=== PATIENT | female | born 1965 | race Caucasian/White ===

== ENCOUNTER → 2018-03-09 14:49 | Outpatient (CLI) | payer MEDICARE, SELFPAY | PROVIDERS: Visit Provider Physician Assistant | DX: R07.9 Chest pain, unspecified (principal); R06.00 Dyspnea, unspecified; I25.10 Atherosclerotic heart disease of native coronary artery without angina pectoris | CPT/HCPCS: 93005 ==

== ENCOUNTER 2020-12-28 19:01 | Emergency (ER) | payer MEDICARE, SELFPAY ==
[2020-12-28 19:01] VITALS: BP 157/67; PULSE 84; RESP 21; TEMP 37.1; O2SAT 93; BMI 53.1
--- NOTE | 2020-12-28 19:02 | HMH.EDGENADL ---
ED Disposition Clinical Impression: Arm pain Qualifiers: Laterality: right Qualified Code(s): M79.601 - Pain in right arm Disposition: Home, Self-Care Condition on Discharge: Good Additional Instructions: Use ice and tylenol. Return if new or worsening symptoms. Referrals: Esthela Parrish APRN [Primary Care Provider] - - Critical Care Critical Care Time: No Attestation: On , the high probability of a clinically significant, sudden or life threatening deterioration of the following system(s) required my full and direct attention, intervention and personal management. The time I documented below is in addition to time spent performing reported procedures but includes the following listed in this critical care notation. Medical Decision Making - Medical Records Medical records reviewed: Yes: I reviewed the patient's medical records. - Miguelito Inquiry Pt receiving controlled substance: No Vital Signs: 12/28/20 19:01 12/28/20 19:06 12/28/20 21:01 Temperature 98.7 F 98.7 F Temperature Source Oral Oral Pulse Rate 82 82 Pulse Rate [Left Radial] 84 Respiratory Rate 21 12 18 Blood Pressure 145/75 H 147/75 H Blood Pressure [Right Arm] 157/67 H Blood Pressure Mean [Right Arm] 97 Blood Pressure Source [Right Arm] Automatic Cuff Blood Pressure Position Sitting Blood Pressure Position [Right Arm] Sitting 02 Sat by Pulse Oximetry 93 L 97 Oxygen Delivery Method Room Air Room Air Room Air Medical Decision Narrative: Patient presents with traumatic right humerus pain. Neurovascular intact distal to injury. Differential includes contusion versus elbow sprain versus bony injury. X-rays of patient's shoulder, humerus, elbow obtained. No obvious bony injury based on my review of x-rays. Patient's pain is at the midshaft of the humerus. Instructed to use Tylenol/ice and ibuprofen with food over the next several days. She will follow-up with her PCP. She agrees. She will return if worsening symptoms. Assessment: Right arm pain status post fall Disposition: Home with follow-up General Adult HPI - General Stated complaint: fall Time Seen by Provider: 12/28/20 19:02 - History of Present Illness HPI narrative: Patient presents after mechanical fall. Patient states she fell onto her right arm. She has a pain to the midshaft of the humerus that is sharp, constant. Not worse with movement. No decreased range of motion elbow/shoulder. This happened 1 hour prior to arrival. No skin changes. No breaks in the skin. No weakness or other symptoms associated. - Related Data Allergies Allergy/AdvReac Type Severity Reaction Status Date / Time povidone-iodine Allergy Mild Verified 01/13/19 21:48 [From BETADINE] soap [From BETADINE] Allergy Mild Verified 01/13/19 21:48 [facility] History - Hepatitis A Screen Attestation statement:: This patient has been screened for Hepatitis A risk factors. - Social History Smoking Status: Current every day smoker Tobacco Type: cigarettes, e-cigarettes # Packs/Day (cigarettes): 1 Alcohol Intake: never Occupational Status: unemployed ROS Obtained: Yes All systems reviewed & no additional complaints Physical Exam - General General appearance: alert, in no apparent distress - Head Head exam: atraumatic, normocephalic - ENT ENT exam: Present: normal exam, normal oropharynx - Chest Chest inspection: Present: normal inspection, symmetric chest wall rise - Respiratory Respiratory exam: Present: normal lung sounds bilaterally. Absent: respiratory distress - Cardiovascular Cardiovascular exam: Present: regular rate, normal rhythm - Abdominal Exam Abdominal exam: Present: soft. Absent: distention - Extremities Exam Extremities exam: Present: normal inspection, full ROM, tenderness (Mild tenderness to palpation right midshaft of the humerus) - Neurological Exam Neurological exam: Present: alert, oriented X3, other (Neurovascular
[2020-12-28 19:06] VITALS: BP 145/75; PULSE 82; RESP 12; O2SAT 97
--- NOTE | 2020-12-28 19:06 | XR_ITS ---
PROCEDURE: XR ELBOW RT MIN 3V CLINICAL INDICATION: R midshaft humerus pain s/p fall Pain COMPARISON: No exams were available for comparison FINDINGS: No fracture or dislocation. No lytic or blastic change. There is normal mineralization. The joint spaces are well-preserved. No significant degenerative/arthritic changes. No erosive changes evident. Other findings:None. IMPRESSION: No acute findings. Dictated by: Kalpesh Booth MD 12/29/2020 05:38 Kalpesh Booth MD in [place] 12/29/2020 05:38
--- NOTE | 2020-12-28 19:06 | XR_ITS ---
PROCEDURE: XR CHEST PORTABLE CLINICAL HISTORY: fall Posttraumatic pain COMPARISON: CR CXR CHEST(2 VIEWS-NOT PORTABLE) from 03/28/2014 CR CXR CHEST(2 VIEWS-NOT PORTABLE) from 09/28/2015 CR CXR2 XR chest AP from 01/13/2019 FINDINGS: Borderline cardiomegaly. Old granulomatous disease. No acute bony abnormalities. IMPRESSION: No acute findings. Dictated by: Kalpesh Booth MD 12/29/2020 05:41 Kalpesh Booth MD in [place] 12/29/2020 05:41
--- NOTE | 2020-12-28 19:06 | XR_ITS ---
PROCEDURE: XR HUMERUS RT CLINICAL INDICATION: R midshaft humerus pain s/p fall Pain COMPARISON: No exams were available for comparison FINDINGS: No fracture or dislocation. No lytic or blastic change. There is normal mineralization. The joint spaces are well-preserved. No significant degenerative/arthritic changes. No erosive changes evident. Other findings:None. IMPRESSION: No acute findings. Dictated by: Kalpesh Booth MD 12/29/2020 05:43 Kalpesh Booth MD in [place] 12/29/2020 05:43
--- NOTE | 2020-12-28 19:06 | XR_ITS ---
PROCEDURE: XR SHOULDER RT MIN 2V CLINICAL INDICATION: R midshaft humerus pain s/p fall Posttraumatic pain COMPARISON: No exams were available for comparison FINDINGS: No fracture or dislocation. No lytic or blastic change. There is normal mineralization. The joint spaces are well-preserved. No significant degenerative/arthritic changes. No erosive changes evident. Other findings:Mild subacromial stenosis IMPRESSION: No acute findings. Dictated by: Kalpesh Booth MD 12/29/2020 05:42 Kalpesh Booth MD in [place] 12/29/2020 05:42
--- NOTE | 2020-12-28 19:07 | XR_ITS ---
PROCEDURE: XR PELVIS 1-2V CLINICAL INDICATION: fall Posttraumatic pain COMPARISON: CR PEL1V XR pelvis 1-2V from 01/13/2019 TECHNIQUE: XR Pelvis AP View FINDINGS: No fracture or dislocation is evident. No significant degenerative change. Numerous metallic coils overlie the lower abdomen and pelvis IMPRESSION: No acute findings. Dictated by: Kalpesh Booth MD 12/29/2020 05:39 Kalpesh Booth MD in [place] 12/29/2020 05:39
[2020-12-28 21:01] VITALS: BP 147/75; PULSE 82; RESP 18; TEMP 37.1
== END 2020-12-28 21:19 | disposition home or self-care (01) ==
PROVIDERS: Emergency Provider Emergency Medicine; PCP Nurse Practitioner Family
DX: M79.601 Pain in right arm (principal); W01.0XXA Fall on same level from slipping, tripping and stumbling without subsequent striking against object, initial encounter; Y92.019 Unspecified place in single-family (private) house as the place of occurrence of the external cause; F17.290 Nicotine dependence, other tobacco product, uncomplicated
CPT/HCPCS: 71045; 72170; 73030; 73060; 73080; 99282

== ENCOUNTER 2021-02-22 15:27 | Emergency (ER) | payer MEDICARE, SELFPAY ==
[2021-02-22 15:30] VITALS: BP 126/85; PULSE 88; RESP 18; O2SAT 94; BMI 54.9
--- NOTE | 2021-02-22 15:46 | XR_ITS ---
PROCEDURE: XR FOOT LT MIN 3V CLINICAL INDICATION: DROPPED O2 TANK ON FOOT COMPARISON: No exams were available for comparison FINDINGS: There is a mildly comminuted intra-articular fracture of the distal phalanx of the 3rd digit with some overlying soft tissue swelling. No other fracture. No dislocation. Some diffuse degenerative changes are present. There is slight displacement of the fracture IMPRESSION: Mildly comminuted and displaced intra-articular fracture of the distal phalanx of the 3rd digit with some overlying soft tissue swelling. Moderate plantar and small posterior calcaneal spurs. Dictated by: Antoni Morales 02/22/2021 17:13 Antoni Morales in [place] 02/22/2021 17:13
--- NOTE | 2021-02-22 15:56 | PC.NURSE ---
PATIENT SENT TO ER PER Frances SHEIKH APRN FOR FURTHER EVALUATION. REPORT GIVEN TO Rocky DE LA CRUZ RN
[2021-02-22 16:20] VITALS: BP 120/57; PULSE 77; O2SAT 97
[2021-02-22 16:21] VITALS: BP 120/54; PULSE 77; RESP 16; TEMP 36.9; O2SAT 98; BMI 54.9
[2021-02-22 16:30] VITALS: PULSE 79; O2SAT 96
--- NOTE | 2021-02-22 16:41 | HMH.EDGENADL ---
ED Disposition Clinical Impression: Open fracture of phalanx of left third toe Qualifiers: Encounter type: initial encounter Qualified Code(s): S92.502B - Displaced unspecified fracture of left lesser toe(s), initial encounter for open fracture Disposition: Home, Self-Care Condition on Discharge: Good Instructions: DI for Toe Fracture Prescriptions: Hydrocod/Acet 5/325 mg [[place] 5/325mg tablet] 1 tab PO Q6HP PRN #10 tab PRN Reason: Moderate Pain Transmission Status: Sent to [facility] # Amoxicillin/Potassium Clav [Amox-Clav 875-125 mg Tablet] 1 tab PO BID #14 tab Transmission Status: Pending to [facility] # Referrals: Esthela Parrish APRN [Primary Care Provider] - Shanel Scott DPM [Staff Physician] - 3 days (Call in morning for appointment) - Critical Care Critical Care Time: No Attestation: On 02/22/21, the high probability of a clinically significant, sudden or life threatening deterioration of the following system(s) required my full and direct attention, intervention and personal management. The time I documented below is in addition to time spent performing reported procedures but includes the following listed in this critical care notation. Medical Decision Making - Medical Records Medical records reviewed: Yes: I reviewed the patient's medical records. - Miguelito Inquiry Pt receiving controlled substance: Yes Miguelito was queried for this patient: No Reason not queried -: Emergent pt cond-no time Risks and benefits of using a controlled substance: were discussed with pt by me Vital Signs: 02/22/21 15:30 02/22/21 16:20 02/22/21 16:21 Temperature 98.4 F Temperature Source Oral Pulse Rate 77 Pulse Rate [Right Brachial] 88 77 Respiratory Rate 18 16 Blood Pressure 120/57 L Blood Pressure [Right Arm] 126/85 120/54 L Blood Pressure Mean [Right Arm] 98 76 Blood Pressure Source [Right Arm] Automatic Cuff Blood Pressure Position [Right Arm] Sitting Sitting 02 Sat by Pulse Oximetry 94 L 97 98 Oxygen Delivery Method Nasal Cannula Nasal Cannula Room Air Nasal Cannula Oxygen Flow Rate (LPM) 2 2 2 02/22/21 16:30 Temperature Temperature Source Pulse Rate 79 Pulse Rate [Right Brachial] Respiratory Rate Blood Pressure Blood Pressure [Right Arm] Blood Pressure Mean [Right Arm] Blood Pressure Source [Right Arm] Blood Pressure Position [Right Arm] 02 Sat by Pulse Oximetry 96 Oxygen Delivery Method Oxygen Flow Rate (LPM) Orders (Tests/Meds): ED MEDICATIONS Generic Name Dose Route Start Last Admin Trade Name Freq PRN Reason Stop Dose Admin Cefazolin Sodium 1 gm 02/22/21 17:48 Cefazolin 1gm Vial IM 02/22/21 17:49 ONCE ONE Protocol Discontinued Medications Generic Name Dose Route Start Last Admin Trade Name Freq PRN Reason Stop Dose Admin Hydrocodone Bitart/Acetaminophen 1 tab 02/22/21 16:17 02/22/21 16:35 Hydrocodone 10mg/Apap 325mg Tab PO 02/22/21 16:18 1 tab ONCE ONE Administration - Radiology Data #1 Image(s): Foot/Toes Image Reviewed: Yes I reviewed the patient's radiology results, Yes I reviewed the patient's radiology image, Yes I have reviewed radiologist's interpretation IMPRESSION: Mildly comminuted and displaced intra-articular fracture of the distal phalanx of the 3rd digit with some overlying soft tissue swelling. Moderate plantar and small posterior calcaneal spurs. - Reevaluation(s) Time: 17:49 Reevaluation #1: On reevaluation, patient is feeling better. We did perform digital block. She has evidence of open comminuted fracture. The nailbed actually appears to be intact. On further exploration laceration is the lateral aspect of the nail. I did thoroughly irrigate the wound. There was some wound debridement. Other than that, I do not believe the patient would benefit from suture repair. I did speak to podiatry and have arranged for urgent follow-up. Patient was
--- NOTE | 2021-02-22 18:10 | PC.NURSE ---
ADAPTIC DSDING APPLIED TO TOE. WALKING SHOE TO LT FOOT
[2021-02-22 18:16] VITALS: BP 124/74; PULSE 74; RESP 16; TEMP 36.6; O2SAT 98
== END 2021-02-22 18:20 | disposition home or self-care (01) ==
LOC: UTC 15:34 → ER 15:59
PROVIDERS: Emergency Provider Nurse Practitioner Family; PCP Nurse Practitioner Family
DX: S92.502B Displaced unspecified fracture of left lesser toe(s), initial encounter for open fracture (principal); W22.8XXA Striking against or struck by other objects, initial encounter; Y92.019 Unspecified place in single-family (private) house as the place of occurrence of the external cause; F17.290 Nicotine dependence, other tobacco product, uncomplicated
CPT/HCPCS: 73630; 96372; 99282

== ENCOUNTER 2021-03-19 14:21 | Emergency (ER) | payer MEDICARE, SELFPAY ==
[2021-03-19 14:25] VITALS: BP 129/61; PULSE 88; RESP 18; TEMP 36.7; O2SAT 94; BMI 43.2
--- NOTE | 2021-03-19 14:36 | HMH.EDUTC ---
[facility] [place] Clinical Impression: Encounter for laboratory testing for COVID-19 virus Disposition: Home, Self-Care Condition on Discharge: Good Instructions: Preventing the Spread of Coronavirus Discharge Instructions Additional Instructions: You were tested for today for COVID19 your test result should be back in the next 24-48 hours, you may call to the [facility] to see if your test results are back in the next 48 hours [phone] [facility] hours are 9am-9pm You was given a handout with instructions for Self Quarantine and Self isolation for while you wait on test results and what to do if they are positive If you are positive the Health Dept will be contacting you also Referrals: Esthela Parrish APRN [Primary Care Provider] - As needed Time of Disposition: 14:36 Medical Decision Making - Miguelito Inquiry Pt receiving controlled substance: No Miguelito was queried for this patient: No Vital Signs: 03/19/21 14:25 03/19/21 14:37 Temperature 98.0 F 98.0 F Temperature Source Temporal Artery Scan Pulse Rate 88 Pulse Rate [Left Brachial] 88 Respiratory Rate 18 18 Blood Pressure 129/61 Blood Pressure [Left Arm] 129/61 Blood Pressure Mean [Left Arm] 83 Blood Pressure Source [Left Arm] Automatic Cuff Blood Pressure Position [Left Arm] Sitting 02 Sat by Pulse Oximetry 94 L Oxygen Delivery Method Room Air [facility] [place] - General Stated complaint: covid test Time Seen by Provider: 03/19/21 14:36 Mode of Arrival: Ambulatory Source of Information: Patient Limitations: No Limitations Description of Symptoms (Recalled from Triage Doc. by RN): COVID TEST HEENT Symptoms (Recalled from RN notes): No Resp Symptoms (Recalled from RN notes): No Skin Symptoms (Recalled from RN notes): No MS Symptoms (Recalled from RN notes): No Functional Status (Recalled from RN notes): WNL - History of Present Illness Provider Complaint: Patient states that she was scheduled for surgery State that she has been tested several times for COVID States that the first test was postive and since then she has had negative test since and wanted to get tested again to make sure that it was negative too - Related Data Home Medications Medication Instructions Recorded Confirmed atenolol 25 mg tablet 25 mg PO tab 02/24/21 02/24/21 bupropion HCl 100 mg tablet mg PO 02/24/21 02/24/21 clonazepam 1 mg tablet 1 mg PO tab 02/24/21 02/24/21 fluticasone furoate 200 INHALATION 02/24/21 02/24/21 mcg-vilanterol 25 mcg/dose inhalation powder isosorbide mononitrate 30 mg mg PO 02/24/21 02/24/21 tablet,extended release 24 hr lamotrigine 150 mg tablet 150 mg PO tab 02/24/21 02/24/21 losartan 25 mg tablet 25 mg PO tab 02/24/21 02/24/21 lurasidone 60 mg tablet 60 mg PO tab 02/24/21 02/24/21 omeprazole 40 mg-sodium 1 cap PO cap 02/24/21 02/24/21 bicarbonate 1.1 gram capsule quetiapine 100 mg tablet 100 mg PO tab 02/24/21 02/24/21 trazodone 100 mg tablet 100 mg PO tab 02/24/21 02/24/21 Previous Rx's Medication Instructions Recorded Amoxicillin/Potassium Clav 1 tab PO BID #14 tab 02/22/21 [Amox-Clav 875-125 mg Tablet] Hydrocod/Acet 5/325 mg [[place] 1 tab PO Q6HP PRN #10 tab 02/22/21 5/325mg tablet] Allergies Allergy/AdvReac Type Severity Reaction Status Date / Time povidone-iodine Allergy Mild Verified 02/24/21 13:22 [From BETADINE] soap [From BETADINE] Allergy Mild Verified 02/24/21 13:22 - Worker's Comp Is this a Worker's Comp case?: No H History - Hepatitis A Screen Drug use history?: No High risk sexual behaviors?: No History of sexually transmitted infection?: No Currently employed?: No Childcare worker?: No Do you have indoor plumbing?: Yes Do you have electricity?: Yes Attestation statement:: This patient has been screened for Hepatitis A risk factors. I have reviewed the patient's past medical history: Yes Medical History: Reports:: Anxiety, Lung Disease Other Surgeries: Yes: Ildefonso
[2021-03-19 14:37] VITALS: BP 129/61; PULSE 88; RESP 18; TEMP 36.7; O2SAT 94
== END 2021-03-19 14:42 | disposition home or self-care (01) ==
PROVIDERS: Emergency Provider Nurse Practitioner; PCP Nurse Practitioner Family
DX: Z20.822 Contact with and (suspected) exposure to COVID-19 (principal); J44.9 Chronic obstructive pulmonary disease, unspecified; F41.9 Anxiety disorder, unspecified; Z79.899 Other long term (current) drug therapy; F17.210 Nicotine dependence, cigarettes, uncomplicated
CPT/HCPCS: G0463; 99202; U0003

== ENCOUNTER → 2021-03-31 13:40 | Outpatient (CLI) | payer MEDICARE, SELFPAY ==
--- NOTE | 2021-03-31 13:53 | XR_ITS ---
PROCEDURE: XR FOOT WT BEARING LT 3V CLINICAL INDICATION: fracture evaluation COMPARISON: CR XR FOOT LT MIN 3V from 02/22/2021 FINDINGS: Again noted is a mildly comminuted fracture of distal phalanx of the 3rd toe with moderate diffuse soft tissue swelling about the mid and distal phalanges. There is a small accessory navicular bone. There is flattening of the plantar arch, calcaneal spurs are again as described previously. IMPRESSION: Stable comminuted fracture distal phalanx 3rd toe, mild pes planus Dictated by: Dr. Alen Cesar MD 03/31/2021 15:29 Dr. Alen Cesar MD in [place] 03/31/2021 15:29
== END ==
LOC: RAD 13:44
PROVIDERS: PCP Nurse Practitioner Family; Visit Provider Podiatrist
DX: S92.912A Unspecified fracture of left toe(s), initial encounter for closed fracture (principal)
CPT/HCPCS: 73630

== ENCOUNTER → 2022-04-13 12:54 | Outpatient (CLI) | payer MEDICARE, SELFPAY ==
[2022-04-13 13:40] VITALS: PULSE 73; PULSE 78
--- NOTE | 2022-04-13 14:35 | CT_ITS ---
FINAL REPORT CLINICAL HISTORY: lung cancer screening Former smoker, quit 4 months ago. smoked 1.5 ppd x 50 years copd, emphysema, cad. no family hx FINDINGS: Low-Dose Chest CT Axial images were obtained from the lung apex to the mid abdomen by computed tomography. Low-dose protocol was utilized. CTDI vol (mGy): 2.90 DLP (mGy-cm): 109.60 There is no axillary adenopathy. There is no hilar or mediastinal adenopathy. The heart is proper size. There is no pericardial or pleural effusion. Limited images of the upper abdomen are unremarkable. Lung window images demonstrate no suspicious infiltrate or nodule. There are mild changes of emphysema with mild pulmonary scarring. There are calcified granulomas in the left lower lobe. There are moderate vascular calcifications. There are postoperative changes from cholecystectomy and from presumed gastric bypass. IMPRESSION: Lung RADS category 1. Recommend 12 month follow-up low-dose chest CT. Reviewed, Interpreted and Dictated by Joel Garcia III, MD Transcribed by Macie Trinidad Authenticated and . [facility]
== END ==
PROVIDERS: PCP Nurse Practitioner Family; Visit Provider Internal Medicine Pulmonary Disease
DX: R06.00 Dyspnea, unspecified (principal); Z87.891 Personal history of nicotine dependence; Z12.2 Encounter for screening for malignant neoplasm of respiratory organs
CPT/HCPCS: 71271; 94060; 94618; 94640; 94727; 94729; 94762

== ENCOUNTER → 2022-05-17 11:41 | Outpatient (CLI) | payer MEDICARE, SELFPAY ==
--- NOTE | 2022-05-17 11:46 | NM_ITS ---
APPROVED REPORT Exam: Nuclear Stress Test Indication: Abnormal EKG, SOB, Obesity, CAD, Hx of LA, CHF Patient Location: Outpatient Stress Tech: Shannan Dodd [place] Tech:Conchis Bardales, ARRT, RT (R)(N) Ht: 5 ft 4 in Wt: 339 lbs Bra Size: 52G HR: 65 bpm BP: 141/61 mmHg BSA: 2.45 m2 TID: 1.59 BMI: 58.1 History: Abnormal EKG, SOB, Obesity, CAD, Hx of LA, CHF Procedure: Patient received a 0.4 mg of intravenous Lexiscan, resting heart rate 65 bpm, resting blood pressure 141/61 mmHg, with Lexiscan maximum heart rate achived was 92 bpm which is Less than 85 % of the maximum predicted heart rate and blood pressure was 141/61 mmHg. With Lexiscan, patient denied any complaint of chest pain. Electrocardiogram Resting electrocardiogram shows sinus rhythm possible inferior infarct age-indeterminate, with Lexiscan there is less than 1.[address] segment depression from the baseline EKG. The EKG portion of the Lexiscan is nondiagnostic. Cardiac Stress and Resting SPECT Images: Cardiac Stress and Resting SPECT images were obtained using technetium 99m Myoview 31.4 mCi stress and 10.12 mCi at rest. Gated SPECT for analysis of segmental wall motion and calculation of the ejection fraction was present. Prone images were not obtained. Cardiac stress and rest SPECT images show uniform myocardial activity without segmental perfusion abnormality, compared to ejection fraction is over 65% with no regional wall motion abnormality, right ventricle is normal size and contractility, however there is transient ischemic dilatation of the left ventricle seen Raising the concerns for presence of balanced ischemia. Conclusion: 1. The EKG portion of the Lexiscan is nondiagnostic. 2. No scintigraphic evidence of reversible ischemia seen, computer derived ejection fraction is over 65% with no regional wall motion abnormality, however there is transient ischemic dilatation of the left ventricle seen, raising the concern for presence of balanced ischemia. 3. Abnormal Lexiscan Myoview study. Electronically signed by : Genaro Freeman MD 05/17/2022 19:55:47
--- NOTE | 2022-05-17 12:37 | CA_ITS ---
APPROVED REPORT EXAM: Comprehensive 2D, Doppler, and color-flow Echocardiogram Stockroom Selector: Meenu Washington, RCS, RVS Ht: 5 ft 4 in Wt: 341lbs BSA: 2.45 BP: 114/78 mmHg Indications: Obesity, COPD, SOB, CAD, Abn EKG Echo Enhancing Agent Comments: Technically limited acoustics with non-intact skin and patient intolerance to exam. Best exam possible. 2D Dimensions IVSd 1.21 cm LVEF (Visual) 69.20 % PWd 1.16 cm LVDd 5.55 cm LVDs 3.37 cm Aortic Root 3.66 cm Left Atrium 3.66 cm LVOT 2.00 cm (M/F) 1.5-2.5 M-Mode Dimensions RVDd 2.58 cm (0.9-2.6) LA Diam 3.86 cm (1.9-4.0) LVDd 5.35 cm (3.5-5.7) Ao Diam 3.81 cm (2.0-3.7) LVDs 3.61 cm (3.5-5.7) IVSd 1.22 cm (0.6-1.1) PWd 0.89 cm (0.6-1.1) EF (Teich) 60.40% EPSs 0.61 cm FS 32.50% EDV (Teich) 138.30 mL ESV (Teich) 54.80 mL LV Diastology E Decel Time 197.00 (160-240 msec) E/A Ratio 0.91 MED E' 9.70 (< 7 cm/sec) MED A' 11.80 cm/s E'/MED E' Ratio 7.53 (>14) LAT E' 8.90 (<10 cm/sec) LAT A' 10.80 cm/s E/LAT E' Ratio 8.20 (>14) Aortic Valve LVOT Max 112.00 (70-110 cm/s) LVOT VTI 27.10 cm AoV Peak Lui. 140.00 (50-130 cm/s) AO Peak GR. 7.90 mmHg AO Mean GR. 4.00 (<5 mmHg) AO VTI 30.38 (18-25 cm) VANGIE (VTI) 2.80 (2.5-4.5 cm2) Mitral Valve MV A Velocity 80.00 (40-130 cm/s) E/A Ratio 0.91 MV Decel. Time 197.00 (160-240 ms) MV PHT 57.00 ms Pulmonary Valve PV Peak Velocity 79.00 (50-150 cm/s) Left Ventricle Technically difficult study because of the patient factors and poor acoustic windows. Left atrium is mildly enlarged, left ventricle is normal size mild concentric left ventricular hypertrophy, estimated ejection fraction 55% with no regional wall motion abnormality in the obtained views. Grade 1 diastolic dysfunction seen without tissue Doppler evidence of raise left atrial pressure. Right Ventricle Right atrium and right ventricle are normal size and contractility. Aortic Valve Aortic valve is grossly normal, there is no aortic stenosis aortic insufficiency. Mitral Valve Mitral valve grossly normal, there is trace mitral regurgitation. Tricuspid Valve Tricuspid grossly normal, there is trace tricuspid regurgitation, tricuspid regurgitation jet velocity is inadequate for calculation of the right ventricular systolic pressure. Pulmonic Valve Pulmonic valve is poorly visualized. Great Vessels Aortic root is normal size. Inferior vena cava is poorly visualized. Pericardium No significant pericardial effusion noted. Conclusion 1. Technically difficult study because of the patient factors and poor acoustic windows. 3. Mildly enlarged left atrium, normal left ventricular size mild concentric left ventricular hypertrophy, estimated ejection fraction 55% with no regional wall motion abnormality, grade 1 diastolic dysfunction seen without tissue Doppler evidence of raise left atrial pressure. 3. Trace mitral and tricuspid regurgitation. 4. No significant pericardial effusion noted. Electronically signed by : Genaro Freeman MD 05/17/2022 19:14:26
--- NOTE | 2022-05-17 13:32 | HMH.ITSHM ---
Current Home Medications as stated by this patient Celia Rivero or front desk representative. []TRAZODONE SPIRONOLACTONE ROSUVASTATIN QUETIAPINE LURASIDENE LOSARTAN ISOSORBIDE IPRATROPIUM FUROSEMIDE BUPROPION BUDESONIDE ATENOLOL ASA ALBUTEROL
--- NOTE | 2022-05-17 14:11 | CA_ITS ---
APPROVED REPORT Exam: Pharmacologic Technologist: Shannan Gannon, Ht: 5 ft 4 in Wt: 341 lbs BSA: 2.45 m2 HR: 61 bpm BP: 141/61 mmHg Indications: SOA, CAD Medical History Medications: Isosorbide,,,,, Aspirin,,,,, Atenolol,,,,, Trazadone,,,,, Losartan,,,,, Albuterol,,,,, BuPROPION,,,,, SpirOnolactone,,,,, Quetiapine,,,,, RoSUVASTATIN,,,,, LUrasidone,,,,, Furosemide,,,,, Stress Test Details Test: LEXISCAN Reason for pharmacologic stress test: physical limitation. HR Resting HR: 65 bpm Max Heart Rate (APMHR): 163.208686 bpm Max HR Achieved: 92 bpm Target HR (85% APMHR): 138.228397 bpm % of APMHR: 56.44 Recovery HR: 74 bpm BP Resting BP: 141/61 mmHg Max BP: 141/61 mmHg Recovery BP: 129.0/64.0 mmHg ECG Resting ECG: NSR, old inferior OR, low voltage QRS Clinical Exercise duration: 04:01 min Highest Stage Achieved: Stress ECG Conclusion Symptoms: SOA, brief stomach discomfort. Arrhythmias/Ectopy: None ST-T Changes: No significant changes. Conclusion: Unremarkable Lexiscan stress. Myoview images reported separately. Electronically signed by : Genaro Freeman MD 05/17/2022 19:53:08
== END ==
LOC: RAD 11:42
PROVIDERS: PCP Nurse Practitioner Family; Visit Provider Nurse Practitioner
DX: I25.10 Atherosclerotic heart disease of native coronary artery without angina pectoris (principal); I50.9 Heart failure, unspecified; R06.00 Dyspnea, unspecified; R94.31 Abnormal electrocardiogram [ECG] [EKG]
CPT/HCPCS: 78452; 93017; 93306; A9502; J2785

== ENCOUNTER → 2022-05-24 10:57 | Outpatient (CLI) | payer MEDICARE, SELFPAY ==
[2022-05-24 11:57] LABS: Basophils % 0.6 % (0.1-2.0); Eosinophils % 0.6 % (0.1-12.0); Hematocrit 47.4 % (37.0-47.0); Hemoglobin 14.9 g/dL (12.2-16.2); Lymphocytes # 1.3 K/mm3 (0.7-4.5); Lymphocytes % 26.1 % (10-50); Mean Corpuscular HGB Conc 31.5 g/dL (31.8-35.4); Mean Corpuscular Hemoglobin 30.8 pg (27.0-31.2); Mean Corpuscular Volume 97.7 fl (81-99); Mean Platelet Volume 8.3 fl (7.4-10.4); Monocytes # 0.4 K/mm3 (0.1-1.0); Neutrophils # 3.4 K/mm3 (1.8-7.8); Neutrophils % 65.6 % (37.0-80.0); Platelet Count 254 K/mm3 (142-424); Red Blood Count 4.85 M/mm3 (4.20-5.40); Red Cell Distribution Width 13.9 % (11.5-17.5); White Blood Count 5.1 K/mm3 (4.8-10.8)
[2022-05-24 13:09] LABS: Chloride 99 mmol/L (98-107); Potassium 4.6 mmoL/L (3.5-5.1); Sodium 140 mmol/L (136-145)
[2022-05-24 13:12] LABS: Blood Urea Nitrogen 8 mg/dl (7-17); Estimated Glomerular Filt Rate 103 ml/min (>60); GFR (African American) 125 ML/MIN (>60)
[2022-05-24 13:13] LABS: Anion Gap 14.6 mEq/L (5-15); Calcium 8.4 mg/dl (8.4-10.2); Carbon Dioxide 31 mmol/L (22.0-30.0); Glucose 91 mg/dl (74-100)
== END ==
PROVIDERS: PCP Nurse Practitioner Family; Visit Provider Physician Assistant
DX: I25.10 Atherosclerotic heart disease of native coronary artery without angina pectoris (principal); I50.9 Heart failure, unspecified; I51.7 Cardiomegaly; R06.00 Dyspnea, unspecified; R94.30 Abnormal result of cardiovascular function study, unspecified; R94.31 Abnormal electrocardiogram [ECG] [EKG]; Z20.822 Contact with and (suspected) exposure to COVID-19
CPT/HCPCS: 36415; 80048; 85025; C9803; U0003; U0005

== ENCOUNTER → 2022-06-09 14:19 | Outpatient (CLI) | payer MEDICARE, SELFPAY | PROVIDERS: PCP Nurse Practitioner Family; Visit Provider Internal Medicine | DX: I25.10 Atherosclerotic heart disease of native coronary artery without angina pectoris (principal); Z01.812 Encounter for preprocedural laboratory examination; Z20.822 Contact with and (suspected) exposure to COVID-19 | CPT/HCPCS: C9803; U0003; U0005 ==

== ENCOUNTER 2022-06-10 08:52 | Day surgery (SDC) | payer MEDICARE, SELFPAY ==
[2022-06-10] VITALS (13 sets, daily range): BP systolic 131–157; BP diastolic 80–95; PULSE 59–87; RESP 13–18; TEMP 36.9; O2SAT 90–96; BMI 58.3
--- NOTE | 2022-06-10 | IR_ITS ---
APPROVED REPORT Patient Location: Outpatient PROCEDURES Right heart catheterization Left heart catheterization Left ventriculogram Selective coronary angiogram INDICATION Abnormal Myoview, Known coronary disease, Pulmonary hypertension, Worsening dyspnea Informed consent was obtained prior to the procedure. COMPLICATIONS None Estimated Blood Loss: Less than 10 mls TECHNIQUE One percent lidocaine was used to anesthetize the right anterior aspect of the right wrist. The right radial artery was accessed via the Seldinger technique and a 6 Thai hydrophilic sheath was placed in the right radial artery. Following this one percent lidocaine was used to anesthetize the right anterior aspect of the right neck. The right internal jugular vein was accessed via the Seldinger technique and a 7 Thai sheath was placed in the right internal jugular vein. Following this an arterial cocktail was administered using 5000U heparin, 2.5 mg verapamil, 1mg Lidocaine and 800mcg nitroglycerin into the right radial sheath. A papa catheter was used to perform left heart catheterization left ventriculogram and selective coronary angiography while a Donie-Silvana catheter was used to perform right heart catheterization. Saturations were obtained in the pulmonary artery and right atrium. At the end the diagnostic angiogram therapeutic heparin was administered giving a therapeutic ACT and the guide catheter was placed in the left main artery followed by a Choice PT extra-support wire. A 3 mm x 26 mm resolute Petr stent was deployed at 20 aroldo reducing the stenosis to 0%. Intracoronary nitroglycerin was then administered and a stenosis was identified distally. A 2.5 x 12 mm resolute Petr stent was deployed at 18 mmHg reducing the stenosis. The balloon was brought back between the 2 stents and deployed at 24 aroldo to post dilate. At the end of the procedure the arterial sheath was removed good hemostasis was achieved using Traclet band. Patient was transferred to the postop holding area in stable condition for venous sheath removal. ANGIOGRAPHIC RESULTS The left main artery Normal The left anterior descending artery Has proximal mild to 10 to 20% stenoses with a mid vessel stent which has a concentric 70% in-stent restenotic lesion The circumflex artery Is nondominant and has 20 and 30% stenoses in the first and second obtuse marginal The right coronary artery Is a large dominant vessel and has severe proximal vascular ectasia followed by what appears to be an angiographically normal area followed by additional severe distal vascular ectasia. The vascular ectasia EXTR appears to extend into the posterior descending artery however there appears to be no focal stenosis greater than 20 The GRUBBS ventriculogram reveals Normal 65% The left ventricular end-diastolic pressure 20 mmHg Right atrial pressure 12 mmHg Pulmonary artery pressure 35/22 mmHg Pulmonary occlusion pressure 20 mmHg Right atrial and pulmonary saturation 85% Aortic saturation 97% Hemoglobin 14.9 Cardiac output 12.6 L/min IMPRESSION Coronary disease as described above Successful stent to the mid LAD severe disease reduced to 0% with 2 drug-eluting stent Mild pulmonary hypertension Elevated cardiac output consistent with diastolic dysfunction hypertensive heart disease PLAN 1. Dual antiplatelet therapy 2. Treatment diastolic dysfunction 3. Risk factor modification 4. Cardiac rehab 5. LDL less than 55 but she at high intensity statin 6. Recommend sleep study Electronically signed by : Darien Flaherty MD 06/10/2022 13:05:35
[2022-06-10 11:57] LABS: CATHL Activated Clotting Time > 400 SEC (74-125); CATHL Venous O2 SAT 85.3 % (75-80)
--- NOTE | 2022-06-10 14:12 | P.CONPHA_ITS ---
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 -MED MATAMOROS, DAVIDD
== END 2022-06-10 15:00 | disposition home or self-care (01) ==
PROVIDERS: PCP Nurse Practitioner Family; Visit Provider Internal Medicine
DX: I27.20 Pulmonary hypertension, unspecified (principal); R94.39 Abnormal result of other cardiovascular function study; I11.0 Hypertensive heart disease with heart failure; I77.1 Stricture of artery; Z79.899 Other long term (current) drug therapy; F17.210 Nicotine dependence, cigarettes, uncomplicated; I50.33 Acute on chronic diastolic (congestive) heart failure; T82.855A Stenosis of coronary artery stent, initial encounter; Y83.1 Surgical operation with implant of artificial internal device as the cause of abnormal reaction of the patient, or of later complication, without mention of misadventure at the time of the procedure; I25.10 Atherosclerotic heart disease of native coronary artery without angina pectoris
CPT/HCPCS: 82810; 85347; 92928; 93460; 99152; 99153; C1725; C1760; C1769; C1876; C1894; C9600; J1644; Q9967

== ENCOUNTER → 2022-07-05 14:13 | Outpatient (CLI) | payer MEDICARE, SELFPAY | LOC: SL 14:15 | PROVIDERS: PCP Nurse Practitioner Family; Visit Provider Nurse Practitioner Family | DX: G47.33 Obstructive sleep apnea (adult) (pediatric) (principal); R06.09 Other forms of dyspnea; G47.9 Sleep disorder, unspecified; R40.0 Somnolence; G47.36 Sleep related hypoventilation in conditions classified elsewhere | CPT/HCPCS: G0399 ==

== ENCOUNTER → 2022-07-22 11:45 | Outpatient (CLI) | payer MEDICARE, SELFPAY ==
--- NOTE | 2022-07-22 11:57 | XR_ITS ---
FINAL REPORT TECHNIQUE: Chest PA & Lateral CLINICAL HISTORY: cough COMPARISON: December 2020 FINDINGS: 2 views of the chest were performed. The heart size is normal. The mediastinum is within normal limits. There are chronic changes in the lung bases. There is no acute cardiopulmonary process. There are no pleural effusions. There is no pneumothorax. The bony thorax appears intact. IMPRESSION: No acute cardiopulmonary process. Reviewed, Interpreted and Dictated by Edin Servin MD Transcribed by Bakari Riggins Authenticated and [facility]
[2022-07-22 12:35] LABS: Chloride 98 mmol/L (98-107); Sodium 141 mmol/L (136-145)
[2022-07-22 12:36] LABS: Potassium 3.7 mmoL/L (3.5-5.1)
[2022-07-22 12:38] LABS: Anion Gap 15.7 mEq/L (5-15); Blood Urea Nitrogen 11 mg/dl (7-17); Carbon Dioxide 31 mmol/L (22.0-30.0); Estimated Glomerular Filt Rate 86 ml/min (>60); GFR (African American) 104 ML/MIN (>60)
[2022-07-22 12:39] LABS: Calcium 9.7 mg/dl (8.4-10.2); Glucose 117 mg/dl (74-100)
== END ==
LOC: LAB 11:47
PROVIDERS: PCP Nurse Practitioner Family; Visit Provider Nurse Practitioner Family
DX: E66.01 Morbid (severe) obesity due to excess calories (principal); I25.118 Atherosclerotic heart disease of native coronary artery with other forms of angina pectoris; J44.9 Chronic obstructive pulmonary disease, unspecified; R06.09 Other forms of dyspnea; R94.31 Abnormal electrocardiogram [ECG] [EKG]; Z68.43 Body mass index [BMI] 50.0-59.9, adult; R05.9 Cough, unspecified
CPT/HCPCS: 36415; 71046; 80048

== ENCOUNTER → 2022-12-15 11:27 | Outpatient (CLI) | payer MEDICARE, SELFPAY ==
[2022-12-15 11:55] LABS: Basophils # 0.1 K/mm3 (0-0.2); Basophils % 1.3 % (0.1-2.0); Eosinophils # 0.1 K/mm3 (0.0-0.4); Eosinophils % 1.8 % (0.1-12.0); Hemoglobin 14.6 g/dL (12.2-16.2); Lymphocytes # 1.3 K/mm3 (0.7-4.5); Lymphocytes % 18.6 % (10-50); Mean Corpuscular HGB Conc 32.5 g/dL (31.8-35.4); Mean Corpuscular Hemoglobin 30.6 pg (27.0-31.2); Mean Corpuscular Volume 94.3 fl (81-99); Monocytes # 0.5 K/mm3 (0.1-1.0); Monocytes % 6.6 % (1.7-9.3); Neutrophils % 71.7 % (37.0-80.0); Platelet Count 251 K/mm3 (142-424); Red Blood Count 4.77 M/mm3 (4.20-5.40)
[2022-12-15 11:59] LABS: Chloride 99 mmol/L (98-107); Potassium 4.3 mmoL/L (3.5-5.1); Sodium 138 mmol/L (136-145)
[2022-12-15 12:01] LABS: Blood Urea Nitrogen 13 mg/dl (7-17); Estimated Glomerular Filt Rate 74 ml/min (>60); GFR (African American) 89 ML/MIN (>60)
[2022-12-15 12:02] LABS: Alanine Aminotransferase 50 U/L (12-78); Albumin Level 4.7 g/dl (3.5-5.0); Alkaline Phosphatase 64 U/L (38-126); Anion Gap 12.3 mEq/L (5-15); Aspartate Amino Transferase 69 U/L (14-36); Bilirubin,Direct 0.1 mg/dl (0.0-0.4); Bilirubin,Indirect 0.3 mg/dL (0.0-0.9); Bilirubin,Total 0.4 mg/dl (0.2-1.3); Bilirubin,Unconjugated 0.3 mg/dL (0.0-1.1); Calcium 9.1 mg/dl (8.4-10.2); Carbon Dioxide 31 mmol/L (22.0-30.0); Chol/HDL Ratio 3.1 (1-3.5); Cholesterol 150 mg/dl (140-200); Glucose 104 mg/dl (74-100); HDL Cholesterol 49 mg/dl (40-60); Total Protein,Serum 7.8 g/dl (6.3-8.2); Triglycerides 113 mg/dl (30-150); VLDL Cholesterol 23 mg/dL (0-40)
[2022-12-15 12:12] LABS: NT Pro Brain Natriuretic Pep. 48.1 pg/mL (0-125)
[2022-12-15 12:15] LABS: Troponin I < 0.01 ng/ml (0.00-0.034)
[2022-12-15 12:35] LABS: Free T4 (Free Thyroxine) 1.03 ng/dl (0.78-2.19)
== END ==
PROVIDERS: PCP Nurse Practitioner Family; Visit Provider Physician Assistant
DX: E66.01 Morbid (severe) obesity due to excess calories (principal); E78.2 Mixed hyperlipidemia; I25.10 Atherosclerotic heart disease of native coronary artery without angina pectoris; I27.20 Pulmonary hypertension, unspecified; I50.33 Acute on chronic diastolic (congestive) heart failure; J44.9 Chronic obstructive pulmonary disease, unspecified; R06.02 Shortness of breath; R06.09 Other forms of dyspnea; R07.9 Chest pain, unspecified; R94.31 Abnormal electrocardiogram [ECG] [EKG]; Z68.43 Body mass index [BMI] 50.0-59.9, adult; Z72.0 Tobacco use; I63.9 Cerebral infarction, unspecified; E11.9 Type 2 diabetes mellitus without complications
CPT/HCPCS: 36415; 80048; 80061; 80076; 83880; 84439; 84443; 84484; 85025

== ENCOUNTER → 2023-01-12 06:45 | Outpatient (CLI) | payer MEDICARE, SELFPAY | PROVIDERS: PCP Nurse Practitioner Family; Visit Provider Physician Assistant | DX: E66.01 Morbid (severe) obesity due to excess calories (principal); E78.2 Mixed hyperlipidemia; G47.33 Obstructive sleep apnea (adult) (pediatric); I25.10 Atherosclerotic heart disease of native coronary artery without angina pectoris; I27.20 Pulmonary hypertension, unspecified; I50.33 Acute on chronic diastolic (congestive) heart failure; J44.9 Chronic obstructive pulmonary disease, unspecified; R06.02 Shortness of breath; R06.09 Other forms of dyspnea; R07.9 Chest pain, unspecified; R94.31 Abnormal electrocardiogram [ECG] [EKG]; Z68.43 Body mass index [BMI] 50.0-59.9, adult; Z72.0 Tobacco use | CPT/HCPCS: 78452; 93017; 93306; A9502; J2785 ==

== ENCOUNTER 2023-01-22 18:58 | Emergency (ER) | payer MEDICARE, SELFPAY ==
[2023-01-22 18:59] VITALS: BP 131/88; PULSE 70; RESP 22; TEMP 37.3; O2SAT 96; BMI 56.6
--- NOTE | 2023-01-22 19:23 | ECG_ITS ---
APPROVED REPORT Exam: Resting ECG HR:67 bpm ECG Measurements Heart Rate 67 AXES MS 151 P 28 QRSd 90 QRS 9 QT 434 T 28 QTc 449 Conclusion SINUS RHYTHM WITH SINUS ARRHYTHMIA MINIMAL ST DEPRESSION [0.025+ mV ST DEPRESSION] BORDERLINE ECG UNCONFIRMED REPORT Electronically signed by : Kobe Steele MD 01/23/2023 21:16:17
[2023-01-22 19:27] VITALS: BMI 56.6
--- NOTE | 2023-01-22 19:27 | XR_ITS ---
PROCEDURE INFORMATION: Exam: XR Chest Exam date and time: 01/22/2023 7:57 PM Age: 57 years old Clinical indication: Shortness of breath; Prior surgery; Surgery date: 6+ months; Surgery type: 6 cardiac stents; Additional info: SOA TECHNIQUE: Imaging protocol: Radiologic exam of the chest. Views: 1 view. COMPARISON: CR XR CHEST 2V 07/22/2022 12:11 PM FINDINGS: Lungs: Lungs are hypoinflated. Pleural spaces: No pleural effusion. No pneumothorax. Heart/Mediastinum: Mild cardiomegaly. Bones/joints: No displaced fracture; however evaluation is limited. IMPRESSION: 1. Mild cardiomegaly. 2. No focal pneumonia.
[2023-01-22 19:31] VITALS: BP 115/47; PULSE 76; O2SAT 97
[2023-01-22 19:37] LABS: Basophils # 0.1 K/mm3 (0-0.2); Basophils % 0.6 % (0.1-2.0); Eosinophils # 0.1 K/mm3 (0.0-0.4); Eosinophils % 1.2 % (0.1-12.0); Hematocrit 42.2 % (37.0-47.0); Hemoglobin 14.1 g/dL (12.2-16.2); Lymphocytes # 1.8 K/mm3 (0.7-4.5); Lymphocytes % 24.2 % (10-50); Mean Corpuscular HGB Conc 33.5 g/dL (31.8-35.4); Mean Corpuscular Hemoglobin 30.9 pg (27.0-31.2); Mean Corpuscular Volume 92.2 fl (81-99); Mean Platelet Volume 7.7 fl (7.4-10.4); Monocytes # 0.5 K/mm3 (0.1-1.0); Monocytes % 6.7 % (1.7-9.3); Neutrophils % 67.3 % (37.0-80.0); Platelet Count 285 K/mm3 (142-424); Red Blood Count 4.58 M/mm3 (4.20-5.40); White Blood Count 7.5 K/mm3 (4.8-10.8)
[2023-01-22 19:42] LABS: Alanine Aminotransferase 50 U/L (12-78); Albumin Level 4.4 g/dl (3.5-5.0); Albumin/Globulin Ratio 1.4 (1.1-1.8); Alkaline Phosphatase 61 U/L (38-126); Anion Gap 16.8 mEq/L (5-15); Aspartate Amino Transferase 59 U/L (14-36); Bilirubin,Total 0.5 mg/dl (0.2-1.3); Blood Urea Nitrogen 10 mg/dl (7-17); Calcium 8.7 mg/dl (8.4-10.2); Carbon Dioxide 30 mmol/L (22.0-30.0); Chloride 95 mmol/L (98-107); Creatinine Clearance Estimated 66 mL/min (50-200); Estimated Glomerular Filt Rate 74 ml/min (>60); GFR (African American) 89 ML/MIN (>60); Globulin 3.2 g/dL (1.3-3.2); Glucose 106 mg/dl (74-100); Potassium 3.8 mmoL/L (3.5-5.1); Sodium 138 mmol/L (136-145); Total Protein,Serum 7.6 g/dl (6.3-8.2)
[2023-01-22 19:48] LABS: C-Reactive Protein 3.2 mg/L (0-4)
[2023-01-22 19:57] LABS: NT Pro Brain Natriuretic Pep. 20.9 pg/mL (0-125)
[2023-01-22 19:58] LABS: Coronavirus 19, PCR Not Detected (NotDetected); Influenza A, PCR Not Detected (NotDetected); Influenza B, PCR Not Detected (NotDetected)
[2023-01-22 19:59] LABS: Troponin I < 0.01 ng/ml (0.00-0.034)
[2023-01-22 20:01] LABS: Procalcitonin 0.066 ng/mL (0.0-2.0)
[2023-01-22 20:10] LABS: Erythrocyte Sedimentation Rate 23 mm/hr (0-30)
--- NOTE | 2023-01-22 20:21 | HMH.EDSOB ---
Discharge Plan Disposition Patient Disposition: Home, Self-Care Prescriptions Prescriptions: No Action bupropion HCl 100 mg tablet 300 mg PO ONCE atenolol 25 mg tablet 25 mg PO DAILY isosorbide mononitrate 30 mg tablet extended release 24 hr 30 mg PO DAILY losartan 25 mg tablet 25 mg PO DAILY quetiapine 100 mg tablet 100 mg PO HS lurasidone 60 mg tablet 60 mg PO HS trazodone 100 mg tablet 100 mg PO HS rosuvastatin 40 mg tablet 40 mg PO DAILY aspirin [Adult Low Dose Aspirin] 81 mg tablet,delayed release (DR/EC) 81 mg PO DAILY albuterol sulfate 90 mcg/actuation HFA aerosol inhaler 2 inh IH Q6H PRN (Reason: shortness of breath or wheezing) 90 Days Qty: 8.5 3RF ipratropium-albuterol 0.5 mg-3 mg(2.5 mg base)/3 mL solution for nebulization 3 ml IH QID PRN (Reason: shortness of breath or wheezing) 90 Days Qty: 360 3RF spironolactone 25 mg tablet 25 mg PO DAILY nitroglycerin 0.4 mg tablet, sublingual 0.4 mg sublingual ONCE PRN (Reason: Chest Pain) omeprazole-sodium bicarbonate 40-1.1 mg-gram capsule 1 cap PO DAILY magnesium 250 mg tablet 250 mg PO DAILY potassium chloride 20 mEq tablet extended release 20 meq PO DAILY pregabalin 75 mg capsule 75 mg PO HS ondansetron 8 mg tablet,disintegrating 8 mg PO Q8 PRN (Reason: Vomiting) furosemide [Lasix] 40 mg tablet 40 mg PO DAILY budesonide-formoterol [Symbicort] 160-4.5 mcg/actuation HFA aerosol inhaler 2 puff inhalation BID Brilinta 90 mg tablet 90 mg PO BID Referrals Follow up/Referrals: Esthela Parrish APRN [Primary Care Provider] - See instructions Clinical Impressions Clinical Impression: Dyspnea, CAD (coronary atherosclerotic disease), Diastolic dysfunction, COPD (chronic obstructive pulmonary disease) Instructions Patient Instructions: DI for Shortness of Breath Discharge ED Provider: Tash (ED)Jonathon Resp/SOB HPI General Chief Complaint: Shortness of Breath/Dyspnea Stated Complaint: legs and feet swelling Time Seen by Provider: 01/22/23 20:21 Mode of Arrival: Wheelchair Source of Information: Patient, Spouse and Medical Record Limitations: No Limitations Description of Symptoms (Recalled from ER Triage Doc. by RN): pt c/o increasing bilateral leg swelling even after extra dose of lasix, and SOA on activity History of Present Illness pt to have heart cath in am - pt with more lower ext swelling and inc sob - no chest pain MD Complaint: shortness of breath Onset (ago): day(s) Severity: moderate Known history of: COPD, congestive heart failure and other (cad) Treatment prior to arrival: none Related Data Home oxygen amount: 2 liters Home Medications Medication Instructions Recorded Confirmed aspirin 81 mg tablet,delayed 81 mg PO DAILY Blood thinner 02/09/22 01/22/23 release (Adult Low Dose Aspirin) bupropion HCl 100 mg tablet 300 mg PO ONCE Depression 04/28/22 01/22/23 spironolactone 25 mg tablet 25 mg PO DAILY Fluid 04/28/22 01/22/23 nitroglycerin 0.4 mg sublingual 0.4 mg sublingual ONCE PRN Chest 05/20/22 01/22/23 tablet Pain omeprazole 40 mg-sodium 1 cap PO DAILY gerd 05/20/22 01/22/23 bicarbonate 1.1 gram capsule magnesium 250 mg tablet 250 mg PO DAILY Supplement 07/13/22 01/22/23 potassium chloride 20 mEq 20 meq PO DAILY Supplement 07/13/22 01/22/23 tablet,extended release atenolol 25 mg tablet 25 mg PO DAILY High blood pressure 07/20/22 01/22/23 isosorbide mononitrate 30 mg 30 mg PO DAILY High blood pressure 07/20/22 01/22/23 tablet,extended release 24 hr losartan 25 mg tablet 25 mg PO DAILY High blood pressure 07/20/22 01/22/23 lurasidone 60 mg tablet 60 mg PO HS . 07/20/22 01/22/23 quetiapine 100 mg tablet 100 mg PO HS sleep 07/20/22 01/22/23 rosuvastatin 40 mg tablet 40 mg PO DAILY high chol 07/20/22 01/22/23 trazodone 100 mg tablet 100 mg PO HS sleep 07/20/22 01/22/23 ondansetron 8 mg disintegra
--- NOTE | 2023-01-22 20:22 | CT_ITS ---
PROCEDURE INFORMATION: Exam: CTA Chest With Contrast Exam date and time: 01/22/2023 8:35 PM Age: 57 years old Clinical indication: Shortness of breath; Additional info: SOA TECHNIQUE: Imaging protocol: Computed tomographic angiography of the chest with contrast. 3D rendering (Not supervised by radiologist): MIP and/or 3D reconstructed images were created by the technologist. Radiation optimization: All CT scans at this facility use at least one of these dose optimization techniques: automated exposure control; mA and/or kV adjustment per patient size (includes targeted exams where dose is matched to clinical indication); or iterative reconstruction. Contrast material: ISOVUE; Contrast volume: 70 ml; Contrast route: INTRAVENOUS (IV); REPORTING DATA: Count of CT and Cardiac NM exams in prior 12 months: This patient has received 2 known CTs and 0 known cardiac nuclear medicine studies in the 12 months prior to the current study. COMPARISON: CT LUNG SCREENING 04/13/2022 2:42 PM FINDINGS: Pulmonary arteries: Normal. No pulmonary emboli. Aorta: No aortic aneurysm. No aortic dissection. Thyroid: The thyroid gland is normal. Lungs: Scattered calcified pulmonary granulomas. Linear radiopacities within the bilateral lower lobes likely represent atelectasis versus scarring. Centrilobular emphysema. Pleural spaces: No pneumothorax. No pleural effusion. Heart: No cardiomegaly. No pericardial effusion. Coronary arteries: Severe burden coronary artery calcifications. Lymph nodes: Partially calcified lymph nodes. Stomach and bowel: Postsurgical changes consistent with gastric bypass. Bones/joints: Multilevel degenerative type changes of the spine. No acute osseous abnormality. Soft tissues: Unremarkable. IMPRESSION: 1. No pulmonary embolism. 2. No focal pneumonia. 3. Other findings as above. COMMENTS: In the absence of a history or active diagnosis of lung cancer, it is recommended that this patient with emphysema be evaluated for enrollment in a low dose CT lung cancer screening program.
[2023-01-22 21:22] VITALS: BP 120/79; PULSE 72; RESP 22; TEMP 36.8; O2SAT 96
--- NOTE | 2023-01-22 21:29 | PC.NURSE ---
Dr. Bianchi at
== END 2023-01-22 21:33 | disposition home or self-care (01) ==
PROVIDERS: Emergency Provider Emergency Medicine; PCP Nurse Practitioner Family
DX: J44.9 Chronic obstructive pulmonary disease, unspecified (principal); R06.02 Shortness of breath; R22.43 Localized swelling, mass and lump, lower limb, bilateral; Z87.891 Personal history of nicotine dependence
CPT/HCPCS: 71045; 71275; 80053; 83880; 84145; 84484; 85025; 85651; 86140; 87635; 87636; 93005; 96374; 99285; C9803; Q9967; U0003; U0005

== ENCOUNTER 2023-01-23 09:07 | Day surgery (SDC) | payer MEDICARE, SELFPAY ==
[2023-01-23] VITALS (11 sets, daily range): BP systolic 127–153; BP diastolic 74–86; PULSE 61–89; RESP 15–20; O2SAT 93–98; BMI 56.2
--- NOTE | 2023-01-23 | IR_ITS ---
APPROVED REPORT Patient Location: Outpatient Vegetable Thinner: KATE Hart RT (R) PROCEDURES Right heart catheterization Left heart catheterization Left ventriculogram Selective coronary angiogram Drug-eluting stent deployment to the mid LAD INDICATION Accelerated angina pectoris, Edge stent stenosis, Coronary artery disease, Suspect pulmonary hypertension Informed consent was obtained prior to the procedure. COMPLICATIONS None Estimated Blood Loss: Less than 10 ml TECHNIQUE One percent lidocaine was used to anesthetize the right anterior aspect of the neck. A physician specialist needle was used to identify the right internal jugular vein. Following this a larger cannulation needle was used to cannulate the right internal jugular vein and a wire was passed into the vein. Prior to the 7 Japanese sheath being inserted the wire was confirmed under fluoroscopic guidance to be in the inferior vena cava. A 7 Japanese sheath was introduced and a [place]-Silvana catheter was floated using hemodynamic waveforms in the pulmonary artery, right ventricle , and right atrium. Saturations were obtained in the pulmonary artery and the right atrium. At the end of the procedure the patient was transferred to the postop holding area in stable condition for sheath removal. One percent lidocaine used to anesthetize the right anterior aspect of the wrist. The right radial artery was accessed via the Seldinger technique. A 6 Japanese sheath was placed in the right radial artery. 150 mg magnesium sulfate, 800 mcg of nitroglycerin, 1mg Lidocaine and 5000 U Heparin were given through the arterial sheath. The papa catheter was also used to perform left heart catheterization, left ventriculogram and selective coronary angiogram. At the end of the procedure the sheath was removed good hemostasis was achieved using Traclet band, patient was transferred to the postop holding area in stable condition. ANGIOGRAPHIC RESULTS The left main artery Normal The left anterior descending artery Has proximal and mid vessel 10 to 20% stenosis with a focal 90% and stent stenosis. The stent itself is widely patent with excellent distal transitioning The circumflex artery Is nondominant and has mild luminal irregularities The right coronary artery Dominant with diffuse moderate to severe vascular ectasia. No stenosis is greater than 30% throughout The GRUBBS ventriculogram reveals Normal 65% The left ventricular end-diastolic pressure Less than 10 mmHg Right atrial pressure 5 mmHg Right ventricular pressure 20/10 mmHg Pulmonary artery occlusion pressure 7 mmHg Hemoglobin 14 Right atrial saturation 78% Pulmonary artery saturation 79% Aortic saturation 96% Cardiac index 3.9 Cardiac output 9.3 IMPRESSION Normal intracardiac pulmonary filling pressures Severe edge stent restenosis involving the mid LAD Successful stenting the mid LAD severe to critical disease reduced to 0% with 1 drug-eluting stent Normal ejection fraction Normal LVEDP PLAN 1. Dual antiplatelet therapy 2. LDL less than 55 to be achieved with high intensity statin 3. Avoidance of tobacco products 4. Risk factor modification 5. Cardiac rehabilitation Electronically signed by : Darien Flaherty MD 01/23/2023 11:16:41
[2023-01-23 11:32] LABS: CATHL Activated Clotting Time 284 SEC (74-125); CATHL Venous O2 SAT 78.5 % (75-80)
--- NOTE | 2023-01-23 14:25 | P.CONPHA_ITS ---
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
== END 2023-01-23 14:32 | disposition home or self-care (01) ==
PROVIDERS: PCP Nurse Practitioner Family; Visit Provider Internal Medicine
DX: I27.20 Pulmonary hypertension, unspecified (principal); R06.02 Shortness of breath; Z79.899 Other long term (current) drug therapy; I11.0 Hypertensive heart disease with heart failure; I25.118 Atherosclerotic heart disease of native coronary artery with other forms of angina pectoris; T82.855A Stenosis of coronary artery stent, initial encounter; J96.11 Chronic respiratory failure with hypoxia; E66.01 Morbid (severe) obesity due to excess calories; Z68.43 Body mass index [BMI] 50.0-59.9, adult; I50.33 Acute on chronic diastolic (congestive) heart failure
CPT/HCPCS: 82810; 85347; 92928; 93460; 99152; 99153; C1725; C1769; C1876; C1894; C9600; J1644; Q9967

== ENCOUNTER 2023-01-30 10:10 | Outpatient (RCR) | payer MEDICARE, SELFPAY | END 2023-03-15 11:00 | disposition home or self-care (01) | LOC: PT 10:10 | PROVIDERS: Visit Provider Internal Medicine | DX: I25.10 Atherosclerotic heart disease of native coronary artery without angina pectoris (principal); Z95.5 Presence of coronary angioplasty implant and graft | CPT/HCPCS: 93798 ==

== ENCOUNTER 2023-02-13 11:11 | Emergency (ER) | payer MEDICARE, OTHER, SELFPAY ==
[2023-02-13] VITALS (12 sets, daily range): BP systolic 107–129; BP diastolic 55–83; PULSE 68–83; RESP 17–20; TEMP 36.8–37; O2SAT 94–97; BMI 56.6
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
--- NOTE | 2023-02-13 11:16 | PC.NURSE ---
pt in radiology
[2023-02-13 11:46] LABS: Basophils % 0.6 % (0.1-2.0); Eosinophils # 0.1 K/mm3 (0.0-0.4); Eosinophils % 1.7 % (0.1-12.0); Hematocrit 41.8 % (37.0-47.0); Hemoglobin 13.8 g/dL (12.2-16.2); Lymphocytes # 0.9 K/mm3 (0.7-4.5); Lymphocytes % 15.4 % (10-50); Mean Corpuscular HGB Conc 33.1 g/dL (31.8-35.4); Mean Corpuscular Hemoglobin 30.6 pg (27.0-31.2); Mean Corpuscular Volume 92.6 fl (81-99); Mean Platelet Volume 7.9 fl (7.4-10.4); Monocytes # 0.4 K/mm3 (0.1-1.0); Neutrophils # 4.5 K/mm3 (1.8-7.8); Neutrophils % 76.3 % (37.0-80.0); Platelet Count 230 K/mm3 (142-424); Red Blood Count 4.52 M/mm3 (4.20-5.40); Red Cell Distribution Width 13.3 % (11.5-17.5); White Blood Count 5.9 K/mm3 (4.8-10.8)
[2023-02-13 11:48] LABS: Chloride 98 mmol/L (98-107); Potassium 3.6 mmoL/L (3.5-5.1); Sodium 138 mmol/L (136-145)
[2023-02-13 11:51] LABS: Anion Gap 11.6 mEq/L (5-15); Blood Urea Nitrogen 7 mg/dl (7-17); Carbon Dioxide 32 mmol/L (22.0-30.0); Creatinine Clearance Estimated 66 mL/min (50-200); Estimated Glomerular Filt Rate 74 ml/min (>60); GFR (African American) 89 ML/MIN (>60)
[2023-02-13 11:52] LABS: Calcium 8.9 mg/dl (8.4-10.2); Glucose 113 mg/dl (74-100)
--- NOTE | 2023-02-13 12:10 | PC.NURSE ---
contacted rad to check on status of CT results-states in reading status
--- NOTE | 2023-02-13 12:42 | PC.NURSE ---
contacted rad staff r/t ct/xray results-states some preliminaries are available they are sending them down
== END 2023-02-13 15:43 | disposition home or self-care (01) ==
PROVIDERS: Emergency Provider Emergency Medicine; PCP Nurse Practitioner Family
DX: S83.92XA Sprain of unspecified site of left knee, initial encounter (principal); M25.532 Pain in left wrist; M25.522 Pain in left elbow; R51.9 Headache, unspecified; I11.0 Hypertensive heart disease with heart failure; I50.30 Unspecified diastolic (congestive) heart failure; J44.9 Chronic obstructive pulmonary disease, unspecified; W19.XXXA Unspecified fall, initial encounter
CPT/HCPCS: 70450; 72125; 73070; 73110; 73562; 80048; 85025; 99284; 99285

== ENCOUNTER → 2023-03-03 14:05 | Outpatient (CLI) | payer MEDICARE, SELFPAY ==
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
== END ==
LOC: RAD 14:06
PROVIDERS: PCP Nurse Practitioner Family; Visit Provider Nurse Practitioner
DX: M25.562 Pain in left knee (principal)
CPT/HCPCS: 73721

== ENCOUNTER 2023-04-27 13:00 | Outpatient (RCR) | payer MEDICARE, SELFPAY ==
--- NOTE | 2023-03-21 12:00 | HMH.PTOPWND ---
Rehab Outpt Wound Evaluation Rehab OP Wound Evaluation Start: 03/21/23 11:48 Freq: Status: Active Protocol: Document 03/21/23 11:48 RYDER (Rec: 03/21/23 12:00 RYDER [id number]) E-signed By Marco Cornell, PT Subjective/History History History This is the initial PT eval for shakira Rivero, 57 yowf who presents with c/o B LE edema for -12 yrs, with L much worse over the past 6 mos. She reports insidious onset of new symptoms in the L LE. She reports intermittent pain in the L lower leg, but no numbness. She reports she is prescribed 2 different diuretics. She has PMH of CAD with 5 stents, Emphysema requiring 2 L/min O2 via NC at all times, CCY, partial colectomy, NASIR, abdominal hernia repair x 3. Subjective Subjective Currently no pain, at worst 8/ 10 sharp/shooting pains. 1+ pitting edema noted in B lower legs this am. 2/4 TTP noted to L lower leg. Anterior L amador has an area of possible hemosiderin staining vs erythema. Lymphedema Eval Classification of Lymphedema Secondary Lymphedema Yes Stemmer's sign Stemmer's Sign yes Stage of Lymphedema Lymphedema stages Stage I (Pitting edema, reduces w/ elevation, no fibrosis) Skin Changes Dry Skin Yes Redness Yes Brittle Uneven Nails Yes Discoloration of Skin Yes Other Changes Yes Pain Scale Pain Scale (0-10) 8 Affected Extremities Areas Affected by Lymphedema/Edema Right Lower Extremity,Left Lower Extremity Manual Lymphatic Drainage Treatment Area MLD Treatment Area Right Lower Extremity,Left Lower Extremity Wound Problems/Impairments Impairments Problems/Impairmments Palpation Tenderness,Impaired Endurance,Impaired Walking, Impaired Standing,Impaired Household Care,Impaired Recreational Activities, Increased Edema,Lymphedema Present,Subjective C/O Pain, Impaired Self Care/Self Management Prognosis Rehab Potential Good Clinical Impression Consistent with Diagnosis Yes Short Term Goals Number of Weeks 2 Decreased Palpation Tenderness Yes: 1/4 L lower leg Decrease Edema Yes: no pitting edema Decrease Subjective C/O Pain Yes: 6/10 at worst Patient to Understand Lymphedema Yes Treatment and Exercises Decrease Girth Measurments by (cm) Yes: B LE total by 5 cm ea Vice President Of Finance Goals Number of Weeks 4 Decreased Palpation Tenderness Yes: 0/4 L Lower leg Improve Ability For Household Care Yes Decrease Lymphedema Yes: no fibrotic edema Decrease Subjective C/O Pain Yes: 3/10 at worst Patient to be Ind w/ HEP Yes Patient to be Ind w/ [place] Yes Compression Garments Patient to Adhere Lymphedema Precautions Yes Decrease Girth Measurments by (cm) Yes: B LE total by 15 cm ea Outpatient Therapy Plan of Care Treatment Plan May Include Therapeutic Exercise Including Home Yes Exercise Program Manual Therapy Techniques Yes Neuromuscular Re-education Yes Therapeutic Activities to Return to Yes Previous Functional/Work Level ADL/Self Care Education Yes Orthotics/Bracing/Splinting Yes Vasopneumatic Compression Pump Yes Massage Yes Manual Lymphatic Drainage Yes Eval/Re-Eval Yes Frequency Times per week 2 Duration Number of Weeks 4 Addendums This patient is a candidate for social No or vocational rehab? Patient/Guardian verbally acknowledges Yes understanding of treatment program and consents to further treatment? Patient/Guardian verbally acknowledges Yes understanding of diagnosis, prognosis and goals for treatment? G -code Required No Eval Complexity PT Charges 83051 - High Complexity PHYSICIAN CERTIFICATION: I certify the specified therapy services for Shakira Rivero are required, authorized, and reviewed every 30 days.
== END 2023-04-27 14:20 | disposition home or self-care (01) ==
LOC: PT 13:00
PROVIDERS: PCP Nurse Practitioner Family; Visit Provider Nurse Practitioner Family
DX: I89.0 Lymphedema, not elsewhere classified (principal)
CPT/HCPCS: 97140; 97163

== ENCOUNTER 2024-02-09 07:59 | Day surgery (SDC) | payer MEDICARE, SELFPAY ==
[2024-02-09] VITALS (13 sets, daily range): BP systolic 113–145; BP diastolic 71–92; PULSE 58–71; RESP 16–20; TEMP 36.6; O2SAT 94–97; BMI 58.6
--- NOTE | 2024-02-09 07:12 | IR_ITS ---
APPROVED REPORT Patient Location: Outpatient Retail Business Development Manager: KATE Hart RT (R) PROCEDURES Left heart catheterization Left ventriculogram Selective coronary angiogram Drug-eluting stent deployment to the proximal LAD INDICATION Coronary artery disease, Progressive angina pectoris Informed consent was obtained prior to the procedure. COMPLICATIONS NONE Estimated Blood Loss: LESS THAN 10 ML TECHNIQUE One percent lidocaine used to anesthetize the right anterior aspect of the wrist. The right radial artery was accessed via the Seldinger technique. A 6 Palauan sheath was placed in the right radial artery. The Poppa catheter would not advance therefore the 0[address] wire was kept in [address] and the short sheath was exchanged for a 23 cm hydrophilic sheath with a 45 cm dilator inside the sheath. 2.5 mg of Verapamil, 800 mcg of nitroglycerin, 1mg Lidocaine and 5000 U Heparin were given through the arterial sheath. The papa catheter was also used to perform left heart catheterization, left ventriculogram and selective coronary angiogram. At the end the diagnostic angiogram therapeutic heparin was administered giving a therapeutic ACT and the guide catheter was placed in left main artery followed by Choice PT extra-support wire placed on the LAD. A 3.5 x 26 mm Petr frontier stent was deployed at 20 aroldo in the proximal LAD which extended into the midportion and extended into a previous stent. JOAO-3 flow was present before and after the procedure. Excellent angiograph results were obtained. At the end the procedure the apparatus was removed the sheath was removed and hemostasis was achieved using TR banding patient was transferred to the postop holding in stable condition ANGIOGRAPHIC RESULTS The left main artery Normal The left anterior descending artery Has proximal mild vascular ectasia followed by an eccentric 80% stenosis followed by mid vessel stent which is widely patent free of in-stent restenosis. Distal to the stent there is 30 to 40% stenosis at the edge The circumflex artery Is nondominant and has mild diffuse vascular ectasia accompanied by diffuse 20 and 30% stenoses The right coronary artery Has moderate to severe diffuse vascular ectasia. There is an angiographic 60 to 70% mid vessel stenosis which appears more severe based on the juxtaposed vascular ectasia however the vessel does not appear to be severely atheromatous. Distally there is also what appears to be a 70% stenosis just prior to 2 bifurcating branches. Vascular ectasia is present on both sides of the stenotic area and the 70% stenosis appears also more severe because of the juxtaposition. JOAO II flow was present down the entire dominant right coronary The GRUBBS ventriculogram reveals Preserved 60% The left ventricular end-diastolic pressure Severely elevated at 35 to 38 mmHg IMPRESSION Severe proximal LAD stenosis as described above Successful stenting of the proximal LAD severe disease reduced to 0% with 1 drug-eluting stent Severely elevated LVEDP which is likely contributing to the angina pectoris and JOAO II flow down the right coronary artery Preserved ejection fraction Moderate to severe vascular ectasia which gives a pseudo severe diameter stenosis appearance of the proximal to mid and distal right coronary Diffuse endothelial dysfunction PLAN 1. Dual antiplatelet therapy 2. Recommend sleep study 3. Weight loss advised 4. Cardiac rehabilitation 5. Avoidance of carbonated products 6. Avoidance of tobacco products 7. LDL less than 55 to be achieved with high intensity statin 8. LVEDP remains severely elevated which is also contributing to patient's angina pectoris and likely slow flow down the dominant right coronary artery Electronically signed by : Darien Flaherty MD 02/09/2024 10:33:58
[2024-02-09 08:32] LABS: Basophils # 0.1 K/mm3 (0-0.2); Basophils % 0.9 % (0.1-2.0); Eosinophils # 0.1 K/mm3 (0.0-0.4); Eosinophils % 1.9 % (0.1-12.0); Hematocrit 44.4 % (37.0-47.0); Hemoglobin 14.4 g/dL (12.2-16.2); Lymphocytes # 1.1 K/mm3 (0.7-4.5); Lymphocytes % 19.7 % (10-50); Mean Corpuscular HGB Conc 32.5 g/dL (31.8-35.4); Mean Corpuscular Hemoglobin 30.8 pg (27.0-31.2); Mean Corpuscular Volume 94.8 fl (81-99); Mean Platelet Volume 8.5 fl (7.4-10.4); Monocytes # 0.3 K/mm3 (0.1-1.0); Monocytes % 5.5 % (1.7-9.3); Neutrophils # 3.9 K/mm3 (1.8-7.8); Neutrophils % 72.1 % (37.0-80.0); Platelet Count 226 K/mm3 (142-424); Red Blood Count 4.68 M/mm3 (4.20-5.40); White Blood Count 5.4 K/mm3 (4.8-10.8)
[2024-02-09 08:38] LABS: Chloride 104 mmol/L (98-107); Sodium 140 mmol/L (136-145)
[2024-02-09 08:39] LABS: Potassium 3.6 mmoL/L (3.5-5.1)
[2024-02-09 08:42] LABS: Anion Gap 11.6 mEq/L (5-15); Blood Urea Nitrogen 13 mg/dl (7-17); Calcium 9.2 mg/dl (8.4-10.2); Carbon Dioxide 28 mmol/L (22.0-30.0); Creatinine Clearance Estimated 65 mL/min (50-200); Estimated Glomerular Filt Rate 73 ml/min (>60); GFR (African American) 89 ML/MIN (>60); Glucose 106 mg/dl (74-100)
[2024-02-09] MEDS: 0.9 % SODIUM CHLORIDE 500 ML 25 ML IV (09:41)
[2024-02-09] MEDS: HEPARIN 1,000 UNITS/500ML NS (CATH LAB) 3000 UNIT IV (09:41)
[2024-02-09] MEDS: LIDOCAINE 1% 10ML MDV 20 ML IJ (09:41)
[2024-02-09] MEDS: HEPARIN 1,000 UNITS/ML 10ML VIAL (CATH LAB) 10000 UNIT IV ×2 (09:42→10:14)
[2024-02-09] MEDS: diphenhydrAMINE 50MG/ML VIAL 50 MG IV (09:42)
[2024-02-09] MEDS: VERAPAMIL 2.5MG/ML 2ML VIAL 2.5 MG IV (09:42)
[2024-02-09] MEDS: NITROGLYCERIN 800MCG/8ML SYR (CATH LAB) 800 MCG IA (09:42)
[2024-02-09] MEDS: FENTANYL 100MCG/2ML VIAL 50 MCG IV (10:15)
[2024-02-09] MEDS: MIDAZOLAM HCL 1MG/1ML 5ML VIAL 1 MG IV (10:15)
[2024-02-09] MEDS: IOPAMIDOL-370 (76%);100ML BOTTLE 110 ML IV (12:35)
[2024-02-09 12:37] LABS: CATHL Activated Clotting Time > 400 SEC (74-125)
== END 2024-02-09 14:08 | disposition home or self-care (01) ==
PROVIDERS: PCP Nurse Practitioner Family; Visit Provider Internal Medicine
DX: R06.09 Other forms of dyspnea (principal); I25.118 Atherosclerotic heart disease of native coronary artery with other forms of angina pectoris; Z79.899 Other long term (current) drug therapy; I11.0 Hypertensive heart disease with heart failure; I50.33 Acute on chronic diastolic (congestive) heart failure; I27.20 Pulmonary hypertension, unspecified; E78.5 Hyperlipidemia, unspecified; Z95.5 Presence of coronary angioplasty implant and graft; J43.2 Centrilobular emphysema; E66.01 Morbid (severe) obesity due to excess calories; Z68.43 Body mass index [BMI] 50.0-59.9, adult; G47.33 Obstructive sleep apnea (adult) (pediatric); Z99.81 Dependence on supplemental oxygen
CPT/HCPCS: 80048; 85025; 85347; 92928; 93458; 99152; 99153; C1725; C1769; C1874; C9600; J1644; Q9967

== ENCOUNTER 2024-02-15 08:23 | Outpatient (CLI) | payer MEDICARE, SELFPAY ==
[2024-02-15 08:47] LABS: Basophils % 0.6 % (0.1-2.0); Eosinophils # 0.1 K/mm3 (0.0-0.4); Eosinophils % 1.7 % (0.1-12.0); Hemoglobin 14.6 g/dL (12.2-16.2); Lymphocytes # 1.7 K/mm3 (0.7-4.5); Mean Corpuscular HGB Conc 33.1 g/dL (31.8-35.4); Mean Corpuscular Hemoglobin 31.2 pg (27.0-31.2); Mean Corpuscular Volume 94.4 fl (81-99); Mean Platelet Volume 8.5 fl (7.4-10.4); Monocytes # 0.4 K/mm3 (0.1-1.0); Monocytes % 6.1 % (1.7-9.3); Neutrophils # 3.8 K/mm3 (1.8-7.8); Neutrophils % 63.5 % (37.0-80.0); Platelet Count 219 K/mm3 (142-424); Red Blood Count 4.66 M/mm3 (4.20-5.40); Red Cell Distribution Width 14.4 % (11.5-17.5); White Blood Count 5.9 K/mm3 (4.8-10.8)
[2024-02-15 09:32] LABS: Chloride 104 mmol/L (98-107)
[2024-02-15 09:33] LABS: Potassium 4.2 mmoL/L (3.5-5.1); Sodium 140 mmol/L (136-145)
[2024-02-15 09:36] LABS: Anion Gap 14.2 mEq/L (5-15); Blood Urea Nitrogen 12 mg/dl (7-17); Calcium 9.5 mg/dl (8.4-10.2); Carbon Dioxide 26 mmol/L (22.0-30.0); Estimated Glomerular Filt Rate 73 ml/min (>60); GFR (African American) 89 ML/MIN (>60); Glucose 97 mg/dl (74-100)
== END 2024-02-15 23:59 | disposition home or self-care (01) ==
PROVIDERS: PCP Nurse Practitioner Family; Visit Provider Internal Medicine
DX: I25.10 Atherosclerotic heart disease of native coronary artery without angina pectoris (principal); Z95.5 Presence of coronary angioplasty implant and graft
CPT/HCPCS: 36415; 80048; 85025

== ENCOUNTER 2024-02-22 12:37 | Outpatient (CLI) | payer MEDICARE, SELFPAY ==
[2024-02-22 14:06] LABS: Anion Gap 16.2 mEq/L (5-15); Blood Urea Nitrogen 12 mg/dl (7-17); Calcium 9.4 mg/dl (8.4-10.2); Carbon Dioxide 28 mmol/L (22.0-30.0); Chloride 100 mmol/L (98-107); Estimated Glomerular Filt Rate 73 ml/min (>60); GFR (African American) 89 ML/MIN (>60); Glucose 99 mg/dl (74-100); Potassium 4.2 mmoL/L (3.5-5.1); Sodium 140 mmol/L (136-145)
[2024-02-22 14:16] LABS: NT Pro Brain Natriuretic Pep. 187 pg/mL (0-125)
== END 2024-02-22 23:59 | disposition home or self-care (01) ==
LOC: LAB 12:38
PROVIDERS: PCP Nurse Practitioner Family; Visit Provider Physician Assistant
DX: G47.33 Obstructive sleep apnea (adult) (pediatric) (principal); R60.9 Edema, unspecified; R06.09 Other forms of dyspnea; R06.02 Shortness of breath; I27.20 Pulmonary hypertension, unspecified; E78.2 Mixed hyperlipidemia; I25.110 Atherosclerotic heart disease of native coronary artery with unstable angina pectoris; I50.33 Acute on chronic diastolic (congestive) heart failure; R94.31 Abnormal electrocardiogram [ECG] [EKG]; J43.2 Centrilobular emphysema; E66.01 Morbid (severe) obesity due to excess calories; Z68.43 Body mass index [BMI] 50.0-59.9, adult
CPT/HCPCS: 36415; 80048; 83880

== ENCOUNTER 2024-02-22 12:52 | Outpatient (RCR) | payer MEDICARE, SELFPAY | END 2024-04-10 14:00 | disposition home or self-care (01) | LOC: PT 12:52 | PROVIDERS: Visit Provider Internal Medicine | DX: I25.10 Atherosclerotic heart disease of native coronary artery without angina pectoris (principal); Z95.5 Presence of coronary angioplasty implant and graft | CPT/HCPCS: 93798 ==

== ENCOUNTER 2024-02-27 10:43 | Emergency (ER) | payer MEDICARE, SELFPAY ==
[2024-02-27 11:00] VITALS: BP 103/58; PULSE 63; RESP 20; TEMP 37; O2SAT 96; BMI 57.3
[2024-02-27 11:34] LABS: Apearance,Urine Cloudy (Clear); Bilirubin,Urine 1+ (Negative); Blood, Urine Trace (Negative); Color,Urine Amber (Yellow); Glucose,Urine (UA) Negative (Negative); Ketones,Urine Negative (Negative); PH,Urine 5.5 (5.0-8.5); Protein,Urine Negative (Negative); Specific Gravity, Urine >= 1.030 (1.005-1.030)
[2024-02-27 11:35] LABS: UTC Leukocyte Esterase,Urine 1+ (Negative); UTC Nitrate,Urine Negative (Negative); Urobilinogen,Urine 0.2 EU/dl (0.2)
--- NOTE | 2024-02-27 11:47 | ED_ITS ---
Discharge Plan Disposition Patient Disposition: Home, Self-Care Condition: Good Prescriptions Prescriptions: New phenazopyridine [Pyridium] 100 mg tablet 100 mg PO TID Qty: 6 0RF nitrofurantoin macrocrystal 100 mg capsule 100 mg PO Q12H 10 Days Qty: 20 0RF Rx Instructions: must administer with a meal/food No Action isosorbide mononitrate 30 mg tablet extended release 24 hr 30 mg PO DAILY clopidogrel 75 mg tablet 75 mg PO DAILY quetiapine 100 mg tablet 100 mg PO DAILY bupropion HCl 100 mg tablet 100 mg PO DAILY furosemide 80 mg tablet 80 mg PO DAILY trazodone 100 mg tablet 100 mg PO DAILY rosuvastatin 40 mg tablet 40 mg PO DAILY pregabalin 150 mg capsule 150 mg PO DAILY Brilinta 90 mg tablet 90 mg PO DAILY lurasidone 60 mg tablet 60 mg PO DAILY Referrals Follow up/Referrals: Esthela Parrish APRN [Primary Care Provider] - See instructions Clinical Impressions Clinical Impression: UTI (urinary tract infection) Qualifiers: Urinary tract infection type: acute cystitis Hematuria presence: without hematuria Qualified Code(s): N30.00 - Acute cystitis without hematuria Instructions Patient Instructions: DI for Urinary Tract Infection (UTI) Discharge ED Provider: Eve Encarnacion [facility] General Stated complaint: poss uti Mode of Arrival: Ambulatory Source of Information: Patient Limitations: No Limitations Time Seen by Provider: 02/27/24 11:47 Description of Symptoms (Recalled from Triage Doc. by RN): PATIENT C/O BURNING AND FREQUENCY WITH URINATION THAT STARTED 02/16/24 HEENT Symptoms (Recalled from RN notes): No Resp Symptoms (Recalled from RN notes): No Skin Symptoms (Recalled from RN notes): No MS Symptoms (Recalled from RN notes): No Functional Status (Recalled from RN notes): WNL History of Present Illness Provider Complaint: Pt reports burning and frequency of urine for the past 11 days. She reports that she is on a fluid restriction and every time that happens, she gets an UTI. Related Data Home Medications Medication Instructions Recorded Confirmed bupropion HCl 100 mg tablet 100 mg PO DAILY 02/27/24 02/27/24 clopidogrel 75 mg tablet 75 mg PO DAILY 02/27/24 02/27/24 furosemide 80 mg tablet 80 mg PO DAILY 02/27/24 02/27/24 isosorbide mononitrate 30 mg 30 mg PO DAILY 02/27/24 02/27/24 tablet,extended release 24 hr lurasidone 60 mg tablet 60 mg PO DAILY 02/27/24 02/27/24 pregabalin 150 mg capsule 150 mg PO DAILY 02/27/24 02/27/24 quetiapine 100 mg tablet 100 mg PO DAILY 02/27/24 02/27/24 rosuvastatin 40 mg tablet 40 mg PO DAILY 02/27/24 02/27/24 ticagrelor 90 mg tablet (Brilinta) 90 mg PO DAILY 02/27/24 02/27/24 trazodone 100 mg tablet 100 mg PO DAILY 02/27/24 02/27/24 Previous Rx's Medication Instructions Recorded nitrofurantoin macrocrystal 100 mg 100 mg PO Q12H 10 days #20 caps 02/27/24 capsule phenazopyridine 100 mg tablet 100 mg PO TID #6 tabs 02/27/24 (Pyridium) Allergies Allergy/AdvReac Type Severity Reaction Status Date / Time povidone-iodine Allergy Mild Unknown Verified 02/15/24 09:38 [From BETADINE] allergy reaction soap [From BETADINE] Allergy Mild Unknown Verified 02/15/24 09:38 allergy reaction lisinopril AdvReac Intermediate Cough Verified 02/15/24 09:38 Worker's Comp Is this a Worker's Comp case?: No [facility] Disclaimer: The information contained in this section may have been updated after the samaria ent was seen, as this information can be updated by other users. Medical History Edema Asthma-COPD overlap syndrome Asthma Allergic rhinitis Sleep apnea Nocturnal hypoxemia Chronic hypoxemic respiratory failure Screening for lung cancer Pulmonary emphysema Smoking greater than 30 pack years Dyspnea on exertion Tobacco abuse disorder Tobacco abuse counseling History of sleep apnea Pulmonary hypertension Hyperlipidemia PAD (peripheral artery disease) CHF (congestive heart failure) Hyperlipidemia Hypertension COPD (chronic obstructive pulmonary disease) Diastolic dysfunction RLS (restless legs syndrome) On trazodone with improvement Congestive heart failure CAD (coronary atherosclerotic disease) Active follow-[facility] with [facility]?cardiology. Surgical History History of colonoscopy History of total hysterectomy History of hernia repair History of section Hx of cholecystectomy History of cardiac cath History of bariatric surgery H/O heart artery stent Family History Other Cancer Diabetes Hyperlipidemia Hypertension Social History Smoking Status: Never smoker alcohol intake: never current occupational status: other Travel in the last 8 weeks: Inside the [place] ROS Obtained: Yes All systems reviewed & no additional complaints except as documented Constitutional Constitutional: Reports system reviewed and no additional complaints, except as documented Eyes Eyes: Reports system reviewed and no additional complaints, except as documented ENT Ears, Nose, Mouth, and Throat: Reports system reviewed and no additional complaints, except as documented Cardiovascular Cardiovascular: Reports system reviewed and no additional complaints, except as documented Respiratory Respiratory: Reports system reviewed and no additional complaints, except as documented Comments: on oxygen Gastrointestinal Gastrointestingal: Reports system reviewed and no additional complaints, except as documented Genitourinary Female Genitourinary: Reports system reviewed and no additional complaints, except as documented, Reports dysuria, Reports urinary frequency and Reports urinary urgency Musculoskeletal Musculoskeletal: Reports system reviewed and no additional complaints, except as documented Integumentary/Breasts Skin/Breast: Reports system reviewed and no additional complaints, except as documented Neurologic Neurologic: Reports system reviewed and no additional complaints, except as documented Endocrine Endocrine: Reports system reviewed and no additional complaints, except as documented Hematologic/Lymphatic Henatologic/Lymphatic: Reports system reviewed and no additional complaints, except as documented Allergic/Immunologic Allergic/Immunologic: Reports system reviewed and no additional complaints, except as documented Physical Exam General General appearance: alert and in no apparent distress Head Head exam: atraumatic and normocephalic Eye Eye exam: Present normal appearance ENT ENT exam: Present normal exam Neck Neck exam: Present normal inspection Chest Chest inspection: Present normal inspection and symmetric chest wall rise Respiratory Respiratory exam: Present normal lung sounds bilaterally Cardiovascular Cardiovascular exam: Present regular rate, normal rhythm and normal heart sounds Abdominal Exam Abdominal exam: Present soft, tenderness and normal bowel sounds Abdominal tenderness: Present suprapubic and mild Extremities Exam Extremities exam: Present normal inspection Back Exam Back exam: Present normal inspection; Absent CVA tenderness (R) or CVA tenderness (L) Neurological Exam Neurological exam: Present alert and oriented X3 Psychiatric Psychiatric exam: Present normal affect and normal mood Skin Skin exam: Present warm, dry and intact Lymphatic Lymphatic Findings: no adenopathy Medical Decision Making Miguelito Inquiry Pt receiving controlled substance: No Miguelito was queried for this patient: No Vital Signs: 02/27/24 11:00 Temperature 98.6 F Temperature Source Oral Pulse Rate [Left Brachial] 63 Respiratory Rate 20 Blood Pressure [Left Arm] 103/58 L Blood Pressure Mean [Left Arm] 73 Blood Pressure Source [Left Arm] Automatic Cuff Blood Pressure Position [Left Arm] Sitting 02 Sat by Pulse Oximetry 96 Oxygen Delivery Method Room Air Lab Data Lab Results 02/27/24 11:33: Urine Color [place], Urine Appearance Cloudy, Urine pH 5.5, Ur Specific [place] >= 1.030, Urine Protein Negative, Urine Glucose (UA) Negative, Urine Ketones Negative, Urine Blood Trace, Urine Nitrate Negative, Urine Bilirubin 1+ A, Urine Urobilinogen 0.2, Ur Leukocyte Esterase 1+ A Orders (Tests/Meds): ORDERS Category Date Time Status Urine Culture Stat Micro 02/27/24 11:33 Ordered
[2024-02-27 11:55] VITALS: BP 103/58; PULSE 63; RESP 20; TEMP 37; O2SAT 96
== END 2024-02-27 11:57 | disposition home or self-care (01) ==
PROVIDERS: Emergency Provider Nurse Practitioner Family; PCP Nurse Practitioner Family
DX: N39.0 Urinary tract infection, site not specified (principal); B96.29 Other Escherichia coli [E. coli] as the cause of diseases classified elsewhere; R30.0 Dysuria; R35.0 Frequency of micturition
CPT/HCPCS: 81003; 87086; 87088; 87186; 99212; 99214; G0463

== ENCOUNTER 2024-02-29 10:52 | Outpatient (CLI) | payer MEDICARE, SELFPAY ==
[2024-02-29 11:30] LABS: Anion Gap 12.9 mEq/L (5-15); Blood Urea Nitrogen 15 mg/dl (7-17); Calcium 9.4 mg/dl (8.4-10.2); Carbon Dioxide 31 mmol/L (22.0-30.0); Chloride 100 mmol/L (98-107); Estimated Glomerular Filt Rate 73 ml/min (>60); GFR (African American) 89 ML/MIN (>60); Glucose 87 mg/dl (74-100); Potassium 3.9 mmoL/L (3.5-5.1); Sodium 140 mmol/L (136-145)
== END 2024-02-29 23:59 | disposition home or self-care (01) ==
LOC: LAB 10:53
PROVIDERS: PCP Nurse Practitioner Family; Visit Provider Internal Medicine
DX: R06.09 Other forms of dyspnea
CPT/HCPCS: 36415; 80048; 83880

== ENCOUNTER 2024-06-25 14:46 | Emergency (ER) | payer MEDICARE, SELFPAY ==
--- NOTE | 2024-06-25 14:54 | XR_ITS ---
FINAL REPORT CLINICAL HISTORY: injury FINDINGS: Right foot Three views were obtained. There is no acute fracture or dislocation. The joint spaces appear normal. No soft tissue abnormality is identified. There is a moderate plantar spur. An accessory navicular is identified. IMPRESSION: Moderate plantar spur. Reviewed, Interpreted and Dictated by Edin Servin MD Transcribed by Jelena Quinnoez Authenticated and [facility]
[2024-06-25 14:55] VITALS: BP 148/87; PULSE 72; RESP 22; TEMP 36.7; O2SAT 95; BMI 56.6
--- NOTE | 2024-06-25 15:17 | ED_ITS ---
Discharge Plan Disposition Patient Disposition: Home, Self-Care Condition: Good Prescriptions Prescriptions: No Action ipratropium-albuterol 0.5 mg-3 mg(2.5 mg base)/3 mL solution for nebulization 3 ml INHALATION QID Patient Comments: INHALE THREE (3) ML FOUR (4) TIMES A DAY BY NEBULIZATION ROUTE NEEDED isosorbide mononitrate 30 mg tablet extended release 24 hr 30 mg PO DAILY clonazepam 1 mg tablet 1 mg PO BID Patient Comments: TAKE ONE (1) TABLET BY MOUTH TWICE DAILY NEEDED atenolol 25 mg tablet 25 mg PO DAILY quetiapine 100 mg tablet 100 mg PO DAILY bupropion HCl 100 mg tablet 100 mg PO DAILY furosemide 80 mg tablet 80 mg PO DAILY trazodone 100 mg tablet 100 mg PO HS Patient Comments: TAKE THREE (3) TABLETS EVERY DAY BY ORAL ROUTE AT BEDTIME FOR 30 DAYS, FOR INSOMNIA. losartan 25 mg tablet 25 mg PO DAILY Patient Comments: TAKE ONE (1) TABLET EVERY DAY BY ORAL ROUTE FOR 30 DAYS. rosuvastatin 40 mg tablet 40 mg PO DAILY pregabalin 150 mg capsule 150 mg PO HS Patient Comments: TAKE ONE (1) CAPSULE EVERY DAY BY ORAL ROUTE AT BEDTIME FOR 90 DAYS. lurasidone 60 mg tablet 60 mg PO DAILY Patient Comments: TAKE ONE (1) TABLET EVERY DAY BY ORAL ROUTE FOR 90 DAYS. Wegovy 1 mg/0.5 mL pen injector 1 mg SQ WEEKLY Patient Comments: INJECT ONE (1) MG (0.5 ML) SUBCUTANEOUSLY EVERY 7 DAYS Referrals Follow up/Referrals: Provider,Referral, MD [Primary Care Provider] - See instructions Shanel Scott DPM [Staff Physician] - See instructions Activity Restrictions/Add. Instructions Additional Instructions/Restrictions: Rest the extremity, Elevate the extremity as tolerated while you are resting. Take tylenol for pain. Follow up with Dr. Scott (podiatry). I put in a referral but you need to call her office and schedule an appointment. Follow up with your regular doctor. GO TO THE ER FOR ANY WORSENING SYMPTOMS Clinical Impressions Clinical Impression: Fracture of middle phalanx of lesser toe of right foot Instructions Patient Instructions: DI for Toe Fracture, How to Jason Tape Print Language Print Language: Burmese Discharge ED Provider: Antoni Hernandez [facility] General Stated complaint: right foot pain Mode of Arrival: Ambulatory Source of Information: Patient Limitations: No Limitations Time Seen by Provider: 06/25/24 15:17 Description of Symptoms (Recalled from Triage Doc. by RN): PATIENT C/O INJURY TO RIGHT MIDDLE TOE AFTER HITTING IT ON A KITCHEN CABINET MONDAY. SWELLING AND BRUISING NOTED TO SITE HEENT Symptoms (Recalled from RN notes): No Resp Symptoms (Recalled from RN notes): No Skin Symptoms (Recalled from RN notes): No MS Symptoms (Recalled from RN notes): Yes Functional Status (Recalled from RN notes): WNL History of Present Illness Provider Complaint: She states that earlier today she put her cane down on her right middle toe. She put all her weight on the cane. Since then she has had swelling, bruising, and pain of that toe. She denies any other injury or complaints. She is not a diabetic. Related Data Home Medications ?Medication ?Instructions ?Recorded ?Confirmed atenolol 25 mg tablet 25 mg PO DAILY 06/25/24 06/25/24 bupropion HCl 100 mg tablet 100 mg PO DAILY 06/25/24 06/25/24 clonazepam 1 mg tablet 1 mg PO BID 06/25/24 06/25/24 furosemide 80 mg tablet 80 mg PO DAILY 06/25/24 06/25/24 ipratropium 0.5 mg-albuterol 3 mg 3 ml inhalation QID 06/25/24 06/25/24 (2.5 mg base)/3 mL nebulization soln isosorbide mononitrate 30 mg 30 mg PO DAILY 06/25/24 06/25/24 tablet,extended release 24 hr losartan 25 mg tablet 25 mg PO DAILY 06/25/24 06/25/24 lurasidone 60 mg tablet 60 mg PO DAILY 06/25/24 06/25/24 pregabalin 150 mg capsule 150 mg PO HS 06/25/24 06/25/24 quetiapine 100 mg tablet 100 mg PO DAILY 06/25/24 06/25/24 rosuvastatin 40 mg tablet 40 mg PO DAILY 06/25/24 06/25/24 semaglutide (weight loss) 1 mg/0.5 1 mg SQ WEEKLY 06/25/24 06/25/24 mL subcutaneous pen injector (Wegovy) trazodone 100 mg tablet 100 mg PO HS 06/25/24 06/25/24 Allergies Allergy/AdvReac Type Severity Reaction Status Date / Time povidone-iodine Allergy Mild Unknown Verified 06/11/24 08:40 [From BETADINE] allergy reaction soap [From BETADINE] Allergy Mild Unknown Verified 06/11/24 08:40 allergy reaction lisinopril AdvReac Intermediate Cough Verified 06/11/24 08:40 Worker's Comp Is this a Worker's Comp case?: No [facility] Disclaimer: The information contained in this section may have been updated after the patient was seen, as this information can be updated by other users. Medical History Edema Asthma-COPD overlap syndrome Asthma Allergic rhinitis Sleep apnea Nocturnal hypoxemia Chronic hypoxemic respiratory failure Screening for lung cancer Pulmonary emphysema Smoking greater than 30 pack years Dyspnea on exertion Tobacco abuse disorder Tobacco abuse counseling History of sleep apnea Pulmonary hypertension Hyperlipidemia PAD (peripheral artery disease) CHF (congestive heart failure) Hyperlipidemia Hypertension COPD (chronic obstructive pulmonary disease) Diastolic dysfunction RLS (restless legs syndrome) On trazodone with improvement Congestive heart failure CAD (coronary atherosclerotic disease) Active follow-up with [facility]?cardiology. Surgical History History of colonoscopy History of total hysterectomy History of hernia repair History of section Hx of cholecystectomy History of cardiac cath History of bariatric surgery H/O heart artery stent Family History Other Cancer Diabetes Hyperlipidemia Hypertension Social History Smoking Status: Never smoker alcohol intake: never current occupational status: other Travel in the last 8 weeks: Inside the [place] ROS Obtained: Yes All systems reviewed & no additional complaints except as documented Constitutional Constitutional: Denies chills and Denies fever(s) Eyes Eyes: Denies eye discharge ENT Ears, Nose, Mouth, and Throat: Denies dizziness, Denies otalgia and Denies sore throat Cardiovascular Cardiovascular: Denies chest pain Respiratory Respiratory: Denies shortness of breath, Denies chest congestion, Denies cough, Denies stridor and Denies wheezing Gastrointestinal Gastrointestingal: Denies nausea or vomiting Musculoskeletal Musculoskeletal: Reports as per HPI Integumentary/Breasts Skin/Breast: Reports as per HPI Neurologic Neurologic: Denies dizziness and Denies paresthesias Allergic/Immunologic Allergic/Immunologic: Denies wheezing Physical Exam General General appearance: alert and in no apparent distress Head Head exam: atraumatic, normocephalic and normal inspection Eye Eye exam: Present normal appearance, PERRL and EOMI ENT ENT exam: Present normal exam, normal oropharynx, mucous membranes moist, TM's normal bilaterally and normal external ear exam Neck Neck exam: Present normal inspection, full ROM and trachea midline; Absent meningismus or lymphadenopathy Chest Chest inspection: Present normal inspection and symmetric chest wall rise; Absent tenderness Respiratory Respiratory exam: Present normal lung sounds bilaterally; Absent respiratory distress Cardiovascular Cardiovascular exam: Present regular rate and normal rhythm; Absent JVD Abdominal Exam Abdominal exam: Present soft and normal bowel sounds; Absent distention, tenderness or guarding Extremities Exam Extremities exam: Present normal capillary refill; Absent calf tenderness Expanded Lower Extremity Exam Right: Foot/toe exam: Present full ROM, tenderness and swelling; Absent abrasion, laceration, ecchymosis, deformity, crepitus, dislocation, erythema, amputation, puncture wound, foreign body, calcaneal tenderness, tenderness at base of 5th metatarsal, nail avulsion or subungual hematoma Neurovascular/Tendon exam: Present normal capillary refill, normal 2-point discrimination and normal fine/light touch; Absent pulse deficit, motor deficit, sensory deficit, tendon deficit, extremity cold to touch or pallor Gait: observed and limited by pain Back Exam Back exam: Present normal inspection; Absent tenderness Neurological Exam Neurological exam: Present alert and oriented X3 Psychiatric Psychiatric exam: Present normal affect and normal mood Skin Skin exam: Present warm, dry, intact and normal color Lymphatic Lymphatic Findings: no adenopathy Medical Decision Making Medical Records Medical records reviewed: No I reviewed the patient's medical records. Screening: Per USPSTF and CDC recommendations, given the prevalence of disease in our region, it is our hospital?s policy to screen for HIV and viral Hepatitis for all patients aged 18 and over and those with ongoing risk factors. Miguelito Inquiry Pt receiving controlled substance: No Vital Signs: 06/25/24 14:55 Temperature 98.0 F Temperature Source Oral Pulse Rate [Left Brachial] 72 Respiratory Rate 22 Blood Pressure [Left Arm] 148/87 H Blood Pressure Mean [Left Arm] 107 Blood Pressure Source [Left Arm] Automatic Cuff Blood Pressure Position [Left Arm] Sitting 02 Sat by Pulse Oximetry 95 Oxygen Delivery Method Nasal Cannula Oxygen Flow Rate (LPM) 2 Orders (Tests/Meds): ORDERS Category Date Time Status Foot XR right minimum 3 views [XR foot RT min 3V] Stat Exams 06/25/24 14:54 Ordered Radiology Data #1: Image(s): Foot/Toes Image Reviewed: Yes I reviewed the patient's radiology image and Yes I have reviewed radiologist's interpretation Preliminary Findings: No Fracture Seen Accession No. : [id number] Patient Name / ID : Josefa Patel / [id number] Exam Date : 06/25/2024 14:54:29 ( Final ) Study Comment : Sex / Age : F / 58Y Creator : DA SERVIN Dictator : District Ranger : Pocket Setter Lockstitch : DA SERVIN Approver2 : Report Date : 06/25/2024 16:00:09 My Comment : FINAL REPORT CLINICAL HISTORY: injury FINDINGS: Right foot Three views were obtained. There is no acute fracture or dislocation. The joint spaces appear normal. No soft tissue abnormality is identified. There is a moderate plantar spur. An accessory navicular is identified. IMPRESSION: Moderate plantar spur. Reviewed, Interpreted and Dictated by Da Servin MD Transcribed by Jelena Quinonez Authenticated and [facility] Procedures Risk/Benefits of Procedure(s) Were Explained: Yes Orthopedic Splinting/Casting Injury #1: Side: right Lower Extremity Injury Location: foot and toe (middle) Lower Extremity Immobilizer: post-op shoe, jason tape and applied by nurse/dr hutson Post Cast/Splinting Neuro Status: intact and no change Post Cast/Splinting Vasc Status: intact and no change
[2024-06-25 15:50] VITALS: BP 148/87; PULSE 72; RESP 22; TEMP 36.7; O2SAT 95
--- NOTE | 2024-06-25 15:55 | PC.NURSE ---
RIGHT MIDDLE TOE NINA TAPED TO RIGHT 4TH TOE AND POST-OP SHOE APPLIED
== END 2024-06-25 15:58 | disposition home or self-care (01) ==
PROVIDERS: Emergency Provider Nurse Practitioner Family
DX: S92.521A Displaced fracture of middle phalanx of right lesser toe(s), initial encounter for closed fracture (principal); W22.8XXA Striking against or struck by other objects, initial encounter
CPT/HCPCS: 28510; 73630; 99214; G0382

== ENCOUNTER 2024-07-10 09:11 | Outpatient (CLI) | payer MEDICARE, SELFPAY ==
--- NOTE | 2024-07-10 09:14 | XR_ITS ---
FINAL REPORT CLINICAL HISTORY: right foot injury, 3rd toe fracture COMPARISON: June 25, 2024 FINDINGS: RIGHT FOOT 3 views of the right foot were obtained. There is an oblique, mildly displaced, intra-articular fracture through the proximal portion of the third middle phalanx. There is significant subluxation at the third PIP joint. There is soft tissue swelling. IMPRESSION: Acute intra-articular fracture of the third middle phalanx as above. Authenticated and [facility]
== END 2024-07-10 23:59 | disposition home or self-care (01) ==
LOC: RAD 09:12
PROVIDERS: PCP Family Medicine; Visit Provider Podiatrist
DX: S92.521A Displaced fracture of middle phalanx of right lesser toe(s), initial encounter for closed fracture (principal); M79.671 Pain in right foot
CPT/HCPCS: 73630

== ENCOUNTER 2024-07-25 07:55 | Outpatient (CLI) | payer MEDICARE, SELFPAY ==
--- NOTE | 2024-07-25 08:00 | XR_ITS ---
FINAL REPORT CLINICAL HISTORY: toe fx x 4 wks COMPARISON: 07/10/2024 FINDINGS: RIGHT FOOT 3 views of the right foot were obtained. Again noted is a fracture at the proximal aspect of the third middle phalanx. There is medial displacement of the third middle phalanx at the PIP joint which is stable. Pes planus deformity is noted. There is mild degenerative change. A plantar calcaneal spur is noted. Soft tissues are unremarkable. IMPRESSION: No change in alignment of the third middle phalanx fracture. Reviewed, Interpreted and Dictated by Joel Garcia III, MD Transcribed by Valerie Preciado Authenticated and . [facility]
== END 2024-07-25 23:59 | disposition home or self-care (01) ==
LOC: RAD 07:56
PROVIDERS: PCP Family Medicine; Visit Provider Podiatrist
DX: S92.524A Nondisplaced fracture of middle phalanx of right lesser toe(s), initial encounter for closed fracture (principal); M79.674 Pain in right toe(s); M79.89 Other specified soft tissue disorders
CPT/HCPCS: 73630

== ENCOUNTER 2024-08-05 12:07 | Outpatient (CLI) | payer MEDICARE, SELFPAY ==
--- NOTE | 2024-08-05 12:10 | XR_ITS ---
FINAL REPORT CLINICAL HISTORY: 3rd toe fracture COMPARISON: 07/25/2024 FINDINGS: AP, oblique and lateral views of the right foot were obtained. There is no acute osseous abnormality. There is stable irregularity involving the head of the third proximal phalanx and base of the third middle phalanx with medial subluxation at the PIP joint. Multijoint degenerative disease is noted. The soft tissues demonstrate no acute findings. IMPRESSION: Stable irregularity of the third digit as above. Reviewed, Interpreted and Dictated by Yanira Benson MD Transcribed by Valerie Preciado Authenticated and [facility]
== END 2024-08-05 23:59 | disposition home or self-care (01) ==
LOC: RAD 12:08
PROVIDERS: PCP Family Medicine; Visit Provider Podiatrist
DX: M79.674 Pain in right toe(s) (principal); M79.89 Other specified soft tissue disorders; M77.51 Other enthesopathy of right foot and ankle; S92.524A Nondisplaced fracture of middle phalanx of right lesser toe(s), initial encounter for closed fracture
CPT/HCPCS: 73630

== ENCOUNTER 2024-11-11 16:29 | Outpatient (CLI) | payer MEDICARE, SELFPAY ==
--- NOTE | 2024-11-11 16:32 | XR_ITS ---
FINAL REPORT CLINICAL HISTORY: left hand pain c/o left middle finger pain s/p injury FINDINGS: LEFT HAND 2 views were obtained. There is no acute fracture or dislocation. Bones are osteopenic. There is mild OA at the DIP and PIP joints. Visualized joint spaces are normally aligned. Soft tissues are unremarkable. IMPRESSION: Degenerative changes without acute bony abnormality. Reviewed, Interpreted and Dictated by Frances Jarvis MD Transcribed by Janette Naqvi Authenticated and [facility]
== END 2024-11-11 23:59 | disposition home or self-care (01) ==
LOC: RAD 16:30
PROVIDERS: PCP Family Medicine; Visit Provider Physician Assistant
DX: M79.642 Pain in left hand (principal)
CPT/HCPCS: 73120

== ENCOUNTER 2024-11-28 11:13 | Outpatient (CLI) | payer MEDICARE, SELFPAY ==
--- NOTE | 2024-11-28 | CA_ITS ---
APPROVED REPORT Exam: Pharmacologic Technologist: Esthela Cruz Ht: 5 ft 4 in Wt: 319 lbs BSA: 2.39 m2 HR: 71 bpm BP: 135/98 mmHg Medical History Medical History: HTN, Hyperlipidemia, Smoking Medications: Albuterol, Aspirin, Breztri, Clopidogrel, Furosemide, Losartan, Pregabalin, Quetiapine, Trazadone Allergies: Poridone Iodine, Soap, Lisinopril Cardiac Risk Factors: HTN, Hyperlipidemia, Smoking, FHX of CAD Stress Test Details Test: Lexiscan HR Resting HR: 71 bpm Max Heart Rate (APMHR): 160 bpm Target HR (85% APMHR): 136 bpm Recovery HR: 78 bpm BP Resting BP: 135.0/98.0 mmHg Max BP: 172.0/94.0 mmHg Recovery BP: 156.0/96.0 mmHg ECG Stress ECG Conclusion Pt had mild SOA Electronically signed by : Romina Weathers MD 12/01/2024 21:24:45
--- NOTE | 2024-11-28 11:14 | NM_ITS ---
APPROVED REPORT Exam: Nuclear Stress Test Indication: SOB, Palpitations, Family history, CAD, Hx of [place] Patient Location: Outpatient Stress Tech: Esthela Cruz ME Tech:Marlena RiderKATE RT(R)(N) Ht: 5 ft 4 in Wt: 318 lbs Bra Size: 52F HR: 75 bpm BP: 135/98 mmHg BSA: 2.38 m2 TID: 1.52 BMI: 54.5 History: SOB, Palpitations, Family history, CAD, Hx of [place] Procedure: Patient received 0.4 mg of intravenous Lexiscan, resting heart rate 75 bpm, resting blood pressure 135/98 mmHg, with Lexiscan maximum heart rate achieved was 77 bpm which is % of the maximum predicted heart rate and blood pressure was 155/98 mmHg. With Lexiscan, patient denied any complaint of chest pain. Cardiac Stress and Resting SPECT Images: Cardiac Stress and Resting SPECT images were obtained using technetium 99m Myoview 30.9 mCi stress and 10.67 mCi at rest. The patient could not lie on her abdomen. Therefore, prone stress imaging could not be performed. This may affect the diagnostic interpretation of the study findings. Resting and stress imaging in supine position demonstrate a small sized, moderate, fixed perfusion defect in the apical LV wall. There is increase in transient ischemic dilatation ratio (TID 1.52) suggestive of possible multivessel disease or balanced ischemia., Gated imaging demonstrates normal global LV systolic function. There is moderate hypokinesis of the LV apex. LVEF is calculated at 70%. Conclusion: Small sized, moderate, fixed perfusion defect in the apical LV wall. There is increase in transient ischemic dilatation ratio (TID 1.52) suggestive of possible multivessel disease or balanced ischemia., Gated imaging demonstrates normal global LV systolic function. There is moderate hypokinesis of the LV apex. LVEF is calculated at 70%. Electronically signed by : Romina Weathers MD 12/01/2024 21:18:50
[2024-11-28] MEDS: ISOTOPE MYOVIEW (PER STUDY) 1 DOSE IV (13:30)
[2024-11-28] MEDS: SODIUM CHLORIDE 0.9% 10ML SYR (RAD ONLY) 10 ML IV ×2 (13:30)
[2024-11-28] MEDS: REGADENOSON 0.4MG/5ML SYRINGE 0.4 MG IV (13:30)
== END 2024-11-28 23:59 | disposition home or self-care (01) ==
LOC: RAD 11:14
PROVIDERS: PCP Family Medicine; Visit Provider Physician Assistant
DX: I25.110 Atherosclerotic heart disease of native coronary artery with unstable angina pectoris (principal); J43.2 Centrilobular emphysema; R94.31 Abnormal electrocardiogram [ECG] [EKG]; E66.01 Morbid (severe) obesity due to excess calories; Z68.43 Body mass index [BMI] 50.0-59.9, adult; I50.33 Acute on chronic diastolic (congestive) heart failure; E78.2 Mixed hyperlipidemia; I27.20 Pulmonary hypertension, unspecified; R06.09 Other forms of dyspnea; G47.33 Obstructive sleep apnea (adult) (pediatric); R60.9 Edema, unspecified; Z99.81 Dependence on supplemental oxygen
CPT/HCPCS: 78452; 93017; 93018; A9502; J2785

== ENCOUNTER 2025-03-12 07:31 | Day surgery (SDC) | payer MEDICARE, SELFPAY ==
[2025-03-12] VITALS (11 sets, daily range): BP systolic 115–141; BP diastolic 68–85; PULSE 60–67; RESP 18–20; O2SAT 95; BMI 53.1
--- NOTE | 2025-03-12 07:13 | IR_ITS ---
APPROVED REPORT Patient Location: Outpatient Sr Vice President: KATE Whitley RT (R) PROCEDURES Left heart catheterization Left ventriculogram Selective coronary angiogram Drug-eluting stent deployment to the mid LAD INDICATION Coronary artery disease, Angina pectoris, Abnormal Myoview Informed consent was obtained prior to the procedure. COMPLICATIONS NONE Estimated Blood Loss: LESS THAN 10 ML TECHNIQUE One percent lidocaine used to anesthetize the right anterior aspect of the wrist. The right radial artery was accessed via the Seldinger technique. A 6 Turkmen sheath was placed in the right radial artery. 2.5 mg of Verapamil, 800 mcg of nitroglycerin, 1mg Lidocaine and 5000 U Heparin were given through the arterial sheath. The JL3 catheter was also used to perform left heart catheterization, left ventriculogram and selective coronary angiogram. At the end the diagnostic angiogram therapeutic Was administered giving a therapeutic ACT and the guide catheter was placed in left main artery followed by Choice PT of support wire placed in the LAD. A 4 mm x 15 mm [place] frontier stent was deployed at 18 aroldo reducing the stenosis to 0% JOAO-3 flow was present before and after the procedure. At the end the procedure the apparatus was removed the sheath was removed hemostasis was achieved using TR banding patient was transferred to the postop area in stable condition ANGIOGRAPHIC RESULTS The left main artery Normal The left anterior descending artery Has proximal mild to moderate vascular ectasia followed by 30% stenosis followed by a 70% in-stent restenotic lesion. The remaining mid LAD stent is widely patent. Distally there is a 40% stenosis at the transition of the distal stent into the modoc vessel. Both diagonal arteries are patent The circumflex artery Nondominant and gives rise to 2 large obtuse marginal arteries. There is mild vascular ectasia and no focal stenosis in the obtuse marginal arteries greater than 10 to 20% The right coronary artery Is dominant and has moderate vascular ectasia. There is a mid vessel what appears to be a 50% stenosis however this is more likely mild atheromatous plaque being compared to moderate vascular ectatic vessels. The posterior lateral branch has a 50% stenosis The GRUBBS ventriculogram reveals Preserved 60% The left ventricular end-diastolic pressure 20 mmHg IMPRESSION Coronary disease as described above Successful stenting of the mid LAD severe disease reduced to 0% with 1 drug-eluting stent PLAN 1. Dual antiplatelet therapy 2. Risk factor modification 3. Cardiac rehabilitation 4. Avoidance of tobacco products 5. LDL less than 55 achieved with high intensity statin Electronically signed by : Darien Flaherty MD 03/12/2025 11:13:15
[2025-03-12 08:30] LABS: Hematocrit 46.7 % (37.0-47.0); Hemoglobin 15.6 g/dL (12.2-16.2); Immature Granulocytes % 0.4 %; Mean Corpuscular HGB Conc 33.4 g/dL (31.8-35.4); Mean Corpuscular Hemoglobin 31.3 pg (27.0-31.2); Mean Corpuscular Volume 93.8 fl (81-99); Nucleated Red Blood Cells % 0 %; Platelet Count 219 K/mm3 (142-424); Red Blood Count 4.98 M/mm3 (4.20-5.40); Red Cell Distribution Width-SD 42.5 fL; White Blood Count 5.1 K/mm3 (4.8-10.8)
[2025-03-12 08:40] LABS: Anion Gap 12.9 mEq/L (5-15); Blood Urea Nitrogen 9 mg/dl (7-17); Calcium 8.9 mg/dl (8.4-10.2); Carbon Dioxide 32 mmol/L (22.0-30.0); Chloride 96 mmol/L (98-107); Creatinine Clearance Estimated 52 mL/min (50-200); Creatinine,Serum 1.00 mg/dl (0.52-1.04); Estimated Glomerular Filt Rate 57 ml/min (>60); GFR (African American) 68 ML/MIN (>60); Glucose 81 mg/dl (74-100); Potassium 3.9 mmoL/L (3.5-5.1); Sodium 137 mmol/L (136-145)
[2025-03-12] MEDS: HEPARIN 1,000 UNITS/ML 10ML VIAL (CATH LAB) 5000 UNIT IV (10:05)
[2025-03-12] MEDS: NITROGLYCERIN 800MCG/8ML SYR (CATH LAB) 800 MCG IA (10:06)
[2025-03-12] MEDS: HEPARIN 1,000 UNITS/500ML NS (CATH LAB) 3000 UNIT IV (10:06)
[2025-03-12] MEDS: LIDOCAINE 1% 10ML MDV 10 ML IJ (10:06)
[2025-03-12] MEDS: VERAPAMIL 2.5MG/ML 2ML VIAL 2.5 MG IV (10:06)
[2025-03-12] MEDS: 0.9 % SODIUM CHLORIDE 500 ML 25 ML IV (10:13)
[2025-03-12] MEDS: FENTANYL 100MCG/2ML VIAL 50 MCG IV (10:16)
[2025-03-12] MEDS: MIDAZOLAM HCL 1MG/ML 5ML VIAL 1 MG IV (10:18)
[2025-03-12] MEDS: PRASUGREL 10MG TAB 60 MG PO (10:33)
--- NOTE | 2025-03-12 10:54 | SUR.PHASEII ---
called report and verified med list with ning DRAKE at pt facility. RN stated she wasnt sure when pt med list was last updated . RN explained that she knew pt wsa no longer taking plavix. pt loaded with effient per MD. this RN answered all questions ning RN had. ning DRAKE educated on importance of pt taking dual antiplatelet therapy d/t new coronary stenting. this RN also asked ning RN where to send pt meds and ning DRAKE stated [facility] is what facility uses. This RN asked if the prescription for effient was called in today and ning DRAKE stated she would have all her new prescriptions tomorrow. no new orders at this time.
[2025-03-12] MEDS: IOPAMIDOL-370 (76%);100ML BOTTLE 80 ML IV (11:29)
--- NOTE | 2025-03-12 12:51 | SUR.PHASEII ---
Clarified with MD for need of order of NIKOLAI or Arb, pt allergy to lisinopril is cough, stated to add Jj 160daily
[2025-03-12 17:12] LABS: CATHL Activated Clotting Time 356 SEC (74-125)
== END 2025-03-12 13:46 | disposition home or self-care (01) ==
PROVIDERS: PCP Nurse Practitioner Family; Visit Provider Internal Medicine
PROC: 4A023N7 Measurement of Cardiac Sampling and Pressure, Left Heart, Percutaneous Approach (ICD-10-PCS; CPT 93452; principal; 2025-03-12 08:00)
DX: I25.110 Atherosclerotic heart disease of native coronary artery with unstable angina pectoris (principal); I25.41 Coronary artery aneurysm; I25.2 Old myocardial infarction; J96.11 Chronic respiratory failure with hypoxia; J45.909 Unspecified asthma, uncomplicated; I27.20 Pulmonary hypertension, unspecified; G25.81 Restless legs syndrome; I11.0 Hypertensive heart disease with heart failure; I73.9 Peripheral vascular disease, unspecified; J43.2 Centrilobular emphysema; E66.813 Obesity, class 3; I50.33 Acute on chronic diastolic (congestive) heart failure; E78.2 Mixed hyperlipidemia; G47.33 Obstructive sleep apnea (adult) (pediatric); Z68.43 Body mass index [BMI] 50.0-59.9, adult; Z95.5 Presence of coronary angioplasty implant and graft; Z88.3 Allergy status to other anti-infective agents; Z88.8 Allergy status to other drugs, medicaments and biological substances; Z79.82 Long term (current) use of aspirin; Z79.51 Long term (current) use of inhaled steroids; Z79.85 Long-term (current) use of injectable non-insulin antidiabetic drugs; Z79.899 Other long term (current) drug therapy; Z82.49 Family history of ischemic heart disease and other diseases of the circulatory system; Z83.438 Family history of other disorder of lipoprotein metabolism and other lipidemia; Z99.81 Dependence on supplemental oxygen; Z79.02 Long term (current) use of antithrombotics/antiplatelets
CPT/HCPCS: 80048; 85025; 85347; 92928; 93458; 99152; C1725; C1760; C1769; C1874; C9600; J1200; J1644; J3010; J7040; Q9967

== ENCOUNTER 2025-03-17 13:41 | Outpatient (CLI) | payer MEDICARE, SELFPAY ==
--- OUTSIDE RECORDS SUMMARY | 2024-02-15 09:25 | XMS_ITS | Continuity of Care Document ---
Author Name [facility] Organization [facility] Care Team Providers Care Drain Technician Name Role Phone [facility] Unavailable Unavailable Problems Combined list of problems from Department of Defense and Veterans Affairs facilities. It does not include entries that were removed or entered in error. Problem Status Onset Date Problem Type Date of Resolution Comme nts Source Diagnosis: ICD-10-CM Z71.0 Prsn encntr hlth serv to consult on behalf of another person Active Diagnosis [place] Encounters Combined list of: 1) Encounters from Department of Veterans Affairs facilities going backup to the last 18 months, not all VA inpatient encounters are included; 2) Encounters from the Department of Defense facilities going backup to 280 months. Location Location Details Encounter Type Encounter Number Reason For Visit Attending Provider ADM Date DC Date Status Disposition Source [facility] PSYCH DIAGNOSTIC EVALUATION [id number] Diagnos is: ICD-10- CM Z71.0 Prsn encntr hlth serv to consult on behalf of another person MANDIE [facility]EDA 12[facility] Outpatient Encounter [id number] MANDIE SAUCEDA 02/14 [facility]
--- OUTSIDE RECORDS SUMMARY | 2025-02-05 09:45 | XMS_ITS ---
Author Organization [facility] Address [address] [address] Care Team Providers Care Community Nutrition Educator Name Role Phone Raegan Bowden Primary Care Provider Allergies Allergen (clinical drug ingredient) Drug/Non Drug Allergy documented on EMR Reaction Allergy Type Onset Date Status sulfisoxazole sulfiSOXAZOLE Unknown Drug Allergy Active Substance with sulfonamide structure and antibacterial mechanism of action (substance) Sulfa Antibiotics Unknown Drug Allergy Active Iodine Unknown Drug Allergy Active povidone-iodine Betadine Unknown Drug Allergy A ctive REASON FOR VISIT I've got a lot going on Medications Medication SIG (Take, Route, Frequency, Duration) Notes Start Date End Date Status Wellbutrin XL 300 MG 1 tablet in the morning Orally Once a day Active SEROquel 200 MG 1 tablet Orally Once a day Active hydrOXYzine Pamoate 25 MG 1 capsule every 8 hours Orally PRN x 14 days Active clonazePAM 0.5 MG 1 tablet daily at bedtime Orally and may administer 1 tablet once daily PRN x 30 days for 30 days 01/20/2025 - in addition to current order for clonazepam 0.5mg once daily at bedtime, my administer 0.5mg once daily PRN x 30 days Active traZODone HCl 300 MG 1 tablet at bedtime Orally Once a day Active Latuda 40 MG 1 tablet with food Orally Once a day Active Encounters Encounter Location Date Provider Diagnosis [facility] [place] [address] [place] [address] 02/05/2025 Raegan Bowden Bipolar disorder, current episode depressed, moderate F31.32 and ALEJANDRA (generalized anxiety disorder) F41.1 Assessments Encounter Date Diagnosis (ICD Code) Assessment Notes Treatment Notes Treatment Clinical Notes Section Notes 02/05/2025 Bipolar disorder, current episode depressed, moderate (ICD-10 - F31.32) Patient stated she has been stable on current psychotropic medication regimen and requested no changes. Clinician discussed moving administration of Latuda to dinner meal since it needs to be taken with foodand she does not eat breakfast. 02/05/2025 ALEJANDRA (generalized anxiety disorder) (ICD-10 - F41.1) 02/05/2025 Other 1) Continue clonazepam 0.5mg once daily PRN x 30 days for episodes of increased anxiety. 2) Patient provided with information regarding FLD to aid in coping with changes to 's behavior. 3) Continue to provide psychiatric support and medication management. Please call with signs of distress or mood changes that arise. Total time spent assessing patient, reviewing chart, and coordinating care: 34 minutes Plan Of Treatment Medication Medication Name Sig Start Date Stop Date Notes Wellbutrin XL 300 MG 1 tablet in the morning Orally Once a day SEROquel 200 MG 1 tablet Orally Once a day clonazePAM 0.5 MG 1 tablet daily at bedtime Orally and may administer 1 tablet once daily PRN x 30 days for 30 days 01/20/2025 - in addition to current order for clonazepam 0.5mg once daily at bedtime, my administer 0.5mg once daily PRN x 30 days traZODone HCl 300 MG 1 tablet at bedtime Orally Once a day Latuda 40 MG 1 tablet with food Orally Once a day Treatment Notes Assessment Notes Bipolar disorder, current ep isode depressed, moderate Patient stated she has been stable on current psychotropic medication regimen and requested no changes. Clinician discussed moving administration of Latuda to dinner meal since it needs to be taken with foodand she does not eat breakfast. Other 1) Continue clonazepam 0.5mg once daily PRN x 30 days for episodes of increased anxiety. 2) Patient provided with information regarding FLD to aid in coping with changes to 's behavior. 3) Continue to provide psychiatric support and medication management. Please call with signs of distress or mood changes that arise. Total time spent assessing patient, reviewing chart, and coordinating care: 34 minutes Next Appt Details Follow Up: 2 weeks and as aleksandar davies, Reason: Progress Notes * Celia ZHANGDOB: 4 (59 yo F)Acc No.[id number]:02/05/2025 Progress Notes Patient: Flaca FLANNERYanita Provider: Lexis Bowden APRN :1965 A ge:59 Y S ex:Female Date:02/05/2025 Address:[address], [id number] Subjective: * Chief Complaints: * I've got a lot going on * HPI: P sychiatric Status: Celia Zhang is a 59-year-old , female who resides at [facility] in [place], [place] since 12/25/2024. Patient is being treated for bipolar disorder with insomnia. Patient is being seen for follow-up visit today to monitor mood symptoms and to provide medication management. Staff reported patient stated recently that she wants a divorce from her who has dementia and has spent all their money and been involved with online sex services. Patient has been administered 2 PRN clonazepam doses in the last two weeks. Patient was seen while in her room for visit today. Patient stated, I've got a lot going on. Patient stated she now wants a divorce from her who has spent all their money and has been involved with internet sex websites. Clinician discussed with patient about FLD and provided her with brochure about disease. Patient stated her has every symptom of FLD. Patient was sitting in her wheelchair in her room during visit today. Patient was tearful but able to hold conversation and process current issues. Patient was alert, appeared sad, was very talkative, and was cooperative throughout visit. Patient exhibited intact recent and remote memory with no impairments noted during visit. Patient responded to questions asked with clear speech and logical responses. Patient was appropriately dressed and groomed. Patient exhibited good eye contact. Patient exhibited good insight and judgment. Patient was evaluated for negative side effects from psychotropic medications with none reported or observed. Clinician provided evaluation, completed chart review, and consulted with nursing staff. Risks, benefits, and side effects of all medications were monitored and reconsidered. * ROS: R OS completed and negative to chief complaint unless otherwise noted in HPI. * Medical History: * Surgical History: A vailable for review in patient's record at facility * Hospitalization/Major Diagno stic Procedure: N o past psychiatric hospitalizations * Family History: Patient has 4 adult children and cares for her with dementia. * Social History: P maddison has 4 adult children. Patient is the primary caregiver for her who has dementia. Patient has history of unsepcified trauma. * Medications: T akingLatuda 40 MG Tablet 1 tablet with food Orally Once a day SEROquel 200 MG Tablet 1 tablet Orally Once a day Wellbutrin XL 300 MG Tablet Extended Release 24 Hour 1 tablet in the morning Orally Once a day traZODone HCl 300 MG Tablet 1 tablet at bedtime Orally Once a day clonazePAM 0.5 MG Tablet 1 tablet daily at bedtime Orally and may administer 1 tablet once daily PRN x 30 days , Notes to Pharmacist: 01/20/2025 - in addition to current order for clonazepam 0.5mg once daily at bedtime, my administer 0.5mg once daily PRN x 30 dayshydrOXYzine Pamoate 25 MG Capsule 1 capsule every 8 hours Orally PRN x 14 days Medication List reviewed and reconciled with the patientTaking Latuda 40 MG Tablet 1 tablet with food Orally Once a day Taking SEROquel 200 MG Tablet 1 tablet Orally Once a day Taking Wellbutrin XL 300 MG Tablet Extended Release 24 Hour 1 tablet in the morning Orally Once a day Taking traZODone HCl 300 MG Tablet 1 tablet at bedtime Orally Once a day Taking clonazePAM 0.5 MG Tablet 1 tablet daily at bedtime Orally and may administer 1 tablet once daily PRN x 30 days , Notes to Pharmacist: 01/20/2025 - in addition to current order for clonazepam 0.5mg once daily at bedtime, my administer 0.5mg once daily PRN x 30 daysTaking hydrOXYzine Pamoate 25 MG Capsule 1 capsule every 8 hours Orally PRN x 14 days Medication List reviewed and reconciled with the patient * Allergies: I odinesulfiSOXAZOLEBetadineSulfa Antibiotics Objective: * Vitals: Assessment: * Assessment: 1. G AD (generalized anxiety disorder) - F41.1 (Primary) 2 . B ipolar disorder, current episode depressed, moderate - F31.32 Plan: * Treatment: 2. B ipolar disorder, current episode depressed, moderate Continue Latuda Tablet, 40 MG, 1 tablet with food, Orally, Once a day; C ontinue SEROquel Tablet, 200 MG, 1 tablet, Orally, Once a day; C ontinue Wellbutrin XL Tablet Extended Release 24 Hour, 300 MG, 1 tablet in the morning, Orally, Once a day; C ontinue traZODone HCl Tablet, 300 MG, 1 tablet at bedtime, Orally, Once a day. Notes: Patient stated she has been stable on current psychotropic medication regimen and requested no changes. Clinician discussed moving administration of Latuda to dinner meal since it needs to be taken with foodand she does not eat breakfast. 3. O thers Notes: 1) Continue clonazepam 0.5mg once daily PRN x 30 days for episodes of increased anxiety. 2) Patient provided with information regarding FLD to aid in coping with changes to 's behavior. 3) Continue to provide psychiatric support and medicationmanagement. Please call with signs of distress or mood changes that arise. Total time spent assessing patient, reviewing chart, andcoordinating care: 34 minutes * Procedure Codes: * Follow Up: 2 weeks and as needed * Billing Information: * Visit Code: 41077 [facility] Sub Level 3. * Procedure Codes: * Sign off status: Completed true * Provider: Lexis Bowden APRN Date: 0 02/05/2025 Generated for Edward noguera/Melisa/Maverick on: 0 03/17/2025 01:46 PM EDT History and Physical Notes * HPI (History of Present Illness) Category Sub-Category Detail Notes Category Not es Psychiatric Status Celia barron is a 59-year-old , female who resides at [facility] in [place], [place] since 12/25/2024. Patient is being treated for bipolar disorder with insomnia. Patient is being seen for follow-up visit today to monitor mood symptoms and to provide medication management. Staff reported patient stated recently that she wants a divorce from her who has dementia and has spent all their money and been involved with online sex services. Patient has been administered 2 PRN clonazepam doses in the last two weeks. Patient was seen while in her room for visit today. Patient stated, I've got a lot going on. Patient stated she now wants a divorce from her who has spent all their money and has been involved with internet sex websites. Clinician discussed with patient about FLD and provided her with brochure about disease. Patient stated her has every symptom of FLD. Patient was sitting in her wheelchair in her room during visit today. Patient was tearful but able to hold conversation and process current issues. Patient was alert, appeared sad, was very talkative, and was cooperative throughout visit. Patient exhibited intact recent and remote memory with no impairments noted during visit. Patient responded to questions asked with clear speech and logical responses. Patient was appropriately dressed and groomed. Patient exhibited good eye contact. Patient exhibited good insight and judgment. Patient was evaluated for negative side effects from psychotropic medications with none reported or observed. Clinician provided evaluation, completed chart review, and consulted with nursing staff. Risks, benefits, and side effects of all medications were monitored and reconsidered.
--- OUTSIDE RECORDS SUMMARY | 2025-02-24 12:00 | XMS_ITS ---
Author Organization [facility] Address [address] [address] Care Team Providers Care Case Hardener Name Role Phone Raegan Bowden Primary Care Provider Allergies Allergen (clinical drug ingredient) Drug/Non Drug Allergy documented on EMR Reaction Allergy Type Onset Date Status sulfisoxazole sulfiSOXAZOLE Unknown Drug Allergy Active Substance with sulfonamide structure and antibacterial mechanism of action (substance) Sulfa Antibiotics Unknown Drug Allergy Active Iodine Unknown Drug Allergy Active povidone-iodine Betadine Unknown Drug Allergy A ctive REASON FOR VISIT I went home with my and daughter yesterday and came back sick. It was horrible. Medications Medication SIG (Take, Route, Frequency, Duration) Notes Start Date End Date Status traZODone HCl 300 MG 1 tablet at bedtime Orally Once a day Active Wellbutrin XL 300 MG 1 tablet in the morning Orally Once a day Active hydrOXYzine Pamoate 25 MG 1 capsule every 8 hours Orally PRN x 14 days Active clonazePAM 0.5 MG 1 tablet daily at bedtime Orally and may administer 1 tablet twice daily PRN x 90 days for 30 days 02/24/2025 - in addition to current order for clonazepam 0.5mg once daily at bedtime, may administer 0.5mg twice daily PRN x 90 days 02/24/2025 Active Latuda 40 MG 1 40mg tablet with 1 20mg tablet Orally Once a day at 1700 with food for 30 days increase daily dose of Latuda to 60mg once daily at 1700 - administer one 40mg tablet with one 20mg tablet for total of 60mg Active SEROquel 200 MG 1 tablet Orally Once a day Active Encounters Encounter Location Date Provider Diagnosis [facility] [address] [place] [address] 02/24/2025 Raegan Bowden Bipolar disorder, current episode depressed, moderate F31.32 and ALEJANDRA (generalized anxiety disorder) F41.1 Assessments Encounter Date Diagnosis (ICD Code) Assessment Notes Treatment Notes Treatment Clinical Notes Section Notes 02/24/2025 Bipolar disorder, current episode depressed, moderate (ICD-10 - F31.32) Patient stated she has been stable on current psychotropic medication regimen and requested no changes. Clinician discussed moving administration of Latuda to dinner meal since it needs to be taken with foodand she does not eat breakfast. 02/24/2025 ALEJANDRA (generalized anxiety disorder) (ICD-10 - F41.1) 02/24/2025 Other 1) Increase Latuda dose to 60mg daily at dinner. 2) Increase clonazepam order to 0.5mg once daily at bedtime and may administer 0.5mg twice daily PRN x 90 days for episodes of increased anxiety. Patient requires this medication beyond 14 days due to anxiety which is chronic and ongoing. Clonazepam is effective at relieving symptoms of distress and improving quality of life. Duration of PRN order will be for 90 days and will be reviewed at each visit for continued need and efficacy. GDR will be attempted in 90 days unless clinically contraindicated. 3) Continue to provide psychiatric support and medication management. Please call with signs of distress or mood changes that arise. Total time spent assessing patient, reviewing chart, and coordinating care: 44 minutes Plan Of Treatment Medication Medication Name Sig Start Date Stop Date Notes traZODone HCl 300 MG 1 tablet at bedtime Orally Once a day Wellbutrin XL 300 MG 1 tablet in the morning Orally Once a day hydrOXYzine Pamoate 25 MG 1 capsule every 8 hours Orally PRN x 14 days clonazePAM 0.5 MG 1 tablet daily at bedtime Orally and may administer 1 tablet twice daily PRN x 90 days for 30 days 02/24/2025 02/24/2025 - in addition to current order for clonazepam 0.5mg once daily at bedtime, may administer 0.5mg twice daily PRN x 90 days Latuda 40 MG 1 40mg tablet with 1 20mg tablet Orally Once a day at 1700 with food for 30 days increase daily dos e of Latuda to 60mg once daily at 1700 - administer one 40mg tablet with one 20mg tablet for total of 60mg SEROquel 200 MG 1 tablet Orally Once a day Treatment Notes Assessment Notes Bipolar disorder, current ep isode depressed, moderate Patient stated she has been stable on current psychotropic medication regimen and requested no changes. Clinician discussed moving administration of Latuda to dinner meal since it needs to be taken with foodand she does not eat breakfast. Other 1) Increase Latuda dose to 60mg daily at dinner. 2) Increase clonazepam order to 0.5mg once daily at bedtime and may administer 0.5mg twice daily PRN x 90 days for episodes of increased anxiety. Patient requires this medication beyond 14 days due to anxiety which is chronic and ongoing. Clonazepam is effective at relieving symptoms of distress and improving quality of life. Duration of PRN order will be for 90 days and will be reviewed at each visit for continued need and efficacy. GDR will be attempted in 90 days unless clinically contraindicated. 3) Continue to provide psychiatric support and medication management. Please call with signs of distress or mood changes that arise. Total time spent assessing patient, reviewing chart, and coordinating care: 44 minutes Next Appt Details Follow Up: 2 weeks and as aleksandar davies, Reason: Progress Notes * Celia ZHANGDOB: 4 (59 yo F)Acc No.[id number]:02/24/2025 Progress Notes Patient: Celia FLANNERY Provider: Lexis Bowden APRN :1965 A ge:59 Y S ex:Female Date:02/24/2025 Address:[address] [place] [address] [id number] Subjective: * Chief Complaints: * I went home with my and daughter yesterday and came back sick. It was horrible. * HPI: P sychiatric Status: Celia Zhang is a 59-year-old , female who resides at [facility] in [place], [place] since 12/25/2024. Patient is being treated for bipolar disorder with insomnia. Patient is being seen for follow-up visit today to monitor mood symptoms and to provide medication management. Patient has been administered PRN doses of clonazepam on a daily basis. Staff reported patient has expressed her desire to return to her home, however, does not want to go home if her is still in the home due to his recurring agitation and impulsive behaviors. Staff reported patient's came in today and was screaming throughout the facility and was difficult to calm. Patient was seen while in her room for visit today. Patient stated, I went home with my and daughter yesterday and came back sick. It was horrible. Patient stated her is so out of control and is often agitation and aggressive towards her. Patient stated she has had issues with depression since she was a child and attempted to kill herself when she was 5 years old. Patient requested increase to Latuda dose. Clinician provided support and allowed patient to process feelings. Patient was sitting in her wheelchair in her room during visit today. Patient was tearful but able to hold conversation and process current issues. Patient was alert, tearful, anxious, depressed, talkative, and was cooperative throughout visit. Patient exhibited intact recent and remote memory with no impairments noted during evaluation. Patient responded to questions asked with clear speech and logical responses. Patient was appropriately dressed and groomed. Patient exhibited good eye contact. Patient exhibited fair insight and judgment. Patient was evaluated for [...] for her with dementia. * Social History: Chani washburn has 4 adult children. Patient is the [...] with the patient * Allergies: I odinesulfiSOXAZOLEBetadineSulfa Antibioticsno[Allergies Verified] Objective: * Vitals: Assessment: * Assessment: 1. G AD (generalized anxiety disorder) - F41.1 (Primary) 2 . B ipolar disorder, current episode depressed, moderate - F31.32 Plan: * Treatment: 2. B ipolar disorder, current episode depressed, moderate Increase Latuda Tablet, 40 MG, 1 40mg tablet with 1 20mg tablet, Orally, Once a day at 1700 with food, 30 days, 60, Refills 5, Notes to Pharmacist: increase daily dose of Latuda to 60mg once daily at 1700 - administer one 40mg tablet with one 20mg tablet for total of 60mg; C ontinue SEROquel Tablet, 200 MG, 1 [...] eat breakfast. 3. O thers Notes: 1) Increase Latuda dose to 60mg daily at dinner. 2) Increase clonazepam order to 0.5mg once daily at bedtime and may administer 0.5mg twice daily PRN x 90 days for episodes of increased anxiety. Patient requires this medication beyond 14 days due to anxietywhich is chronic and ongoing. Clonazepam is effective at relieving symptoms ofdistress and improving quality of life. Duration of PRN order will be for 90days and will be reviewed at each visit for continued need and efficacy. GDRwill be attempted in 90 days unless clinically contraindicated. 3) Continue to provide psychiatric support and medicationmanagement. Please call with signs of distress or mood changes that arise. Total time spent assessing patient, reviewing chart, andcoordinating care: 44 minutes * Procedures: P sychotherapy Total psychotherapy time: 32 minutes Therapy today was focused on: depression and anxiety symptom management, coping skills Targeted Symptoms: depression & anxiety Goals of Therapy: Alleviate stress, identifying negative emotions, thoughts, and/or behaviors, reinforce the ability to cope with life stressors, codependency Timeline to Goal: 6 months Techniques: Active and Empathetic Listening, Comforting, Therapeutic [place], CBT Progress in Therapy: Maintenance During the session the following topics were discussed: mood management, codependency Patient impression of therapy: continues with significant anxiety and depression symptoms due to significant psychostressors in her life. * Procedure Codes: 9 0833 PSYTX W PT W E/M 30 [id number] CLIN DEPRESSION SCREEN DOC * Follow Up: 2 weeks and as needed * Billing Information: * Visit Code: 86697 [facility] Sub Level 3. * Procedure Codes: 91580 PSYTX W PT W E/M 30 MIN. G8431 CLIN DEPRESSION SCREEN DOC. * Sign off status: Completed true * Provider: Lexis Bowden APRN Date: 0 02/24/2025 Generated for Edward noguera/Melisa/Maverick on: 03/17/2025 01:46 PM EDT History and Physical Notes * HPI (History of Present Illness) Category Sub-Category Detail Notes Category Not es Psychiatric Status Celia barron is a 59-year-old , female who resides at [facility] in [place], [place] since 12/25/2024. Patient is being treated for bipolar disorder with insomnia. Patient is being seen for follow-up visit today to monitor mood symptoms and to provide medication management. Patient has been administered PRN doses of clonazepam on a daily basis. Staff reported patient has expressed her desire to return to her home, however, does not want to go home if her is still in the home due to his recurring agitation and impulsive behaviors. Staff reported patient's came in today and was screaming throughout the facility and was difficult to calm. Patient was seen while in her room for visit today. Patient stated, I went home with my and daughter yesterday and came back sick. It was horrible. Patient stated her is so out of control and is often agitation and aggressive towards her. Patient stated she has had issues with depression since she was a child and attempted to kill herself when she was 5 years old. Patient requested increase to Latuda dose. Clinician provided support and allowed patient to process feelings. Patient was sitting in her wheelchair in her room during visit today. Patient was tearful but able to hold conversation and process current issues. Patient was alert, tearful, anxious, depressed, talkative, and was cooperative throughout visit. Patient exhibited intact recent and remote memory with no impairments noted during evaluation. Patient responded to questions asked with clear speech and logical responses. Patient was appropriately dressed and groomed. Patient exhibited good eye contact. Patient exhibited fair insight and judgment. Patient was evaluated for negative side effects from psychotropic medications with none reported or observed. Clinician provided evaluation, completed chart review, and consulted with nursing staff. Risks, benefits, and side effects of all medications were monitored and reconsidered.
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
--- OUTSIDE RECORDS SUMMARY | 2025-03-17 13:46 | XMS_ITS | Encounter Summary ---
Author Organization [facility] ([place], [place], [place], [place]) Address [address] [place] [address] Care Team Providers Care Apprentice Jockey Name Role Phone Unavailable Primary Care Provider Unavailabl e Encounter Details Date Type Department Care Team (Late st Contact Info) Description 03/17/2021 Transcribed Document [facility] Family Medicine [address] [place] [address] ProviderMaximiliano MD [address] [place] [address] Social History Tobacco Use Types Packs/Day Years Used Date Smoking Tobacco: Never Assessed Comments Unknown Sex and Gender Information Value Date Recorded Sex Assigned at Not on file Legal Sex Female 1:06 PM CDT Gender Identity Not on file Sexual Orientation Not on file documented as of this encounter Miscellaneous Notes * Cerner Conversion Note - Maximiliano ProviderMD - 03/17/2021 4:34 PM CDT [facility] [place] [address] ISA ZHANG :1965 Visit Time:03/17/2021 Your Visit Summary Your Care Team Admitting Physician - URI POOLE MD-CAR Attending Physician - URI POOLE MD-CAR Primary Care Physician - KATHY NORWOOD NP-FAM Referring Physician - NICA WHITE MD-INT Your Diagnosis Abnormal result of other cardiovascular function study, Abnormal result of other cardiovascular function study Discharge Vitals Heart Rate (Monitored) 80 Respiratory Rate 16 Blood Pressure 142/68 What to do next Instructions From Your Care Team NO DRIVING UNTIL TOMORROW NIGHT. FOLLOW RADIAL SITE INSTRUCTION SHEET GIVEN AND REVIEWED. SHOWER TOMORROW, NO SOAKING IN WATERF FOR 5 DAYS. REMOVE DRESSING IN SHOWER TOMORROW. FOR BLEEDING OR SWELLING RIGHT WRIST-HOLD PRESSURE AND CALL 911. Follow-Up Appointments Follow Up with NICA WHITE When Within 1 month Where: [address] [place] [address] [place] [phone]- [phone] Business (1) Medications What How Much When Instructions Next Dose aspirin (aspirin 81 mg oral tablet) 1 Tablet(s) Oral Every Day atenolol (atenolol 25 mg oral tablet) 0.5 Milligram(s) Oral Every Day buPROPion (Wellbutrin 100 mg oral tablet) 3 Tabs Oral Every Day cholecalciferol (Vitamin D3 5000 units oral capsule) 1 Capsule(s) Oral Every Day with food clonazePAM (KlonoPIN 2 mg oral tablet) 1 Tablet(s) Oral Two Times A Day isosorbide mononitrate (Imdur) 30 Milligram(s) Oral Every Morning lamoTRIgine (LaMICtal) 150 Milligram(s) Oral At Bedtime losartan (losartan 25 mg oral tablet) 1 Tablet(s) Oral Every Day in pm lurasidone (Latuda 60 mg oral tablet) Oral Every Day ondansetron (Zofran 4 mg oral tablet) Oral Four Times A Day QUEtiapine (Seroquel 300 mg oral tablet) 1 Tablet(s) Oral At Bedtime traZODone (trazodone 150 mg oral tablet) 2 Tabs Oral At Bedtime Take your medications faithfully. Do NOT skip medication. Do NOT stop taking medications without the direction of a physician. Carry a list of your medications with you at all times, and take this medication list with you to your first follow up visit. Report any side effects. Avoid herbal remedies unless discussed with your physician. As part of your treatment plan, your physician may have prescribed a limited course of a controlled substance. This medication may be given to help people with moderate or severe pain or for other medical conditions, but there are risks involved with treatment. Common side effects may include nausea, constipation, drowsiness, sweating, itching, dry mouth, and rash. More serious side effects may include cognitive and motor impairment, like problems with thinking, concentrating, alertness, and movement (e.g. slowed reflexes), and driving and operating heavy machinery can be dangerous. It is important for you to talk to your physician if you have these side effects or questions. These controlled substances can produce physical dependence and be habit-forming if taken for an extended period of time, which means that the body has gotten used to them and may experience withdrawal symptoms if they are abruptly stopped. Withdrawal symptoms can include runny nose, sweating, goose bumps, diarrhea, abdominal cramping, rapid heartbeat, difficulty sleeping, and nervousness. Please dispose of unused and medications per your retail pharmacy guidance. Allergies povidone iodine topical (blister, blister) Bee Stings (Anaphylaxis) iodine topical (C/O: a rash, C/O: a rash) statins (Myalgia) Immunizations This Visit No Immunizations Found Education Materials Moderate Conscious Sedation, Adult, Care After These instructions provide you with information about caring for yourself after your procedure. Your health care provider may also give you more specific instructions. Your treatment has been planned according to current medical practices, but problems sometimes occur. Call your health care provider if you have any problems or questions after your procedure. What can I expect after the procedure? After your procedure, it is common: ??? To feel sleepy for several hours. ??? To feel clumsy and have poor balance for several hours. ??? To have poor judgment for several hours. ??? To vomit if you eat too soon. Follow these instructions at home: For at least 24 hours after the procedure: ??? Do not: ? Participate in activities where you could fall or become injured. ? Drive. ? Use heavy machinery. ? Drink alcohol. ? Take sleeping pills or medicines that cause drowsiness. ? Make important decisions or sign legal documents. ? Take care of children on your own. ??? Rest. Eating and drinking ??? Follow the diet recommended by your health care provider. ??? If you vomit: ? Drink water, juice, or soup when you can drink without vomiting. ? Make sure you have little or no nausea before eating solid foods. General instructions ??? Have a responsible adult stay with you until you are awake and alert. ??? Take hrxv-cnz-sheuqxg and prescription medicines only as told by your health care provider. ??? If you smoke, do not smoke without supervision. ??? Keep all follow-up visits as told by your health care provider. This is important. Contact a health care provider if: ??? You keep feeling nauseous or you keep vomiting. ??? You feel light-headed. ??? You develop a rash. ??? You have a fever. Get help right away if: ??? You have trouble breathing. This information is not intended to replace advice given to you by your health care provider. Make sure you discuss any questions you have with your health care provider. Document Revised: 08/10/2018 Document Reviewed: 12/17/2016 [employer] Patient Education ?? 2020 [employer]. Transradial Angiogram A transradial angiogram is an imaging test that is used to examine blood vessels. For this test, a long, thin tube (catheter) is inserted into an artery in the wrist (radial artery) and moved into the blood vessels that need to be checked. A dye (contrast dye) is injected into the blood vessels, and then X-rays are taken. The contrast dye makes the blood vessels show up better on X-rays to help your health care provider see any problems. You may have this test to check for problems that can affect blood flow through the blood vessels, such as: ??? A blocked or narrowed blood vessel. ??? A blood clot. ??? Abnormal connections between blood vessels. Tell a health care provider about: ??? Any allergies you have. ??? All medicines you are taking, including vitamins, herbs, eye drops, creams, and ybti-mjl-tsengjd medicines. ??? Any problems you or family members have had with anesthetic medicines. ??? Any blood disorders you have. ??? Any surgeries you have had. ??? Any medical conditions you have or have had. ??? Whether you are or may be . What are the risks? Generally, this is a safe procedure. However, problems may occur, including: ??? Infection. ??? Bleeding. ??? Allergic reactions to medicines or dyes. ??? Damage to other structures or organs, such as the blood vessels, lungs, or heart. ??? Blood clots. ??? Blood flow through the radial artery stopping or slowing down. This is rare. What happens before the procedure? Medicines Ask your health care provider about: ??? Changing or stopping your regular medicines. This is especially important if you are taking diabetes medicines or blood thinners. ??? Taking medicines such as aspirin and ibuprofen. These medicines can thin your blood. Do not take these medicines unless your health care provider tells you to take them. ??? Taking tzsg-ooa-tkjyrwa medicines, vitamins, herbs, and supplements. Exams and tests ??? You may have a physical exam. ??? You may have tests, including blood tests and X-rays. General instructions ??? Follow instructions from your health care provider about eating or drinking restrictions. ??? Do not use any products that contain nicotine or tobacco for at least 24 hours before the procedure. These products include cigarettes, e-cigarettes, and chewing tobacco. If you need help quitting, ask your health care provider. ??? Ask your health care provider: ? How your procedure site will be marked. ? What steps will be taken to help prevent infection. These may include: ? Washing skin with a germ-killing soap. ? Taking antibiotic medicine. ??? Plan to have someone take you home from the hospital or clinic. ??? If you will be going home right after the procedure, plan to have someone with you for 24 hours. What happens during the procedure? An IV will be inserted into one of your veins. ??? You may be given the following: ? A medicine to help you relax (sedative). ? A medicine that is injected into your wrist to numb the area near the radial artery (local anesthetic). ??? A needle will be inserted into your radial artery in your wrist. ??? A catheter will be inserted into your radial artery. The needle will help guide the catheter into your radial artery and will then be removed. ??? The catheter will be moved through your body to the desired area. An X-ray machine (fluoroscope) will help your health care provider place the catheter in the correct place in your body. ??? Contrast dye will be injected into the catheter and will travel to the blood vessels that are being examined. ??? X-ray images will be taken of how the dye flows through your blood vessels. While the images are being taken, you may be given instructions on breathing, swallowing, moving, or talking. ??? The catheter will be removed from your body. ??? A pressure (compression) wrap will be applied to your wrist to stop bleeding. The procedure may vary among health care providers and hospitals. What happens after the procedure? You will need to keep your wrist still for as long as told by your health care provider. ??? The pressure applied to your wrist will be gradually decreased until the compression wrap is removed. ??? Your blood pressure, heart rate, breathing rate, and blood oxygen level will be monitored until you leave the hospital or clinic. ??? You may continue to get fluids and medicines through an IV. ??? You may have soreness and bruising in your wrist. This is normal. This should get better within about 1 week. ??? Do not drive for 24 hours if you were given a sedative during your procedure. ??? You may have to wear compression stockings. These stockings help to prevent blood clots and lessen swelling in your legs. Summary ??? A transradial angiogram is an imaging test that is used to examine blood vessels and to check for problems that can affect blood flow. ??? For this test, a catheter is inserted into an artery in the wrist (radial artery) and moved into the blood vessels being examined. A dye (contrast dye) is injected into the blood vessels, and then X-rays are taken. ??? Before the procedure, follow instructions from your health care provider about changing or stopping your medicines. ??? Before the procedure, follow instructions from your health care provider about eating or drinking restrictions. ??? If you will be going home right after the procedure, plan to have someone take you home and stay with you for 24 hours. This information is not intended to replace advice given to you by your health care provider. Make sure you discuss any questions you have with your health care provider. Document Revised: 07/22/2019 Document Reviewed: 07/22/2019 [employer] Patient Education ?? 2020 [employer]. Radial Site Care This sheet gives you information about how to care for yourself after your procedure. Your health care provider may also give you more specific instructions. If you have problems or questions, contact your health care provider. What can I expect after the procedure? After the procedure, it is common to have: ??? Bruising and tenderness at the catheter insertion area. Follow these instructions at home: Medicines ??? Take erzh-euo-tmaczrx and prescription medicines only as told by your health care provider. Insertion site care ??? Follow instructions from your health care provider about how to take care of your insertion site. Make sure you: ? Wash your hands with soap and water before you change your bandage (dressing). If soap and water are not available, use hand open cut examiner. ? Change your dressing as told by your health care provider. ? Leave stitches (sutures), skin glue, or adhesive strips in place. These skin closures may need to stay in place for 2 weeks or longer. If adhesive strip edges start to loosen and curl up, you may trim the loose edges. Do not remove adhesive strips completely unless your health care provider tells you to do that. ??? Check your insertion site every day for signs of infection. Check for: ? Redness, swelling, or pain. ? Fluid or blood. ? Pus or a bad smell. ? Warmth. ??? Do not take baths, swim, or use a hot tub until your health care provider approves. ??? You may shower 24???48 hours after the procedure, or as directed by your health care provider. ? Remove the dressing and gently wash the site with plain soap and water. ? Pat the area dry with a clean towel. ? Do not rub the site. That could cause bleeding. ??? Do not apply powder or lotion to the site. Activity ??? For 24 hours after the procedure, or as directed by your health care provider: ? Do not flex or bend the affected arm. ? Do not push or pull heavy objects with the affected arm. ? Do not drive yourself home from the hospital or clinic. You may drive 24 hours after the procedure unless your health care provider tells you not to. ? Do not operate machinery or power tools. ??? Do not lift anything that is heavier than 10 lb (4.5 kg), or the limit that you are told, until your health care provider says that it is safe. ??? Ask your health care provider when it is okay to: ? Return to work or school. ? Resume usual physical activities or sports. ? Resume sexual activity. General instructions ??? If the catheter site starts to bleed, raise your arm and put firm pressure on the site. If the bleeding does not stop, get help right away. This is a medical emergency. ??? If you went home on the same day as your procedure, a responsible adult should be with you for the first 24 hours after you arrive home. ??? Keep all follow-up visits as told by your health care provider. This is important. Contact a health care provider if: ??? You have a fever. ??? You have redness, swelling, or yellow drainage around your insertion site. Get help right away if: ??? You have unusual pain at the radial site. ??? The catheter insertion area swells very fast. ??? The insertion area is bleeding, and the bleeding does not stop when you hold steady pressure on the area. ??? Your arm or hand becomes pale, cool, tingly, or numb. These symptoms may represent a serious problem that is an emergency. Do not wait to see if the symptoms will go away. Get medical help right away. Call your local emergency services (911 in the [place] Do not drive yourself to the hospital. Summary ??? After the procedure, it is common to have bruising and tenderness at the site. ??? Follow instructions from your health care provider about how to take care of your radial site wound. Check the wound every day for signs of infection. ??? Do not lift anything that is heavier than 10 lb (4.5 kg), or the limit that you are told, until your health care provider says that it is safe. This information is not intended to replace advice given to you by your health care provider. Make sure you discuss any questions you have with your health care provider. Document Revised: 10/03/2018 Document Reviewed: 10/03/2018 [employer] Patient Education ?? 2020 [employer] Emergency Awareness and Preventative Care STROKE is an EMERGENCY Every Minute Counts Act FAST and Check for these signs: FACE Does the face look uneven? ARM Does one arm drift down? SPEECH Does their speech sound strange? TIME Call at any sign of stroke Stroke Risk Factors Atrial Fibrillation (irregular heartbeat) Diabetes Family history of stroke Heart Disease Heavy alcohol use High Blood Pressure High Cholesterol Physical inactivity and obesity Smoking Cigarette Smoking The facts are clear, cigarette smoking will shorten your life. Smoking can cause many illnesses along the way. As a healthcare provider, we recommend that you stop smoking. Assistance with quitting is available by contacting 3-135-RUSQ-NOW. This is a free resource providing counseling, support, and referral. Or you may contact your personal physician. National Suicide Prevention Lifeline: The National Suicide Prevention Lifeline is a national network of local crisis centers that provides free and confidential emotional support to people in suicidal crisis or emotional distress 24 hours a day, 7 days a week. Don't Wait! Stop a Heart Attack Before it Starts What is a heart attack? A heart attack is damage or to a part of the heart from severely decreased or lack of blood flow to the heart. Over time, arteries can become narrow from the buildup of fat and cholesterol, which is called plaque. The plaque can rupture causing a blood clot to form. When the blood clot forms, the artery can become severely narrowed or completely blocked, causing a heart attack. Heart attack is the leading cause of in the [place]. 85% of muscle damage occurs within the first 2 hours. Delay in the recognition of heart attack symptoms increases the chances of . Know the early symptoms of a heart attack: Nausea Feeling of fullness in chest Jaw Pain Pain that travels down one or both arms Fatigue/being tired Anxiety Back Pain Chest pressure, squeezing, or discomfort Shortness of breath Sweating, or a cold sweat Feeling of impending doom There are unusual signs of a heart attack, too! Women, the elderly, and diabetics may present with atypical symptoms: Fainting/dizziness Weakness Confusion Risk Factors for a Heart Attack Some heart disease risk factors, such as age and family history, cannot be changed. Others, like smoking and lack of exercise, can be changed. Smoking High Cholesterol High Blood Pressure Family History Obesity Age Gender (Males are at higher risk) Lack of Exercise Diabetes Diet Stress Excessive Alcohol Intake If you or someone you know is experiencing the signs and symptoms of a heart attack, DON???T DELAY. Call immediately and seek help. If someone collapses, perform CPR! Do not attempt to drive if you are having symptoms of heart attack. Hands-Only CPR Why Hands-Only CPR? Hands-Only CPR has been shown to be as effective as conventional CPR for cardiac arrests that occur outside of a hospital. Survival depends on immediately receiving CPR from someone nearby. How do you perform Hands-Only CPR? There are two easy steps: Call if you see a teen or adult collapse Push hard and fast in the center of the chest at a beat of 100 beats per minute. Save a life! 4 WAYS TO GET AHEAD OF SEPSIS SEPSIS is a MEDICAL EMERGENCY. Time matters! Infections put you and your family at risk for a life-threatening condition called sepsis. Sepsis is the body's extreme response to an infection. It is life-threatening, and without timely treatment, sepsis can rapidly lead to tissue damage, organ failure, and . Sepsis happens when an infection you already have-in your skin, lungs, urinary tract or somewhere else-triggers a chain reaction throughout your body. 1 PREVENT INFECTIONS Take good care of chronic conditions. Talk to your doctor about getting the recommended vaccines. 2 PRACTICE GOOD HYGIENE Wash your hands frequently. Keep cuts or open sores clean and covered until they are healed. 3 KNOW THE SYMPTOMS Confusion or disorientation Shortness of breath High heart rate Fever, shivering, or feeling very cold Extreme pain or discomfort Clammy or sweaty skin 4 ACT FAST Get medical care IMMEDIATELY if you suspect sepsis or if you have an infection that is not getting better or is getting worse. To learn more about sepsis and how to prevent infections, visit www.cdc.gov/sepsis. Test Results Laboratory or Other Results This Visit (last charted value for your 03/17/2021 visit) Hematology 03/17/2021 8:50 AM Hemoglobin POC: 13.6 Gram/dL -- Normal range between ( 12.0 and 17.0 ) Hematocrit POC: 40.0 % -- Normal range between ( 38.0 and 51.0 ) 03/16/2021 8:50 AM Platelet Count: 228 K/uL -- Normal range between ( 163 and 369 ) Microbiology 03/17/2021 10:05 AM SARS-CoV-2 (COVID19 PCR): Negative General Chemistry 03/17/2021 8:50 AM eGFR : 90 mL/min/1.73m2 eGFR NonAfrican: 74 mL/min/1.73m2 Sodium POC: 143 mmol/L -- Normal range between ( 138 and 146 ) Ca Ioniz POC: 1.24 mmol/L -- Normal range between ( 1.12 and 1.32 ) Potassium POC: 4.0 mmol/L -- Normal range between ( 3.5 and 4.9 ) Creatinine POC: 0.8 mg/dL -- Normal range between ( 0.6 and 1.3 ) BUN POC: 12 mg/dL -- Normal range between ( 8 and 26 ) CO2 POC: 28.0 mmol/L -- Normal range between ( 24.0 and 29.0 ) Chloride POC: 102 mmol/L -- Normal range between ( 98 and 109 ) Glucose POC: 87 mg/dL -- Normal range between ( 70 and 105 ) Anion Gap POC: 17.0 mmol/L -- Normal range between ( 10.0 and 20.0 ) Patient Name:GABINOBALWINDER ARELLANOISA Jorge I have received and understand this information and was given the opportunity to ask questions. Patient/Commissary Representative Name: Patient/Commissary Representative Signature: Relationship to Patient: Clinician/Hospital Commissary Representative Signature: Date: documented in this encounter Plan of Treatment Not on file documented as of this encounter Visit Diagnoses Not on filedocumented in this encounter
--- OUTSIDE RECORDS SUMMARY | 2025-03-17 13:46 | XMS_ITS | Continuity of Care Document ---
Author Organization [place] - [facility] Address [address] [facility] [place] [address] Care Team Providers Care Tailor Helper Name Role Phone DAIJA PIERCE Primary Care Provider Assessment No assessment recorded. Plan of Treatment Reminders Order Date Submit Date Provider Last Modified By Organization Details Last Modified Time Details Appointments None record ed. Lab None record ed. Referral None record ed. Procedures None record ed. Surgeries None record ed. Imaging XR, knee 025 03/05/20 clane78 [facility], [address] [place] [address] [place], [address], 15:40:04 Medication Orders None record ed. Patient TargetsNo targets recorded. Patient InstructionsNo instructions recorded. Reason for Referral None Reported. Results Created Date Observation Date Name Description Value Unit Range Abnormal Flag Note LastModifiedBy Organization Detail LastModifiedTime 03/05/20 XR, knee No observ ation record ed. DAMIAN [address] [place], [address], 03/05/2025 13:21:07 Result Notes None recorded. Medical Equipment None Reported. Allergies No known drug allergies Medications Name Sig Start Date Stop Date Status Note LastModified by Organization Details LastModified Time furosemide 40 mg tablet 11/28 completed Not Available Not Available Not Available doxycycline hyclate 100 mg capsule TAKE ONE (1) CAPSULE TWICE A DAY BY ORAL ROUTE FOR 7 DAYS. active Not Available Not Available No t Available ipratropium 0.5 mg-albutero l 3 mg (2.5 mg base)/3 mL nebulizatio n soln INHALE THREE (3) ML FOUR (4) TIMES A DAY BY NEBULIZAT ION ROUTE NEEDED 11/28 completed Not Available Not Available Not Available fluconazole 150 mg tablet TAKE ONE (1) TABLET EVERY DAY BY ORAL ROUTE FOR FIVE (5) DAYS. 11/28 completed Not Available Not Available Not Available hydrocodone 5 mg-acetamin ophen 325 mg tablet TAKE 1 TABLET BY MOUTH EVERY 6 HOURS NEEDED FOR PAIN active Not Available Not Available No t Available phenazopyri dine 200 mg tablet TAKE ONE (1) TABLET THREE (3) TIMES A DAY BY ORAL ROUTE AFTER MEAL(S) FOR FIVE (5) DAYS. active Not Available Not Available No t Available prednisone 20 mg tablet TAKE ONE (1) TABLET BY MOUTH TWO (2) TIMES PER DAY FOR FIVE (5) DAYS active Not Available Not Available No t Available isosorbide mononitrate ER 30 mg tablet,exte nded release 24 hr TAKE ONE (1) TABLET EVERY DAY BY ORAL ROUTE active Not Available Not Available No t Available benzoyl peroxide 10 % topical cleanser active Not Available Not Available Not Available clonazepam 1 mg tablet TAKE ONE (1) TABLET BY MOUTH TWICE DAILY NEEDED 11/28 completed Not Available Not Available Not Available atenolol 25 mg tablet TAKE 1 TABLET BY MOUTH DAILY active Not Available Not Available No t Available clopidogrel 75 mg tablet TAKE ONE (1) TABLET BY MOUTH DAILY active Not Available Not Available No t Available sulfamethox azole 800 mg-trimetho prim 160 mg tablet TAKE ONE (1) TABLET EVERY 12 HOURS BY ORAL ROUTE FOR 10 DAYS. 11/28 completed Not Available Not Available Not Available hydrocodone 10 mg-acetamin ophen 325 mg tablet TAKE ONE (1) TABLET EVERY 4-6 HOURS BY ORAL ROUTE NEEDED FOR THREE (3) DAYS. active Not Available Not Available No t Available quetiapine 100 mg tablet TAKE TWO (2) TABLETS EVERY DAY BY ORAL ROUTE AT BEDTIME FOR 90 DAYS. active Not Available Not Available No t Available spironolact one 25 mg tablet 11/28 completed Not Available Not Available Not Available ondansetron 8 mg disintegrat ing tablet 11/28 completed Not Available Not Available Not Available oxycodone-a cetaminophe n 5 mg-325 mg tablet TAKE ONE (1) TABLET EVERY SIX (6) HOURS BY ORAL ROUTE NEEDED FOR THREE (3) DAYS. 11/28 completed Not Available Not Available Not Available bupropion HCl 100 mg tablet TAKE ONE (1) TABLET THREE (3) TIMES A DAY BY ORAL ROUTE DIRECTED active Not Available Not Available No t Available potassium chloride ER 20 mEq tablet,exte nded release(par t/cryst) 11/28 completed Not Available Not Available Not Available furosemide 80 mg tablet TAKE ONE (1) TABLET EVERY DAY BY ORAL ROUTE FOR 90 DAYS. TAKE AFTER A MEAL. 11/28 completed Not Available Not Available Not Available trazodone 100 mg tablet TAKE THREE (3) TABLETS EVERY DAY BY ORAL ROUTE AT BEDTIME FOR 30 DAYS, FOR INSOMNIA. active Not Available Not Available No t Available Kenalog 10 mg/mL suspension for injection Take 2 mg by injection route. 11/28 completed Not Available Not Available Not Available cephalexin 500 mg capsule 11/28 completed Not Available Not Available Not Available clotrimazol e-betametha sone 1 %-0.05 % topical cream APPLY TO THE AFFECTED AND SURROUNDI NG AREAS OF SKIN BY TOPICAL ROUTE TWO (2) TIMES PER DAY IN THE MORNING AND EVENING FOR TWO (2) WEEKS 11/28 completed Not Available Not Available Not Available losartan 25 mg tablet TAKE ONE (1) TABLET BY MOUTH DAILY active Not Available Not Available No t Available nitroglycer in 0.4 mg sublingual tablet 11/28 completed Not Available Not Available Not Available trazodone 300 mg tablet TAKE ONE (1) TABLET BY MOUTH EVERY NIGHT AT BEDTIME FOR INSOMNIA active Not Available Not Available No t Available mupirocin 2 % topical ointment APPLY TO AFFECTED AREA TWICE DAILY FOR CELLULITI S FOR THREE (3) WEEKS active Not Available Not Available No t Available methylpredn isolone 4 mg tablets in a dose pack TAKE DIRECTED FOR 6 DAYS FOR PAIN & SWELLING active Not Available Not Available No t Available albuterol sulfate HFA 90 mcg/actuati on aerosol inhaler INHALE TWO (2) PUFFS EVERY SIX (6) HOURS NEEDED FOR SHORTNESS OF BREATH OR WHEEZING 11/28 completed Not Available Not Available Not Available fluticasone propionate 50 mcg/actuati on nasal spray,suspe nsion TWO (2) SPRAY INTRANASA LLY DAILY; ADMINISTE R INTO EACH NOSTRIL 11/28 completed Not Available Not Available Not Available doxycycline hyclate 100 mg tablet TAKE 1 TABLET BY MOUTH TWICE DAILY FOR 10 DAYS 11/28 completed Not Available Not Available Not Available spironolact one 50 mg tablet 11/28 completed Not Available Not Available Not Available amoxicillin 875 mg-potassiu m clavulanate 125 mg tablet TAKE ONE (1) TABLET EVERY 12 HOURS BY ORAL ROUTE FOR 7 DAYS. active Not Available Not Available No t Available bupivacaine (PF) 0.5 % (5 mg/mL) injection solution Take 2 mL by injection route. 11/28 completed Not Available Not Available Not Available rosuvastati n 40 mg tablet 11/28 completed Not Available Not Available Not Available ORTHOVISC 30 mg/2 mL intra-artic ular syringe Inject 2 mL every week by intra-art icular route. 2023 active Not Available Not Available Not Avai lable nitrofurant oin monohydrate /macrocryst als 100 mg capsule active Not Available Not Available Not Available pregabalin 75 mg capsule 11/28 completed Not Available Not Available Not Available pregabalin 150 mg capsule TAKE ONE (1) CAPSULE EVERY DAY BY ORAL ROUTE AT BEDTIME FOR 90 DAYS. active Not Available Not Available No t Available omeprazole 40 mg-sodium bicarbonate 1.1 gram capsule 11/28 completed Not Available Not Available Not Available Symbicort 160 mcg-4.5 mcg/actuati on HFA aerosol inhaler 11/28 completed Not Available Not Available Not Available Neupro 2 mg/24 hour transdermal 24 hour patch APPLY ONE (1) PATCH EVERY DAY BY TRANSDERM AL ROUTE FOR 90 DAYS. active Not Available Not Available No t Available Antiseptic Skin Cleanser (chlorhexid ine) 4 % liquid 11/28 completed Not Available Not Available Not Available Brilinta 90 mg tablet active Not Available Not Available No t Available Linzess 145 mcg capsule TAKE ONE (1) CAPSULE EVERY DAY BY ORAL ROUTE AFTER A MEAL FOR 30 DAYS. active Not Available Not Available No t Available lurasidone 60 mg tablet TAKE ONE (1) TABLET EVERY DAY BY ORAL ROUTE FOR 90 DAYS. active Not Available Not Available No t Available Gelsyn-3 16.8 mg/2 mL intra-artic ular syringe Inject 16.8 mg by intra-art icular route for 21 days. 2024 active Not Available Not Available Not Aiden estradasavana Novoa Aerosphere 160 mcg-9mcg-4. 8mcg/actuat ion HFA aerosol inhaler INHALE TWO (2) PUFFS TWICE A DAY active Not Available Not Available No t Available Wegovy 2.4 mg/0.75 mL subcutaneou s pen injector 2.4 MG (0.75 ML) SUBCUTANE OUSLY WEEKLY; ADMINISTE R WEEKS 13 THROUGH 16 OF THERAPY active Not Available Not Available No t Available Wegovy 1.7 mg/0.75 mL subcutaneou s pen injector INJECT 1.7 MG (0.75 ML) SUBCUTANE OUSLY WEEKLY; ADMINISTE R WEEKS 13 THROUGH 16 OF THERAPY active Not Available Not Available No t Available Wegovy 1 mg/0.5 mL subcutaneou s pen injector INJECT ONE (1) MG (0.5 ML) SUBCUTANE OUSLY WEEKLY active Not Available Not Available No t Available Wegovy 0.25 mg/0.5 mL subcutaneou s pen injector 0.5 MG SUBCUTANE OUSLY WEEKLY FOR CORONARY ARTERY DISEASE; ADMINISTE R WEEKS ONE (1) THROUGH FOUR (4) OF THERAPY active Not Available Not Available No t Available Vitals None Recorded Social History None recorded. Functional Status None recorded. Mental Status None recorded. Family History Relationship Description Onset Age of this Age Resolved Age Notes LastModified by Organization Details LastModified Time Father Disorder of endocrine system pt. added direct ly (07/21) [email or web address] Not available 07/21/2023 12:47:20 Brother Disorder of endocrine system pt. added direct ly (07/21) API-13 Not available 07/21/2023 12:47:20 Sister Disorder of endocrine system pt. added direct ly (07/21) API-13 Not available 07/21/2023 12:47:20 Medical History No medical history recorded. Gynecological HistoryNo gynecological history recorded. Obstetrics History GPAL:G 0 P 0 0 0 0 Immunizations Vaccine Type Date Status Note Provider Nam e and Address Organization Details Recorded Time Influenza, split virus, quadrivalent, preservative 8 completed Stephenie Toncray null, [place] [facility] [place] [facility] [place] 10/11/2024 10:40:26 Influenza, split virus, quadrivalent, preservative 9 completed Stephenie Toncray null, [place] [facility] [place] [facility] [place] 10/11/2024 10:40:26 zoster recombinant 2 completed Stephenie Toncray null, [place] [facility] [place] [facility] [place] 10/11/2024 10:40:26 Tdap 2 completed Stephenie Toncray null, [place] [facility] [place] [facility] [place] 10/11/2024 10:40:26 zoster live 6 completed Stephenie Toncray null[place] [facility] [place] 10/11/2024 10:40:26 Influenza, split virus, trivalent, PF 7 completed Stephenie Toncray null, [place] [facility] [place] 10/11/2024 10:40:26 Influenza, split virus, quadrivalent, PF 0 completed Stephenie Toncray null, [place] [facility] [place] 10/11/2024 10:40:26 Influenza, split virus, quadrivalent, PF 2 completed Stephenie Toncray null[place] [facility] [place] [facility] [place] 10/11/2024 10:40:26 Past Encounters Encounter ID Performer Location Encounter Start Date Encounter Closed Date Diagnosis/Indication Diagnosis SNOMED-CT Code Diagnosis ICD10 Code Diagnosis Note [id number] DO CLAUDIA BARNARD [address] [address] 02/05/2025 13:57:24 02/05/2025 14:58:47 Closed fracture proximal tibia, lateral condyle (plateau) 931686618 S82.123D RIGHT Follow-up orthopedic assessment 304013825 Z47.89 [id number] DO CLAUDIA BARNARD [address] [place] [address] 03/05/2025 12:58:58 03/05/2025 13:50:55 Closed fracture proximal tibia, lateral condyle (plateau) 706907339 S82.123D RIGHT Follow-up orthopedic assessment 925682154 Z47.89 Health Concerns Section Related Observation LastModified by Organization Detai ls LastModified Time None Recorded Concern Status LastModified by Organization Details LastModified Time None Recorded Payers Encounter Date Sequence Insurance Name Policy Number Policy Dumont Covered Member ID Dumont Member ID Guarantor Name 03/05/2025 1 [facility] (MEDICARE REPLACEMENT/A DVANTAGE - HMO) Celia Rivero [id number] Celia Rivero Notes Date Note Type Note Provider Name and Address Organization Details Recorded Time 03/05/2025 text/html 59 year old female here today for 10 week post right tibial plateau fracture. She is overall doing well but does have discomfort if she stands/walks excessively. She takes tylenol as needed. X-rays of right knee taken in office today. LIO CHEUNG DO [address] [facility],[address], [place], [address], [place] [facility] [place] 03/07/2025 07:49:17 OBGyn Episode No OBEpisode recorded.
--- OUTSIDE RECORDS SUMMARY | 2025-03-17 13:46 | XMS_ITS | Continuity of Care Document ---
Author Organization [place] - [facility] Address [address] [place] [address] [place] [address] Care Team Providers Care Commercial Field Inspector Name Role Phone DAIJA PIERCE Primary Care Provider Assessment No assessment recorded. Plan of Treatment Reminders Order Date Submit Date Provider Last Modified By Organization Details Last Modified Time Details Appointments None record ed. Lab None record ed. Referral None record ed. Procedures None record ed. Surgeries None record ed. Imaging XR, knee 025 02/06/20 25 clane78 [facility], [address] [place] [address] [place], [address], 15:15:36 Medication Orders None record ed. Patient TargetsNo targets recorded. Patient InstructionsNo instructions recorded. Reason for Referral None Reported. Results Created Date Observation Date Name Description Value Unit Range Abnormal Flag Note LastModifiedBy Organization Detail LastModifiedTime 01/09/20 25 XR, knee No observ ation record ed. DAMIAN [address] [place], [address], 01/08/2025 10:27:09 02/01/20 25 XR, knee No observ ation record ed. DAMIAN [address] [place], [address], 02/05/2025 14:25:06 03/05/20 25 XR, knee No observ ation record ed. DAMIAN Wu [facility] [address] [facility] , [place], [address], 03/05/2025 13:21:07 Result Notes None recorded. Medical [...] 2024 active Not Available Not Available Not Avai lable Breztri Aerosphere 160 mcg-9mcg-4. 8mcg/actuat ion HFA aerosol [...] Stephenie Toncray null, [place] [facility] [place] [facility] [place] 10/11/2024 10:40:26 Influenza, split virus, quadrivalent, preservative 9 completed Stephenie Toncray null[place] [facility] [place] 10/11/2024 10:40:26 zoster recombinant 2 completed Stephenie Toncray null[place] [facility] [place] 10/11/2024 10:40:26 Tdap 2 completed Stephenie Toncray null[place] [facility] [place] 10/11/2024 10:40:26 zoster live 6 completed Stephenie Toncray null, [place] [facility] [place] 10/11/2024 10:40:26 Influenza, split virus, trivalent, PF 7 completed Stephenie Toncray null[place] [facility] [place] 10/11/2024 10:40:26 Influenza, split virus, quadrivalent, PF 0 completed Stephenie Toncray null, [place] [facility] [place] [facility] [place] 10/11/2024 10:40:26 Influenza, split virus, quadrivalent, PF 2 completed Stephenie Toncray null[place] [facility] [place] 10/11/2024 10:40:26 Past Encounters Encounter ID Performer Location Encounter Start Date Encounter Closed Date Diagnosis/Indication Diagnosis SNOMED-CT Code Diagnosis ICD10 Code Diagnosis Note [id number] DO CLAUDIA BARNARD [facility] [address] [place] [address] 01/08/2025 09:47:19 01/08/2025 10:37:41 Closed fracture proximal tibia, lateral condyle (plateau) 478325622 S82.123A RIGHT Follow-up orthopedic assessment [id number] Z47.89 [id number] DO CLAUDIA BARNARD [facility] [address] [place] [address] 02/05/2025 13:57:24 02/05/2025 14:58:47 Closed fracture proximal tibia, lateral condyle (plateau) 551189911 S82.123D RIGHT Follow-up orthopedic assessment 434326459 Z47.89 Health Concerns Section Related Observation LastModified by Organization Detai ls LastModified Time None Recorded Concern Status LastModified by Organization Details LastModified Time None Recorded Payers Encounter Date Sequence Insurance Name Policy Number Policy Dumont Covered Member ID Dumont Member ID Guarantor Name 02/05/2025 1 [facility] (MEDICARE REPLACEMENT/A DVANTAGE - HMO) Celia Rivero [id number] Celia Rivero Notes Date Note Type Note Provider Name and Address Organization Details Recorded Time 02/05/2025 text/html Pt is here for f/u of her Closed fracture of lateral portion of tibial plateau. She is wearing her knee immobilizer. She is residing at the moment at [facility] LIO CHEUNG DO [address] [place] [address],[address], [place], [address], [place] [facility] [place] [facility] [place] 02/06/2025 09:18:40 OBGyn Episode No OBEpisode recorded.
--- OUTSIDE RECORDS SUMMARY | 2025-03-17 13:46 | XMS_ITS | Encounter Summary ---
Author Organization [employer] ([place], [place], [place], [place]) Address [address] [place] [address] Care Team Providers Care Men'S Leather Dress Belt Maker Name Role Phone Unavailable Primary Care Provider Unavailabl e Encounter Details Date Type Department Care Team (Late st Contact Info) Description 07/31/2019 Transcribed Document [facility] Family Medicine [facility] [place] [address] ProviderMaximiliano MD [address] [place] [id number] Social History Tobacco Use Types Packs/Day Years Used Date Smoking Tobacco: Never Assessed Comments Unknown Sex and Gender Information Value Date Recorded Sex Assigned at Not on file Legal Sex Female 1:06 PM CDT Gender Identity Not on file Sexual Orientation Not on file documented as of this encounter Miscellaneous Notes * Cerner Conversion Note - Historical ProviderMD - 07/31/2019 2:00 PM [facility]Y [facility] PreOp Summary Primary Physician: BART MURPHY MD-GAE Finalized Date/Time: 07/31/19 13:34:58 Pt. Name: ISA ZHANG D.O.B./Sex: 1965 Female Med Rec #: [id number] Physician: BART MURPHY MD-GAE Financial #: [id number] Pt. Type: O Room/Bed: [facility] [place] Admit/Disch: 07/31/19 13:06:00 - Institution: [facility] PreOp Case Times Entry 1 In Preop 07/31/19 13:19:00 Ready for Holding n/a Room Patient Ready for 07/31/19 13:34:00 Surgery Patient Out of Preop 07/31/19 13:34:00 Patient Out of n/a Holding Room Finalized By: Katelin Abrams, RN Document Signatures Signed By: Katelin Abrams RN 07/31/19 13:34 documented in this encounter Plan of Treatment Not on file documented as of this encounter Visit Diagnoses Not on filedocumented in this encounter
--- OUTSIDE RECORDS SUMMARY | 2025-03-17 13:46 | XMS_ITS | Encounter Summary ---
Author Organization [employer] ([place], [place], [place], [place]) Address [address] [place] [address] Care Team Providers Care Mail Technician Name Role Phone Unavailable Primary Care Provider Unavailabl e Encounter Details Date Type Department Care Team (Late st Contact Info) Description 03/17/2021 Transcribed Document [facility] [place] Family Medicine [facility] [place] [address] ProviderMaximiliano MD [address] [place] [id number] Social History Tobacco Use Types Packs/Day Years Used Date Smoking Tobacco: Never Assessed Comments Unknown Sex and Gender Information Value Date Recorded Sex Assigned at Not on file Legal Sex Female 1:06 PM CDT Gender Identity Not on file Sexual Orientation Not on file documented as of this encounter Miscellaneous Notes * Cerner Conversion Note - Maximiliano Valentin MD - 03/17/2021 4:09 PM CDT Patient Education Materials Follows: Radial Site Care This sheet gives you [...] these instructions at home: Medicines ??? Take gajk-oqn-kgyvpny and prescription medicines only as told by your health care provider. Insertion site care ??? Follow instructions from your health care provider about how to take care of your insertion site. Make sure you: ? Wash your hands with soap and water before you change your bandage (dressing). If soap and water are not available, use hand accountant bookkeeper. ? Change your dressing as told by [...] care provider approves. ??? You may shower 24?48 hours after the procedure, or as directed [...] provider. Document Revised: 10/03/2018 Document Reviewed: 10/03/2018 [employer] Patient Education ? 2020 [employer] Pharmacology Moderate Conscious Sedation, Adult, Care After These [...] you are awake and alert. ??? Take efew-ace-oetdvlh and prescription medicines only as told by [...] provider. Document Revised: 08/10/2018 Document Reviewed: 12/17/2016 [employer] Patient Education ? 2020 [employer]. Radiology Transradial Angiogram A transradial angiogram is an [...] including vitamins, herbs, eye drops, creams, and bptt-cfq-jyjcgkd medicines. ??? Any problems you or family [...] tells you to take them. ??? Taking fhpc-gzo-ayeytgt medicines, vitamins, herbs, and supplements. Exams and [...] provider. Document Revised: 07/22/2019 Document Reviewed: 07/22/2019 [employer] Patient Education ? 2020 [employer] documented in this encounter Plan of Treatment Not on file documented as of this encounter Visit Diagnoses Not on filedocumented in this encounter
--- OUTSIDE RECORDS SUMMARY | 2025-03-17 13:46 | XMS_ITS | Encounter Summary ---
Author Organization [email or web address] ([place], [place], [place], [place]) Address [address] [place] [address] Care Team Providers Care Tree Tapping Laborer Name Role Phone Unavailable Primary Care Provider Unavailabl e Encounter Details Date Type Department Care Team (Late st Contact Info) Description 02/10/2021 Transcribed Document [facility] Family Medicine [facility] [place] [address] Maximiliano Valentin MD [address], [place] [id number] Social History Tobacco Use Types Packs/Day Years Used Date Smoking Tobacco: Never Assessed Comments Unknown Sex and Gender Information Value Date Recorded Sex Assigned at Not on file Legal Sex Female 1:06 PM CDT Gender Identity Not on file Sexual Orientation Not on file documented as of this encounter Miscellaneous Notes * Cerner Conversion Note - Maximiliano ProviderMD - 02/10/2021 3:30 PM CDT DATE OF SERVICE: 02/04/2021 POLYSOMNOGRAPHY CPAP TITRATION STUDY MONTAGE: F3-M2, F4-1, C3-M2, O1-M2, O2-M1, LOC-M2, CONNOR-M2, submental EMG (3 leads), L tibialis anterior, R tibialis anterior, ECG, SpO2, nasal airflow (pressure), oral airflow (thermal), thoracic respiratory effort and abdominal respiratory effort. CPAP TITRATION STUDY METHOD: Continuous recording of electroencephalographic, oculographic, submental EMG, limb movements, pulse oximetry, electrocardiogram using modified lead II torso placement, airflow and respiratory effort occurred during the patient's habitual sleep time. The airflow was recorded from the CPAP flow generator. Capnography was recorded if ordered. Each 30 second epoch was scored according to The AASM Manual for the Scoring of Sleep and Associated Events using the 1B 4% hypopnea rule. INDICATION FOR STUDY: The patient is referred by Dr. Lawrence for CPAP titration study. She has recently been placed on supplemental oxygen. She has not been wearing her bilevel machine for over a year. She does have severe COPD. RESULTS: 1. Sleep architecture: Total recording time is 459 minutes. Total sleep time is 371 minutes. Sleep efficiency 81%. Latency to sleep onset 19 minutes. 2. Sleep stages: The patient had relatively normal sleep stages recorded in this study. 3. Sleep continuity arousal index was normal at 10.2. 4. Positive airway pressure results: The patient was titrated on bilevel therapy. Due to her previous titration in 2016, which demonstrated that she was best treated with bilevel and her history of COPD requiring supplemental oxygen, it was felt that bilevel would be her best option. She was titrated up to a final pressure of 15/11. Supplemental oxygen was required during the titration and she was titrated to a final pressure of 2 L of oxygen. The patient did disconnect her oxygen connection about 5:00 a.m., resulting in some recorded hypoxemia. The patient was treated with a full-face mask, AirFit, size small. 5. Cardiac: Average heart rate was 60. 6. Limb movements: PLMs with arousals were not increased. IMPRESSION: The patient appears to be best treated with BiPAP 15/11 with a full-face mask and 2 L of supplemental oxygen. /[id number] Cecille Brianna Rivas MD PW/AQ / PW / MODL /[id number] CC: Emily Lawrence MD Electronically signed by Brigitte, [facility] Conversion Search And Rescue Officer Cerner at 12/28/2022 7:55 AM CDT documented in this encounter Plan of Treatment Not on file documented as of this encounter Visit Diagnoses Not on filedocumented in this encounter
--- OUTSIDE RECORDS SUMMARY | 2025-03-17 13:46 | XMS_ITS | Encounter Summary ---
Author Organization [employer] ([place], [place], [place], [place]) Address [address] [place] [address] Care Team Providers Care Cylinder Checker Name Role Phone Unavailable Primary Care Provider Unavailabl e Encounter Details Date Type Department Care Team (Late st Contact Info) Description 07/31/2019 Transcribed Document [facility] Family Medicine [facility] [place] [address] ProviderMaximiliano MD [address], [place] [id number] Social History Tobacco Use Types Packs/Day Years Used Date Smoking Tobacco: Never Assessed Comments Unknown Sex and Gender Information Value Date Recorded Sex Assigned at Not on file Legal Sex Female 1:06 PM CDT Gender Identity Not on file Sexual Orientation Not on file documented as of this encounter Miscellaneous Notes * Cerner Conversion Note - Historical ProviderMD - 07/31/2019 1:19 PM WASH HELPER Pre Procedure Adult Entered On: 07/31/2019 13:22 EST Performed On: 07/31/2019 13:19 EST by Katelin Abrams RN Height and Weight, Clinical Dosing Height Source : Stated Height Entry Format : [place] Height, Feet : 5 ft(Converted to: 152 cm, 60 Inch) Height, Inches : 4 Inch(Converted to: 0 ft 4 Inch, 10.16 cm) Clinical Height : 162.56 cm Weight Source : Standing scale Weight Entry Format : [place] Clinical Dosing Weight : 136.02 kg Weight, Pounds : 299 lb Weight, Ounces : 4 oz Body Surface Area (BSA) : 2.32 m2 Body Mass Index : 51.5 kg/m2 (>HHI) [place] Body Weight : 54 kg Katelin Abrams RN - 07/31/2019 13:19 EST Health Histories Smoking Status : 10 or more cigarettes (1/2 pack or more)/day in last 30 days Smokeless Tobacco Status : Never Desires Tobacco Cessation Medication : Yes Katelin Abrams RN - 07/31/2019 13:19 EST Social History (As Of: 07/31/2019 13:22:51 EST) Tobacco: Smoking Status Current every day smoker. (Last Updated: 02/10/2016 12:01:45 EDT by MALA GRIMM RN) 10 or more cigarettes (1/2 pack or more)/day in last 30 days Smoking Status. Never Smokeless Tobacco Status. Years of Use: 38. Packs/Tins Daily: 0.5. (Last Updated: 05/02/2018 09:47:07 EDT by OSWALDO AMIN, NOELLE) Alcohol: Use in Last 12 Months: No. (Last Updated: 04/21/2014 12:58:36 EDT by DESHAWN LLANOS RN) Substance Abuse: Drug Use Hx: Yes. Use in Last 12 Months: No. Marijuana/Hashish Recreational Drug Type. (Last Updated: 05/02/2018 09:47:18 EDT by OSWALDO AMIN, NOELLE) Nutrition/Health: Caffeine intake amount: 2 cups a day.. (Last Updated: 05/02/2018 09:47:27 EDT by OSWALDO AMIN RN) Infectious Disease History Infectious Disease History : Chicken pox/Shingles, Influenza, Measles, MRSA Fever/Chills Last 48 Hours : No Travel To Regions with Travel Advisories : No Travel Outside [place] Within Last 30 Days : No Contact With Traveler to Advisory Region : No Tuberculosis Symptoms : None Katelin Abrams RN - 07/31/2019 13:19 EST Anesthesia/Transfusion History Family History of Anesthesia Reaction : Prior transfusion without reaction Transfusion History : Prior anesthesia without reaction Family History of Anesthesia Reaction : None Katelin Abrams RN - 07/31/2019 13:19 EST Functional Assessment Living Situation : Home Patient Lives With : Spouse Current Home Treatments : CPAP Katelin Abrams RN - 07/31/2019 13:19 EST [place] Suicide Severity Rating Scale (C-SSRS) CSSRS Past Month Wish to be : No CSSRS Past Month Suicidal Thoughts : No CSSRS Lifetime Suicide Behavior : Yes YES, was this within the past 3 months? : No Suicide Severity Rating Score : 3 Suicide Severity Rating : Moderate Katelin Abrams RN - 07/31/2019 13:19 EST Psychosocial History Do You Have a History of the Following? : Depression Currently in Unsafe Situation : No Katelin Abrams RN - 07/31/2019 13:19 EST Advance Directive Patient has Advance Directive *Q : No, patient refuses Advance Directive information Katelin Abrams RN - 07/31/2019 13:19 EST Teaching/Learning Assessment Barriers To Learning : None evident Individuals Taught : Patient Highest Level of Education : High school Baseline Knowledge of Topic : Good Learning Style Preferences Patient : Verbal explanation Katelin Abrams RN - 07/31/2019 13:19 EST General Info Arrived From : Home Mode of Arrival on Unit : Ambulatory Legal Guardian : Spouse Support Person/Patient Spa Associate : Yes Support Person/Pt Rep Name : Kiko Support Person/Pt Rep Contact Information : [phone] Want Family/Rep/Phys Notified of Admit : No Emergency Contact #1 : na Emergency Contact #1 Phone Number : na Emergency Contact #1 Relationship : na Emergency Contact #2 : na Emergency Contact #2 Phone Number : na Emergency Contact #2 Relationship : na Information Obtained From : Patient Primary Language : Afghan Preferred Communication Mode : Verbal Communication Barrier : None Objects to Sharing Info w Family : No Katelin Abrams RN - 07/31/2019 13:19 EST Sleep Apnea Risk Assmt BiPAP/CPAP Ordered for Home Use : Yes Hx of Obstructive Sleep Apnea Diagnosis : Yes BiPAP/CPAP Used at Home : Yes Age over 50 Years Old : Yes Gender Male : No Katelin Abrams RN - 07/31/2019 13:19 EST Hair Scale Hair Sensory Perception : No impairment Hair Moisture : Rarely moist Hair Activity : Walks frequently Hair Mobility : No limitation Hair Nutrition : Adequate Hair Friction and Shear : No apparent problem Hair Score : 22 Katelin Abrams RN - 07/31/2019 13:19 EST Pain Assessment Pain Assessment : Initial assessment Pain Scale Goal : 2 Pain Scale Used : 0-10 Scale Katelin Abrams RN - 07/31/2019 13:19 EST Fall Risk Scales ABCs Fall Injury Risk Identification : None ENRIQUEZ Hx Falls Immediate/Within 3 Months : No Enriquez Secondary Diagnosis : No ENRIQUEZ Use of Ambulatory Aid : None ENRIQUEZ IV Therapy or IV Access : Yes Enriquez Gait/Transferring : Normal, bedrest, immobile Enriquez Mental Status : Oriented to own ability ENRIQUEZ Fall Scale Risk Level : 0-24 Low Risk [place] Fall Interventions : Adequate lighting, Assistive devices within reach, Bed in low position, Call device within reach, Fall prevention handout/education per facility policy, Frequent orientation to call device, Frequent orientation to surroundings, Hourly comfort/safety rounds, Non-slip footwear Katelin Abrams RN - 07/31/2019 13:19 EST Valuables and Belongings Valuables and Belongings : Clothing Clothing : Common streetwear Clothing Disposition : Bedside, With family, With patient, Declines to send to security/safe Katelin Abrams RN - 07/31/2019 13:19 EST Pain Scale Intensity : 0 Katelin Abrams RN - 07/31/2019 13:19 EST Image 4 - Images currently included in the form version of this document have not been included in the text rendition version of the form. Electronically signed by Chanel Briggs Conversion Lead Manufacturing Technician Cerner at 12/28/2022 7:39 AM CDT documented in this encounter Plan of Treatment Not on file documented as of this encounter Visit Diagnoses Not on filedocumented in this encounter
--- OUTSIDE RECORDS SUMMARY | 2025-03-17 13:46 | XMS_ITS | Encounter Summary ---
Author Organization [employer] ([place], [place], [place], [place]) Address [address] [place] [address] Care Team Providers Care Helicopter Specialist Name Role Phone Unavailable Primary Care Provider Unavailabl e Encounter Details Date Type Department Care Team (Late st Contact Info) Description 07/31/2019 Transcribed Document [facility] [place] Family Medicine [facility] [place] [address] ProviderMaximiliano MD [address], [place] [id number] Social History Tobacco Use Types Packs/Day Years Used Date Smoking Tobacco: Never Assessed Comments Unknown Sex and Gender Information Value Date Recorded Sex Assigned at Not on file Legal Sex Female 1:06 PM CDT Gender Identity Not on file Sexual Orientation Not on file documented as of this encounter Miscellaneous Notes * Cerner Conversion Note - Historical ProviderMD - 07/31/2019 3:26 PM [place] [facility] Intra[facility] Summary Primary Physician: BART MURPHY MD-GAE Finalized Date/Time: 07/31/19 15:54:48 Pt. Name: ISA ZHANGO.B./Sex: 1965 Female Med Rec #: [id number] Physician: BART MURPHY MD-GAE Financial #: [id number] Pt. Type: O Room/Bed: [facility]/ Admit/Disch: 07/31/19 13:06:00 - Institution: [facility] - Case Attendance Entry 1 Entry 2 Entry 3 Case Attendee BART MURPHY MD-GAE WALLACE, HEATHER, LAM MCARTHUR, GTA Role Performed Surgeon/Proceduralist, Appetizer Packer, First GTA/Nurse Folder And Notcher First Time In 07/31/19 15:20:00 07/31/19 15:20:00 07/31/19 15:20:00 Time Out 07/31/19 15:54:00 07/31/19 15:54:00 07/31/19 15:54:00 Procedure Gastric Biopsy Esophagogastroduodenosco Esophagogastroduodenosco py, Colonoscopy, py, Colonoscopy, Gastric Biopsy Gastric Biopsy Other Attendee Superficial Wound Closed By: Last Modified By: OSWALDO AMIN, OSWALDO WARREN, RN OSWALDO AMIN, NOELLE 07/31/19 15:54:43 07/31/19 15:54:43 07/31/19 15:54:43 Entry 4 Case Attendee BAYRON, LARISA, TECH Role Performed Scrub, First Time In 07/31/19 15:20:00 Time Out 07/31/19 15:54:00 Procedure Esophagogastroduodenosco py, Colonoscopy, Gastric Biopsy Other Attendee Superficial Wound Closed By: Last Modified By: OSWALDO AMIN RN 07/31/19 15:54:43 [facility] - Case Attendance Audit 07/31/19 15:54:43 Landscape Nurseryman: YEISON Modifier: BRYANTHE 1 <+> Time Out 1 <*> Procedure Gastric Biopsy 2 <+> Time Out 2 <*> Procedure Esophagogastroduodenoscopy, Colonoscopy, Gastric Biopsy 3 <+> Time Out 3 <*> Procedure Esophagogastroduodenoscopy, Colonoscopy, Gastric Biopsy 4 <+> Time Out 4 <*> Procedure Esophagogastroduodenoscopy, Colonoscopy, Gastric Biopsy 07/31/19 15:48:23 Landscape Nurseryman: YEISON Modifier: BRYANTHE <+> 1 Procedure 2 <*> Procedure Esophagogastroduodenoscopy, Colonoscopy 3 <*> Procedure Esophagogastroduodenoscopy, Colonoscopy 4 <*> Procedure Esophagogastroduodenoscopy, Colonoscopy [facility] - Case Times Entry 1 Patient In Room Time 07/31/19 15:20:00 Out Room Time 07/31/19 15:54:00 Anesthesia Start Time 07/31/19 15:20:00 Stop Time 07/31/19 15:54:00 Surgery / Procedure Times Start Time 07/31/19 15:26:00 Stop Time 07/31/19 15:51:00 Last Modified By: OSWALDO AMIN RN 07/31/19 15:54:42 [facility] - Case Times Audit 07/31/19 15:54:42 Landscape Nurseryman: YEISON Modifier: BRYANTHE <+> 1 Out Room Time <+> 1 Stop Time 07/31/19 15:51:22 Landscape Nurseryman: YEISON Modifier: BRYANTHE <+> 1 Stop Time 07/31/19 15:26:38 Landscape Nurseryman: ANTONIOANTHE Modifier: BRYANTHE <+> 1 Start Time [facility] - Cultures and Spec Summary Entry 1 Cultrures and Specimens Specimen Ordered: Yes Test(s) Routine/Path-Lab Requested/Final Disposition Last Modified By: OSWALDO AMIN RN 07/31/19 15:53:22 General Comments: Romana Test, Distal Esophagus Biopsy, Mid Esophagus Biopsy [facility] - Delays Entry 1 Delay Reason Previous case ran over Duration 81 Minute(s) Last Modified By: OSWALDO AMIN RN 07/31/19 15:21:57 [facility] - Departure from OR Entry 1 Integumentary Assessment Integumentary WDL Assessment WDL Transfer/Handoff Transfer to PACU Phase I Handoff Reported to OSWALDO AMIN RN Post-op Transport Stretcher/Gurney Via Patient Transport OSWALDO AMIN RN, Accompanied by LAM MARQUEZ CRNA Last Modified By: OSWALDO AMIN RN 07/31/19 15:53:10 [facility] - Endoscopy Details Entry 1 Abdomen Procedure Soft, Non-Tender Assessment Procedure Abdomen 07/31/19 15:20:00 Assessment D/T Radio Frequency Ablation Last Modified By: OSWALDO AMIN RN 07/31/19 15:28:08 [facility] - Fire Risk Assessment Entry 1 Fire Info Surgical Site or 1- Yes Incision Above the Xyphoid Open O2 Source 1- Yes (Mask or Cannula) Available Ignition 1- Yes (ESU, Laser, Light Source) Fire Risk 3 Assessment Score Fire Score Fire Risk Yes Assessment Complete Fire Risk OSWALDO AMIN RN Assessment Verified By Fire Risk 07/31/19 15:22:00 Assessment Verified Date/Time Fire Risk High Risk Protocol Yes Implemented Standard Fire Yes Safety Precautions Followed Last Modified By: OSWALDO AMIN RN 07/31/19 15:22:32 [facility] - General Case Dental Hygiene Administrative Assistant 1 Case Information OR Endo 01 E Case Level 1 Room Verified Yes Wound Class III - Contaminated Specialty SN Gastroenterology Anesthesia Type MAC ASA Class 4 Diagnosis Preop Diagnosis History of Polyps, Dysphagia Postop Same As Preop No Postop Diagnosis Hemorroids, Diverticulosis, Prior Surgery, Hiatal Hernia, Irregular Z-line, Corragated Esophagus Last Modified By: OSWALDO AMIN RN 07/31/19 15:52:48 [facility] [place] - General Case Data Audit 07/31/19 15:52:48 Landscape Nurseryman: YEISON Modifier: BRYANTHE 1 <*> Postop Diagnosis Hemorroids, Diverticulosis, Prior Surgery 07/31/19 15:49:02 Landscape Nurseryman: YEISON Modifier: BRYANTHE <+> 1 Postop Diagnosis 07/31/19 15:24:43 Landscape Nurseryman: ANTONIOANTHE Modifier: BRYANTHE 1 <*> Preop Diagnosis [facility] - Intraoperative Assessment Entry 1 Valid History / Yes Physical in Chart Preoperative Yes Checklist Reviewed/Evaluated Allergies Reviewed Yes Patient is Latex No Sensitive Level of WDL Consciousness (WDL = Alert, Oriented to Person, Place, and Time) Present Upon IVs, ECG monitored Arrival to OR Last Modified By: OSWALDO AMIN RN 07/31/19 15:23:56 [facility] [place] [facility] - Intraoperative Equipment Entry 1 Entry 2 Type Scope Scope Equipment Equipment ID Number Setting Intraop Monitoring Electrocardiogram Three lead placement (ECG) Electrode Placement Blood Pressure Source Blood Pressure Arm, left upper Arm, left upper Location Pulse Oximeter Hand, right Hand, right Probe Site Antiembolic Devices Antiembolic Devices Antiembolic Device Location Antiembolic Device ID Number Antiembolic Device Setting Scopes Flexible Endoscopes Gastroscope Colonoscope, Peds Used Scope Serial [id number] Number/Identificatio n Number Photo/Video Documentation Photo Yes Yes Video No No Intraop Equipment Comment Last Modified By: OSWALDO AMIN RN WALLACE, HEATHER, RN 07/31/19 15:25:14 07/31/19 15:25:16 [facility] [place] [facility] - Intraoperative Equipment Audit 07/31/19 15:25:16 Landscape Nurseryman: YEISON Modifier: BRYALEJANDROE <+> 2 Photo <+> 2 Video <+> 2 Blood Pressure Location <+> 2 Pulse Oximeter Probe Site <+> 2 Flexible Endoscopes Used <+> 2 Scope Serial Number/Identification Number [facility] - Patient Positioning Entry 1 Procedure Esophagogastroduodenosco py, Colonoscopy, Gastric Biopsy Body Position Lateral, right side up Left Arm Position Resting at side Right Arm Position Resting at side Left Leg Position Other Right Leg Position Other Position Comments Right leg over Left leg uncrossed Feet Uncrossed Yes Pressure Points Yes Checked Positioned By OSWALDO AMIN, NOELLE, LARISA VERMA TECH, HARRIMAN, LAM, INOCENTE Position Verified Positioning Yes Verified by Anesthesia Positioning Yes Verified by Surgeon Last Modified By: OSWALDO AMIN RN 07/31/19 15:48:24 [facility] - Patient Positioning Audit 07/31/19 15:48:24 Landscape Nurseryman: YEISON Modifier: YEISON Raya <*> Procedure Esophagogastroduodenoscopy, Colonoscopy [facility] - Sign In Entry 1 Patient, Site, Yes Procedure Identified Surgical Consent Yes Confirmed Surgical Site N/A Marked by person performing procedure Allergies Yes Airway Hypothermia Risk Yes Warming Measures Yes Taken Last Modified By: OSWALDO AMIN RN 07/31/19 15:22:21 [facility] - Sign Out Entry 1 RN Confirmation Surgical Yes Procedure(s) Identified Instrument, Sponge N/A and Sharps Counts Correct/Documented Equipment Problems N/A Documented Specimen Labeled Yes Correctly Urinary Catheter N/A Documented in IView Safety Checklist Yes Elements Complete? RN Sign Out OSWALDO AMIN, NOELLE Signature RN Sign Out 07/31/19 15:52:00 Signature Date/Time Plan of Care Outcome - Fire Risk OUTCOME STATEMENT: Goal met Patient is free from injury related to surgical fire Plan of Care Outcome - Pt Positioning OUTCOME STATEMENT: Goal met Absence of signs and symptoms of positioning injury. Plan of Care Outcome - Skin Prep OUTCOME STATEMENT: Goal met Intraoperative care is consistent with measures to prevent infection Plan of Care Outcome - Xray/Images OUTCOME STATEMENT: N/A Absence of observable signs or symptoms of radiation injury Plan of Care Outcome - Counts OUTCOME STATEMENT: N/A Absence of signs and symptoms of injury related to extraneous objects Last Modified By: OSWALDO AMIN RN 07/31/19 15:52:58 [facility] - Surgical Procedures Entry 1 Entry 2 Entry 3 Procedure Esophagogastroduodenosco Colonoscopy Gastric Biopsy py Modifiers Additional Procedure Description Primary Procedure Yes No No Primary Surgeon MURPHY, BART, BART YEBOAH, BART YEBOAH MD-GAE Start 07/31/19 15:44:00 07/31/19 15:26:00 07/31/19 15:44:00 Stop 07/31/19 15:51:00 07/31/19 15:39:00 07/31/19 15:51:00 Physician States Cecum Reached Anesthesia Type MAC MAC MAC Specialty SN Gastroenterology SN Gastroenterology SN Gastroenterology Wound Class II - Clean-Contaminated III - Contaminated II - Clean-Contaminated Last Modified By: OSWALDO AMIN, RN OSWALDO AMIN, RN OSWALDO AMIN, RN 07/31/19 15:51:27 07/31/19 15:41:15 07/31/19 15:51:27 General Comments: Patient does not have a cecum. [facility] End[facility] - Surgical Procedures Audit 07/31/19 15:51:27 Landscape Nurseryman: YEISON Modifier: BRYANTHE 1 <*> Stop 3 <*> Stop 07/31/19 15:48:20 Landscape Nurseryman: YEISON Modifier: BRYANTHE 1 <*> Procedure Esophagogastroduodenoscopy 1 <*> Procedure Esophagogastroduodenoscopy 1 <*> Start 07/31/19 15:26:00 1 <*> Start 07/31/19 15:26:00 3 <*> Procedure 3 <*> Primary Procedure 3 <*> Primary Surgeon BART MURPHY MD-GAE 3 <*> Specialty 3 <*> Start 3 <*> Wound Class 3 <*> Anesthesia Type 07/31/19 15:41:15 Landscape Nurseryman: YEISON Modifier: BRYANTHE 2 <*> Procedure Colonoscopy 2 <*> Procedure Colonoscopy 2 <*> Procedure Colonoscopy 2 <*> Stop 2 <*> Stop 07/31/19 15:28:12 Landscape Nurseryman: ANTONIOANTHE Modifier: BRYANTHE 1 <*> Start 2 <*> Start 2 <*> Start [facility] End[facility] - Time Out Entry 1 Procedure to be Esophagogastroduodenosco Performed py, Colonoscopy, Gastric Biopsy Time Out Time Out Pause Time 07/31/19 15:25:00 All activity Yes suspended (unless life threatening emergency) Team Verbally Correct patient Confirms Information identity, Consent form is present and accurate, Agreement on the procedure to be done, Correct patient position, Relevant images/results properly labeled/appropriately displayed, Performed before each procedure if multiple procedures Antibiotic N/A Prophylaxis Administered Or In Progress Within the Last 60 Minutes Beta Cm N/A Administered Venous N/A Thromboembolism Prophylaxis Required Anticipated Critical Events Surgeon None expected Last Modified By: OSWALDO AMIN RN 07/31/19 15:48:25 [facility] - Time Out Audit 07/31/19 15:48:25 Landscape Nurseryman: YEISON Modifier: YEISON 1 <*> Procedure to be Performed Esophagogastroduodenoscopy, Colonoscopy Case Comments <None> Finalized By: OSWALDO AMIN, RN Document Signatures Signed By: OSWALDO AMIN RN 07/31/19 15:54 Electronically signed by Brigitte [facility] Conversion [place] Farmer Cerner at 12/28/2022 7:54 AM CDT documented in this encounter Plan of Treatment Not on file documented as of this encounter Visit Diagnoses Not on filedocumented in this encounter
--- OUTSIDE RECORDS SUMMARY | 2025-03-17 13:46 | XMS_ITS | Encounter Summary ---
Author Organization [employer] ([place], [place], [place], [place]) Address [address] [place] [address] Care Team Providers Care Front Facer Name Role Phone Unavailable Primary Care Provider Unavailabl e Encounter Details Date Type Department Care Team (Late st Contact Info) Description 07/31/2019 Transcribed Document [facility] [place] [facility] [place] [address] Maximiliano Valentin MD [address], [place] [id number] Social History Tobacco Use Types Packs/Day Years Used Date Smoking Tobacco: Never Assessed Comments Unknown Sex and Gender Information Value Date Recorded Sex Assigned at Not on file Legal Sex Female 1:06 PM CDT Gender Identity Not on file Sexual Orientation Not on file documented as of this encounter Miscellaneous Notes * Cerner Conversion Note - Maximiliano Valentin MD - 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 After your procedure, you may: ??? Feel sleepy for several hours. ??? Feel clumsy and have poor balance for several hours. ??? Feel forgetful about what happened after the procedure. ??? Have poor judgment for several hours. ??? Feel nauseous or vomit. ??? Have a sore throat if you had a breathing tube during the procedure. Follow these instructions at home: For at least 24 hours after the procedure: ??? Have a responsible adult stay with you. It is important to have someone help care for you until you are awake and alert. ??? Rest as needed. ??? Do not: ? Participate in activities in which you could fall or become injured. ? Drive. ? Use heavy machinery. ? Drink alcohol. ? Take sleeping pills or medicines that cause drowsiness. ? Make important decisions or sign legal documents. ? Take care of children on your own. Eating and drinking ??? Follow the diet that is recommended by your health care provider. ??? If you vomit, drink water, juice, or soup when you can drink without vomiting. ??? Make sure you have little or no nausea before eating solid foods. General instructions ??? Take ddcx-vqe-ialippr and prescription medicines only as told by your health care provider. ??? If you have sleep apnea, surgery and certain medicines can increase your risk for breathing problems. Follow instructions from your health care provider about wearing your sleep device: ? Anytime you are sleeping, including during daytime naps. ? While taking prescription pain medicines, sleeping medicines, or medicines that make you drowsy. ??? If you smoke, do not smoke without supervision. ??? Keep all follow-up visits as told by your health care provider. This is important. Contact a health care provider if: ??? You keep feeling nauseous or you keep vomiting. ??? You feel light-headed. ??? You develop a rash. ??? You have a fever. Get help right away if: ??? You have trouble breathing. Summary ??? For several hours after your procedure, you may feel sleepy and have poor judgment. ??? Have a responsible adult stay with you for at least 24 hours or until you are awake and alert. This information is not intended to replace advice given to you by your health care provider. Make sure you discuss any questions you have with your health care provider. Document Released: 12/18/2016 Document Revised: 04/13/2018 Document Reviewed: 12/18/2016 [employer] Interactive Patient Education ? 2019 [employer] Steps to Quit Smoking Smoking tobacco can be bad for your health. It can also affect almost every organ in your body. Smoking puts you and people around you at risk for many serious long-lasting (chronic) diseases. Quitting smoking is hard, but it is one of the best things that you can do for your health. It is never too late to quit. What are the benefits of quitting smoking? When you quit smoking, you lower your risk for getting serious diseases and conditions. They can include: ??? Lung cancer or lung disease. ??? Heart disease. ??? Stroke. ??? Heart attack. ??? Not being able to have children (infertility). ??? Weak bones (osteoporosis) and broken bones (fractures). If you have coughing, wheezing, and shortness of breath, those symptoms may get better when you quit. You may also get sick less often. If you are , quitting smoking can help to lower your chances of having a baby of low weight. What can I do to help me quit smoking? Talk with your doctor about what can help you quit smoking. Some things you can do (strategies) include: ??? Quitting smoking totally, instead of slowly cutting back how much you smoke over a period of time. ??? Going to in-person counseling. You are more likely to quit if you go to many counseling sessions. ??? Using resources and support systems, such as: ? Online chats with a counselor. ? Phone quitlines. ? Printed self-help materials. ? Support groups or group counseling. ? Text messaging programs. ? Mobile phone apps or applications. ??? Taking medicines. Some of these medicines may have nicotine in them. If you are or , do not take any medicines to quit smoking unless your doctor says it is okay. Talk with your doctor about counseling or other things that can help you. Talk with your doctor about using more than one strategy at the same time, such as taking medicines while you are also going to in-person counseling. This can help make quitting easier. What things can I do to make it easier to quit? Quitting smoking might feel very hard at first, but there is a lot that you can do to make it easier. Take these steps: ??? Talk to your family and friends. Ask them to support and encourage you. ??? Call phone quitlines, reach out to support groups, or work with a counselor. ??? Ask people who smoke to not smoke around you. ??? Avoid places that make you want (trigger) to smoke, such as: ? Bars. ? Parties. ? Smoke-break areas at work. ??? Spend time with people who do not smoke. ??? Lower the stress in your life. Stress can make you want to smoke. Try these things to help your stress: ? Getting regular exercise. ? Deep-breathing exercises. ? Yoga. ? Meditating. ? Doing a body scan. To do this, close your eyes, focus on one area of your body at a time from head to toe, and notice which parts of your body are tense. Try to relax the muscles in those areas. ??? Download or buy apps on your mobile phone or tablet that can help you stick to your quit plan. There are many free apps, such as QuitGuide from the CDC (Centers for Disease Control and Prevention). You can find more support from smokefree.gov and other websites. This information is not intended to replace advice given to you by your health care provider. Make sure you discuss any questions you have with your health care provider. Document Released: 06/24/2010 Document Revised: 04/25/2017 Document Reviewed: 01/12/2016 [employer] Interactive Patient Education ? 2019 [employer]. Colonoscopy, Adult, Care After This sheet gives you information about how to care for yourself after your procedure. Your doctor may also give you more specific instructions. If you have problems or questions, call your doctor. What can I expect after the procedure? After the procedure, it is common to have: ??? A small amount of blood in your poop for 24 hours. ??? Some gas. ??? Mild cramping or bloating in your belly. Follow these instructions at home: General instructions ??? For the first 24 hours after the procedure: ? Do not drive or use machinery. ? Do not sign important documents. ? Do not drink alcohol. ? Do your daily activities more slowly than normal. ? Eat foods that are soft and easy to digest. ??? Take trva-uis-yimpanr or prescription medicines only as told by your doctor. To help cramping and bloating: ??? Try walking around. ??? Put heat on your belly (abdomen) as told by your doctor. Use a heat source that your doctor recommends, such as a moist heat pack or a heating pad. ? Put a towel between your skin and the heat source. ? Leave the heat on for 20?30 minutes. ? Remove the heat if your skin turns bright red. This is especially important if you cannot feel pain, heat, or cold. You can get burned. Eating and drinking ??? Drink enough fluid to keep your pee (urine) clear or pale yellow. ??? Return to your normal diet as told by your doctor. Avoid heavy or fried foods that are hard to digest. ??? Avoid drinking alcohol for as long as told by your doctor. Contact a doctor if: ??? You have blood in your poop (stool) 2?3 days after the procedure. Get help right away if: ??? You have more than a small amount of blood in your poop. ??? You see large clumps of tissue (blood clots) in your poop. ??? Your belly is swollen. ??? You feel sick to your stomach (nauseous). ??? You throw up (vomit). ??? You have a fever. ??? You have belly pain that gets worse, and medicine does not help your pain. Summary ??? After the procedure, it is common to have a small amount of blood in your poop. You may also have mild cramping and bloating in your belly. ??? For the first 24 hours after the procedure, do not drive or use machinery, do not sign important documents, and do not drink alcohol. ??? Get help right away if you have a lot of blood in your poop, feel sick to your stomach, have a fever, or have more belly pain. This information is not intended to replace advice given to you by your health care provider. Make sure you discuss any questions you have with your health care provider. Document Released: 09/30/2011 Document Revised: 06/28/2018 Document Reviewed: 05/22/2017 [employer] Interactive Patient Education ? 2019 [employer] Esophagogastroduodenoscopy, Care After Refer to this sheet in the next few weeks. These instructions provide you with information about [...] procedure, it is common to have: ??? A sore throat. ??? Nausea. ??? Bloating. ??? Dizziness. ??? Fatigue. Follow these instructions at home: ??? Do not eat or drink anything until the numbing medicine (local anesthetic) has worn off and your gag reflex has returned. You will know that the local anesthetic has worn off when you can swallow comfortably. ??? Do not drive for 24 hours if you received a medicine to help you relax (sedative). ??? If your health care provider took a tissue sample for testing during the procedure, make sure to get your test results. This is your responsibility. Ask your health care provider or the department performing the test when your results will be ready. ??? Keep all follow-up visits as told by your health care provider. This is important. Contact a health care provider if: ??? You cannot stop coughing. ??? You are not urinating. ??? You are urinating less than usual. Get help right away if: ??? You have trouble swallowing. ??? You cannot eat or drink. ??? You have throat or chest pain that gets worse. ??? You are dizzy or light-headed. ??? You faint. ??? You have nausea or vomiting. ??? You have chills. ??? You have a fever. ??? You have severe abdominal pain. ??? You have black, tarry, or bloody stools. This information is not intended to replace advice given to you by your health care provider. Make sure you discuss any questions you have with your health care provider. Document Released: 08/14/2013 Document Revised: 02/02/2017 Document Reviewed: 07/21/2016 [employer] Interactive Patient Education ? 2019 [employer] Hemorrhoids Hemorrhoids are swollen veins in and around the rectum or anus. Hemorrhoids can cause pain, itching, or bleeding. Most of the time, they do not cause serious problems. They usually get better with diet changes, lifestyle changes, and other home treatments. Follow these instructions at home: Eating and drinking ??? Eat foods that have fiber, such as whole grains, beans, nuts, fruits, and vegetables. Ask your doctor about taking products that have added fiber (fiber?supplements). ??? Drink enough fluid to keep your pee (urine) clear or pale yellow. For Pain and Swelling ??? Take a warm-water bath (sitz bath) for 20 minutes to ease pain. Do this 3?4 times a day. ??? If directed, put ice on the painful area. It may be helpful to use ice between your warm baths. ? Put ice in a plastic bag. ? Place a towel between your skin and the bag. ? Leave the ice on for 20 minutes, 2?3 times a day. General instructions ??? Take zpsm-ijy-cglfwke and prescription medicines only as told by your doctor. ? Medicated creams and medicines that are inserted into the anus (suppositories) may be used or applied as told. ??? Exercise often. ??? Go to the bathroom when you have the urge to poop (to have a bowel movement). Do not wait. ??? Avoid pushing too hard (straining) when you poop. ??? Keep the butt area dry and clean. Use wet toilet paper or moist paper towels. ??? Do not sit on the toilet for a long time. Contact a doctor if: ??? You have any of these: ? Pain and swelling that do not get better with treatment or medicine. ? Bleeding that will not stop. ? Trouble pooping or you cannot poop. ? Pain or swelling outside the area of the hemorrhoids. This information is not intended to replace advice given to you by your health care provider. Make sure you discuss any questions you have with your health care provider. Document Released: 06/06/2009 Document Revised: 02/02/2017 Document Reviewed: 05/11/2016 [employer] Interactive Patient Education ? 2019 [employer] Diverticulosis Diverticulosis is a condition that develops when small pouches (diverticula) form in the wall of the large intestine (colon). The colon is where water is absorbed and stool is formed. The pouches form when the inside layer of the colon pushes through weak spots in the outer layers of the colon. You may have a few pouches or many of them. What are the causes? The cause of this condition is not known. What increases the risk? The following factors may make you more likely to develop this condition: ??? Being older than age 60. Your risk for this condition increases with age. Diverticulosis is rare among people younger than age 30. By age 80, many people have it. ??? Eating a low-fiber diet. ??? Having frequent constipation. ??? Being overweight. ??? Not getting enough exercise. ??? Smoking. ??? Taking cpls-amq-bdoirtm pain medicines, like aspirin and ibuprofen. ??? Having a family history of diverticulosis. What are the signs or symptoms? In most people, there are no symptoms of this condition. If you do have symptoms, they may include: ??? Bloating. ??? Cramps in the abdomen. ??? Constipation or diarrhea. ??? Pain in the lower left side of the abdomen. How is this diagnosed? This condition is most often diagnosed during an exam for other colon problems. Because diverticulosis usually has no symptoms, it often cannot be diagnosed independently. This condition may be diagnosed by: ??? Using a flexible scope to examine the colon (colonoscopy). ??? Taking an X-ray of the colon after dye has been put into the colon (barium enema). ??? Doing a CT scan. How is this treated? You may not need treatment for this condition if you have never developed an infection related to diverticulosis. If you have had an infection before, treatment may include: ??? Eating a high-fiber diet. This may include eating more fruits, vegetables, and grains. ??? Taking a fiber supplement. ??? Taking a live bacteria supplement (probiotic). ??? Taking medicine to relax your colon. ??? Taking antibiotic medicines. Follow these instructions at home: ??? Drink 6?8 glasses of water or more each day to prevent constipation. ??? Try not to strain when you have a bowel movement. ??? If you have had an infection before: ? Eat more fiber as directed by your health care provider or your diet and network diagnostic support specialist (dietitian). ? Take a fiber supplement or probiotic, if your health care provider approves. ??? Take hzbl-bae-gmnzgow and prescription medicines only as told by your health care provider. ??? If you were prescribed an antibiotic, take it as told by your health care provider. Do not stop taking the antibiotic even if you start to feel better. ??? Keep all follow-up visits as told by your health care provider. This is important. Contact a health care provider if: ??? You have pain in your abdomen. ??? You have bloating. ??? You have cramps. ??? You have not had a bowel movement in 3 days. Get help right away if: ??? Your pain gets worse. ??? Your bloating becomes very bad. ??? You have a fever or chills, and your symptoms suddenly get worse. ??? You vomit. ??? You have bowel movements that are bloody or black. ??? You have bleeding from your rectum. Summary ??? Diverticulosis is a condition that develops when small pouches (diverticula) form in the wall of the large intestine (colon). ??? You may have a few pouches or many of them. ??? This condition is most often diagnosed during an exam for other colon problems. ??? If you have had an infection related to diverticulosis, treatment may include increasing the fiber in your diet, taking supplements, or taking medicines. This information is not intended to replace advice given to you by your health care provider. Make sure you discuss any questions you have with your health care provider. Document Released: 05/25/2005 Document Revised: 07/17/2017 Document Reviewed: 07/17/2017 [employer] Interactive Patient Education ? 2019 [employer] Hiatal Hernia A hiatal hernia occurs when part of the stomach slides above the muscle that separates the abdomen from the chest (diaphragm). A person can be born with a hiatal hernia (congenital), or it may develop over time. In almost all cases of hiatal hernia, only the top part of the stomach pushes through the diaphragm. Many people have a hiatal hernia with no symptoms. The larger the hernia, the more likely it is that you will have symptoms. In some cases, a hiatal hernia allows stomach acid to flow back into the tube that carries food from your mouth to your stomach (esophagus). This may cause heartburn symptoms. Severe heartburn symptoms may mean that you have developed a condition called gastroesophageal reflux disease (GERD). What are the causes? This condition is caused by a weakness in the opening (hiatus) where the esophagus passes through the diaphragm to attach to the upper part of the stomach. A person may be born with a weakness in the hiatus, or a weakness can develop over time. What increases the risk? This condition is more likely to develop in: ??? Older people. Age is a major risk factor for a hiatal hernia, especially if you are over the age of 50. ??? women. ??? People who are overweight. ??? People who have frequent constipation. What are the signs or symptoms? Symptoms of this condition usually develop in the form of GERD symptoms. Symptoms include: ??? Heartburn. ??? Belching. ??? Indigestion. ??? Trouble swallowing. ??? Coughing or wheezing. ??? Sore throat. ??? Hoarseness. ??? Chest pain. ??? Nausea and vomiting. How is this diagnosed? This condition may be diagnosed during testing for GERD. Tests that may be done include: ??? X-rays of your stomach or chest. ??? An upper gastrointestinal (GI) series. This is an X-ray exam of your GI tract that is taken after you swallow a chalky liquid that shows up clearly on the X-ray. ??? Endoscopy. This is a procedure to look into your stomach using a thin, flexible tube that has a tiny camera and light on the end of it. How is this treated? This condition may be treated by: ??? Dietary and lifestyle changes to help reduce GERD symptoms. ??? Medicines. These may include: ? Nkwa-tdy-nlugchz antacids. ? Medicines that make your stomach empty more quickly. ? Medicines that block the production of stomach acid (H2 blockers). ? Stronger medicines to reduce stomach acid (proton pump inhibitors). ??? Surgery to repair the hernia, if other treatments are not helping. If you have no symptoms, you may not need treatment. Follow these instructions at home: Lifestyle and activity ??? Do not use any products that contain nicotine or tobacco, such as cigarettes and e-cigarettes. If you need help quitting, ask your health care provider. ??? Try to achieve and maintain a healthy body weight. ??? Avoid putting pressure on your abdomen. Anything that puts pressure on your abdomen increases the amount of acid that may be pushed up into your esophagus. ? Avoid bending over, especially after eating. ? Raise the head of your bed by putting blocks under the legs. This keeps your head and esophagus higher than your stomach. ? Do not wear tight clothing around your chest or stomach. ? Try not to strain when having a bowel movement, when urinating, or when lifting heavy objects. Eating and drinking ??? Avoid foods that can worsen GERD symptoms. These may include: ? Fatty foods, like fried foods. ? [place] fruits, like oranges or lemon. ? Other foods and drinks that contain acid, like orange juice or tomatoes. ? Spicy food. ? Chocolate. ??? Eat frequent small meals instead of three large meals a day. This helps prevent your stomach from getting too full. ? Eat slowly. ? Do not lie down right after eating. ? Do not eat 1?2 hours before bed. ??? Do not drink beverages with caffeine. These include cola, coffee, cocoa, and tea. ??? Do not drink alcohol. General instructions ??? Take fwjf-emn-ppejltr and prescription medicines only as told by your health care provider. ??? Keep all follow-up visits as told by your health care provider. This is important. Contact a health care provider if: ??? Your symptoms are not controlled with medicines or lifestyle changes. ??? You are having trouble swallowing. ??? You have coughing or wheezing that will not go away. Get help right away if: ??? Your pain is getting worse. ??? Your pain spreads to your arms, neck, jaw, teeth, or back. ??? You have shortness of breath. ??? You sweat for no reason. ??? You feel sick to your stomach (nauseous) or you vomit. ??? You vomit blood. ??? You have bright red blood in your stools. ??? You have black, tarry stools. This information is not intended to replace advice given to you by your health care provider. Make sure you discuss any questions you have with your health care provider. Document Released: 11/17/2004 Document Revised: 04/02/2018 Document Reviewed: 04/02/2018 [employer] Interactive Patient Education ? 2019 [employer] documented in this encounter Plan of Treatment Not on file documented as of this encounter Visit Diagnoses Not on filedocumented in this encounter
--- OUTSIDE RECORDS SUMMARY | 2025-03-17 13:46 | XMS_ITS | Patient Health Record ---
Author Organization [facility] Address [address] [facility] [address] [place] [address] Care Team Providers Care Cna Gna Name Role Phone Raegan Bowden Primary Care Provider Allergies Allergen (clinical drug ingredient) Drug/Non Drug Allergy documented on EMR Reaction Allergy Type Onset Date Status povidone-iodine Betadine Unknown Drug Allergy A ctive sulfisoxazole sulfiSOXAZOLE Unknown Drug Allergy Active Substance with sulfonamide structure and antibacterial mechanism of action (substance) Sulfa Antibiotics Unknown Drug Allergy Active Iodine Unknown Drug Allergy Active Reason For Referral No Information Medications Medication SIG (Take, Route, Frequency, Duration) Notes Start Date End Date Status hydrOXYzine Pamoate 25 MG 1 capsule ever y 8 hours Orally PRN x 14 days Active SEROquel 200 MG 1 tablet Orally Once a day Active Latuda 80 MG 1 tablet Orally Once a day at 1700 with food for 30 days Active traZODone HCl 300 MG 1 tablet at bedtime Orally Once a day Active Wellbutrin XL 300 MG 1 tablet in the mor karina Orally Once a day Active clonazePAM 0.5 MG 1 tablet twice a day Orally and may administer 1 tablet twice daily PRN x 90 days for 30 days Active Problems Problem Type SNOMED Code ICD Code Onset Dates Problem Status W/U Status Risk Notes Problem Muscle weakness (06300975) Generalized muscle weakness (M62.81) Active confirmed Problem Constipation (64264192) Constipation (K59.00) Active confirmed Problem Morbid obesity (disorder) (935686325) Morbid (severe) obesity due to excess calories (E66.01) Active confirmed Problem Bipolar affective disorder, currently depressed, moderate (467974370) Bipolar disorder, current episode depressed, moderate (F31.32) Active confirmed Problem Bipolar disorder (33212775) Bipolar disorder, unspecified (F31.9) Active confirmed Problem Obstructive sleep apnea syndrome (disorder) (35460614) Obstructive sleep apnea (adult) (pediatric) (G47.33) Active confirmed Problem Acute on chronic systolic heart failure (992053989) Acute on chronic systolic (congestive) heart failure (I50.23) Active confirmed Problem Hidradenitis suppurativa (51692134) Hidradenitis suppurativa (L73.2) Active confirmed Problem Sciatica (01300049) Lumbago with sciatica, unspecified side (M54.40) Active confirmed Problem Abnormal gait (37967379) Other abnormalities of gait and mobility (R26.89) Active confirmed Problem Closed fracture of proximal end of right tibia (55634267014892109 ) Unspecified fracture of upper end of right tibia, subsequent encounter for closed fracture with routine healing (S82.101D) Active confirmed Problem Hysterectomy (228412564) Acquired absence of both cervix and uterus (Z90.710) Active confirmed Problem COPD - Chronic obstructive pulmonary disease (09044220) COPD (chronic obstructive pulmonary disease) (J44.9) Active confirmed Problem Generalized anxiety disorder (24585854) ALEJANDRA (generalized anxiety disorder) (F41.1) Active confirmed Problem Dependence on continuous supplemental oxygen (57827527504874) Dependence on continuous supplemental oxygen (Z99.81) Active confirmed Problem Atherosclerosis of coronary artery without angina pectoris (751454821206345) Atherosclerosis of [place] coronary artery of [place] heart without angina pectoris (I25.10) Active confirmed Encounters Encounter Location Date Provider Diagnosis [facility] [address] [place] [address] 01/06/2025 Raegan Bowden Bipolar disorder, current episode depressed, moderate F31.32 [facility] [address] [place] [address] 01/20/2025 Raegan Bowden Bipolar disorder, current episode depressed, moderate F31.32 and ALEJANDRA (generalized anxiety disorder) F41.1 [facility] [address] [place] [address] 02/05/2025 Raegan Bowden Bipolar disorder, current episode depressed, moderate F31.32 and ALEJANDRA (generalized anxiety disorder) F41.1 [facility] [address] [place] [address] 02/24/2025 Raegan Bowden Bipolar disorder, current episode depressed, moderate F31.32 and ALEJANDRA (generalized anxiety disorder) F41.1 [facility] [address] [place] [address] 03/03/2025 Raegan Bowden Bipolar disorder, current episode depressed, moderate F31.32 and ALEJANDRA (generalized anxiety disorder) F41.1 Assessments Encounter Date Diagnosis (ICD Code) Assessment Notes Treatment Notes Treatment Clinical Notes Section Notes 01/06/2025 Bipolar disorder, current episode depressed, moderate (ICD-10 - F31.32) Patient stated she has been stable on current psychotropic medication regimen and requested no changes. Clinician discussed moving administration of Latuda to dinner meal since it needs to be taken with foodand she does not eat breakfast. 01/20/2025 Bipolar disorder, current episode depressed, moderate (ICD-10 - F31.32) Patient stated she has been stable on current psychotropic medication regimen and requested no changes. Clinician discussed moving administration of Latuda to dinner meal since it needs to be taken with foodand she does not eat breakfast. 01/20/2025 ALEJANDRA (generalized anxiety disorder) (ICD-10 - F41.1) 02/05/2025 Bipolar disorder, current episode depressed, moderate (ICD-10 - F31.32) Patient stated she has been stable on current psychotropic medication regimen and requested no changes. Clinician discussed moving administration of Latuda to dinner meal since it needs to be taken with foodand she does not eat breakfast. 02/24/2025 Bipolar disorder, current episode depressed, moderate (ICD-10 - F31.32) Patient stated she has been stable on current psychotropic medication regimen and requested no changes. Clinician discussed moving administration of Latuda to dinner meal since it needs to be taken with foodand she does not eat breakfast. 03/03/2025 Bipolar disorder, current episode depressed, moderate [...] (generalized anxiety disorder) (ICD-10 - F41.1) 02/24/2025 ALEJANDRA (generalized anxiety disorder) (ICD-10 - F41.1) 03/03/2025 ALEJANDRA (generalized anxiety disorder) (ICD-10 - F41.1) 01/06/2025 Other 1) Move Latuda administration to 1700 (dinner meal) to improve efficacy of medication. Medication must be taken with food and patient does not eat breakfast. 2) PAtient requested to speak with medical provider regarding change from Plavix to Eliquis as she has significant history of cardiac stents. 3) Continue to provide psychiatric support and medication management. Please call with signs of distress or mood changes that arise. 4) Additional plan of care: Limit medication polypharmacy. Provide medication management of mood and behavioral instability. Provide medication management of psychosis, paranoia and agitation. Avoid multiple antiemetic medications. Avoid narcotics if possible. Avoid antidiarrheal agent that has anticholinergic properties to avoid dryness, dry mouth, and constipation. Monitor EPS/side effects of psychotropic medications. Total time spent assessing patient, reviewing chart, and coordinating care: 61 minutes 01/20/2025 Other 1) Add F41.1 to current list of diagnosis. 2) In addition to current order for clonazepam 0.5mg once daily at bedtime, may administer 0.5mg once daily PRN x 30 days for episodes of increased anxiety. 3) Continue to provide psychiatric support and medication management. Please call with signs of distress or mood changes that arise. Total time spent assessing patient, reviewing chart, and coordinating care: 35 minutes 02/05/2025 Other 1) Continue clonazepam 0.5mg once [...] reviewing chart, and coordinating care: 34 minutes 02/24/2025 Other 1) Increase Latuda dose to [...] reviewing chart, and coordinating care: 44 minutes 03/03/2025 Other 1) Increase Latuda dose to 80mg daily at dinner. 2) Continue to provide psychiatric support and medication management. Please call with signs of distress or mood changes that arise. Total time spent assessing patient, reviewing chart, and coordinating care: 52 minutes Plan Of Treatment No Information Insurance Providers Payer Name Payer Address Payer Phone Subscriber Number Group Number Insured Name Patient Relationship to Insured Coverage Start Date Coverage End Date [employer] [address] [address] [place] [address] [id number] Celia Rivero Self - patient is the insured Medical (General) History Medical History History ICD Code Bipolar disorder, current episode depres sed, moderate F31.32 Unspecified fracture of uppe r end of right tibia, subsequent encounter for closed fracture with routine healing S82.101D Surgical History Surgery Date(Month/Year) Available for review in patient's record at facility Hospitalization History Reason Date(Month/Year) No past psychiatric hospitalizations
--- OUTSIDE RECORDS SUMMARY | 2025-03-17 13:47 | XMS_ITS | Referral Summary ---
Author Organization [employer] ([place], [place], [place], [place]) Address [address] [place] [address] Care Team Providers Care Technical Support Internship Name Role Phone Unavailable Primary Care Provider Unavailabl e Social History Tobacco Use Types Packs/Day Years Used Date Smoking Tobacco: Never Assessed Comments Unknown Sex and Gender Information Value Date Recorded Sex Assigned at Not on file Legal Sex Female 1:06 PM CDT Gender Identity Not on file Sexual Orientation Not on file Plan of Treatment Not on file
--- OUTSIDE RECORDS SUMMARY | 2025-03-17 13:47 | XMS_ITS | Data Portability ---
Author Organization [facility] Address [address] [place] [address] Care Team Providers Care Head Men'S Tennis Coach Name Role Phone CHANDA TRAORE Family Medicine MORGAN FLAHERTY Sound Designer DIONNE CHRISTIANSON Deep Well Contractor Assessment Encounter Date Assessment Date Assessment LastModified by Organization Details LastModified Time 06/27/2024 06/27/2024 -Medications were reviewed and any necessary updates and renewals were made, patient instructed to complete as prescribed. -The potential side effects of medications were discussed. -Counseling was done on care goals and ways to prevent future hospitalizatio ns. -Further treatment per orders listed below. [email or web address] Not available 06/27/2024 16:55:15 Plan of Treatment Reminders Order Date Submit Date Provider Last Modified By Organization Details Last Modified Time Details Appointments None recorded . Lab urinalys is, dipstick 2023 024 [facility], [address] [place], [address], 4 11:49:22 urinalys is, dipstick 2023 024 [email or web address] [facility], [address] [place], [address], 12:00:23 culture, urine 2023 024 [facility], [address], Robert F, [place], [address], 4 20:35:50 Referral mental health counselo r referral 2023 024 [email or web address] [facility], [address], [place], [address], 4 16:29:58 Procedures None recorded . Surgeries None recorded . Imaging XR, finger(s ), 2 or more view 2023 024 [facility], [address] [place] [address] Rd., [place], [address], 4 09:34:02 Medication Orders Solu-Med rol (PF) 125 mg/2 mL solution for injectio n 2024 025 [email or web address] Not available 5 10:04:40 predniso ne 20 mg tablet 2024 025 [facility], [address] [place] [address], [place], [address], 5 09:45:39 doxycycl ine hyclate 100 mg capsule 2024 025 [facility], [address] [place] [address], [place], [address], 5 09:45:41 hydrocod one 10 mg-aceta minophen 325 mg tablet 2023 024 [facility], [address] [place] [address], [place], [address], 4 17:10:10 Linzess 145 mcg capsule 2023 024 [facility], [address] [place] [address], [place], [address], 4 17:22:24 pregabal in 150 mg capsule 2023 [facility], [address] [place] [address], [address], 4 17:22:26 hydrocod one 10 mg-aceta minophen 325 mg tablet [address], [address], 4 17:22:25 clonazep am 1 mg tablet 2023 [facility], [address] [place] [address], [address], 4 17:22:25 hydrocod one 10 mg-aceta minophen 325 mg tablet 2023 [facility], [address] [place] [address], [address], 4 11:30:21 isosorbi de mononitr ate ER 30 mg tablet,e xtended release 24 hr 2023 [facility], [address] [place] [address], [address], 4 11:30:12 ipratrop ium 0.5 mg-albut augustus 3 mg (2.5 mg base)/3 mL nebuliza tion soln [address], [address], 4 11:30:10 trazodon e 100 mg tablet [address], [address], 4 11:30:08 pregabal in 150 mg capsule [address], [address], 4 11:30:19 bupropio n HCl 100 mg tablet [address], [address], 4 11:30:11 clonazep am 1 mg tablet [address], [address], 4 11:30:19 lurasido ne 60 mg tablet [address], [address], 4 11:30:07 atenolol 25 mg tablet [address], [address], 4 11:30:09 furosemi de 80 mg tablet [address], [address], 4 11:30:10 losartan 25 mg tablet [address], [address], 4 11:30:09 Bactrim DS 800 mg-160 mg tablet [address], [address], 4 14:56:39 ceftriax one 1 gram solution for injectio n 2023 024 [email or web address] Not available 11:11:55 Pyridium 200 mg tablet 2023 [facility] [address] [place], [address], 4 16:29:26 Patient TargetsNo targets recorded. Patient Instructions Encounter Date Encounter Id Patient Instructions Last Modified By Organization Details Last Modified Time 11/01/2024 [id number] body mass index: care instructions Not available 11/01/2024 09:45:35 learning about healthy weight Not available 11/01/2024 09:45:35 Reason for Referral Mental Health Counselor Refe rral for Recurrent major depression Referring Physician: Jerardo Mclean, Family Medicine, Encounter Date: 05/21/2024 Results Created Date Observation Date Name Description Value Unit Range Abnormal Flag Note LastModifiedBy Organization Detail LastModifiedTime 05/10/20 24 05/11/2024 COMP. METAB OLIC PANEL (14) glucose 77 mg/dL 70-99 normal Not Available [facility] ([facility]) [address] [place], [address], 05/11/2024 06:37:07 05/10/20 24 05/11/2024 COMP. METAB OLIC PANEL (14) BUN 10 mg/dL 6-24 normal Not Available [facility] ([facility]) [address] [place], [address], 05/11/2024 06:37:07 05/10/20 24 05/11/2024 COMP. METAB OLIC PANEL (14) creatinine 0.87 mg/dL 0.57-1 .00 normal Not Available [facility] ([facility]) [address] [place], [address], 05/11/2024 06:37:07 05/10/20 24 05/11/2024 COMP. METAB OLIC PANEL (14) eGFR 77 mL/mi n/1.7 3 >59 normal Not Available [facility] ([facility]) [address] [facility], [place], [address], 05/11/2024 06:37:07 05/10/20 24 05/11/2024 COMP. METAB OLIC PANEL (14) BUN/creatini ne ratio 11 9-23 normal Not Available [facility] ([facility]) [address] [facility], [place], [address], 05/11/2024 06:37:07 05/10/20 24 05/11/2024 COMP. METAB OLIC PANEL (14) sodium 140 mmol/ L 134-14 4 normal Not Available [facility] ([facility]) [address] [facility], [place], [address], 05/11/2024 06:37:07 05/10/20 24 05/11/2024 COMP. METAB OLIC PANEL (14) potassium 3.8 mmol/ L 3.5-5. 2 normal Not Available [facility] ([facility]) [address] [facility], [place], [address], 05/11/2024 06:37:07 05/10/20 24 05/11/2024 COMP. METAB OLIC PANEL (14) chloride 101 mmol/ L 96-106 normal Not Available [facility] ([facility]) [address] [facility], [place], [address], 05/11/2024 06:37:07 05/10/20 24 05/11/2024 COMP. METAB OLIC PANEL (14) carbon dioxide, total 25 mmol/ L 20-29 normal Not Available [facility] ([facility]) [address] [facility], [place], [address], 05/11/2024 06:37:07 05/10/20 24 05/11/2024 COMP. METAB OLIC PANEL (14) calcium 8.5 mg/dL 8.7-10 .2 below low normal Not Available [facility] ([facility]) [address] [place], [address], 05/11/2024 06:37:07 05/10/20 24 05/11/2024 COMP. METAB OLIC PANEL (14) protein, total 6.6 g/dL 6.0-8. 5 normal Not Available [facility] ([facility]) [address] [place], [address], 05/11/2024 06:37:07 05/10/20 24 05/11/2024 COMP. METAB OLIC PANEL (14) albumin 3.9 g/dL 3.8-4. 9 normal Not Available [facility] ([facility]) [address] [place], [address], 05/11/2024 06:37:07 05/10/20 24 05/11/2024 COMP. METAB OLIC PANEL (14) globulin, total 2.7 g/dL 1.5-4. 5 Not Available [facility] ([facility]) [address] [place], [address], 05/11/2024 06:37:07 05/10/20 24 05/11/2024 COMP. METAB OLIC PANEL (14) bilirubin, total 0.3 mg/dL 0.0-1. 2 normal Not Available [facility] ([facility]) [address] [facility] [place], [address], 05/11/2024 06:37:07 05/10/20 24 05/11/2024 COMP. METAB OLIC PANEL (14) alkaline phosphatase 59 IU/L 44-121 normal Not Available [facility]) [address] [place], [address], 05/11/2024 06:37:07 05/10/20 24 05/11/2024 COMP. METAB OLIC PANEL (14) AST (SGOT) 46 IU/L 0-40 above high normal Not Available [facility] ([facility]) [address] [facility], [place], [address], 05/11/2024 06:37:07 05/10/20 24 05/11/2024 COMP. METAB OLIC PANEL (14) ALT (SGPT) 50 IU/L 0-32 above high normal Not Available [facility] ([facility]) [address] [facility], [place], [address], 05/11/2024 06:37:07 05/21/20 24 05/25/2024 URINE CULTU RE, ROUTI NE urine culture, routine Final report abnormal Not Available [facility] ([facility]) [address] [facility], [place], [address], 05/25/2024 20:35:50 05/21/20 24 05/25/2024 URINE CULTU RE, ROUTI NE result 1 COMMEN T abnormal Esche rm a coli, ident ified by an autom ated bioch emica l syste m. Cefaz titi <=4 ug/mL Cefaz titi with an JOSE ELIAS <=16 predi cts susce ptibi lity to the oral agent s cefac genaro, cefdi lynn, cefpo doxim e, cefpr ozil, cefur oxime , cepha lexin , and lorac arbef when used for thera py of uncom plica keke urina ry tract infec tions due to E. coli, Klebs iella pneum oniae , and Prote us mirab ilis. 25,00 0-50, 000 colon y formi ng units per mL Not Available [facility] ([facility]) [address] [facility], [place], [address], 05/25/2024 20:35:50 05/21/20 24 05/25/2024 URINE CULTU RE, ROUTI NE antimicrobia l susceptibili ty Commen t S = Susce ptibl e; I = Inter media te; R = Resis tant P = Posit syed; N = Negat syed MICS are expre ssed in micro grams per mL Antib iotic RSLT# 1 RSLT# 2 RSLT# 3 RSLT# 4 Amoxi cilli n/Cla vulan ic Acid S =4 Ampic illin S =8 Cefep quentin S<=0. 12 Ceftr iaxon e S<=0. 25 Cefur oxime S =4 Cipro floxa claude S<=0. 25 Ertap enem S<=0. 12 Genta micin S<=1 Imipe nem S<=0. 25 Levof loxac in S<=0. 12 Merop enem S<=0. 25 Nitro furan toin S<=16 Piper acill in/Ta zobac honeycutt S<=4 Tetra cycli ne S<=1 Tobra mycin S<=1 Trime thopr im/Morales lfa S<=20 Not Available [facility] ([facility]) [address] [facility], [place], [address], 05/25/2024 20:35:50 05/21/20 24 05/21/2024 urina lysis , dipst ick Leukocytes Small Not Available [address] [place], [address], 05/21/2024 11:54:55 05/21/20 24 05/21/2024 urina lysis , dipst ick Nitrite negati ve Not Available [address] [place], [address], 05/21/2024 11:54:55 05/21/20 24 05/21/2024 urina lysis , dipst ick Urobilinogen 1 Not Available [facility] [address] [place], [address], 05/21/2024 11:54:55 05/21/20 24 05/21/2024 urina lysis , dipst ick Protein 30 Not Available [address] [place], [address], 05/21/2024 11:54:55 05/21/20 24 05/21/2024 urina lysis , dipst ick pH 5.5 Not Available [address] [place], [address], 05/21/2024 11:54:55 05/21/2005/21/2024 urina lysis , dipst ick Blood Large Not Available [address] [place], [address], 05/21/2024 11:54:55 05/21/2005/21/2024 urina lysis , dipst ick Specific [place] 1.030 Not Available [address] [place], [address], 05/21/2024 11:54:55 05/21/2005/21/2024 urina lysis , dipst ick Ketone Negati ve Not Available [address] [place], [address], 05/21/2024 11:54:55 05/21/20 24 05/21/2024 urina lysis , dipst ick Bilirubin Small Not Available [address] [place], [address], 05/21/2024 11:54:55 05/21/2005/21/2024 urina lysis , dipst ick Glucose Negati ve Not Available [address] [place], [address], 05/21/2024 11:54:55 05/21/20 24 05/21/2024 urina lysis , dipst ick Appearance Cloudy Not Available [address] [place], [address], 05/21/2024 11:54:55 05/21/20 24 05/21/2024 urina lysis , dipst ick Color Dark Yellow Not Available [address] [place], [address], 05/21/2024 11:54:55 05/28/20 24 05/28/2024 urina lysis , dipst ick Leukocytes Small Not Available [address] [place], [address], 05/28/2024 11:31:09 05/28/20 24 05/28/2024 urina lysis , dipst ick Nitrite negati ve Not Available [address] [place], [address], 05/28/2024 11:31:09 05/28/20 24 05/28/2024 urina lysis , dipst ick Urobilinogen .2 Not Available [address] [place], [address], 05/28/2024 11:31:09 05/28/20 24 05/28/2024 urina lysis , dipst ick Protein Negati ve Not Available [address] [place], [address], 05/28/2024 11:31:09 05/28/20 24 05/28/2024 urina lysis , dipst ick pH 6.0 Not Available [address] [place], [address], 05/28/2024 11:31:09 05/28/20 24 05/28/2024 urina lysis , dipst ick Blood Negati ve Not Available [address] [place], [address], 05/28/2024 11:31:09 05/28/20 24 05/28/2024 urina lysis , dipst ick Specific [place] 1.020 Not Available [address] [place], [address], 05/28/2024 11:31:09 05/28/20 24 05/28/2024 urina lysis , dipst ick Ketone Negati ve Not Available [address] [place], [address], 05/28/2024 11:31:09 05/28/20 24 05/28/2024 urina lysis , dipst ick Bilirubin Negati ve Not Available [address] [place], [address], 05/28/2024 11:31:09 05/28/20 24 05/28/2024 urina lysis , dipst ick Glucose Negati ve Not Available [address] [place], [address], 05/28/2024 11:31:09 05/28/20 24 05/28/2024 urina lysis , dipst ick Appearance Clear Not Available [address] [place], [address], 05/28/2024 11:31:09 05/28/20 24 05/28/2024 urina lysis , dipst ick Color Dark Yellow Not Available [address] [place], [address], 05/28/2024 11:31:09 07/19/20 24 07/10/2024 XR, foot, 3 or more view No observ ation record ed. [address], [place], [address], 07/22/2024 07:21:49 07/31/20 24 07/25/2024 XR, foot No observ ation record ed. [address], [place], [address], 08/02/2024 12:15:37 08/06/2008/05/2024 XR, foot No observ ation record ed. [place] [id number], [place], [address], 08/07/2024 14:53:51 09/10/2009/10/2024 XR, finge r(s), 2 or more view No observ ation record ed. [email or web address] [facility] [address] [place], [address], 09/12/2024 17:22:09 11/12/19 25 11/11/2024 XR, hand, 3 or more view No observ ation record ed. [address], [place], [address], 11/12/2024 13:55:30 12/02/19 25 11/28/2024 cardi ac stres s test No observ ation record ed. [email or web address], [place], [address], 12/02/2024 09:32:14 12/02/19 25 11/28/2024 milton can cardi olite stres s test (PROC ) No observ ation record ed. [place] [id number], [place], [address], 12/02/2024 09:33:37 Result Notes None recorded. Problems Name Problem SNOMED Code Status Onset Date Resolution Date Notes Provider Name and Address Organization Details Recorded Time Obstruct syed sleep apnea syndrome 81004992 Active 2017 Jelena Damon null, [place] - [facility] 8 12:37:55 History of bypass of stomach 473926489 Active 2018 Esthela Parrish APRN [address], [place], [address] , [place] - [facility] 2 20:25:05 History of myocardi al infarcti on 356729338 Active 2019 x 3 Esthela Parrish APRN [address], [place], [address] , [place] - [facility] 2 20:25:05 Pigmente d skin lesion of uncertai n nature 160967776 Completed 201901/25/2024 Esthela Parrish APRN [address], [place], [address] , [place] - [facility] 4 23:56:21 Full thicknes s rotator cuff tear 809083772 Completed 202012/06/2021 surgical ly repaired 04/2021 Esthela Parrish APRN [address], [place], [address] , [place] - [facility] 2 20:25:27 Myocardi al disease 28345169 Active 2015 León Kartik [place], [place] - [facility] 6 15:38:38 Chronic obstruct syed pulmonar y disease 25300324 Active 2015 León Verdugo [place], [place] - [facility] 6 15:38:47 History of non-drug allergy 352750007 Active 2015 León Verdugo [place], [place] - [facility] 6 15:38:58 Depressi ve disorder 81266730 Active 2015 León Verdugo [place], [place] - [facility] 6 15:39:07 Bipolar disorder 58425710 Active 2015 [place], [place] - [facility] 6 15:39:13 Open fracture of distal phalanx of great toe of left foot 02775701292 935618 Completed 202002/28/2021 Eshtela Parrish APRN [address], [place], [address] , [place] - [facility] 1 15:00:48 Open fracture of distal phalanx of lesser toe of left foot 90414887377 924534 Completed 202012/06/2021 3rd toe Removal Reason: resolved Esthela Parrish APRN [address], [place], [address] , [place] - [facility] 2 20:25:22 Dependen ce on suppleme ntal oxygen 43607631678 7 Active 2020 Esthela Parrish APRN [address], [place], [address] , [place] [facility] 2 20:25:05 Suspecte d COVID-19 446721936 Completed 08/13/2021 Removal Reason: Problem added by user [email or web address] from the COVID-19 watch flag Jelly Canas null, [place] - [facility] 1 15:13:48 Morbid obesity 445244904 Active 2021 Esthela Parrish APRN [address], [place], [address] , [place] - [facility] 2 20:25:05 Hidraden itis suppurat deven 23009459 Active 2021 Esthela Parrish APRN [address], [place], [address] , [place] [facility] 2 20:25:05 Gastroes ophageal reflux disease without esophagi tis 831056887 Active 2021 Esthela Parrish APRN [address], [place], [address] , [place] [facility] 4 23:56:11 Chronic heart failure 31917094 Active [address] Reynold Parrish APRN [address], [place], [address] , [place] - [facility] 4 00:05:44 Restless legs 36801860 Active 2021 Esthela Parrish, [employer] [address], [place], [address] , [place] [facility] 4 23:56:11 Lumbago with sciatica 839679265 Active 2021 Esthela Parrish, [employer] [address], [place], [address] , [place] [facility] 4 23:56:11 Pain of left knee joint 30542312127 4107 Active 2022 Esthela Parrish, [employer] [address], [place], [address] , [place] [facility] 4 23:56:11 Pain of right knee joint 24935141178 4100 Active 2022 Esthela Parrish, [employer] [address], [place], [address] , [place] [facility] 4 23:56:11 Edema of bone marrow 07485928551 07 Active 2022 Evelia Jones, [employer] [address], [place], [address] , [place] [facility] 3 13:57:13 Coronary atherosc lerosis 199594781 Active [address] Flaherty , cardiolo gy. hx. of stented coronary arteries Esthela Parrish, [employer] [address], [place], [address] , [place] [facility] 4 00:05:33 Chronic congesti ve heart failure 59408055 Active 2023 Esthela Parrish [employer] [address], [place], [address] , [place] [facility] 4 00:05:05 Severe chronic obstruct syed pulmonar y disease 650976150 Active 2023 [facility] , oxygen dependen t, 2L per nasal cannula around the clock Esthela Williamsonall, [employer] [address], [place], [address] , [place] [facility] 4 00:06:15 Essentia l hyperten kristen 06019854 Active 2023 Jerardo Mclean MD [address], [place], [address] , [place] [facility] 4 12:43:10 Acute exacerba tion of chronic obstruct syed pulmonar y disease 986687368 Active 2024 Kamlesh Adams DO [address], [place], [address] , [place] - [facility] 5 09:44:00 Fracture of tibia 96930001 Active Pat [place], [place] - [facility] 5 08:26:01 Problem Notes Documentation Provider Name and Address Organization Details Recorded Time Hospital History And Physical (h&p) : [facility] History Physical - Adult REPORT #: [id number] REPORT STATUS: Signed DATE: 12/23/24 TIME: 1521 PATIENT: CELIA RIVERO UNIT #: [id number] ROOM/BED: [address] AGE: 59 SEX: F ATTEND: MD EVERETTE JIMÉNEZ ADM AUTHOR: Fernandez ARAMBULA,Skinny Young * ALL edits or amendments must be made on the electronic/computer document * History of Present Illness Date of Service: 12/23/24 Chief complaint: Right tibia fracture HPI: Patient with history of depression, COPD requiring 2 L of oxygen nasal cannula at all times, CAD, ND, cardiac stents and anticoagulated with Plavix reports 2 days of pain, mild edema and inability to ambulate after being diagnosed with proximal right tibia fracture in [facility]. She was placed in knee immobilizer sent home on nonweightbearing basis to follow up with Dr. Burkett ( ortho). Patient went to see Dr. Burkett today and requests for direct admit has been made due to patient's nonweightbearing status and need for rehabilitation and physical therapy. Patient denies worsening edema, erythema, numbness, tingling or obvious deformity. Reports she uses a walker to ambulate at baseline has not been using as of late due to her injury. Reports she has been taking prescribed [place] for with very little pain relief. Patient reports her dog's leash got wrapped around her knee and the dog started after another animal and pulled her down and that is how she injured herself. Patient states her has dementia and isn't able to adequately take care of her during her illness or dog at home. If possible patient is requesting placement in a facility closer home in [facility]. Medications: Home Medications: Medication Dose/Rte/Freq Days Qty Entered Last Max Daily Dose Reviewed buPROPion HCL 300 MG PO DAILY 12/23/24 (WELLBUTRIN XL) 1527 Strength: 300 MG TAB ATENOLOL (TENORMIN) 25 MG PO DAILY 12/23/24 Strength: 25 MG TABLET 1527 LOSARTAN (COZAAR) 25 MG PO DAILY 12/23/24 Strength: 25 MG TABLET 1528 GABAPENTIN (NEURONTIN) 150 MG ORAL DAILY 12/23/24 Strength: 100 MG CAPSULE 1528 CLOPIDOGREL (PLAVIX) 75 MG PO DAILY 12/23/24 Strength: 75 MG TABLET 1529 QUEtiapine FUMARATE 200 MG PO HS 12/23/24 (SEROquel) 1529 Strength: 200 MG TABLET LURASIDONE HCL (LATUDA) 60 MG ORAL DAILY 12/23/24 Strength: 40 MG TABLET 1530 Current Hospital Medications: Sig/Allan Start time Last Medication Dose Route Stop Time Status Admin Atenolol 25 MG DAILY 12/24 0900 UNVr PO Bupropion HCl 300 MG DAILY 12/24 0900 UNVr PO Clopidogrel Bisulfate 75 MG DAILY 12/24 0900 UNVr PO Gabapentin 150 MG DAILY 12/24 0900 UNVr PO Losartan Potassium 25 MG DAILY 12/24 0900 UNVr PO Quetiapine Fumarate 200 MG HS 12/23 2100 UNVr PO Acetaminophen 650 MG Q6HP PRN 12/23 1600 UNVr PO Al Hydrox/Mg Hydrox/ 30 ML Q4HP PRN 12/23 1600 UNVr Simethicone PO Albuterol/Ipratropium 3 ML Q6HP PRN 12/23 1600 UNVr IH Docusate Sodium 100 MG BIDP PRN 12/23 1600 UNVr PO Magnesium Hydroxide 30 ML DP PRN 12/23 1600 UNVr PO Morphine Sulfate 2 MG Q2HP PRN 12/23 1600 UNVr IV Ondansetron HCl 4 MG Q8HP PRN 12/23 1600 UNVr IV Oxycodone/ 1 UDTAB Q4HP PRN 12/23 1600 UNVr Acetaminophen PO Allergies: Coded Allergies: povidone-iodine (blisters 12/23/24) DRUG INGREDIENT Quinn POVIDONE-IODINE sulfisoxazole (rash 12/23/24) DRUG INGREDIENT Quinn SULFISOXAZOLE Uncoded Allergies: BETADINE (05/02/09) No Known Contrast Allergies (05/02/09) No Known Food Allergies (05/02/09) SULFA DRUGS (05/02/09) TAPE (STRIPS SHKIN - PLASTIC TAPE 05/02/09) Problem List Currently Experiencing Issues: Yes Walking: CAN WALK ONLY WITH AIDE (Baseline, nonambulatory at [facility]) Past Medical/Social History Past medical history: Reports: COPD, stents. Additional medical history: CAD, ND Past surgical history: Reports: , hernia. Additional surgical history: Gastric bypass Social history: Reports: lives with family, . Review of Systems Constitutional: Denies: chills, fatigue. Skin: Denies: abrasion, bruising. Allergy/Immun: Denies: allergic reaction. Eyes: Denies: redness. ENT: Denies: ear drainage. Respiratory: Reports: SOB ( baseline). Cardiovascular: Denies: chest pain, edema. GI: Denies: abdominal pain. : Denies: dysuria. Musculoskeletal: Reports: arthritis, extremity pain, joint pain, joint swelling. Heme: Denies: adenopathy. Endocrine: Denies: cold intolerance. Neuro: Denies: bladder dysfunction, bowel dysfunction. Psych: Denies: agitation. Physical Exam VS/I O Vital Signs Result Date Time Pulse Ox 92 12/23 1517 B/P 114/57 12/23 1517 Temp 97.8 12/23 1517 Pulse 64 12/23 1517 Resp 20 12/23 1517 General appearance: alert, awake, no acute distress, obese, Obvious pain and discomfort Head/Eyes: atraumatic, normocephalic ENT: normal nose Neck: full range of motion Cardiovascular: normal capillary refill, regular rate rhythm, pedal pulses present Respiratory: clear to auscultation, no distress, no tenderness, aerating well, on oxygen Abdomen: soft, non-tender Genitourinary: not indicated Extremities: moves all, no edema, Right leg in knee immobilizer. No obvious deformity, erythema, edema, ecchymoses. 2+ dorsalis pedis and posterior tibialis pulses in bilateral lower extremities. All other extremities normal Musculoskeletal: See musculoskeletal Neuro/MATERIALS TECHNICIAN: alert, oriented X 3, normal speech, no motor deficits Skin: dry, intact, no gross abnormalities Psychiatry: no hallucinations, normal affect, normal judgment/insight Results Results: x-ray personally reviewed ( from December 21, 2024) Treatment Prophylaxis Lines: peripheral Wren: Date wren inserted: 12/23/24 Wren status: day 1 Oxygen: nasal cannula (2 liters) Pharm. DVT prophylaxis: Continue home Eliquis Mechanical DVT prophylaxis: SCD's Ulcer prophylaxis: Protonix Diagnosis, Assessment Plan Dx/Assessment/Plan: Right Tibia Fracture -maintain right lower extremity knee immobilizer -pain meds, Tylenol, oxycodone and morphine ordered as needed -Dr. Burkett, orthopedic surgery, sent patient to hospital from his office for direct admit -case management consult requested for placement in rehab facility -place Wren catheter as patient is nonambulatory COPD/Emphysema -continuous pulse ox -continue home oxygen, titrate as needed -maintain oxygen saturation at 90% or greater -DuoNebs q.6 hours PRN CAD -continue home Eliquis, atenolol and losartan -initiate cardiac diet Depression/Bipolar d/o -continue home quetiapine, Latuda, Wellbutrin Ppx -continue home Eliquis, SCDs -Protonix FULL CODE JUAN FRANCISCO Bah (daughter) [phone], patient reports her is still alive but has dementia Potential Risk of Events: Potential risk of an Adverse Event for this patient may include: [ DVT, PE, worsening pain, ] Orders: Procedure Date/time Status COMP METABOLIC PANEL 12/24 0600 Active CBC W/AUTO DIFFERENTIAL 12/24 0600 Active Cardiac Diet 12/23 D Active RT: Aerosol Treatment + 12/23 1552 Active RESPIRATORY THERAPY CONSULT 12/23 1552 Active Suggested Problem 12/23 1546 Active VTE Risk Assessment: Provider 12/23 1546 Active Vital Signs + 12/23 1546 Active Sequential Compression Device 12/23 1546 Active Saline Lock + 12/23 1546 Active RT: Pulse Oximetry + 12/23 1546 Active RT: Oxygen Therapy + 12/23 1546 Active Intake Output + 12/23 1546 Active Weight: Obtain -POM + 12/23 1546 Active URINALYSIS COMPLETE 12/23 1546 Active COMP METABOLIC PANEL 12/23 1546 Active CBC W/AUTO DIFFERENTIAL 12/23 1546 Active CODE STATUS 12/23 1546 Active ADMIT ORDER FROM [facility] 12/23 1546 Active Wren: Insertion + 12/23 UNK Active CASE MANAGEMENT CONSULT 12/23 UNK Active Medications Ordered - 12 Hrs Acetaminophen 650 MG Q6HP PRN PO PAIN 1-3/TEMP >/= 100.5 Atenolol 25 MG DAILY PO Bupropion HCl 300 MG DAILY PO (CKD) Clopidogrel Bisulfate 75 MG DAILY PO Docusate Sodium 100 MG BIDP PRN PO CONSTIPATION Consultants: orthopedics (Dr. Burkett saw patient in clinic) Code status: full code Plan discussed with: patient at 1601 RPT #: [id number] END OF REPORT CC'ed Logic: Attending Provider: TINO GAVIRIA Referring Provider: TINO GAVIRIA Consulting Provider: ENMA CHAVEZ Admitting Provider: TINO Adams DO [facility] [address], [place], [address] - [facility] 01/02/2025 11:48:26 Consult Note : HICKORY FLAT Adult General Consultation REPORT #: [id number] REPORT STATUS: Signed DATE: 12/24/24 TIME: 1304 PATIENT: CELIA RIVERO UNIT #: [id number] ROOM/BED: [address] AGE: 59 SEX: F ATTEND: MD EVERETTE JIMÉNEZ ADM AUTHOR: Oniel Burkett DO * ALL edits or amendments must be made on the electronic/computer document * Clinical Note Note: This is a 59-year-old female seen in my office yesterday and follow up from a right minimally displaced lateral tibial plateau fracture. The patient was placed in a knee immobilizer made nonweightbearing. She does have significant difficulty with getting in and out of the house and in the office she asked if she can be admitted to the hospital for [facility]. She states her pain is controlled with medication to this point. She denies any other complaints. On exam she does have a knee immobilizer in place. She was tenderness to palpation over the lateral tibial plateau. She was neurovascularly intact throughout the extremity. Her x-rays were reviewed yesterday in the office including a CT scan which show a minimally displaced lateral tibial plateau split depression fracture. Assessment and plan At this time patient is nonweightbearing to the right lower extremity. Knee immobilizer went up she can do some gentle range of motion about the knee. Her placement is pending. Incident Response Analyst is working with this. The patient will need to be on some DVT prophylaxis. Patient will follow up with me in 2 weeks. [id number] Allergies: povidone-iodine (Coded, blisters, 12/23/24) sulfisoxazole (Coded, rash, 12/23/24) BETADINE (Uncoded, 05/02/09) No Known Contrast Allergies (Uncoded, 05/02/09) No Known Food Allergies (Uncoded, 05/02/09) SULFA DRUGS (Uncoded, 05/02/09) TAPE (Uncoded, STRIPS SHKIN - PLASTIC TAPE, 05/02/09) 24 hour I O ending at 0700: 12/24 0700 12/23 1900 Intake Total Output Total 800 600 Balance -800 -600 Output, Urine 800 600 Patient 140.614 kg Weight Laboratory Tests: 12/24 12/23 12/23 0545 1620 1609 Chemistry Sodium (136 - 145 mmol/L) 140 138 Potassium (3.5 - 5.1 mmol/L) 4.0 4.3 Chloride (98 - 107 mmol/L) 103 101 Carbon Dioxide (24 - 33 mmol/L) 33 32 Anion Gap (10 - 20 mmol/L) 8.0 *L 9.3 *L BUN (7 - 18 mg/dL) 10 13 Creatinine (0.55 - 1.02 mg/dl) 0.90 0.93 Est GFR (CKD-EPI 2020) (>60 mL/min) 73 70 BUN/Creatinine Ratio (12 - 20) 11 *L 13 Glucose (70 - 99 mg/dL) 78 89 Calculated Osmolality (272 - 288 mOSM/kg) 276 274 Calcium (8.5 - 10.1 mg/dL) 8.8 8.8 Total Bilirubin (0.2 - 1.0 mg/dL) 0.7 0.6 AST (15 - 37 U/L) 35 37 ALT (14 - 59 U/L) 53 59 Total Alk Phosphatase (46 - 116 U/L) 59 75 Total Protein (6.4 - 8.2 g/dL) 6.6 6.7 Albumin (3.4 - 5.0 g/dL) 3.0 *L 3.0 *L Globulin (1.5 - 4.0 g/dL) 3.6 3.7 Albumin/Globulin Ratio (0.5 - 2.0) 0.8 0.8 Hematology WBC (4.5 - 13.0 10e3/uL) 5.7 8.7 RBC (3.80 - 5.10 10e6/uL) 4.30 4.34 Hgb (11.5 - 15.3 g/dl) 13.4 13.7 Hct (34.0 - 46.0 %) 40.2 40.5 MCV (78.0 - 98.0 fL) 94 93 MCH (25.0 - 35.0 Pg) 31.2 31.6 MCHC (31.0 - 36.0 g/dL) 33.3 33.8 RDW (11.0 - 15.0 %) 12.8 12.8 Plt Count (150 - 400 10e3/uL) 169 174 Neut % (Auto) (35 - 75 %) 61 76 *H [place] % (Auto) (0 - 15 %) 8 7 Nucleat RBC Rel Count (/100 WBC) 0.0 0.0 Neut # (Auto) (1.50 - 8.00 x1000/uL) 3.50 6.67 Immature Gran % (0 - 1) 0 0 Lymphocytes % (10 - 50 %) 28 15 Eosinophils % (0 - 5 %) 2 1 Basophils % (0 - 5 %) 0 0 Immature Gran # (0 - 0.05 x1000/uL) 0.02 0.02 Lymphocytes # (1.20 - 5.20 x1000/uL) 1.57 1.35 Monocytes # (0.40 - 0.90 x1000/uL) 0.45 0.61 Eosinophils # (0.00 - 0.50 x1000/uL) 0.13 0.06 Basophils # (0.00 - 0.30 x1000/uL) 0.02 0.03 Urines Ur Collection Type CATH Urine Color (YELLOW) YELLOW Urine Appearance (CLEAR) CLEAR Urine pH (5.0 - 9.0) 6.0 Ur Specific [place] (1.005 - 1.030) 1.015 Urine Protein (NEGATIVE) 2+ * Urine Glucose (UA) (NEGATIVE) NEGATIVE Urine Ketones (NEGATIVE) NEGATIVE Urine Blood (NEGATIVE) NEGATIVE Urine Nitrite (NEGATIVE) NEGATIVE Urine Bilirubin (NEGATIVE) NEGATIVE Urine Urobilinogen (<1 mg/dl) NEGATIVE Ur Leukocyte Esterase (NEGATIVE) NEGATIVE Urine RBC (NONE SEEN rbc/hpf) NONE SEEN Urine WBC (0 - 5 wbc/hpf) 0-5 Ur Squamous Epith Cells (0 - 5 epi/hpf) 0-5 SQUAMOUS Amorphous Sediment (NONE SEEN) NONE SEEN Urine Bacteria (NONE SEEN) NONE SEEN Urine Mucus (NONE SEEN) NONE SEEN Vital Signs: Date Time Temp Pulse Resp B/P B/P Pulse O2 O2 Flow FiO2 Mean Ox Delivery Rate 12/24 08 9370 12/24 0808 9370 12/24 0724 97.1 71 18 93/70 90 CANNULA 12/24 0505 98.1 68 18 108/59 92 CANNULA 12/24 0036 97.5 65 18 127/63 97 CANNULA 12/23 1923 98.4 70 18 105/58 98 CANNULA 12/23 1517 97.8 64 20 114/57 92 Home Medications: Medication Dose/Rte/Freq Days Qty Entered Last Max Daily Dose Reviewed buPROPion HCL 300 MG PO DAILY 12/23/24 (WELLBUTRIN XL) 1527 Strength: 300 MG TAB ATENOLOL (TENORMIN) 25 MG PO DAILY 12/23/24 Strength: 25 MG TABLET 1527 LOSARTAN (COZAAR) 25 MG PO DAILY 12/23/24 Strength: 25 MG TABLET 1528 GABAPENTIN (NEURONTIN) 150 MG ORAL DAILY 12/23/24 Strength: 100 MG CAPSULE 1528 CLOPIDOGREL (PLAVIX) 75 MG PO DAILY 12/23/24 Strength: 75 MG TABLET 1529 QUEtiapine FUMARATE 200 MG PO HS 12/23/24 (SEROquel) 1529 Strength: 200 MG TABLET LURASIDONE HCL (LATUDA) 60 MG ORAL DAILY 12/23/24 Strength: 40 MG TABLET 1530 traZODone HCL (DESYREL) 300 MG ORAL HS 12/24/24 Strength: 300 MG TAB 0033 Current Hospital Medications: Sig/Allan Start time Last Medication Dose Route Stop Time Status Admin Pantoprazole Sodium 40 MG DAILY@0800 12/25 0800 AC Sesquihydrate PO Atenolol 25 MG DAILY 12/24 0900 AC 12/24 PO 0808 Bupropion HCl 300 MG DAILY 12/24 0900 CKD 12/24 PO 0807 Clopidogrel Bisulfate 75 MG DAILY 12/24 09 AC 12/24 PO 0808 Gabapentin See Dose DAILY 12/24 09 AC 12/24 Insts (1) PO 0807 Losartan Potassium 25 MG DAILY 12/24 09 AC 12/24 PO 0808 Pantoprazole Sodium 40 MG DAILY 12/24 0900 DC 12/24 IV 0808 Trazodone HCl 300 MG HS 12/24 0100 AC 12/24 PO 0051 Quetiapine Fumarate 200 MG HS 12/23 2100 AC 12/23 PO 2001 Acetaminophen 650 MG Q6HP PRN 12/23 1600 AC PO Al Hydrox/Mg Hydrox/ 30 ML Q4HP PRN 12/23 1600 AC Simethicone PO Albuterol/Ipratropium 3 ML Q6HP PRN 12/23 1600 AC IH Docusate Sodium 100 MG BIDP PRN 12/23 1600 AC PO Magnesium Hydroxide 30 ML DP PRN 12/23 1600 AC PO Morphine Sulfate 2 MG Q2HP PRN 12/23 1600 AC 12/24 IV 1030 Ondansetron HCl 4 MG Q8HP PRN 12/23 1600 AC IV Oxycodone/ 1 UDTAB Q4HP PRN 12/23 1600 AC 12/24 Acetaminophen PO 1021 Dose Instructions: (1)Gabapentin: 150 MG Alcohol Use: Alcohol Frequency: Smoking Status: Number of Years: Type of tobacco used: at 1306 RPT #: [id number] END OF REPORT CC'ed Logic: Attending Provider: TINO GAVIRIA Referring Provider: TINO GAVIRIA Consulting Provider: ENMA CHAVEZ Admitting Provider: TINO Adams DO [address], [place], [address], [place] - [facility] 01/02/2025 11:48:20 Procedures Surgical History Date Name Laterality Status Provider Name and Address Organization Details Recorded Time 06/27/20 Medication Reconcilliation completed Gaby Gibson [place] - [facility] 06/27/2024 16:55:15 02/09/20 Cardiac Cath completed Esthela Parrish APRN [address], [place], [address], [place] - [facility] 02/21/2024 16:13:59 01/22/20 24 Advance Care Planning completed Saulo Snedegar [place] - [facility] 01/15/2024 15:49:38 01/22/20 24 Functional Status Assessed completed Saulo [place]egar [place] - [facility] 01/15/2024 15:49:38 02/17/20 23 Medication Reconcilliation completed Crystal Angelica [place] - [facility] 02/16/2023 13:13:10 01/24/20 23 Cardiac Cath completed Saulo [place]nedegar [place] - [facility] 01/25/2023 11:24:34 11/23/19 23 Cryosurgery Dermatology completed Chanda Traore APRN [address], [place], [address], [facility] - [facility] 11/22/2022 11:05:35 04/19/20 22 Advance Care Planning completed Tawanna Byrdt [place] - [facility] 04/19/2022 14:23:11 04/19/20 22 Functional Status Assessed completed Tawanna Luis [place] - [facility] 04/19/2022 14:23:11 05/12/20 21 Medication Reconcilliation [place] [facility] 05/12/2021 13:10:46 03/01/20 21 Medication Reconcilliation [place] Sa[place] - [facility] 03/01/2021 16:14:04 01/07/20 21 Medication Reconcilliation completed Saulo [place] - [facility] 01/06/2021 10:49:04 09/08/20 20 Punch Biopsy completed Chanda Traore APRN [address], [place], [address], [place] - [facility] 09/08/2020 14:56:08 09/08/20 20 Cryosurgery Dermatology completed Chanda Traore APRN [address], [place], [address], [facility] - [facility] 09/08/2020 14:56:24 07/27/20 20 Date of Last Mammogram completed Jelly Canas [place] - [facility] 04/01/2022 14:28:18 04/10/20 20 Advance Care Planning completed Saulo Snedegar [place] - [facility] 04/10/2020 13:07:17 04/10/20 20 Functional Status Assessed completed Saulo Snedegar [place] - [facility] 04/10/2020 13:07:17 02/17/20 20 Diastolic B/P 80-89 mm Hg completed Crystal Angelica [place] - [facility] 02/17/2020 15:12:15 02/17/20 20 Systolic B/P 130-139 mm Hg completed Crystal Angelica [place] - [facility] 02/17/2020 15:12:20 07/31/20 19 Date of Last Colonoscopy completed Esthela Parrish, ABDIRAHMAN [address], [place], [address], [place] - [facility] 01/27/2022 21:19:50 07/31/20 19 colonoscopy completed Jelly Missael [place] - [facility] 04/01/2022 14:34:28 11/06/19 19 Systolic B/P less than 130 mm Hg completed Ruth Ann Belle [place] - [facility] 11/06/2018 14:05:06 11/06/19 19 Diastolic B/P less than 80 mm Hg completed Ruth Ann Belle [place] [facility] 11/06/2018 14:05:08 08/27/20 18 Systolic B/P less than 130 mm Hg completed Ruth Ann Belle [place] [facility] 08/27/2018 11:17:17 08/27/20 18 Diastolic B/P 80-89 mm Hg completed Ruth Ann Belle [place] [facility] 08/27/2018 11:17:19 07/03/20 18 Systolic B/P less than 130 mm Hg completed Ruth Ann Belle [place] [facility] 09/14/2018 08:02:54 07/03/20 18 Diastolic B/P less than 80 mm Hg completed Ruth Ann Belle [place] [facility] 09/14/2018 08:02:58 03/17/20 17 Most Recent Bone Density completed Jelly Missael [place] - [facility] 04/01/2022 14:31:51 07/11/20 05 Total hysterectomy completed Crystal Angelica [place] - [facility] 02/16/2023 13:23:32 Remove tonsils and adenoids completed Saulo Snedegar [place] - [facility] 04/10/2020 13:10:28 cholecystectomy completed Saulo [place]nedegar [place] [facility] 04/10/2020 13:10:33 placement of stent completed Jamiso n Snedegar [place] - [facility] 04/10/2020 13:11:54 partial resection of colon completed Saulo Snedegar [place] - [facility] 04/10/2020 13:12:12 placement of stent in cardiac conduit completed Tawanna Luis [place] - [facility] 01/25/2023 09:25:14 Gastric Bypass completed Esthela Enma, [employer] [address], [place], [address], [place] [facility] 01/22/2024 16:37:47 Hernia Repair completed Saulo Santillan [place] - [facility] 04/10/2020 13:10:17 Imaging Results None recorded. Procedure Notes None recorded. Medical Equipment None Reported. Allergies Allergen ID Allergen Name Allergen Category Reaction Reaction Severity Criticality Documentation Date Start Date Code Code System Note Provider Name and Address Organization Details Recorded Time 833327 bee pollen environme nt,medica tion Not available Not available Not available 07/02/2020 30677 7 RxNorm Mara Ervin [facility], [place] - [facility] 0 15:23:47 911673 sulfisoxa zole medicatio n rash Not available Not available 01/03/20252024 92979 RxNorm Pat Stone [facility], [place] - [facility] 5 08:25:59 86245 Betadine medicatio n rash severe Not available 03/09/201792614 0 RxNorm Yue Espino [facility], [place] - [facility] 7 15:44:08 Medications Name Sig Start Date Stop Date Status Note LastModified by Organization Details LastModified Time Prescript ion - Renewal 09/14 completed Not Available Not Available Not Available Allergy serum (from felt cementer ) injectio n 2015 active Not Available Not Available Not Avai lable Allergy serum (from felt cementer ) injectio n 2015 active Not Available Not Available Not Avai lable Allergy serum (from felt cementer ) injectio n 2016 active Not Available Not Available Not Avai lable compounde d medicatio n allergy shot 09/27 completed Not Available Not Available Not Available Allergy serum (from felt cementer ) injectio n 2015 active Not Available Not Available Not Avai lable Allergy serum (from felt cementer ) injectio n 2016 active Not Available Not Available Not Avai lable Allergy serum (from felt cementer ) injectio n 2015 active Not Available Not Available Not Avai lable Allergy serum (from felt cementer ) injectio n 2016 active Not Available Not Available Not Avai lable Allergy serum (from felt cementer ) injectio n 2015 active Not Available Not Available Not Avai lable Allergy serum (from felt cementer ) injectio n 2016 active Not Available Not Available Not Avai lable Allergy serum (from felt cementer ) injectio n 2016 active Not Available Not Available Not Avai lable Allergy serum (from felt cementer ) injectio n 2015 active Not Available Not Available Not Avai lable Allergy serum (from felt cementer ) injectio n 2015 active Not Available Not Available Not Avai lable Allergy serum (from felt cementer ) injectio n 2016 active Not Available Not Available Not Avai lable Allergy serum (from felt cementer ) injectio n 2015 active Not Available Not Available Not Avai lable Allergy serum (from felt cementer ) injectio n 2016 active Not Available Not Available Not Avai lable Allergy serum (from felt cementer ) injectio n 2016 active Not Available Not Available Not Avai lable Allergy serum (from felt cementer ) injectio n 01/18 completed Not Available Not Available Not Available Allergy serum (from felt cementer ) injectio n 2015 active Not Available Not Available Not Avai lable Allergy serum (from felt cementer ) injectio n 2016 active Not Available Not Available Not Avai lable Allergy serum (from felt cementer ) injectio n 2015 active Not Available Not Available Not Avai lable Allergy serum (from felt cementer ) injectio n 2016 active Not Available Not Available Not Avai lable Allergy serum (from felt cementer ) injectio n 2016 active Not Available Not Available Not Avai lable Allergy serum (from felt cementer ) injectio n 2015 active Not Available Not Available Not Avai lable Allergy serum (from felt cementer ) injectio n 2016 active Not Available Not Available Not Avai lable Allergy serum (from felt cementer ) injectio n 2015 active Not Available Not Available Not Avai lable Allergy serum (from felt cementer ) injectio n 2016 active Not Available Not Available Not Avai lable Allergy serum (from felt cementer ) injectio n 2016 active Not Available Not Available Not Avai lable Allergy serum (from felt cementer ) injectio n 2016 active Not Available Not Available Not Avai lable Allergy serum (from felt cementer ) injectio n 2015 active Not Available Not Available Not Avai lable Allergy serum (from felt cementer ) injectio n 2016 active Not Available Not Available Not Avai lable Prescript ion - Clarifica tion 10/30 completed SILVERSC RIP Not Available Not Available Not Available Allergy serum (from felt cementer ) injectio n 2016 active 0.3 bilatera l Not Available Not Available Not Available Allergy serum (from felt cementer ) injectio n 2016 active Not Available Not Available Not Avai lable Allergy serum (from felt cementer ) injectio n 2015 active Not Available Not Available Not Avai lable Allergy serum (from felt cementer ) injectio n 2016 active Not Available Not Available Not Avai lable Allergy serum (from felt cementer ) injectio n 2016 active Not Available Not Available Not Avai lable compounde d medicatio n injectio n 09/27 completed Not Available Not Available Not Available compounde d medicatio n allergy shot 09/27 completed Not Available Not Available Not Available compounde d medicatio n injectio n 09/27 completed Not Available Not Available Not Available Allergy serum (from felt cementer ) injectio n 2016 active Not Available Not Available Not Avai lable Allergy serum (from felt cementer ) injectio n 2016 active Not Available Not Available Not Avai lable Allergy serum (from felt cementer ) injectio n 2015 active Not Available Not Available Not Avai lable Allergy serum (from felt cementer ) injectio n 2016 active Not Available Not Available Not Avai lable Allergy serum (from felt cementer ) injectio n 2016 active Not Available Not Available Not Avai lable Allergy serum (from felt cementer ) injectio n 2016 active Not Available Not Available Not Avai lable furosemid e 40 mg tablet Take 1 tablet every day by oral route as needed for 30 days. 06/15 completed Not Available Not Available Not Available lamotrigi ne 150 mg tablet TAKE ONE TABLET BY MOUTH 2 TIMES A DAY 04/19 completed Not Available Not Available Not Available atorvasta tin 80 mg tablet Take 1 tablet po qd 01/18 completed Not Available Not Available Not Available doxycycli ne hyclate 100 mg capsule TAKE ONE (1) CAPSULE TWICE A DAY BY ORAL ROUTE FOR 7 DAYS. active Not Available Not Available No t Available Delsym 12 hour 30 mg/5 mL oral suspensio n,extende d release Take 10 mL twice a day by oral route. 03/28 completed Not Available Not Available Not Available lamotrigi ne 200 mg tablet Take 1 tablet every day by oral route. 02/16 completed Not Available Not Available Not Available ipratropi um 0.5 mg-albute rol 3 mg (2.5 mg base)/3 mL nebulizat ion soln INHALE THREE (3) ML FOUR (4) TIMES A DAY BY NEBULIZA TION ROUTE NEEDED active Not Available Not Available No t Available Carafate 100 mg/mL oral suspensio n 05/21 completed Not Available Not Available Not Available clindamyc in HCl 300 mg capsule Take 1 capsule every 8 hours by oral route for 20 days. 01/06 completed Not Available Not Available Not Available albuterol sulfate 2.5 mg/3 mL (0.083 %) solution for nebulizat ion 04/19 completed Not Available Not Available Not Available Carafate 1 gram tablet take 1 tablet (1 gram) by oral route 4 times per day on an empty stomach 1 hour before meals and at bedtime for 30 days 10/13 completed Carafate 1 gram oral tablet;R ecorded Status: Recorded on: 10/08/19 15 3:48PM;U ser: [email or web address] che;Est. Completi on: 10/13/19 13;Indic ation: Duodenal Ulcer - (5329 ) Not Available Not Available Not Available Topamax 25 mg tablet take 1 tab in morning and 1 tab in evening 10/08 completed Topamax 25 mg oral tablet;R ecorded Status: Recorded on: 02/04/20 09 3:29PM;D iscontin ued Status: Disconti nued on: 10/08/19 15 3:41PM;U ser: [email or web address] Not Available Not Available Not Available azithromy claude 250 mg tablet TAKE 2 TABLETS (500 MG) BY ORAL ROUTE ONCE DAILY FOR 1 DAY THEN 1 TABLET (250 MG) BY ORAL ROUTE ONCE DAILY FOR 4 DAYS 05/01 completed Not Available Not Available Not Available fluconazo le 150 mg tablet Take 1 tablet every day by oral route as directed for 5 days. 11/28 completed Not Available Not Available Not Available clarithro mycin 500 mg tablet take 1 tablet (500 mg) by oral route 2 times per day for 10 days 10/08 completed clarithr omycin 500 mg oral tablet;R ecorded Status: Recorded on: 11/11/19 10 5:05PM;D iscontin ued Status: Disconti nued on: 10/08/19 15 4:43PM;U ser: [email or web address];Es t. Completi on: 11/21/19 10;Print ed: 11/11/19 10 Not Available Not Available Not Available hydrocodo ne 5 mg-acetam inophen 325 mg tablet 2024 active Not Available Not Available Not Avai lable Celestone Soluspan 6 mg/mL suspensio n for injection Take 9 mg by injectio n route. 01/19 completed Not Available Not Available Not Available phenazopy ridine 200 mg tablet TAKE ONE (1) TABLET THREE (3) TIMES A DAY BY ORAL ROUTE AFTER MEAL(S) FOR FIVE (5) DAYS. active Not Available Not Available No t Available prednison e 20 mg tablet TAKE ONE (1) TABLET BY MOUTH TWO (2) TIMES PER DAY FOR FIVE (5) DAYS active Not Available Not Available No t Available isosorbid e mononitra te ER 30 mg tablet,ex tended release 24 hr TAKE 1 TABLET EVERY DAY active Not Available Not Available No t Available quetiapin e 200 mg tablet Take 2 tablets every day by oral route at bedtime for 30 days. 08/19 completed Not Available Not Available Not Available benzoyl peroxide 10 % topical cleanser WASH THE AFFECTED AREA(S) BY TOPICAL ROUTE ONCE DAILY, alternat ing with hibiclen s PRN per patient preferen ce 03/25 completed Not Available Not Available Not Available clonazepa m 1 mg tablet Take 1 tablet po BID PRN active Not Available Not Available No t Available atenolol 25 mg tablet TAKE 1 TABLET BY MOUTH DAILY active Not Available Not Available No t Available hydroxyzi ne pamoate 50 mg capsule 07/09 completed Not Available Not Available Not Available promethaz ine 6.25 mg-codein e 10 mg/5 mL syrup Take 5 mL every 6 hours by oral route as needed for 5 days. 05/21 completed Not Available Not Available Not Available clopidogr el 75 mg tablet TAKE ONE (1) TABLET BY MOUTH DAILY active Not Available Not Available No t Available sulfameth oxazole 800 mg-trimet hoprim 160 mg tablet TAKE ONE (1) TABLET EVERY 12 HOURS BY ORAL ROUTE FOR 10 DAYS. 07/29 completed Not Available Not Available Not Available hydrocodo ne 10 mg-acetam inophen 325 mg tablet Take 1 tablet every 4-6 hours by oral route as needed for 3 days. 2023 active Not Available Not Available Not Avai lable Wellbutri n SR 100 mg tablet, 12 hr sustained -release Take 3 tablets twice a day by oral route. 09/14 completed Not Available Not Available Not Available quetiapin e 100 mg tablet TAKE TWO (2) TABLETS EVERY DAY BY ORAL ROUTE AT BEDTIME FOR 90 DAYS. active Not Available Not Available No t Available spironola ctone 25 mg tablet TAKE ONE TABLET BY MOUTH ONCE A DAY 06/15 completed Not Available Not Available Not Available temazepam 7.5 mg capsule 02/28 completed Not Available Not Available Not Available ondansetr on 8 mg disintegr ating tablet Place 1 tablet every 4-6 hours by translin gual route as needed for 7 days. 02/16 completed Not Available Not Available Not Available Depo-Medr ol 80 mg/mL suspensio n for injection Take 1 mL by injectio n route. 05/21 completed Not Available Not Available Not Available oxycodone -acetamin ophen 5 mg-325 mg tablet TAKE ONE (1) TABLET EVERY SIX (6) HOURS BY ORAL ROUTE NEEDED FOR THREE (3) DAYS. 04/03 completed Not Available Not Available Not Available bupropion HCl 100 mg tablet TAKE ONE (1) TABLET THREE (3) TIMES A DAY BY ORAL ROUTE DIRECTED active Not Available Not Available No t Available ceftriaxo ne 1 gram solution for injection Take 1 g by injectio n route. 05/28 completed Not Available Not Available Not Available potassium chloride ER 20 mEq tablet,ex tended release(p art/cryst ) 08/19 completed Not Available Not Available Not Available metoclopr amide 5 mg tablet 02/16 completed Not Available Not Available Not Available Geodon 40 mg capsule take 1 capsule (40 mg) by oral route 2 times per day with food 02/03 completed Geodon 40 mg oral capsule; Recorded Status: Recorded on: 12/02/19 09 5:52PM;D iscontin ued Status: Disconti nued on: 02/04/20 09 3:22PM;U ser: [email or web address] Not Available Not Available Not Available Percocet 10 mg-325 mg tablet Take 1 tablet every 6 hours by oral route as needed for 3 days. 01/19 completed Not Available Not Available Not Available furosemid e 80 mg tablet TAKE ONE (1) TABLET EVERY DAY BY ORAL ROUTE FOR 90 DAYS. TAKE AFTER A MEAL. active Not Available Not Available No t Available trazodone 100 mg tablet TAKE THREE (3) TABLETS EVERY DAY BY ORAL ROUTE AT BEDTIME FOR 30 DAYS, FOR INSOMNIA . active Not Available Not Available No t Available cephalexi n 500 mg capsule Take 1 capsule every 6 hours by oral route for 7 days. 08/19 completed Not Available Not Available Not Available paroxetin e 30 mg tablet 07/09 completed Not Available Not Available Not Available Cipro 500 mg tablet take 1 tablet (500 mg) by oral route 2 times per day for 10 days 10/08 completed Cipro 500 mg oral tablet;R ecorded Status: Recorded on: 11/11/19 10 5:05PM;D iscontin ued Status: Disconti nued on: 10/08/19 15 4:43PM;U ser: [email or web address];Es t. Completi on: 11/21/19 10;Print ed: 11/11/19 10 Not Available Not Available Not Available clotrimaz ole-betam ethasone 1 %-0.05 % topical cream APPLY TO THE AFFECTED AND SURROUND ING AREAS OF SKIN BY TOPICAL ROUTE TWO (2) TIMES PER DAY IN THE MORNING AND EVENING FOR TWO (2) WEEKS 05/10 completed Not Available Not Available Not Available lidocaine 5 % topical patch 04/19 completed Not Available Not Available Not Available losartan 25 mg tablet TAKE ONE (1) TABLET BY MOUTH DAILY 2024 active Not Available Not Available Not Avai lable Klonopin 2 mg tablet take 1 tablet (2 mg) by oral route 2 times per day 03/31 completed Klonopin 2 mg oral tablet;R ecorded Status: Recorded on: 12/02/19 09 6:18PM;U ser: [email or web address];Est. Completi on: 03/31/20 09 Not Available Not Available Not Available hydrochlo rothiazid e 12.5 mg capsule Take 1 capsule every day by oral route. 02/16 completed doesnt take anymore Not Available Not Available Not Available nitroglyc sergio 0.4 mg sublingua l tablet Place 1 tablet every day by sublingu al route as needed for 15 days. active Not Available Not Available No t Available trazodone 300 mg tablet take 1 tablet (300 mg) by oral route 10/13 completed trazodon e 300 mg oral tablet;R ecorded Status: Recorded on: 10/08/19 15 3:45PM;U ser: [email or web address];Est. Completi on: 10/13/19 13 Not Available Not Available Not Available aspirin 81 mg chewable tablet Chew 1 tablet every day by oral route. active Not Available Not Available No t Available diclofena c sodium 75 mg tablet,de layed release Take 1 tablet twice a day by oral route as needed for 30 days. 01/18 completed Not Available Not Available Not Available mupirocin 2 % topical ointment APPLY TO AFFECTED AREA TWICE DAILY FOR CELLULIT IS FOR THREE (3) WEEKS active Not Available Not Available No t Available furosemid e 20 mg tablet Take 1 tablet by oral route for 30 days. 05/25 completed Not Available Not Available Not Available gabapenti n 100 mg capsule 150 mg by oral route. active Not Available Not Available No t Available dexametha sone sodium phosphate 4 mg/mL injection solution Inject 8 mg by intramus cular route. 03/28 completed Not Available Not Available Not Available Pepcid 20 mg tablet take 1 tablet (20 mg) by oral route once daily at bedtime 10/08 completed Pepcid 20 mg oral tablet;R ecorded Status: Recorded on: 02/04/20 09 3:25PM;D iscontin ued Status: Disconti nued on: 10/08/19 15 3:41PM;U ser: [email or web address] Not Available Not Available Not Available methylpre dnisolone 4 mg tablets in a dose pack TAKE DIRECTED FOR 6 DAYS FOR PAIN & SWELLING active Not Available Not Available No t Available albuterol sulfate HFA 90 mcg/actua tion aerosol inhaler INHALE TWO (2) PUFFS EVERY SIX (6) HOURS NEEDED FOR SHORTNES S OF BREATH OR WHEEZING active Not Available Not Available No t Available ketorolac 60 mg/2 mL intramusc ular solution inject 1 ml 03/15 completed Not Available Not Available Not Available ondansetr on 4 mg disintegr ating tablet 12/27 completed Not Available Not Available Not Available fluticaso ne propionat e 50 mcg/actua tion nasal spray,lopez pension TWO (2) SPRAY INTRANAS ALLY DAILY; ADMINIST ER INTO EACH NOSTRIL active Not Available Not Available No t Available doxycycli ne hyclate 100 mg tablet TAKE 1 TABLET BY MOUTH TWICE DAILY FOR 10 DAYS active Not Available Not Available No t Available naproxen 500 mg tablet 04/19 completed Not Available Not Available Not Available spironola ctone 50 mg tablet Take 1 tablet twice a day by oral route as needed. active Cardiolo gy Rx Not Available Not Available Not Available amoxicill in 875 mg-potass ium clavulana te 125 mg tablet TAKE ONE (1) TABLET EVERY 12 HOURS BY ORAL ROUTE FOR 7 DAYS. 05/21 completed Not Available Not Available Not Available clindamyc in phosphate 1 % topical solution APPLY A THIN LAYER TO THE AFFECTED AREA(S) BY TOPICAL ROUTE 2 TIMES PER DAY 01/06 completed Not Available Not Available Not Available DuoNeb 2.5 mg-0.5 mg/3 mL solution for nebulizat ion Inhale 3 mL as needed by nebuliza tion route as needed. 01/19 completed Not Available Not Available Not Available cyclobenz aprine 5 mg tablet Take 1 tablet 3 times a day by oral route as needed. 01/18 completed Not Available Not Available Not Available rosuvasta tin 40 mg tablet TAKE 1 TABLET EVERY DAY active Not Available Not Available No t Available Topamax 50 mg tablet take 1 tablet (50 mg) by oral route 2 times per day for 30 days 10/08 completed Topamax 50 mg oral tablet;R ecorded Status: Recorded on: 10/08/19 15 3:41PM;D iscontin ued Status: Disconti nued on: 10/08/19 15 4:43PM;U ser: [email or web address] che;Est. Completi on: 10/16/19 10 Not Available Not Available Not Available nitrofura ntoin monohydra te/macroc rystals 100 mg capsule Take 1 capsule every 12 hours by oral route for 7 days. 03/25 completed Not Available Not Available Not Available pregabali n 75 mg capsule Take 1 capsule every day by oral route at bedtime. 05/28 completed Not Available Not Available Not Available pregabali n 150 mg capsule Take 1 capsule every day by oral route at bedtime for 90 days. active Not Available Not Available No t Available trazodone 09/27 completed Not Available Not Available Not Available omeprazol e 40 mg-sodium bicarbona te 1.1 gram capsule TAKE ONE CAPSULE BY MOUTH ONCE A DAY 10/25 completed Not Available Not Available Not Available Zostavax (PF) 19,400 unit/0.65 mL subcutane ous suspensio n 12/27 completed Not Available Not Available Not Available quetiapin e 50 mg tablet TAKE ONE TABLET BY MOUTH AT BEDTIME 07/09 completed Not Available Not Available Not Available Symbicort 160 mcg-4.5 mcg/actua tion HFA aerosol inhaler 06/15 completed Not Available Not Available Not Available peg 3350-elec trolytes 236 gram-22.7 4 gram-6.74 gram-5.86 gram solution 01/06 completed Not Available Not Available Not Available Neupro 2 mg/24 hour transderm al 24 hour patch APPLY ONE (1) PATCH EVERY DAY BY TRANSDER MAL ROUTE FOR 90 DAYS. 05/10 completed Not Available Not Available Not Available Seroquel XR 300 mg tablet,ex tended release take 1 tablet by oral route daily 01/29 completed Seroquel XR 300 mg oral tablet extended release 24 hr;Recor ded Status: Recorded on: 02/04/20 09 3:25PM;U ser: [email or web address] Not Available Not Available Not Available levocetir izine 5 mg tablet 12/27 completed Not Available Not Available Not Available Effer-K 10 mEq effervesc ent tablet 04/19 completed Not Available Not Available Not Available Pristiq 100 mg tablet,ex tended release take 1 tablet (100 mg) by oral route once daily 10/08 completed Pristiq 100 mg oral tablet extended release 24 hr;Recor ded Status: Recorded on: 02/04/20 09 3:25PM;D iscontin ued Status: Disconti nued on: 10/08/19 15 3:41PM;U ser: [email or web address] Not Available Not Available Not Available Solu-Medr ol (PF) 125 mg/2 mL solution for injection Take 125 mg by injectio n route for 1 day. 2024 active Not Available Not Available Not Avai lable Suprep Bowel Prep Kit 17.5 gram-3.13 gram-1.6 gram oral solution 12/27 completed Not Available Not Available Not Available Latuda 40 mg tablet 10/10 completed Not Available Not Available Not Available Antisepti c Skin Cleanser (chlorhex idine) 4 % liquid Cleansea ffected areas daily with liquid 01/25 completed Not Available Not Available Not Available Brilinta 90 mg tablet TAKE ONE TABLET BY MOUTH TWICE DAILY 05/10 completed Not Available Not Available Not Available Tudorza Pressair 400 mcg/actua tion breath activated 01/18 completed Not Available Not Available Not Available EpiPen 2-John 0.3 mg/0.3 mL injection , auto-inje ctor Inject as needed 04/19 completed Not Available Not Available Not Available Linzess 145 mcg capsule Take 1 capsule every day by oral route after meal(s) for 30 days. 2023 active Not Available Not Available Not Avai lable apixaban 2.5 mg tablet 2.5 mg by oral route. 2024 active Not Available Not Available Not Avai lable Breo Ellipta 100 mcg-25 mcg/dose powder for inhalatio n Inhale 1-2 puffs daily as needed 04/10 completed Not Available Not Available Not Available Breo Ellipta 12/27 completed Not Available Not Available Not Available lurasidon e 60 mg tablet TAKE ONE (1) TABLET EVERY DAY BY ORAL ROUTE FOR 90 DAYS. active Not Available Not Available No t Available potassium chloride ER 20 mEq tablet,ex tended release TAKE 1 TABLET BY MOUTH ONCE A DAY 10/25 completed Not Available Not Available Not Available guaifenes in ER 600 mg tablet, extended release 12 hr Take 1 tablet every 12 hours by oral route as needed for 14 days. 01/06 completed Not Available Not Available Not Available Trulicity 0.75 mg/0.5 mL subcutane ous pen injector Inject 0.5 mL every week by subcutan eous route for 28 days. 04/19 completed Not Available Not Available Not Available Spiriva Respimat 2.5 mcg/actua tion solution for inhalatio n 12/13 completed Not Available Not Available Not Available Incruse Ellipta 62.5 mcg/actua tion powder for inhalatio n Inhale 1 puff every day by inhalati on route as directed . 04/19 completed Not Available Not Available Not Available Incruse Ellipta 12/27 completed Not Available Not Available Not Available Breo Ellipta 200 mcg-25 mcg/dose powder for inhalatio n Inhale 1 puff every day by inhalati on route. 04/19 completed Not Available Not Available Not Available oxygen 2 L active Not Available Not Availa ble Not Available Fluzone Quad [id number] (PF) 60 mcg (15 mcg x 4)/0.5 mL IM syringe PHARMACI ST ADMINIST ERED IMMUNIZA TION ADMINIST ERED AT TIME OF DISPENSI NG 07/01 completed Not Available Not Available Not Available Breztri Aerospher e 160 mcg-9mcg- 4.8mcg/ac tuation HFA aerosol inhaler INHALE TWO (2) PUFFS TWICE A DAY active Not Available Not Available No t Available Wegovy 2.4 mg/0.75 mL subcutane ous pen injector 2.4 MG (0.75 ML) SUBCUTAN EOUSLY WEEKLY; ADMINIST ER WEEKS 13 THROUGH 16 OF THERAPY active Not Available Not Available No t Available Wegovy 1.7 mg/0.75 mL subcutane ous pen injector INJECT 1.7 MG (0.75 ML) SUBCUTAN EOUSLY WEEKLY; ADMINIST ER WEEKS 13 THROUGH 16 OF THERAPY active Not Available Not Available No t Available Wegovy 1 mg/0.5 mL subcutane ous pen injector INJECT ONE (1) MG (0.5 ML) SUBCUTAN EOUSLY WEEKLY 09/20 completed Not Available Not Available Not Available Wegovy 0.25 mg/0.5 mL subcutane ous pen injector 0.5 MG SUBCUTAN EOUSLY WEEKLY FOR CORONARY ARTERY DISEASE; ADMINIST ER WEEKS ONE (1) THROUGH FOUR (4) OF THERAPY 09/20 completed Not Available Not Available Not Available Vitals Date Recorded Body height Body mass index (BMI) Body weight Body temperature Heart rate Oxygen saturation Oxygen saturation in Arterial blood by Pulse oximetry Respiratory rate Systolic And Diastolic Provider Name and Address Organization Details Last Updated DateTime 5 162.56 cm 53.9 kg/m2 611522. 7 g 97.6 [degF] 76 /min 94 % 94 % 22 /min 132/90 mm[Hg] Jelena Damon [place] - [facility] 5 09:31:28 Date Recorded Body height Body mass index (BMI) Body weight Body temperature Heart rate Oxygen saturation Oxygen saturation in Arterial blood by Pulse oximetry Systolic And Diastolic Provider Name and Address Organization Details Last Updated DateTime 4 162.56 cm 56.6 kg/m2 821421. 48 g 97.5 [degF] 64 /min 94 % 94 % 116/84 mm[Hg] Jelly Canas [place] - [facility] 4 11:53:18 Date Recorded Body height Body mass index (BMI) Body weight Oxygen saturation Oxygen saturation in Arterial blood by Pulse oximetry Inhaled oxygen flow rate Respiratory rate Heart rate Body temperature Systolic And Diastolic Provider Name and Address Organization Details Last Updated DateTime 4 162.56 cm 56.6 kg/m2 886327. 48 g 91 % 91 % 2 L/min 18 /min 60 /min 98 [degF] 116/80 mm[Hg] Gaby logan [place] - [facility] 4 11:10:48 Date Recorded Body height Body temperature Heart rate Oxygen saturation Oxygen saturation in Arterial blood by Pulse oximetry Respiratory rate Systolic And Diastolic Provider Name and Address Organization Details Last Updated DateTime 4 162.56 cm 98.4 [degF] 93 /min 96 % 96 % 18 /min 120/71 mm[Hg] Gaby Dixon [facility] - [facility] 4 16:58:18 Date Recorded Body height Heart rate Respiratory rate Oxygen saturation Oxygen saturation in Arterial blood by Pulse oximetry Systolic And Diastolic Provider Name and Address Organization Details Last Updated DateTime 4 162.56 cm 78 /min 18 /min 95 % 95 % 120/80 mm[Hg] Gaby logan [place] - [facility] 4 16:38:15 Social History Question Answer Notes LastModified by Organizat ion Details LastModified Time Tobacco Smoking Status Former Smoker stopped in September 2022 Tawanna ventura [place] - [facility] 01/25/2023 09:24:41 Able To Swim? Yes Information not available 01/31/2017 Do You Have An Advance Directive? No Information not available 03/09/2017 Do You Wear A Helmet When Biking? No Information not available 01/31/2017 Are You Blind Or Do You Have Difficulty Seeing? No Information not available 01/31/2017 What Is Your Level Of Caffeine Consumption? Occasional [email or web address] Information not available 03/09/2017 In The 14 Days Before Symptom Onset, Have You Had Close Contact With A Laboratory-confir med COVID-19 While That Case Was Ill? No [email or web address] Information not available 08/13/2021 In The 14 Days Before Symptom Onset, Have You Had Close Contact With A Person Who Is Under Investigation For COVID-19 While That Person Was Ill? No Information not available 08/13/2021 Have You Been To An Area Known To Be High Risk For COVID-19? No [email or web address] Information not available 08/13/2021 Are You Deaf Or Do You Have Serious Difficulty Hearing? No Information not available 01/31/2017 What Type Of Diet Are You Following? REGULAR Information not available 01/31/2017 Which Illicit Or Recreational Drugs Have You Used? Denies [email or web address] Information not available 03/09/2017 Have You Processed Blood Or Body Fluids From An Ebola Virus Disease Patient Without Appropriate PPE? No [email or web address] Information not available 08/13/2021 Do You Reside In Or Have You Traveled To An Area Where Ebola Virus Transmission Is Active? No [email or web address] Information not available 08/13/2021 Swimming/diving Yes [email or web address] Informa tion not available 03/09/2017 Have There Been Any Changes To Your Family Or Social Situation? No Information no t available 08/13/2021 What Is The Fluoride Status Of Your Home? Unknown [email or web address] Information not available 08/13/2021 When Did You Quit Smoking? 1-5yearssince lastciwinter [email or web address] Information not available 01/25/2023 Hard Of Hearing Or Deaf In One Or Both Ears? No Information not available 01/31/2017 Have You Recently Or Are You Planning To Travel To An Area With Zika Virus? No [email or web address] Information not available 08/13/2021 Legally Blind In One Or Both Eyes? No Information no t available 01/31/2017 Live Alone Or With Others? With Others [email or web address] Information not available 03/09/2017 Do You Have A Medical Power Of Reading Instructor? No [email or web address] Information not available 08/13/2021 What Was The Date Of Your Most Recent Tobacco Screening? 11/01/2024 Former Smoker--st opped 2022 [email or web address] Information not available 11/01/2024 How Many Children Do You Have? 4 Information not available 03/09/2017 What Is Your Current Pack Years? [email or web address] Information not available 11/01/2024 What Is Your Relationship Status? Information not available 01/31/2017 Seat Belts Used Routinely Yes Information not available 01/31/2017 Are You Sexually Active? Yes Information not available 01/31/2017 Smoke Alarm In Home Yes [email or web address] Information not available 03/09/2017 Do You Have Smoke And Carbon Monoxide Detectors In Your Home? Yes [email or web address] Information not available 08/13/2021 At What Age Did You Start Smoking Tobacco? 13 [email or web address] Information not available 11/01/2024 Are You Passively Exposed To Smoke? Yes [email or web address] Information no t available 03/08/2021 How Much Tobacco Do You Smoke? 1 PPD Information not available 11/01/2024 Do You Use Sunscreen Routinely? Yes [email or web address] Information not available 03/09/2017 Has Tobacco Cessation Counseling Been Provided? Yes [email or web address] Information not available 03/09/2017 How Many Years Have You Smoked Tobacco? 44 [email or web address] Information not available 11/01/2024 Do You Have Difficulty Walking Or Climbing Stairs? No Information not available 01/31/2017 Sex: Female Functional Status Question Answer Note LastModified by Organizat ion Details LastModified Time Do you use any illicit or recreational drugs? No Information not available 08/19/2022 Do you or have you ever used any other forms of tobacco or nicotine? No Information not available 08/19/2022 What is your level of alcohol consumption? None [email or web address] Information not available 03/09/2017 Do you or have you ever used smokeless tobacco? Never used smokeless tobacco Information not available 04/10/2020 Are you currently employed? Yes Information not available 01/31/2017 Do you have transportation difficulties? No [email or web address] Information not available 08/13/2021 Are you able to walk? YESWOREST [email or web address] Information not available 03/09/2017 Do you have difficulty doing errands alone? No Information not available 01/31/2017 Are you able to care for yourself? Yes Information n ot available 01/31/2017 Do you have difficulty dressing or bathing? No Information not available 01/31/2017 Do you or have you ever used e-cigarettes or vape? Never used electronic cigarettes Information not available 04/10/2020 Mental Status Question Answer Note LastModified by Organization D etails LastModified Time Do you have difficulty concentrating, remembering or making decisions? No Information no t available 01/31/2017 Family History Relationship Description Onset Age of this Age Resolved Age Notes LastModified by Organization Details LastModified Time Sister Carcinoma of cervix [email or web address] Not available 2015 15:39:39 Medical History Condition Response Anxiety Disorder Y Depression Y Gynecological History Statement/Question Response Menses Monthly N If Post Menopausal, Age at Menopause 34 Current Control Method Hysterectom y Date of Last Colonoscopy 07/31/2019 Date of Last Mammogram 07/27/2020 Most Recent Bone Density 03/17/2017 Obstetrics History GPAL:G 4 P 4 0 0 4 Type Value Full Term 4 Living 4 Total 4 Immunizations Vaccine Type Date Status Note Provider Nam e and Address Organization Details Recorded Time Tdap 2 completed Esthela Parrish, [employer] [address], [place], [address], [place] - [facility] 05/16/2022 23:22:44 Influenza, split virus, quadrivalent, preservative 8 completed Not Available [facility]/28/2019 03:55:22 Influenza, split virus, quadrivalent, preservative 0 completed Yareli Dominguez null, [place] - [facility] 02/16/2023 13:10:21 zoster live 6 completed Gaby Gibson null, [place] - [facility] 05/28/2024 07:50:14 zoster recombinant 2 completed Yareli Dominguez null, [place] - [facility] 02/16/2023 13:10:21 Influenza, split virus, trivalent, PF 7 completed Moris Singh null, [place] - [facility] 07/22/2022 14:59:08 Influenza, split virus, quadrivalent, PF 0 completed Moris Singh null, [place] - [facility] 07/22/2022 14:59:08 zoster recombinant 2 completed Crystal Angelica null, [place] - [facility] 08/19/2022 16:41:46 Influenza, split virus, quadrivalent, PF 2 completed Crystal Angelica null, [place] - [facility] 02/16/2023 13:10:21 Influenza, split virus, quadrivalent, preservative 9 completed Not Available [facility] 09/28/2019 03:56:15 Past Encounters Encounter ID Performer Location Encounter Start Date Encounter Closed Date Diagnosis/Indication Diagnosis SNOMED-CT Code Diagnosis ICD10 Code Diagnosis Note [id number] Antoni Stoddard MD [facility] [address] [place], [place] [address] [address] 06/23/2016 15:27:55 06/23/2016 17:11:13 Allergic rhinitis 17202562 J30.9 [id number] Niurka Mckeon MD [facility] [address] [place], [place] [address] [place] [address] 06/27/2016 14:51:45 06/27/2016 15:18:25 Allergic rhinitis [id number] J30.9 [id number] Brittani Whalen [address] [address] 06/30/2016 15:18:32 06/30/2016 16:47:22 Allergic rhinitis [id number] J30.9 [id number] Brittani Whalen [address] [address] 07/04/2016 15:14:18 07/04/2016 16:46:09 Allergic rhinitis [id number] J30.9 [id number] Brittani Whalen [address] [place] [address] 07/07/2016 15:33:33 07/07/2016 15:50:21 Allergic rhinitis 07379225 J30.9 [id number] Elroy Walton MD [facility] [address] [place], [place] [address] [place] [address] 07/11/2016 15:11:24 07/12/2016 08:33:57 Allergic rhinitis 25325006 J30.2 [id number] Brittani Whalen [address] [place] [address] 07/14/2016 11:08:54 07/14/2016 13:45:35 Allergic rhinitis 73600133 J30.9 [id number] Brittani Whalen [address] [place] [place] [id number] 07/18/2016 11:10:42 07/18/2016 13:31:29 Allergic rhinitis 40648728 J30.9 [id number] Brittani Whalen [address] [place] [place] [id number] 07/21/2016 10:56:06 07/21/2016 14:43:11 Allergic rhinitis 36664934 J30.9 [id number] Brittani Whalen [address] [place] [place] [address] 07/25/2016 11:07:25 07/25/2016 14:46:31 Allergic rhinitis 18822781 J30.9 [id number] Brittani Whalen [address] [place] [address] 4 08/01/2016 11:05:04 08/01/2016 13:49:04 Allergic rhinitis 13171272 J30.9 [id number] Brittani Whalen [address] [place] [address] 4 08/08/2016 11:02:47 08/08/2016 11:52:47 Allergic rhinitis 57594513 J30.9 [id number] Brittani Whalen [address] [place] [address] 4 08/15/2016 11:03:45 08/15/2016 12:46:56 Allergic rhinitis 64230639 J30.9 [id number] Brittanikamilla Gillespiejosephine [address] [place] [address] 4 08/22/2016 10:56:57 08/22/2016 11:16:15 Allergic rhinitis 56721431 J30.9 [id number] Brittani Whalen [address] [place] [place] [address] 4 08/23/2016 13:56:57 08/23/2016 14:32:35 Dysuria 10695456 R30.0 Urinary tr act infectious disease 78457953 N39.0 [id number] Brittani Whalen [address] [address] 2016 11:04:50 2016 12:06:27 Allergic rhinitis 06672584 J30.9 History of hematuria 161 599925 Z87.448 urine recheck [id number] Brittani Whalen[address] [place] [place] [address] 09/06/2016 11:02:43 09/06/2016 11:51:54 Allergic rhinitis 57558525 J30.9 [id number] Laureen Karl[address] [place] [address] 4 09/13/2016 11:11:00 09/13/2016 12:00:19 Allergic rhinitis 01553374 J30.9 [id number] Brittani Whalen[address] [address] 4 09/20/2016 11:16:40 09/20/2016 15:16:10 Allergic rhinitis 05839861 J30.9 [id number] Brittani Whalen[address] [place] [address] 4 09/27/2016 11:36:38 09/27/2016 12:33:20 Allergic rhinitis 99011585 J30.9 [id number] Niurka Mckeon MD [address] [address] 4 10/04/2016 11:35:44 10/04/2016 15:23:25 Allergic rhinitis 89122167 J30.9 [id number] Brittani Whalen [address] [place] [address] 4 10/11/2016 11:32:30 10/11/2016 13:15:31 Allergic rhinitis 66099495 J30.9 [id number] Brittani Whalen [address] [place] [address] 4 10/18/2016 11:47:28 10/18/2016 12:50:08 Allergic rhinitis 90683444 J30.9 [id number] Niurka Mckeon MD [address] [place] [address] 4 10/25/2016 11:28:44 10/25/2016 15:23:31 Allergic rhinitis 84512869 J30.9 [id number] Brittani Whalen [address] [place] [address] 4 11/01/2016 11:24:30 11/01/2016 11:43:06 Allergic rhinitis 51963396 J30.9 [id number] Brittani Whalen [address] [place] [address] 4 11/08/2016 11:41:15 11/08/2016 12:02:56 Allergic rhinitis 79481312 J30.9 [id number] Brittani Whalen [employer] [address] [address] 4 11/15/2016 11:39:37 11/15/2016 12:47:48 Allergic rhinitis 83264190 J30.9 [id number] Brittani Whalen [address] [place] [address] 4 11/22/2016 11:42:18 11/22/2016 13:50:36 Allergic rhinitis 26131855 J30.9 [id number] Brittani Whalen [employer] [address] [place] [address] 4 11/29/2016 11:42:23 11/29/2016 11:56:06 Allergic rhinitis 59176925 J30.9 [id number] Brittani Whalen [address] [place] [place] [address] 4 12/06/2016 11:52:25 12/06/2016 12:00:56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
--- OUTSIDE RECORDS SUMMARY | 2025-03-17 13:47 | XMS_ITS | Encounter Summary ---
Author Organization [employer] ([place], [place], [place], [place]) Address [address] [place] [address] Care Team Providers Care Ice Sculptor Name Role Phone Unavailable Primary Care Provider Unavailabl e Encounter Details Date Type Department Care Team (Late st Contact Info) Description 07/31/2019 Transcribed Document [facility] [place] [address] [place] [address] ProviderMaximiliano MD [address] [place], [place] [id number] Social History Tobacco Use Types Packs/Day Years Used Date Smoking Tobacco: Never Assessed Comments Unknown Sex and Gender Information Value Date Recorded Sex Assigned at Not on file Legal Sex Female 1:06 PM CDT Gender Identity Not on file Sexual Orientation Not on file documented as of this encounter Miscellaneous Notes * [employer] Conversion Note - Historical ProviderMD - 07/31/2019 4:25 PM 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 [address] [address] ISA ZHANG :1965 Visit Time:07/31/2019 What to do next Your Diagnosis Dysphagia Personal history of colonic polyps, Personal history of colonic polyps Instructions From Your Care Team Diet after Discharge: Resume usual diet as tolerated, Do not drink any alcoholic beverages, _ Fluid Restriction after Discharge: _ Activity after Discharge: _, Rest and relax today, No strenuous activity Lifting Restrictions: _ Weight Bearing: _ Bedrest: _ Driving after Discharge: Do not drive for 24 hours May Return to Work/School: Tomorrow Showering/Bathing: May shower, _ Notify Provider of: Any Questions or concerns Wound/Incision Care after Discharge: _, _ Medical Equipment for Home Use: Home Health Services: Community Services: Follow-Up Appointments Follow Up with BART MURPHY When Within As needed, only if needed Where: [address] [place] [address]- Business (1) Medications What How Much When Instructions Next Dose aspirin (aspirin 81 mg oral tablet) 1 Tablet(s) Oral Every Day atenolol (atenolol 25 mg oral tablet) 1 Tablet(s) Oral Every Day buPROPion (Wellbutrin 100 mg oral tablet) 3 Tabs Oral Every Day cholecalciferol (Vitamin D3 5000 units oral capsule) 1 Capsule(s) Oral Every Day with food isosorbide mononitrate (Imdur) 30 Milligram(s) Oral Every Morning lamoTRIgine (LaMICtal) 450 Milligram(s) Oral At Bedtime losartan (losartan 25 mg oral tablet) 1 Tablet(s) Oral Every Day in pm lurasidone (Latuda 40 mg oral tablet) 1 Tablet(s) Oral Every Day ondansetron (Zofran 4 mg [...] Please dispose of unused and medications per pharmacy guidance. Education Materials Monitored Anesthesia Care, Care After These instructions [...] eating solid foods. General instructions ??? Take rrkh-ehv-fgycpae and prescription medicines only as told by [...] 12/18/2016 Document Revised: 04/13/2018 Document Reviewed: 12/18/2016 [employer] Interactive Patient Education ?? 2019 [employer]. Steps to Quit Smoking Smoking tobacco can [...] 06/24/2010 Document Revised: 04/25/2017 Document Reviewed: 01/12/2016 [employer] Interactive Patient Education ?? 2019 [employer]. Colonoscopy, Adult, Care After This sheet gives [...] soft and easy to digest. ??? Take omwh-qad-fbrmgoe or prescription medicines only as told by [...] source. ? Leave the heat on for 20???30 minutes. ? Remove the heat if your [...] You have blood in your poop (stool) 2???3 days after the procedure. Get help right [...] 09/30/2011 Document Revised: 06/28/2018 Document Reviewed: 05/22/2017 [employer] Interactive Patient Education ?? 2019 [employer] Esophagogastroduodenoscopy, Care After Refer to this [...] 08/14/2013 Document Revised: 02/02/2017 Document Reviewed: 07/21/2016 [employer] Interactive Patient Education ?? 2019 [employer] Hemorrhoids Hemorrhoids are swollen veins in [...] about taking products that have added fiber (fiber supplements). ??? Drink enough fluid to keep your pee (urine) clear or pale yellow. For Pain and Swelling ??? Take a warm-water bath (sitz bath) for 20 minutes to ease pain. Do this 3???4 times a day. ??? If directed, put ice on the painful area. It may be helpful to use ice between your warm baths. ? Put ice in a plastic bag. ? Place a towel between your skin and the bag. ? Leave the ice on for 20 minutes, 2???3 times a day. General instructions ??? Take pcvq-trs-tdlgcts and prescription medicines only as told by [...] 06/06/2009 Document Revised: 02/02/2017 Document Reviewed: 05/11/2016 [employer] Interactive Patient Education ?? 2019 [employer]. Diverticulosis Diverticulosis is a condition that develops [...] getting enough exercise. ??? Smoking. ??? Taking vguw-dzt-giopybf pain medicines, like aspirin and ibuprofen. ??? [...] Follow these instructions at home: ??? Drink 6???8 glasses of water or more each day to prevent constipation. ??? Try not to strain when you have a bowel movement. ??? If you have had an infection before: ? Eat more fiber as directed by your health care provider or your diet and medical reimbursement specialist (dietitian). ? Take a fiber supplement or probiotic, if your health care provider approves. ??? Take tbvs-yws-clogjwc and prescription medicines only as told by [...] 05/25/2005 Document Revised: 07/17/2017 Document Reviewed: 07/17/2017 [employer] Interactive Patient Education ?? 2019 [employer] Hiatal Hernia A hiatal hernia occurs [...] symptoms. ??? Medicines. These may include: ? Vlmn-esx-sxxjhdj antacids. ? Medicines that make your stomach [...] ? Fatty foods, like fried foods. ? [place] fruits, like oranges or lemon. ? Other foods and drinks that contain acid, like orange juice or tomatoes. ? Spicy food. ? Chocolate. ??? Eat frequent small meals instead of three large meals a day. This helps prevent your stomach from getting too full. ? Eat slowly. ? Do not lie down right after eating. ? Do not eat 1???2 hours before bed. ??? Do not drink beverages with caffeine. These include cola, coffee, cocoa, and tea. ??? Do not drink alcohol. General instructions ??? Take oyvi-sii-bwferjy and prescription medicines only as told by [...] 11/17/2004 Document Revised: 04/02/2018 Document Reviewed: 04/02/2018 [employer] Interactive Patient Education ?? 2019 [employer]. Emergency Awareness and Preventative Care STROKE is [...] Assistance with quitting is available by contacting 1-368-WSMR-NOW. This is a free resource providing counseling, [...] This Visit (last charted value for your 07/31/2019 visit) No Laboratory or Other Results This Visit Patient Name:ISA ZHANG I have received this information and was given the opportunity to ask questions. Patient/Pipe Cutter Name: Patient/Pipe Cutter Signature: Relationship to Patient: Clinician/Hospital Pipe Cutter Signature: Date: documented in this encounter Plan of Treatment Not on file documented as of this encounter Visit Diagnoses Not on filedocumented in this encounter
--- OUTSIDE RECORDS SUMMARY | 2025-03-17 13:47 | XMS_ITS | Encounter Summary ---
Author Organization [employer] ([place], [place], [place], [place]) Address [address] [place] [address] Care Team Providers Care Basket Hand Braider Name Role Phone Unavailable Primary Care Provider Unavailabl e Encounter Details Date Type Department Care Team (Late st Contact Info) Description 03/17/2021 Transcribed Document [facility] [place] [address] [place] [address] ProviderMaximiliano MD [address], [place] [id number] Social History Tobacco Use Types Packs/Day Years Used Date Smoking Tobacco: Never Assessed Comments Unknown Sex and Gender Information Value Date Recorded Sex Assigned at Not on file Legal Sex Female 1:06 PM CDT Gender Identity Not on file Sexual Orientation Not on file documented as of this encounter Miscellaneous Notes * Cerner Conversion Note - Historical ProviderMD - 03/17/2021 9:53 AM CDT Event Note Entered On: 03/17/2021 10:04 EDT Performed On: 03/17/2021 9:53 EDT by NIDHI JUAN RN Event Note Event Date/Time : 03/17/2021 9:53 EDT Description of Event : COVID positive test results reported to Alice Benavides RN for Dr. Kat and Kathrine RT technology lab teacher NIDHI JUAN RN - 03/17/2021 9:53 EDT Electronically signed by Chanel Briggs Conversion [employer] Psychologist Assistant Cerner at 12/28/2022 7:54 AM CDT documented in this encounter Plan of Treatment Not on file documented as of this encounter Visit Diagnoses Not on filedocumented in this encounter
--- OUTSIDE RECORDS SUMMARY | 2025-03-17 13:47 | XMS_ITS | Encounter Summary ---
Author Organization [employer] ([place], [place], [place], [place]) Address [address] [place] [address] Care Team Providers Care Diversity Intern Name Role Phone Unavailable Primary Care Provider Unavailabl e Encounter Details Date Type Department Care Team (Late st Contact Info) Description 03/17/2021 Transcribed Document [facility] [place] [facility] [place] [address] ProviderMaximiliano MD [address], [place] [id number] Social History Tobacco Use Types Packs/Day Years Used Date Smoking Tobacco: Never Assessed Comments Unknown Sex and Gender Information Value Date Recorded Sex Assigned at Not on file Legal Sex Female 1:06 PM CDT Gender Identity Not on file Sexual Orientation Not on file documented as of this encounter Miscellaneous Notes * [employer]ner Conversion Note - Maximiliano ProviderMD - 03/17/2021 8:30 AM CDT Pre Procedure Adult Entered On: 03/17/2021 8:42 EDT Performed On: 03/17/2021 8:30 EDT by NIDHI JUAN RN Height and Weight, Clinical Dosing Height Source : Stated Height Entry Format : Chambers Height, Feet : 5 ft(Converted to: 152 cm, 60 Inch) Height, Inches : 4 Inch(Converted to: 0 ft 4 Inch, 10.16 cm) Clinical Height : 162.56 cm Weight Source : Standing scale Weight Entry Format : Chambers Clinical Dosing Weight : 144.09 kg Weight, Pounds : 317 lb Body Surface Area (BSA) : 2.38 m2 Body Mass Index : 54.5 kg/m2 (>HHI) [place] Body Weight : 54 kg NIDHI JUAN RN - 03/17/2021 8:30 EDT Health Histories Smoking Status : 10 or more cigarettes (1/2 pack or more)/day in last 30 days Smokeless Tobacco Status : Smokeless tobacco user within last 30 days Desires Tobacco Cessation Medication : No Reason for No Tobacco Cessation Medication : Refuses FDA approved medications NIDHI JUAN RN - 03/17/2021 8:30 EDT Social History (As Of: 03/17/2021 08:42:30 EDT) Tobacco: Smoking Status Current every day smoker. [...] (Last Updated: 05/02/2018 09:47:27 EDT by OSWALDO AMIN, NOELLE) Infectious Disease History Has the patient ever been tested for COVID-19? : Yes, Patient stated results Negative Date of COVID-19 test known? : Yes Date of COVID-19 Test : 03/10/2021 EDT Does patient have symptoms of COVID-19? : No COVID19 Screening : No Experiencing Infectious Disease Symptoms : No symptoms Physical contact outside [place] in the last 30 days : No Infectious Disease History : Chicken pox/Shingles, Influenza, Measles, MRSA Tuberculosis Symptoms : None NIDHI JUAN RN - 03/17/2021 8:30 EDT COVID19 PreProcedure Screening Is this an Emergent or Add on Procedure? : No Date PreProcedure COVID-19 test known? : Yes Date of PreProcedure COVID-19 : 03/10/2021 EDT Has patient been isolated since the test : No Exposed to COVID19 symptoms since test? : No NIDHI JUAN RN - 03/17/2021 8:30 EDT Anesthesia/Transfusion History Family History of Anesthesia Reaction : Prior transfusion without reaction Transfusion History : Prior anesthesia without reaction Family History of Anesthesia Reaction : None NIDHI JUAN RN - 03/17/2021 8:30 EDT Functional Assessment Living Situation : Home Patient Lives With : Spouse Persons Assisting Patient at Home : Spouse Current Daily Living Assistance : None Sensory Deficits : None Mobility Assistance Prior to Admission : Independent ENRIQUEZ Hx Falls Immediate/Within 3 Months : No Current Home Treatments : BiPAP, Oxygen therapy NIDHI JUAN RN - 03/17/2021 8:30 EDT [place] Suicide Severity Rating Scale (C-SSRS) CSSRS Past Month Wish to be : No CSSRS Past Month Suicidal Thoughts : No CSSRS Lifetime Suicide Behavior : No Suicide Severity Rating Score : 0 Suicide Severity Rating : No Additional Care Required at this time NIDHI JUAN RN - 03/17/2021 8:30 EDT Psychosocial History Does Someone Depend on You for Care? : No Do You Have a History of the Following? : Patient denies history Currently in Unsafe Situation : No Restraining Order Against Another Person : No Do You Have a Support System? : Yes Hospital/DC Financial Concerns : No Stressors Affecting Hospitalization/DC : No NIDHI JUAN RN - 03/17/2021 8:30 EDT Advance Directive Patient has Advance Directive *Q : No, patient refuses Advance Directive information NIDHI JUAN RN - 03/17/2021 8:30 EDT Teaching/Learning Assessment Barriers To Learning : None evident Individuals Taught : Patient, Spouse Readiness to Learn : Cooperative Baseline Knowledge of Topic : Good Readiness to Learn : Demonstration, Explanation Learning Style Preferences Patient : None Learning Style Preferences Family : None NIDHI JUAN RN - 03/17/2021 8:30 EDT Education Topics, Periop Preadmission Perioperative Education Grid Arrival Time/Place : Verbalizes understanding, Returns demonstration Central Lines : Verbalizes understanding, Returns demonstration CHG Preoperative Bathing/Cloths : Verbalizes understanding, Returns demonstration Falls : Verbalizes understanding, Returns demonstration Infection Control : Verbalizes understanding, Returns demonstration IV's : Verbalizes understanding, Returns demonstration NPO Status/Directions : Verbalizes understanding, Returns demonstration Pain Management : Verbalizes understanding, Returns demonstration Postoperative Care Preparations : Verbalizes understanding, Returns demonstration Preprocedure Preparations : Verbalizes understanding, Returns demonstration Preprocedure Tests/Labs : Verbalizes understanding, Returns demonstration Responsible Adult : Verbalizes understanding, Returns demonstration Take/Hold Medications Pre-Procedure : Verbalizes understanding, Returns demonstration NIDHI JUAN RN - 03/17/2021 8:30 EDT General Info Arrived From : Home Mode of Arrival on Unit : Ambulatory Legal Guardian : Spouse Legal Guardian : No Support Person/Patient Label Press Operator : Yes Support Person/Pt Rep Name : Kiko Support Person/Pt Rep Contact Information : [phone] Want Family/Rep/Phys Notified of Admit : No Emergency Contact #1 : Kiko Emergency Contact #1 Emergency Contact #1 Relationship : spouse Emergency Contact #2 : n/a Emergency Contact #2 Phone Number : n/a Emergency Contact #2 Relationship : n/a Chief Complaint : L/C Information Obtained From : Patient Primary Language : Kyrgyz Preferred Communication Mode : Verbal Communication Barrier : None Loan Servicing Representative Needed : No NIDHI JUAN RN - 03/17/2021 8:30 EDT Vital Measurements Temperature Source : Temporal artery scanning Temperature Mode : Fahrenheit Temperature, Fahrenheit : 97.4 Deg F Clinical Temperature, C : 36.3 Deg C Pulse Method : Non-Invasive BP Device Peripheral Pulse Rate : 63 bpm Respiratory Rate : 20 Breaths/Min Blood Pressure Location : Arm, right upper Blood Pressure Source : Non-Invasive BP Device Blood Pressure Position : Sitting Systolic Blood Pressure : 147 mmHg (HI) Diastolic Blood Pressure : 69 mmHg Oxygen Saturation : 94 % Oxygen Flow Rate : 2 Liter/Min NIDHI JUAN RN - 03/17/2021 8:30 EDT Sleep Apnea Risk Assmt BiPAP/CPAP Ordered for Home Use : Yes Hx of Obstructive Sleep Apnea Diagnosis : Yes BiPAP/CPAP Used at Home : No Reason BiPAP/CPAP Not Used at Home : decided not to pick it up Age over 50 Years Old : Yes Gender Male : No NIDHI JUAN RN - 03/17/2021 8:30 EDT Hair Scale Hair Sensory Perception : No impairment Hair Moisture : Moist Hair Activity : Walks occasionally Hair Mobility : No limitation Hair Nutrition : Probably inadequate Hair Friction and Shear : No apparent problem Hair Score : 18 NIDHI JUAN RN - 03/17/2021 8:30 EDT Oxygen Therapy Oxygen Therapy Mode : Nasal cannula Oxygen Titrated : No Oxygen Flow Rate : 2 Liter/Min NIDHI JUAN RN - 03/17/2021 8:30 EDT Pain Assessment Pain Assessment : Initial assessment Pain Scale Used : 0-10 Scale NIDHI JUAN RN - 03/17/2021 8:30 EDT Fall Risk Scales ABCs Fall Injury Risk Identification : None Injury Moderate to High Risk Interventions : Transport methods appropriate to patient, Visual cues in place ENRIQUEZ Hx Falls Immediate/Within 3 Months : No Enriquez Secondary Diagnosis : No ENRIQUEZ Use of Ambulatory Aid : None ENRIQUEZ IV Therapy or IV Access : Yes Enriquez Gait/Transferring : Normal, bedrest, immobile Enriquez Mental Status : Oriented to own ability Enriquez Fall Risk Score : 20 ENRIQUEZ Fall Scale Risk Level : 0-24 Low Risk [place] Fall Interventions : Adequate lighting, Assistive devices within reach, Bed in low position, Call device within reach, Fall prevention handout/education per facility policy, Frequent orientation to call device, Frequent orientation to surroundings, Hourly comfort/safety rounds, Non-slip footwear, Personal items within reach, Reinforced to call for assistance before getting out of bed, Room free of clutter/spills, Upper side-rails up, Wheels locked, Wires/Cords secured Fall Risk Scale Calc Temp : 0 NIDHI JUAN RN - 03/17/2021 8:30 EDT Valuables and Belongings Valuables and Belongings : Clothing Clothing : Common streetwear Clothing Disposition : Bedside Belongings Disposition Comment : Valuables given to spouse-refuses safe NIDHI JUAN RN - 03/17/2021 8:30 EDT Pain Scale Intensity : 0 NIDHI JUAN RN - 03/17/2021 8:30 EDT Image 4 - Images currently included in the form version of this document have not been included in the text rendition version of the form. documented in this encounter Plan of Treatment Not on file documented as of this encounter Visit Diagnoses Not on filedocumented in this encounter
--- OUTSIDE RECORDS SUMMARY | 2025-03-17 13:47 | XMS_ITS | Clinical Summary ---
Author Organization [employer] ([place], [place], [place], [place]) Address [address] [place] [address] Care Team Providers Care Pot Fireman Name Role Phone Unavailable Primary Care Provider [...]
--- OUTSIDE RECORDS SUMMARY | 2025-03-17 13:47 | XMS_ITS | Clinical Summary ---
Author Organization [facility] Address [address] [place] [address] Phone Care Team Providers Care Fios Line Installer Name Role Phone Shantel MONTANA Elroy Becky [phone] Conditions or Problems Problem Name Problem Code Onset Date Status Entry Date Provider Comment Standard Description Annotate CARPAL TUNNEL SYNDROME, RIGHT 69875793 (SNOMED CT) Active Juan Guerra MA Carpal tunnel syndrome CERVICAL RADICULOPATH Y, RIGHT 66530280 (SNOMED CT) Active Juan Guerra MA Cervical radiculopathy SPINAL STENOSIS, CERVICAL 00037438 (SNOMED CT) Active Juan Guerra MA Spinal stenosis in cervical region SPONDYLOSIS, CERVICAL 837197863 (SNOMED CT) Active Juan Guerra MA Cervical spondylosis OVERWEIGHT 227098177 (SNOMED CT) Active Juan Guerra MA Overweight Medications Medication Instructions Start Date Stop Date Generic Name [facility] Provider LIPITOR 80 MG TABS [facility] ATORVASTATIN CALCIUM [id number] Juan Guerra MA TRAZODONE HCL 300 MG TABS [facility] TRAZODONE HCL [id number] Juan Guerra MA LAMICTAL ODT TBDP -[place] LAMOTRIGINE TBDP [id number] Juan Guerra MA SEROQUEL TABS [facility] QUETIAPINE FUMARATE TABS [id number] Juan Guerra MA ATENOLOL 25 MG TABS [facility] ATENOLOL [id number] Juan Guerra MA WELLBUTRIN SR 100 MG [id number] Non-[place] BUPROPION HCL [id number] Juan Guerra MA CYCLOBENZAPRINE HCL TABLET Non-[place] CYCLOBENZAPRINE HCL TABS [id number] Juan Guerra MA Medications Administered No information available. Allergies, Adverse Reactions, Alerts Allergy Name Reaction Description Start Date Severity Statu s Provider IODINE montgomery and blisters Moderate Juan Guerra MA Results No information available. Plan of Care Type Date Detail Pending order EMG Right Arm Pending order GERSON -- x 2 injec tions then follow back to Ordering MD Patient education chronic%20neck %20pain Procedures Code Procedure Name Date Entry Date 04004 EMG w/ NCS, Complete, 1 Extremity CPT-527 79 4760/10/11 02628 Nerve Conduction Study (3-4 studies) CPT- 80519 [facility]-[id number] Tobacco Cessation Counseling Performed 2 Vital Signs Date Name Value Unit Description BMI (Body Mass Index) 44.62 kg/m2 Bod y Mass Index (Ratio) BP Diastolic 71 mm[Hg] blood pressu re, diastolic BP Systolic 133 mm[Hg] blood pressur e, systolic Heart Rate 72 /min pulse rate Height 64 [in_us] height E&M Weight Measured 260 [lb_av] weight E& M Weight Measured 260 [lb_av] weight E& M Immunizations No information available. Advance Directives No information available.
--- OUTSIDE RECORDS SUMMARY | 2025-03-17 13:47 | XMS_ITS | Encounter Summary ---
Author Organization [employer] ([place], [place], [place], [place]) Address [address] [place] [address] Care Team Providers Care Sales And Marketing Executive Name Role Phone Unavailable Primary Care Provider Unavailabl e Encounter Details Date Type Department Care Team (Late st Contact Info) Description 03/17/2021 Transcribed Document [facility] Family Medicine [facility] [place] [address] ProviderMaximiliano MD [facility] [place] [id number] Social History Tobacco Use Types Packs/Day Years Used Date Smoking Tobacco: Never Assessed Comments Unknown Sex and Gender Information Value Date Recorded Sex Assigned at Not on file Legal Sex Female 1:06 PM CDT Gender Identity Not on file Sexual Orientation Not on file documented as of this encounter Miscellaneous Notes * Cerner Conversion Note - Maximiliano ProviderMD - 03/17/2021 4:26 PM CDT Nursing Discharge Summary Entered On: 03/17/2021 16:27 EDT Performed On: 03/17/2021 16:26 EDT by NIDHI JUAN collections director Documentation Discharge Date/Time : 03/17/2021 16:39 EDT NIDIH JUAN RN - 03/17/2021 16:39 EDT Patient Disposition, General : Discharge Discharge To : Home with ambulatory/outpatient follow-up Name of Receiving Facility/Provider : Dr. Irwin Mode Of Departure, General Discharge : Wheelchair Accompanied By, Discharge : Spouse IV Discontinued : Yes Personal Belongings With Patient : Yes Pt's Own Supply of Medications Returned : No patient supply of medications to return Prescriptions Given to Patient : No Medications Given to Patient : No Discharge Instructions Reviewed With, Opportunity For Questions Given : Patient, Spouse Patient Education Completed : Yes Teaching Method : Demonstration, Explanation Teaching Evaluation : Returns demonstration, Verbalizes understanding Discharge, Comment : Radial site instruction sheet given and reviewed. NIDHI JUAN RN - 03/17/2021 16:26 EDT documented in this encounter Plan of Treatment Not on file documented as of this encounter Visit Diagnoses Not on filedocumented in this encounter
--- OUTSIDE RECORDS SUMMARY | 2025-03-17 13:47 | XMS_ITS | Clinical Summary ---
Author Organization [facility] Address [address] [place] [address] Care Team Providers Care Filer Helper Name Role Phone Kobe Steele MD Primary Care Provider [phone] Social History Tobacco Use Types Packs/Day Years Used Date Smoking Tobacco: Never Assessed Comments Unknown Sex and Gender Information Value Date Recorded Sex Assigned at Not on file Legal Sex Female 8:35 PM EDT Gender Identity Not on file Sexual Orientation Not on file Plan of Treatment Health Maintenance Due Date Last Done Comments [facility]-Depression Screening 1965 [facility]-HIV Screening 1965 [facility]-Hepatitis C Screening 1965 [facility]-Medicare Annual Wellness (AWV) 1965 [facility]-Infant/Child/Adol SDOH Screenings 1965 [facility]- SDOH Screenings 1982 [facility]-Adult SDOH Screenings 1982 [facility]-Pap Smear 1985 [facility]-Cervical Cancer Screening 1994 [facility]-HPV/Cotest 1994 CT Colonography 2009 Colonoscopy 2009 FIT-DNA 2009 FIT 2009 FOBT 2009 Sigmoidoscopy 2009 [facility]-Colorectal Cancer Screening 2009 [facility]-Pneumococcal Vaccine: 50+ Years (1 of 1 - PCV) 2014 [facility]-Breast Cancer Screening 07/27/2022 07/27/2020, 1 09/26/2019 [facility]-Zoster Vaccines (3 of 3) 09/16/2022 07/22/2022, 04/25/2016 [id number] Vaccine ( - 2023- season) 2024 [facility]-Influenza Vaccine (#1) 05/12/202506/23, 05/21/2020, 07/09/2019, Additional history exists [facility]-DTaP,Tdap,and Td Vaccines (2 - Td or Tdap) 04/19/2032 04/19/2022 [facility]-RSV Vaccine: 60+ Years or (1 - 1-dose 75+ series) 2039 HPV Vaccines Aged Out No longer eligi ble based on patient's age to complete this topic [facility]-HIB Vaccines Aged Out No longer e ligible based on patient's age to complete this topic [facility]-Hepatitis A Vaccines Aged Out No longer eligible based on patient's age to complete this topic [facility]-IPV Vaccines Aged Out No longer e ligible based on patient's age to complete this topic [facility]-Rotavirus Vaccines Aged Out No lo nger eligible based on patient's age to complete this topic Insurance [employer] MEDICARE Care Teams Filer Helper Relationship Specialty Start Date End Date Kobe Steele MD [address] [place] [address] PCP - General 01/22/21
--- OUTSIDE RECORDS SUMMARY | 2025-03-17 13:47 | XMS_ITS | Encounter Summary ---
Author Organization [employer] ([place], [place], [place], [place]) Address [address] [place] [address] Care Team Providers Care Sort Line Worker Name Role Phone Unavailable Primary Care Provider Unavailabl e Encounter Details Date Type Department Care Team (Late st Contact Info) Description 03/17/2021 Transcribed Document [facility] Family Medicine [address] [place] [address] ProviderMaximiliano MD [address] [place], [place] [phone] Social History Tobacco Use Types Packs/Day Years Used Date Smoking Tobacco: Never Assessed Comments Unknown Sex and Gender Information Value Date Recorded Sex Assigned at Not on file Legal Sex Female 1:06 PM CDT Gender Identity Not on file Sexual Orientation Not on file documented as of this encounter Miscellaneous Notes * Cerner Conversion Note - Historical ProviderMD - 03/17/2021 4:00 PM CDT Event Note Entered On: 03/17/2021 16:10 EDT Performed On: 03/17/2021 16:00 EDT by NIDHI JUAN RN Event Note Event Date/Time : 03/17/2021 16:00 EDT Description of Event : Following protocol, TR band removed without diff, dressing applied. Gage well. NIDHI JUAN RN - 03/17/2021 16:10 EDT documented in this encounter Plan of Treatment Not on file documented as of this encounter Visit Diagnoses Not on filedocumented in this encounter
--- OUTSIDE RECORDS SUMMARY | 2025-03-17 13:47 | XMS_ITS | Encounter Summary ---
Author Organization [employer] ([place], [place], [place], [place]) Address [address] [place] [address] Care Team Providers Care Analytical Strategist Name Role Phone Unavailable Primary Care Provider Unavailabl e Encounter Details Date Type Department Care Team (Late st Contact Info) Description 03/17/2021 Transcribed Document [facility] Family Medicine [facility] [address] ProviderMaximiliano MD [address] [place] [phone] Social History Tobacco Use Types Packs/Day Years Used Date Smoking Tobacco: Never Assessed Comments Unknown Sex and Gender Information Value Date Recorded Sex Assigned at Not on file Legal Sex Female 1:06 PM CDT Gender Identity Not on file Sexual Orientation Not on file documented as of this encounter Miscellaneous Notes * Cerner Conversion Note - Historical ProviderMD - 03/17/2021 1:30 PM CDT Event Note Entered On: 03/17/2021 13:54 EDT Performed On: 03/17/2021 13:30 EDT by NIDHI JUAN RN Event Note Event Date/Time : 03/17/2021 13:30 EDT Description of Event : Return from orthodontic lab technician per stretcher awake and alert, skin w/d, no c/o, spouse here at bedside. has TR pressure band right radial artery-CDI, no swelling, no bleeding, no pain, cap refill less than 2 sec right fingers. Arterial splint in place right wrist-returns understanding for use. Food and drink ordered.1352 Dr. Kat in to see. NIDHI JUAN, NOELLE - 03/17/2021 13:51 EDT documented in this encounter Plan of Treatment Not on file documented as of this encounter Visit Diagnoses Not on filedocumented in this encounter
--- OUTSIDE RECORDS SUMMARY | 2025-03-17 13:47 | XMS_ITS | Encounter Summary ---
Author Organization [employer] ([place], [place], [place], [place]) Address [address] [place] [address] Care Team Providers Care Lion Trainer Name Role Phone Unavailable Primary Care Provider Unavailabl e Encounter Details Date Type Department Care Team (Late st Contact Info) Description 07/31/2019 Transcribed Document [facility] Family Medicine [facility] [place] [address] ProviderMaximiliano MD [address] [place], [place] [phone] Social History Tobacco Use Types Packs/Day Years Used Date Smoking Tobacco: Never Assessed Comments Unknown Sex and Gender Information Value Date Recorded Sex Assigned at Not on file Legal Sex Female 1:06 PM CDT Gender Identity Not on file Sexual Orientation Not on file documented as of this encounter Miscellaneous Notes * Cerner Conversion Note - Historical ProviderMD - 07/31/2019 3:26 PM SWITCHBOARD OPERATOR RECEPTIONIST [facility] PACU Summary Primary Physician: BART MURPHY MD-GAE Finalized Date/Time: 07/31/19 16:30:11 Pt. Name: ISA ZHANG D.O.B./Sex: 1965 Female Med Rec #: [id number] Physician: BART MURPHY MD-GAE Financial #: [id number] Pt. Type: O Room/Bed: [facility]/ Admit/Disch: 07/31/19 13:06:00 - Institution: [facility] PACU Case Times Entry 1 In PACU I 07/31/19 15:56:00 Ready for PACU 07/31/19 16:25:00 Discharge Discharge from PACU 07/31/19 16:30:00 I [facility] PACU Case Times Audit 07/31/19 16:30:10 Research And Development Researcher: YEISON Modifier: BRYANTHE <+> 1 Discharge from PACU I 07/31/19 16:25:56 Research And Development Researcher: YEISON Modifier: BRYANTHE <+> 1 Ready for PACU Discharge Finalized By: OSWALDO AMIN RN Document Signatures Signed By: OSWALDO AMIN RN 07/31/19 16:30 Electronically signed by Brigitte [facility] Conversion Holter Technician Cerner at 12/28/2022 7:27 AM CDT documented in this encounter Plan of Treatment Not on file documented as of this encounter Visit Diagnoses Not on filedocumented in this encounter
--- OUTSIDE RECORDS SUMMARY | 2025-03-17 13:47 | XMS_ITS | Encounter Summary ---
Author Organization [employer] ([place], [place], [place], [place]) Address [address] [place] [address] Care Team Providers Care Office Support Clerk Name Role Phone Unavailable Primary Care Provider Unavailabl e Encounter Details Date Type Department Care Team (Late st Contact Info) Description 07/31/2019 Transcribed Document [facility] [place] [facility] [address] ProviderMaximiliano MD [address] [place], [place] [address] Social History Tobacco Use Types Packs/Day Years Used Date Smoking Tobacco: Never Assessed Comments Unknown Sex and Gender Information Value Date Recorded Sex Assigned at Not on file Legal Sex Female 1:06 PM CDT Gender Identity Not on file Sexual Orientation Not on file documented as of this encounter Miscellaneous Notes * Cerner Conversion Note - Maximiliano ProviderMD - 07/31/2019 1:15 PM LINING INSERTER Patient: ISA ZHANG Age: 53 years Sex: Female : 1965 Associated Diagnoses: None Author: FERNANDA KEE MD-GAE Basic Information Source of history: Self. Referral source: [facility] (REF[facility]. Chief Complaint Dysphagia and history of colon polyps. History of Present Illness Patient with history of gastric bypass in 2006, and colon resection in 2011 for history of a volvulus. Patient complains of Dysphagia to solids for the past two weeks. She has not experienced dysphagia to pills or liquids. She feels like solids are stuck in her mid chest. She has an uncomfortable feeling when food gets stuck in that area. She has chronic nausea. No vomiting, but does regurgitate food with symptoms of Dysphagia. She has a history of GERD, and is on Zegerid and rarely has symptoms. Takes ASA 81mg, last dose Monday. History of bleeding ulcer. Patient is a smoker. Denies: NSAIDS, gastric bypass, Denies melena, hematemesis, BRBPR. Patient presents today for a colonoscopy for history of colon polyps. Specifically denies rectal bleeding, weight loss, or change in bowel habits. No family history of colon cancer. Last colonoscopy 06/[address] Fernanda Kee for abdominal pain, Impression: Evidence of a prior anastomosis of the terminal ileum and hepatic flexure, A single diverticulum was found in the hepatic flexure, A single semi- pedunculated polyp was found in the sigmoid colon measuring between 5 and 10mm, ( Tubular adenoma). Base of polyp cannot evaluated per pathology. EGD 04/[address] 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 Pathology Cardio-esophageal junction mucosa with mild reactive changes c/w reflux, No intestinal metaplasia, Negative for dysplasia. Histories Past Medical History: Active Tobacco abuse (156706345) AMIRA - Obstructive sleep apnea (7114609050) IBS (irritable bowel syndrome) ([id number]) Arthritis (1441346) Bipolar (761856659) SVT (supraventricular tachycardia) (45511059) Barretts esophagus (876516529) CAD (coronary artery disease) (0310980149) Abdominal pain (44440339) bleeding ulcer (154454722) Resolved Obesity (5093441244): Resolved. Diverticulitis (045773696): Resolved. 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 Polycystic ovarian disease (731482429): Resolved. Diverticulitis (174892794): Resolved. Procedure history: Gastric bypass. c section x 3. D and C. hysterectomy. tonsillectomy. volvulous. Partial colectomy. Appendectomy. delivery only; (18062). Ventral hernia repair. Cholecystectomy; (22531). heart stents x2. Social History Social & Psychosocial Habits Alcohol 04/21/2014 Alcohol Use in Last Twelve Months No Nutrition/Health 05/02/2018 Caffeine intake amount: 2 cups a day. Substance Abuse 05/02/2018 Recreational Drug Use History Yes Recreational Drug Use Last 12 Months No Recreational Drug Type Marijuana/Hashish Tobacco 02/10/2016 Smoking Status Current every day smoker 05/02/2018 Smoking Status 10 or more cigarettes (1/ Smokeless Tobacco Status Never Years of Tobacco Use 38 Packs/Tins Daily 0.5 . Family History: Brother with history of Esophageal Cancer, Sister with history of Ovarian Cancer. Health Status Allergies: Allergic Reactions (All) Severe Povidone iodine topical- Blister and blister. Severity Not Documented Bee Stings- Anaphylaxis. Iodine topical- C/o: a rash and c/o: a rash. Canceled/Inactive Reactions (All) Severity Not Documented Bee Stings- Anaphylaxis and anaphylaxis. SulfADIAZINE- Anaphax, anaphax~anaphalaxisis and anaphalaxisis. Sulfamethoxazole- No reactions were documented. Tape- C/o: a rash and c/o: a rash. Tape- Rash., Allergies (1) Active Reaction Bee Stings Anaphylaxis Current medications: (Selected) Inpatient Medications Ordered Normal Saline 1,000 mL: 100 mL/Hr, IntraVENous Documented Medications Documented Imdur: 30 mg, Oral, QAM, 0 Refill(s) LaMICtal: 450 mg, Oral, At Bedtime, 0 Refill(s) Latuda 40 mg oral tablet: 1 Tab, Oral, Daily, 30 Tab, 0 Refill(s) Seroquel 300 mg oral tablet: 1 Tab, Oral, At Bedtime, 30 Tab, 0 Refill(s) Vitamin D3 5000 units oral capsule: 1 Cap, Oral, Daily, with food, 100 Cap, 0 Refill(s) Wellbutrin 100 mg oral tablet: 3 Tabs, Oral, Daily, 180 Tab Zofran 4 mg oral tablet: Tab, Oral, QID, 0 Refill(s) aspirin 81 mg oral tablet: 1 Tab, Oral, Daily, 30 Tab, 0 Refill(s) atenolol 25 mg oral tablet: 1 Tab, Oral, Daily, 30 Tab, 0 Refill(s) losartan 25 mg oral tablet: 1 Tab, Oral, Daily, in pm, 30 Tab, 0 Refill(s) trazodone 150 mg oral tablet: 2 Tabs, Oral, At Bedtime, 30 Tab, 0 Refill(s), Medications (1) Active Scheduled: (0) Continuous: (1) NaCl 0.9% 1,000 mL 1,000 mL, IntraVENous, 100 mL/Hr PRN: (0) Problem list: All Problems Abdominal pain / SNOMED CT 42237376 / Confirmed Arthritis / SNOMED CT 4537857 / Confirmed Arthritis / SNOMED CT 3823483 / Confirmed Barretts esophagus / SNOMED CT 894940758 / Confirmed Bipolar / SNOMED CT 807496850 / Confirmed Bipolar 1 disorder / SNOMED CT 4249514205 / Confirmed bleeding ulcer / SNOMED CT 973976166 / Confirmed CAD (coronary artery disease) / SNOMED CT 1612840782 / Confirmed Gallstones / SNOMED CT 239546060 / Confirmed History of obstructive sleep apnea / IMO 72334227 / Confirmed IBS (irritable bowel syndrome) / SNOMED CT [id number] / Confirmed Irritable bowel / SNOMED CT 87457028 / Confirmed Myocardial infarct / SNOMED CT 57057514 / Confirmed AMIRA - Obstructive sleep apnea / SNOMED CT 1253544590 / Confirmed Polycystic ovarian syndrome / SNOMED CT 865548767 / Confirmed Sleep apnea / SNOMED CT 044649641 / Confirmed SVT (supraventricular tachycardia) / SNOMED CT 52282572 / Confirmed Tobacco abuse / SNOMED CT 430633094 / Confirmed Resolved: Diverticulitis / SNOMED CT 131894357 Resolved: Diverticulitis / SNOMED CT 565993237 Resolved: Obesity / SNOMED CT 3373304269 Resolved: Polycystic ovarian disease / SNOMED CT 139440981 Resolved: Volvulus of colon / SNOMED CT 98194211 Canceled: HTN - Hypertension / SNOMED CT 4730852871 Canceled: Hyperlipidemia / SNOMED CT 25917935 Canceled: Hyperlipidemia / SNOMED CT 50444821 Canceled: Hypertension / SNOMED CT 9622029967, Active Problems (18) Abdominal pain Arthritis Arthritis Barretts esophagus Bipolar Bipolar 1 disorder bleeding ulcer CAD (coronary artery disease) Gallstones History of obstructive sleep apnea IBS (irritable bowel syndrome) Irritable bowel Myocardial infarct AMIRA - Obstructive sleep apnea Polycystic ovarian syndrome Sleep apnea SVT (supraventricular tachycardia) Tobacco abuse Review of Systems Constitutional: No fever, No chills, No weight gain, No weight loss. Eye: No recent visual problem, No blurring. Ear/Nose/Mouth/Throat: No dysphagia, No epistaxis, No hoarse voice, No sore throat. Respiratory: No shortness of breath, No cough, No hemoptysis. Cardiovascular: No chest pain, No palpitations, No claudication. Gastrointestinal Negative other than HPI. Genitourinary: No dysuria, No hematuria. Hematology/Lymphatics: No bruising tendency, No bleeding tendency. Endocrine: No excessive thirst, No cold intolerance, No heat intolerance. Musculoskeletal: No joint pain, No muscle pain, No gait disturbance, No joint redness. Integumentary: No rash, No pruritus. Neurologic: No confusion, No dizziness, No headache, No seizure. Psychiatric: No anxiety, No depression. the rest of the 10 system review is negative Physical Examination VS/Measurements Vitals Signs (last 24 hrs) Last Charted Minimum Maximum Temp 97.6 (JUL 31:) 97.6 (JUL 31:) 97.6 (JUL 31:) Mon HR 81 (JUL 31:) 81 (JUL 31:) 81 (JUL 31:) Resp Rate 17 (JUL 31:) 17 (JUL 31:) 17 (JUL 31:) SBP H 148 (JUL 31:) H 148 (JUL 31:) H 148 (JUL 31:) DBP 66 (JUL 31:) 66 (JUL 31:) 66 (JUL 31:) SpO2 94 (JUL 31:) 94 (JUL 31:) 94 (JUL 31:) General: No acute distress. Appearance: Well nourished. Eye: Pupils are equal, round and reactive to light, Extraocular movements are intact, Normal conjunctiva. Sclera: Both eyes, Within normal limits. HENT: Normocephalic, Normal hearing, Oral mucosa is moist. Nose: Both nostrils, Within normal limits, Patent. Mouth: pink. Neck: Supple, Non-tender, No carotid bruit, No jugular venous distention. Respiratory: Lungs are clear to auscultation, Respirations are non-labored, Breath sounds are equal. Pattern: Regular. Cardiovascular: Normal rate, Regular rhythm, No murmur, No gallop, No edema. Arterial pulses: Bilateral, Dorsalis pedis, Within normal limits. Gastrointestinal: Soft, Non-tender, Non-distended, Normal bowel sounds, No organomegaly. Abdomen: Liver ( Within normal limits ). Lymphatics: Lymphatic exam: Bilateral, Cervical chain, Inguinal, Within normal limits. Musculoskeletal: Normal range of motion, Normal strength, No tenderness, No deformity, Normal gait. Integumentary: Warm, Dry, [place], No rash. Integumentary exam: Face, Chest, Arm, Abdomen, Leg. Neurologic: Alert, Oriented, No focal deficits. Orientation: To person, To place, To time. Psychiatric: Cooperative, Appropriate mood & affect, Normal judgment. Review / Management Results review: No qualifying data available. Impression and Plan Dysphagia, History of colon polyps. Differential diagnosis includes PUD, esophagitis or gastritis . Proceed with EGD for further evaluation. Proceed with colonoscopy. Risks of both procedures including that of bleeding, splenic rupture, missed lesion, and perforation have been discussed with the patient who verbalizes understanding and agrees to proceed. Further recommendations will be based on the above findings. I Low Sheikh PA-C scribed this note for Dr. Fernanda Kee. documented in this encounter Plan of Treatment Not on file documented as of this encounter Visit Diagnoses Not on filedocumented in this encounter
[2025-03-17 14:00] LABS: Hematocrit 44.1 % (37.0-47.0); Hemoglobin 14.5 g/dL (12.2-16.2); Immature Granulocytes % 0.4 %; Mean Corpuscular HGB Conc 32.9 g/dL (31.8-35.4); Mean Corpuscular Hemoglobin 30.3 pg (27.0-31.2); Mean Corpuscular Volume 92.3 fl (81-99); Nucleated Red Blood Cells % 0 %; Platelet Count 184 K/mm3 (142-424); Red Blood Count 4.78 M/mm3 (4.20-5.40); Red Cell Distribution Width-SD 42.0 fL; White Blood Count 5.2 K/mm3 (4.8-10.8)
[2025-03-17 14:36] LABS: Anion Gap 14.1 mEq/L (5-15); Blood Urea Nitrogen 8 mg/dl (7-17); Calcium 9.4 mg/dl (8.4-10.2); Carbon Dioxide 29 mmol/L (22.0-30.0); Chloride 99 mmol/L (98-107); Creatinine,Serum 0.90 mg/dl (0.52-1.04); Estimated Glomerular Filt Rate 64 ml/min (>60); GFR (African American) 77 ML/MIN (>60); Glucose 90 mg/dl (74-100); Potassium 4.1 mmoL/L (3.5-5.1); Sodium 138 mmol/L (136-145)
== END 2025-03-17 23:59 | disposition home or self-care (01) ==
LOC: LAB 13:41
PROVIDERS: PCP Nurse Practitioner Family; Visit Provider Internal Medicine
DX: Z48.812 Encounter for surgical aftercare following surgery on the circulatory system (principal); Z95.5 Presence of coronary angioplasty implant and graft
CPT/HCPCS: 36415; 80048; 85025

== ENCOUNTER 2025-03-19 11:36 | Outpatient (CLI) | payer MEDICARE, SELFPAY ==
--- OUTSIDE RECORDS SUMMARY | 2024-02-15 09:25 | XMS_ITS | Continuity of Care Document ---
Author Name [facility] Organization [facility] Care Team Providers Care Bench Boring Machine Operator Name Role Phone [facility] Unavailable Unavailable Problems Combined list of problems from Department of Defense and Veterans Affairs facilities. It does not include entries that were removed or entered in error. Problem Status Onset Date Problem Type Date of Resolution Comme nts Source Diagnosis: ICD-10-CM Z71.0 Prsn encntr hlth serv to consult on behalf of another person Active Diagnosis [place] Encounters Combined list of: 1) Encounters from Department of Veterans Affairs facilities going backup to the last 18 months, not all VA inpatient encounters are included; 2) Encounters from the Department of Defense facilities going backup to 280 months. Location Location Details Encounter Type Encounter Number Reason For Visit Attending Provider ADM Date DC Date Status Disposition Source [facility] PSYCH DIAGNOSTIC EVALUATION [id number] Diagnos is: ICD-10- CM Z71.0 Prsn encntr hlth serv to consult on behalf of another person [facility] Outpatient Encounter [id number] MANDIE SAUCEDA 02/14 [facility]
--- NOTE | 2025-03-19 11:30 | CA_ITS ---
FINAL REPORT CLINICAL HISTORY: 1 week post Cardiac cath-right radial artery knot with bruising. COMPARISON: None FINDINGS: Spectral and Doppler waveform evaluations of the right wrist was performed. Spectral analysis was performed. There is no evidence of thrombosis or pseudoaneurysm. There is an 8 mm hematoma adjacent to the vessel. The fluid-filled space does not actively communicate to the artery. IMPRESSION: No evidence of arterial thrombosis or pseudoaneurysm. Small 8 mm hematoma adjacent to the vessel. Reviewed, Interpreted and Dictated by Edin Servin MD Transcribed by Valerie Preciado Authenticated and [facility]
--- OUTSIDE RECORDS SUMMARY | 2025-03-19 11:39 | XMS_ITS | Clinical Summary ---
Author Organization [facility] Address [address] [place] [address] Phone Care Team Providers Care Esthetician Name Role Phone Unavailable Primary Care Provider Unavailabl e Allergies Active Allergy Reactions Criticality Noted Date Comments Povidone-Iodine 11/12/2015 Medications buPROPion (WELLBUTRIN) 100 mg Oral Tablet Take 300 mg by mouth once. Active losartan (COZAAR) 25 mg Oral Tablet Take 25 mg by mouth daily. Active traZODone (DESYREL) 100 mg Oral Tablet Take 300 mg by mouth nightly. Active lamoTRIgine (LAMICTAL) 150 mg Oral Tablet Take 450 mg by mouth once. Active albuterol (PROVENTIL HFA;VENTOLIN HFA) 90 mcg/actuation Inhl HFA Aerosol Inhaler Inhale 1 Puff into the lungs 4 times daily. 2 Active aspirin 81 mg Oral Tablet, Delayed Release (E.C.) Take 81 mg by mouth daily. 2 Active clopidogreL (PLAVIX) 75 mg Oral Tablet Take 75 mg by mouth once. 4 Active clonazePAM (KLONOPIN) 1 mg Oral Tablet Take 1 mg by mouth 2 times daily. 4 Active spironolactone (ALDACTONE) 50 mg Oral Tablet 50 mg by Enteral route daily. 4 Active rosuvastatin (CRESTOR) 40 mg Oral Tablet Take 1 Tablet by mouth daily. 4 Active pregabalin (LYRICA) 150 mg Oral Capsule Take 150 mg by mouth daily. Active ondansetron (ZOFRAN-ODT) 8 mg Oral Tablet, Rapid Dissolve 8 mg. 2 Active nitroGLYCERIN (NITROSTAT) 0.4 mg SL Tablet, Sublingual Place 0.4 mg under the tongue once. 2 Active nitrofurantoin, macrocrystal-mon ohydrate, (MACROBID) 100 mg Oral Capsule Take 100 mg by mouth 2 times daily. 4 Active lurasidone 60 mg Oral Tablet Take 60 Tablets by mouth daily. 2 Active isosorbide mononitrate (IMDUR) 30 mg Oral Tablet Sustained Release 24 hr Take 30 mg by mouth every morning. 2 Active albuterol-ipratr opium (DUO-NEB) 0.5 mg-3 mg(2.5 mg base)/3 mL Inhl Solution for Nebulization Take 3 mL by nebulization 0800, 1200, 1600, 2000. Active fUROsemide (LASIX) 80 mg Oral Tablet Take 80 mg by mouth once. 4 Active atenoloL (TENORMIN) 25 mg Oral Tablet Take 0.5 Tablets by mouth daily. 30 Tablet 2 4 Active QUEtiapine (SEROQUEL) 100 mg Oral Tablet Take 1 Tablet by mouth 3 times daily. 30 Tablet 2 4 Active Active Problems Problem Noted Date Diagnosed Date COPD, severe 03/05/2024 Assessment & Plan (03/05/2024 4:19 PM EDT): Continue oxygen around the clock, continue care with pulmonology, Dr. Pedraza. Dependence on continuous supplemental oxygen Bipolar disorder with moderate depression 2023 Acute on chronic systolic co ngestive heart failure, NYHA class 1 03/05/2024 Assessment & Plan (03/05/2024 4:18 PM EDT): Active with Dr. Flaherty, cardiology. Compliant with PO intake limitations and daily weights as well as medications. AMIRA treated with BiPAP 03/05/2024 Assessment & Plan (03/05/2024 4:20 PM EDT): continue compliance with BiPap QHS, patient reports improved sleep quality and reduced daytime fatigue Hidradenitis suppurativa 03/05/2024 Restless legs syndrome (RLS) 03/05/2024 Back pain of lumbar region with sciatica 024 Acquired absence of both cervix and uterus 03/05 Resolved Problems Problem Noted Date Diagnosed Date Resolved Date AMIRA on CPAP 03/05/2024 03/05/2024 Immunizations Immunization Administration Dates Next Due Influenza Seasonal Injectable PF 07/07/2017 Influenza Vaccine Quadrivalent 07/09/2019,2017 Influenza Vaccine Quadrivalent PF 06/23/2022,06/2020 Tdap 04/19/2022 Zoster 04/25/2016 Zoster Recombinant 07/22/2022,04/19/2022 Surgical History Surgery Date Site/Laterality Comments GASTRIC BYPASS SURGERY COLECTOMY CHOLECYSTECTOMY HYSTERECTOMY, TOTAL ABDOMINAL SECTION Medical History Medical History Date Comments [place], old pt states 3 MIs Stomach ulcer Hydradenitis Heartburn Irritable bowel syndrome Urinary tract infection Family History Medical History Relation Name Comments Diabetes Father Heart Disease Mother High Blood Pressure Mother Heart Disease Paternal Grandmother klever rebolledo Sister Relation Name Status Comments Father Mother Paternal Grandmother Sister Social History Tobacco Use Types Packs/Day Years Used Date Smoking Tobacco: Every Day Tobacco Cessation:Ready to Q uit: Not Asked; Counseling Given: Not Answered Alcohol Use Standard Drinks/Week Comments No 0 (1 standard drink = 0.6 oz pur e alcohol) PHQ-2 Answer Date Recorded PHQ-2 Total Score 6 03/05/2024 Sexually Active Control Partners Comments Not Currently Comments No Sex and Gender Information Value Date Recorded Sex Assigned at Not on file Legal Sex Female 7:46 PM EDT Gender Identity Not on file Sexual Orientation Not on file Obstetrics History Para Term AB IAB SAB Ectopic Multiple Livin g Live Births 0 0 0 0 0 0 0 0 0 0 4 Last Filed Vital Signs Vital Sign Reading Time Taken Comments Blood Pressure 104/80 03/05/2024 1:19 PM EDT Pulse 74 03/05/2024 1:19 PM EDT Temperature 36.5 C (97.7 F) 03/05/2024 1:19 PM EDT Respiratory Rate 18 11/12/2015 12:59 AM EST Oxygen Saturation 94% 03/05/2024 1:19 PM EDT Inhaled Oxygen Concentration - - Weight 149.2 kg (329 lb) 03/05/2024 1:19 PM EDT Height 162.6 cm (5' 4 ) 03/05/2024 1:19 PM EDT Body Mass Index 56.47 03/05/2024 1:19 PM EDT Plan of Treatment Health Maintenance Due Date Last Done Comments Wellness Exam Medicare 1967 Hepatitis C Screening 1982 Pneumococcal Vaccine 50+ (1 of 2 - PCV) 1983 Cologuard 2009 Colon Cancer Screening 2009 Colonoscopy 2009 FIT 2009 Sigmoidoscopy 2009 Virtual Colonography 2009 Breast Cancer Screening 07/27/2022 07/27/2020, 07/27 COVID-19 Vaccine ( - 2023- season) 2024 RSV or 60+ (1 - Risk 60-74 years 1-dose series) 2024 Influenza Vaccine (#1) 2025 2, 05/21/2020, 07/09/2019, Additional history exists DTaP/TDaP/Td (2 - Td or Tdap) 04/19/2032 04/19/2022 Zoster Completed 07/22/2022, 05/2022, 04/25/2016 Hepatitis B Vaccine Aged Out No longe r eligible based on patient's age to complete this topic Meningococcal B Vaccine Aged Out No l onger eligible based on patient's age to complete this topic Goals Goal Patient Goal Type Associated Problems Recent Progress Patient-Stated? Author Maintain a healthy diet, exercise regularly and maintain an ideal body weight General No Jessica Sagastume RMA Stay Tobacco Free Lifestyle No Jessica Sagastume RMA Procedures Procedure Name Priority Date/Time Associated Diagnosis Comments MM MAMMO DIGITAL HECTOR SCREEN BILAT Routine 07/27/2020 2:54 PM EST Encounter for screening mammogram for malignant neoplasm of breast from Last 3 Months or Most Recently Relevant to Health Maintenance Results * MM MAMMO DIGITAL HECTOR SCREEN BILAT (07/27/2020 2:54 PM EST) Anatomical Region Laterality Modality Breast Bilateral Mammography 08/14/2020 3:13 PM EST Impressions 08/14/2020 3:13 PM EST Negative (RAT-Knivstjg-1) ~ RECOMMENDATION: Routine screening mammogram in 1 year. ~ DISCLAIMER * Any patient with a palpable abnormality, unexplained by breast imaging, should be managed on clinical basis by the attending physician. * Breast imaging has a false negative rate of 15%. * The patient was notified by mail of the results of this examination. *The patient's information was entered into a reminder system with a target due date for the next mammogram, in accordance with the [employer] [place] [employer] and the Society of Breast Imaging recommendations. Narrative 08/14/2020 3:13 PM EST Procedure:MM MAMMO DIGITAL HECTOR SCREEN BILAT ~ Reason for exam: screening, asymptomatic. Z12.31-Encounter for screening mammogram for malignant neoplasm of vvspai-TDV-10-CM ~ MM MAMMO DIGITAL HECTOR SCREEN BILAT Bilateral CC and MLO view(s) were taken. There are scattered fibroglandular densities. Prior study comparison: Compared with prior studies the most recent being No prior studies available for comparison. No mammographic evidence of malignancy. ~ Procedure Note Rony Faye MD - 08/14/2020 Procedure:MM MAMMO DIGITAL HECTOR SCREEN BILAT ~ Reason for exam: screening, asymptomatic. Z12.31-Encounter for screening mammogram for malignant neoplasm of xyceqn-ZVJ-12-CM ~ MM MAMMO DIGITAL HECTOR SCREEN BILAT Bilateral CC and MLO view(s) were taken. There are scattered fibroglandular densities. Prior study comparison: Compared with prior studies the most recentbeing No prior studies available for comparison. No mammographic evidence of malignancy. ~ IMPRESSION: Negative (JNL-Xqceoicy-1) ~ RECOMMENDATION: Routine screening mammogram in 1 year. ~ DISCLAIMER * Any patient with a palpable abnormality, unexplained by breast imaging, should be managed on clinical basis by the attending physician. * Breast imaging has a false negative rate of 15%. * The patient was notified by mail of the results of this examination. *The patient's information was entered into a reminder system with atarget due date for the next mammogram, in accordance with the [place] [employer] and the Society of Breast Imaging recommendations. us Esthela G Francois LABORATORY SPECIALIST IMG MAMMOGRAPHY ORDERABLE S Final Result from Last 3 Months or Most Recently Relevant to Health Maintenance Insurance [employer] MEDICARE HMO MR
--- OUTSIDE RECORDS SUMMARY | 2025-03-19 11:40 | XMS_ITS | Clinical Summary ---
Author Organization Healthcare Address [address] [place] [address] Care Team Providers Care Section Chief Name Role Phone Kobe Steele MD Primary Care Provider [phone] Social History Tobacco Use Types Packs/Day Years [...] Vaccines (3 of 3) 09/16/2022 07/22/2022, 04/25/2016 [id number] Vaccine ( - 2023- season) 2024 UKY-Influenza [...] this topic Insurance [employer] MEDICARE Care Teams Section Chief Relationship Specialty Start Date End Date Kobe Steele MD [address] [place] [address] PCP - General 01/22/21
== END 2025-03-19 23:59 | disposition home or self-care (01) ==
LOC: RT 11:37
PROVIDERS: PCP Nurse Practitioner Family; Visit Provider Nurse Practitioner
DX: I97.630 Postprocedural hematoma of a circulatory system organ or structure following a cardiac catheterization (principal); I50.33 Acute on chronic diastolic (congestive) heart failure; I25.10 Atherosclerotic heart disease of native coronary artery without angina pectoris; R94.31 Abnormal electrocardiogram [ECG] [EKG]
CPT/HCPCS: 93931

== ENCOUNTER 2025-04-09 13:04 | Outpatient (CLI) | payer MEDICARE, SELFPAY ==
--- OUTSIDE RECORDS SUMMARY | 2024-02-15 09:25 | XMS_ITS | Continuity of Care Document ---
Author Name [facility] Organization [facility] Care Team Providers Care Turnstile Collector Name Role Phone [facility] Unavailable Unavailable Problems Combined list of problems from Department of Defense and Veterans Affairs facilities. It does not include entries that were removed or entered in error. Problem Status Onset Date Problem Type Date of Resolution Comme nts Source Diagnosis: ICD-10-CM Z71.0 Prsn encntr hlth serv to consult on behalf of another person Active Diagnosis [place] Encounters Combined list of: 1) Encounters from Department of Veterans Affairs facilities going backup to the last 18 months, not all VA inpatient encounters are included; 2) Encounters from the Department of Defense facilities going backup to 280 months. Location Location Details Encounter Type Encounter Number Reason For Visit Attending Provider ADM Date DC Date Status Disposition Source [facility] PSYCH DIAGNOSTIC EVALUATION [id number] Diagnos is: ICD-10- CM Z71.0 Prsn encntr hlth serv to consult on behalf of another person [facility]ANDIE [facility]EDA [facility] Outpatient Encounter [id number] MANDIE SAUCEDA 02/14 [facility]
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
--- OUTSIDE RECORDS SUMMARY | 2025-03-17 09:15 | XMS_ITS ---
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 Role Phone Raegan Bowden Primary Care Provider [phone] Allergies Allergen (clinical drug ingredient) Drug/Non Drug Allergy documented on EMR Reaction Allergy Type Onset Date Status sulfisoxazole sulfiSOXAZOLE Unknown Drug Allergy Active Substance with sulfonamide structure and antibacterial mechanism of action (substance) Sulfa Antibiotics Unknown Drug Allergy Active Iodine Unknown Drug Allergy Active povidone-iodine Betadine Unknown Drug Allergy A ctive REASON FOR VISIT I asked for help Medications Medication SIG (Take, Route, Frequency, Duration) Notes Start Date End Date Status SEROquel 200 MG 1 tablet Orally Once a day Active Latuda 80 MG 1 tablet Orally Once a day at 1700 with food for 30 days Active clonazePAM 0.5 MG 1 tablet twice a day Orally and may administer 1 tablet twice daily PRN x 90 days for 30 days Active traZODone HCl 300 MG 1 tablet at bedtime Orally Once a day Active Wellbutrin XL 300 MG 1 tablet in the mor karina Orally Once a day Active hydrOXYzine Pamoate 25 MG 1 capsule ever y 8 hours Orally PRN x 14 days Active Encounters Encounter Location Date Provider Diagnosis [facility] [address] [place] [address] 03/17/2025 Raegan Bowden Bipolar disorder, current episode depressed, moderate F31.32 and ALEJANDRA (generalized anxiety disorder) F41.1 Assessments Encounter Date Diagnosis (ICD Code) Assessment Notes Treatment Notes Treatment Clinical Notes Section Notes 03/17/2025 Bipolar disorder, current episode depressed, moderate (ICD-10 - F31.32) 03/03/2025 - patient requested increase in Latuda dose. Patient stated she has been stable on current psychotropic medication regimen and requested no changes. Clinician discussed moving administration of Latuda to dinner meal since it needs to be taken with foodand she does not eat breakfast. 03/17/2025 ALEJANDRA (generalized anxiety disorder) (ICD-10 - F41.1) 03/17/2025 Other 1) No changes to psychotropic medication regimen. Patient had increase of Latuda at last visit. 2) Information regarding co-dependency provided to patient during therapy session. 3) Continue to provide psychiatric support and medication management. Please call with signs of distress or mood changes that arise. Total time spent assessing patient, reviewing chart, and coordinating care: 49 minutes Plan Of Treatment Medication Medication Name Sig Start Date Stop Date Notes SEROquel 200 MG 1 tablet Orally Once a day Latuda 80 MG 1 tablet Orally Once a day at 1700 with food for 30 days clonazePAM 0.5 MG 1 tablet twice a day Orally and may administer 1 tablet twice daily PRN x 90 days for 30 days traZODone HCl 300 MG 1 tablet at bedtime Orally Once a day Wellbutrin XL 300 MG 1 tablet in the mor karina Orally Once a day hydrOXYzine Pamoate 25 MG 1 capsule ever y 8 hours Orally PRN x 14 days Treatment Notes Assessment Notes Bipolar disorder, current ep isode depressed, moderate 03/03/2025 - patient requested increase in Latuda dose. Patient stated she has been stable on current psychotropic medication regimen and requested no changes. Clinician discussed moving administration of Latuda to dinner meal since it needs to be taken with foodand she does not eat breakfast. Other 1) No changes to psychotropic medication regimen. Patient had increase of Latuda at last visit. 2) Information regarding co-dependency provided to patient during therapy session. 3) Continue to provide psychiatric support and medication management. Please call with signs of distress or mood changes that arise. Total time spent assessing patient, reviewing chart, and coordinating care: 49 minutes Next Appt Details Follow Up: 2 weeks and as ne edbuddy, Reason: Progress Notes * Celia ZHANGDOB: 4 (59 yo F)Acc No.[id number]:03/17/2025 Progress Notes Patient: Celia FLANNERY Provider: Lexis Bowden APRN :1965 A ge:59 Y S ex:Female Date:03/17/2025 Address:[address] [facility], [id number] Subjective: * Chief Complaints: * I asked for help * HPI: P sychiatric Status: Celia Zhang is a 59-year-old , female who resides at [facility] in [place], [place] since 12/25/2024. Patient is being treated for bipolar disorder, insomnia, and anxiety disorder. Patient is being seen for follow-up visit today to monitor mood symptoms and to provide medication management. Since last visit, patient had heart cath with stent placed. Patient completes antibiotic treatment for UTI today. Patient has been approved for Medicaid effective today and has been informed she is able to stay at facility as long as necessary to recover. Patient was seen in her room for visit today. Patient stated, I asked for help. Patient stated she turned over all her 's care to her adult children because she knows she can no longer make decisions for him due to the toll it is taking on her health. Clinician provided support and allowed patient to process feelings and praised patient for setting healthy boundaries. Patient was sitting in her wheelchair in her room during visit today. Patient was more positive today and appeared less depressed. Patient was able to hold logical conversation and process current issues. Patient was alert, depressed, talkative, and was cooperative throughout visit. [...] of unsepcified trauma. * Medications: T akingLatuda 80 MG Tablet 1 tablet Orally Once a day at 1700 with food SEROquel 200 MG Tablet 1 tablet Orally Once a day Wellbutrin XL 300 MG Tablet Extended Release 24 Hour 1 tablet in the morning Orally Once a day traZODone HCl 300 MG Tablet 1 tablet at bedtime Orally Once a day clonazePAM 0.5 MG Tablet 1 tablet twice a day Orally and may administer 1 tablet twice daily PRN x 90 days hydrOXYzine Pamoate 25 MG Capsule 1 capsule every 8 hours Orally PRN x 14 days Medication List reviewed and reconciled with the patientTaking Latuda 80 MG Tablet 1 tablet Orally Once a day at 1700 with food Taking SEROquel 200 MG Tablet 1 tablet Orally Once a day Taking Wellbutrin XL 300 MG Tablet Extended Release 24 Hour 1 tablet in the morning Orally Once a day Taking traZODone HCl 300 MG Tablet 1 tablet at bedtime Orally Once a day Taking clonazePAM 0.5 MG Tablet 1 tablet twice a day Orally and may administer 1 tablet twice daily PRN x 90 days Taking hydrOXYzine Pamoate 25 MG Capsule 1 capsule every 8 hours Orally PRN x 14 days Medication List reviewed and reconciled with the patient * Allergies: I odinesulfiSOXAZOLEBetadineSulfa Antibiotics Objective: * Vitals: Assessment: * Assessment: 1. B ipolar disorder, current episode depressed, moderate - F31.32 (Primary) 2 . G AD (generalized anxiety disorder) - F41.1 Plan: * Treatment: 2. G AD (generalized anxiety disorder) Continue clonazePAM Tablet, 0.5 MG, 1 tablet twice a day, Orally, and may administer 1 tablet twice daily PRN x 90 days, 30 days, Refills 2; C ontinue hydrOXYzine Pamoate Capsule, 25 MG, 1 capsule every 8 hours, Orally, PRN x 14 days. 3. O thers Notes: 1) No changes to psychotropic medication regimen. Patient had increase of Latuda at last visit. 2) Information regarding co-dependency provided to patient during therapy session. 3) Continue to provide psychiatric support and medicationmanagement. Please call with signs of distress or mood changes that arise. Total time spent assessing patient, reviewing chart, andcoordinating care: 49 minutes * Procedures: P sychotherapy Total psychotherapy time: 31 minutes Therapy today was focused on: depression and anxiety symptom management, coping skills, codependency Targeted Symptoms: depression & anxiety Goals of Therapy: Alleviate stress, identifying negative emotions, thoughts, and/or behaviors, reinforce the ability to cope with life stressors, codependency Timeline to Goal: 6 months Techniques: Active and Empathetic Listening, Comforting, Therapeutic [place], CBT Progress in Therapy: Maintenance During the session the following topics were discussed: mood management, codependency Patient impression of therapy: continues with anxiety and depression symptoms due to significant psychostressors in her life, however, appears less depressed today after setting healthy boundaries. * Procedure Codes: 9 0833 PSYTX W PT W E/M 30 [id number] DOC PT HAS ACTIV DX DEPR/BIPOLR D/O * Follow Up: 2 weeks and as needed * Billing Information: * Visit Code: 75307 SNF Sub Level 3. * Procedure Codes: 49451 PSYTX W PT W E/M 30 MIN. G9717 DOC PT HAS ACTIV DX DEPR/BIPOLR D/O. * Sign off status: Completed true * Provider: Lexis Bowden APRN Date: 03/17/2025 Generated for Edward noguera/Melisa/Lowitting on: 04/09/2025 01:10 PM EDT History and Physical Notes * HPI (History of Present Illness) Category Sub-Category Detail Notes Category Not es Psychiatric Status Celia barron is a 59-year-old , female who resides at [facility] in [place], [place] since 12/25/2024. Patient is being treated for bipolar disorder, insomnia, and anxiety disorder. Patient is being seen for follow-up visit today to monitor mood symptoms and to provide medication management. Since last visit, patient had heart cath with stent placed. Patient completes antibiotic treatment for UTI today. Patient has been approved for Medicaid effective today and has been informed she is able to stay at facility as long as necessary to recover. Patient was seen in her room for visit today. Patient stated, I asked for help. Patient stated she turned over all her 's care to her adult children because she knows she can no longer make decisions for him due to the toll it is taking on her health. Clinician provided support and allowed patient to process feelings and praised patient for setting healthy boundaries. Patient was sitting in her wheelchair in her room during visit today. Patient was more positive today and appeared less depressed. Patient was able to hold logical conversation and process current issues. Patient was alert, depressed, talkative, and was cooperative throughout visit. [...]
--- OUTSIDE RECORDS SUMMARY | 2025-03-31 11:30 | XMS_ITS ---
Author Organization [facility] Address [address] [address] Care Team Providers Care Senior Behavioral Scientist Name Role Phone Raegan Bowden Primary Care Provider Allergies Allergen (clinical drug ingredient) Drug/Non Drug Allergy documented on EMR Reaction Allergy Type Onset Date Status sulfisoxazole sulfiSOXAZOLE Unknown Drug Allergy Active Substance with sulfonamide structure and antibacterial mechanism of action (substance) Sulfa Antibiotics Unknown Drug Allergy Active Iodine Unknown Drug Allergy Active povidone-iodine Betadine Unknown Drug Allergy A ctive REASON FOR VISIT I'm broken and I've always been this way Medications Medication SIG (Take, Route, Frequency, Duration) Notes Start Date End Date Status traZODone HCl 300 MG 1 tablet at bedtime Orally Once a day Active hydrOXYzine Pamoate 25 MG 1 capsule every 8 hours Orally PRN x 14 days Active clonazePAM 0.5 MG 1 tablet twice a day Orally and may administer 1 tablet once daily PRN x 90 days for 30 days 03/31/2025 - please verify this order - 0.5mg twice daily and 0.5mg once daily PRN x 90 days 03/31/2025 Active Latuda 80 MG 1 tablet Orally Once a day at 1700 with food for 30 days Active SEROquel 200 MG 1 tablet Orally Once a day Active Wellbutrin XL 300 MG 1 tablet in the morning Orally Once a day Active Encounters Encounter Location Date Provider Diagnosis [facility] [address] [place] [address] 03/31/2025 Raegan Bowden Bipolar disorder, current episode depressed, moderate F31.32 and ALEJANDRA (generalized anxiety disorder) F41.1 Assessments Encounter Date Diagnosis (ICD Code) Assessment Notes Treatment Notes Treatment Clinical Notes Section Notes 03/31/2025 Bipolar disorder, current episode depressed, moderate (ICD-10 - F31.32) 03/03/2025 - patient requested increase in Latuda dose. Patient stated she has been stable on current psychotropic medication regimen and requested no changes. Clinician discussed moving administration of Latuda to dinner meal since it needs to be taken with foodand she does not eat breakfast. 03/31/2025 ALEJANDRA (generalized anxiety disorder) (ICD-10 - F41.1) 03/31/2025 Other 1) No changes to psychotropic medication [...] tablet at bedtime Orally Once a day hydrOXYzine Pamoate 25 MG 1 capsule every 8 hours Orally PRN x 14 days clonazePAM 0.5 MG 1 tablet twice a day Orally and may administer 1 tablet once daily PRN x 90 days for 30 days 03/31/2025 03/31/2025 - please verify this order - 0.5mg twice daily and 0.5mg once daily PRN x 90 days Latuda 80 MG 1 tablet Orally Once a day at 1700 with food for 30 days SEROquel 200 MG 1 tablet Orally Once a day Wellbutrin XL 300 MG 1 tablet in the morning Orally Once a day Treatment Notes Assessment [...] as ne keke, Reason: Progress Notes * Brandy ZHANG: 4 (59 yo F)Acc No.[id number]:03/31/2025 Progress Notes Patient: Celia FLANNERY Provider: Lexis Bowden APRN :1965 A ge:59 Y S ex:Female Date:03/31/2025 Address:[address] [place] [address], [facility], [id number] Subjective: * Chief Complaints: * 1 . I'm broken and I've always been this way . * HPI: P sychiatric Status: Celia Zhang is a 59-year-old , female who resides at [facility] in [place], [place] since 12/25/2024. Patient is being treated [...] otherwise noted in HPI. * Medical History: B ipolar disorder, current episode depressed, moderate, Unspecified fracture of upper end of right tibia, subsequent encounter for closed fracture with routine healing. * Surgical History: A vailable for review in patient's record at facility . * Hospitalization/Major Diagno stic Procedure: Chani washburn reported repeated psychiatric hospitalizations due to depression. . * Family History: Patient has 4 adult children and cares for her with dementia. * Social History: Chani washburn has 4 adult children. Patient is the primary caregiver for her who has dementia. Patient has history of unsepcified trauma. * Medications: T aking Latuda 80 MG Tablet 1 tablet Orally Once a day at 1700 with food , Taking SEROquel 200 MG Tablet 1 tablet Orally Once a day , Taking Wellbutrin XL 300 MG Tablet Extended Release 24 Hour 1 tablet in the morning Orally Once a day , Taking traZODone HCl 300 MG Tablet 1 tablet at bedtime Orally Once a day , Taking clonazePAM 0.5 MG Tablet 1 tablet twice a day Orally and may administer 1 tablet twice daily PRN x 90 days , Taking hydrOXYzine Pamoate 25 MG Capsule 1 capsule every 8 hours Orally PRN x 14 days , Medication List reviewed and reconciled with the patient * Allergies: I odine, sulfiSOXAZOLE, Betadine, Sulfa Antibiotics. Objective: * Vitals: Assessment: * Assessment: 1. B ipolar disorder, current episode depressed, moderate - F31.32 (Primary) 2 . G AD (generalized anxiety disorder) - F41.1 Plan: * Treatment: 2. G AD (generalized anxiety disorder) Continue clonazePAM Tablet, 0.5 MG, 1 tablet twice a day, Orally, and may administer 1 tablet once daily PRN x 90 days, 30 days, 90, Refills 2, Notes to Pharmacist: 03/31/2025 - please verify this order - 0.5mg twice daily and 0.5mg once daily PRN x 90 days; C ontinue hydrOXYzine Pamoate Capsule, 25 MG, [...] Techniques: Active and Empathetic Listening, Comforting, Therapeutic [place], CBT Progress in Therapy: Maintenance During the session the following topics were discussed: mood management, codependency Patient impression of therapy: continues with anxiety and depression symptoms due to significant psychostressors in her life, however, appears less depressed today after setting healthy boundaries. * Procedure Codes: 9 0833 PSYTX W PT W E/M 30 MIN, G9717 DOC PT HAS ACTIV DX DEPR/BIPOLR D/O * Follow Up: 2 weeks and as needed * Billing Information: * Visit Code: 46469 SNF Sub Level 3. * Procedure Codes: 33896 PSYTX W PT W E/M 30 MIN. G9717 DOC PT HAS ACTIV DX DEPR/BIPOLR D/O. * Electronic signature of Virgen Bowden APRN on 04/09/2025 at 01:09 PM EDT Sign off status: Pending * Provider: Lexis Bowden APRN Date: 03/31/2025 Generated for Edward Myers/Maverick on: 04/09/2025 01:09 PM EDT History and Physical Notes * HPI (History of Present Illness) Category Sub-Category Detail Notes Category Not es Psychiatric Status Celia barron is a 59-year-old , female who resides at [facility] in [place], [place] since 12/25/2024. Patient is being treated [...]
--- NOTE | 2025-04-09 13:00 | CA_ITS ---
APPROVED REPORT EXAM: Comprehensive 2D, Doppler, and color-flow Echocardiogram Rounding Machine Tender: Susanna Teague CRT Ht: 5 ft 4 in Wt: 289lbs BSA: 2.29 BP: 113/71 mmHg Indications: Congestive Heart Failure, Shortness of Breath 2D Dimensions LA Volume 29.50 mL LA Volume Index 12.60 mL/m2 (M/F) 16-34 M-Mode Dimensions RVDd 2.39 cm (0.9-2.6) LA Diam 3.35 cm (1.9-4.0) LVDd 5.28 cm (3.5-5.7) LVDs 3.80 cm (3.5-5.7) IVSd 1.79 cm (0.6-1.1) PWd 0.53 cm (0.6-1.1) EF (Teich) 53.80% FS 28.00% EDV (Teich) 134.20 mL TAPSE 1.36 (<1.7) ESV (Teich) 62.00 mL LV Diastology E Decel Time 253 (160-240 msec) E/A Ratio 0.51 MED A' 10.80 cm/s LAT A' 8.60 cm/s Aortic Valve AI PHT 672.00 ms AO Peak GR. 4.60 mmHg Mitral Valve MV A Velocity 63.0 (40-130 cm/s) E/A Ratio 0.51 Tricuspid Valve TR P. Velocity 233.00 cm/s RAP Estimate 10.00 mmHg RVSP 31.80 mmHg Left Ventricle The left ventricle is normal size. Left ventricular systolic function is normal. The left ventricular ejection fraction is within the normal range. There is increased left ventricular wall thickness. There is normal LV segmental wall motion. The left ventricular diastolic function is normal. LVEF is 55% Right Ventricle The right ventricle is not very well visualized, but grossly appears normal in size and function. Atria The left atrium size is normal. The right atrium size is normal. There is no color Doppler evidence of interatrial shunt. Aortic Valve The aortic valve is mildly thickened. There is no hemodynamically significant aortic valvular stenosis. Mild aortic regurgitation is present. Mitral Valve The mitral valve is normal in structure. No evidence of mitral valve stenosis. Trace mitral regurgitation is present. Tricuspid Valve The tricuspid valve leaflets are thin and pliable. Trace tricuspid regurgitation. There is insufficient TR jet to estimate RVSP. Pulmonic Valve The pulmonary valve is grossly normal in structure. Trace pulmonic valve regurgitation is present. Great Vessels The aortic root is normal in size. IVC is normal in size and collapses >50% with inspiration. Pericardium There is no pericardial effusion. Other Information Study Quality: Technically Difficult Conclusion Technically difficult study. Normal biventricular systolic function. Mild AI. Electronically signed by : Romina Weathers MD 04/10/2025 11:31:35
--- OUTSIDE RECORDS SUMMARY | 2025-04-09 13:08 | XMS_ITS | Clinical Summary ---
Author Organization [facility] are Address [address] [place] [id number] Phone Care Team Providers Care Career Development Engineer Name Role Phone Unavailable Unavailable Conditions or Problems No information available. Medications No information available. Medications Administered No information available. Allergies, Adverse Reactions, Alerts No information available. Results No information available. Plan of Care No information available. Procedures No information available. Vital Signs No information available. Immunizations No information available. Advance Directives No information available.
--- OUTSIDE RECORDS SUMMARY | 2025-04-09 13:09 | XMS_ITS | Encounter Summary ---
Author Organization [employer] ([place], [place], [place], [place]) Address [address] [place] [address] Care Team Providers Care Paramedic Instructor Name Role Phone Unavailable Primary Care Provider Unavailabl e Encounter Details Date Type Department Care Team (Late st Contact Info) Description 07/31/2019 Transcribed Document [facility] [place] [facility] [place] [facility] [place] [address] ProviderMaximiliano MD [address] [place] [place], [place] [id number] Social History Tobacco Use Types Packs/Day Years Used Date Smoking Tobacco: Never Assessed Comments Unknown Sex and Gender Information Value Date Recorded Sex Assigned at Not on file Legal Sex Female 1:06 PM CDT Gender Identity Not on file Sexual Orientation Not on file documented as of this encounter Miscellaneous Notes * Cerner Conversion Note - Historical ProviderMD - 07/31/2019 3:26 PM GRASSLAND CONSERVATIONIST [facility] IntraOp Summary Primary Physician: BART MURPHY MD-GAE Finalized Date/Time: 07/31/19 15:54:48 Pt. Name: ISA ZHANGO.B./Sex: 1965 Female Med Rec #: [id number] Physician: BART MURPHY MD-GAE Financial #: [id number] Pt. Type: O Room/Bed: [facility] Admit/Disch: 07/31/19 13:06:00 - Institution: [facility] - Case Attendance Entry 1 Entry 2 Entry 3 Case Attendee BART MURPHY MD-GAE WALLACE, HEATHER, LAM MCARTHUR, IN SERVICE COORDINATOR Role Performed Surgeon/Proceduralist, Biodiesel Production Associate, First IN SERVICE COORDINATOR/Nurse Processing Archivist First Time In 07/31/19 15:20:00 07/31/19 15:20:00 [...] Endo - Case Attendance Audit 07/31/19 15:54:43 Doctor Of Pharmacy: YEISON Modifier: BRYANTHE 1 <+> Time Out 1 <*> Procedure Gastric Biopsy 2 <+> Time Out 2 <*> Procedure Esophagogastroduodenoscopy, Colonoscopy, Gastric Biopsy 3 <+> Time Out 3 <*> Procedure Esophagogastroduodenoscopy, Colonoscopy, Gastric Biopsy 4 <+> Time Out 4 <*> Procedure Esophagogastroduodenoscopy, Colonoscopy, Gastric Biopsy 07/31/19 15:48:23 Doctor Of Pharmacy: YEISON Modifier: BRYANTHE <+> 1 Procedure 2 [...] Endo - Case Times Audit 07/31/19 15:54:42 Doctor Of Pharmacy: YEISON Modifier: BRYANTHE <+> 1 Out Room Time <+> 1 Stop Time 07/31/19 15:51:22 Doctor Of Pharmacy: YEISON Modifier: BRYANTHE <+> 1 Stop Time 07/31/19 15:26:38 Doctor Of Pharmacy: ANTONIOANTHE Modifier: BRYANTHE <+> 1 Start Time [...] 07/31/19 15:22:32 [facility] - General Case Motor Analyst 1 Case Information OR Endo 01 E Case Level 1 Room Verified Yes Wound Class III - Contaminated Specialty SN Gastroenterology Anesthesia Type MAC ASA Class 4 Diagnosis Preop Diagnosis History of Polyps, Dysphagia Postop Same As Preop No Postop Diagnosis Hemorroids, Diverticulosis, Prior Surgery, Hiatal Hernia, Irregular Z-line, Corragated Esophagus Last Modified By: OSWALDO AMIN RN 07/31/19 15:52:48 [facility] Endo - General Case Data Audit 07/31/19 15:52:48 Doctor Of Pharmacy: YEISON Modifier: BRYANTHE 1 <*> Postop Diagnosis Hemorroids, Diverticulosis, Prior Surgery 07/31/19 15:49:02 Doctor Of Pharmacy: YEISON Modifier: BRYANTHE <+> 1 Postop Diagnosis 07/31/19 15:24:43 Doctor Of Pharmacy: ANTONIOANTHE Modifier: BRYANTHE 1 <*> Preop Diagnosis E Endo - Intraoperative Assessment Entry 1 Valid History / Yes Physical in Chart Preoperative Yes Checklist Reviewed/Evaluated Allergies Reviewed Yes Patient is Latex No Sensitive Level of WDL Consciousness (WDL = Alert, Oriented to Person, Place, and Time) Present Upon IVs, ECG monitored Arrival to OR Last Modified By: OSWALDO AMIN RN 07/31/19 15:23:56 [facility] Endo - Intraoperative Equipment Entry 1 Entry [...] WALLACE, HEATHER, RN 07/31/19 15:25:14 07/31/19 15:25:16 [facility] Endo - Intraoperative Equipment Audit 07/31/19 15:25:16 Doctor Of Pharmacy: YEISON Modifier: BRYALEJANDROE <+> 2 Photo <+> [...] Endo - Patient Positioning Audit 07/31/19 15:48:24 Doctor Of Pharmacy: YEISON Modifier: YEISON Raya <*> Procedure Esophagogastroduodenoscopy, [...] Endo - Surgical Procedures Audit 07/31/19 15:51:27 Doctor Of Pharmacy: YEISON Modifier: BRYANTHE 1 <*> Stop 3 <*> Stop 07/31/19 15:48:20 Doctor Of Pharmacy: YEISON Modifier: BRYANTHE 1 <*> Procedure Esophagogastroduodenoscopy 1 <*> Procedure Esophagogastroduodenoscopy 1 <*> Start 07/31/19 15:26:00 1 <*> Start 07/31/19 15:26:00 3 <*> Procedure 3 <*> Primary Procedure 3 <*> Primary Surgeon BART MURPHY MD-GAE 3 <*> Specialty 3 <*> Start 3 <*> Wound Class 3 <*> Anesthesia Type 07/31/19 15:41:15 Doctor Of Pharmacy: YEISON Modifier: BRYANTHE 2 <*> Procedure Colonoscopy 2 <*> Procedure Colonoscopy 2 <*> Procedure Colonoscopy 2 <*> Stop 2 <*> Stop 07/31/19 15:28:12 Doctor Of Pharmacy: ANTONIOANTHE Modifier: BRYANTHE 1 <*> Start 2 [...] Endo - Time Out Audit 07/31/19 15:48:25 Doctor Of Pharmacy: YEISON Modifier: YEISON 1 <*> Procedure to be Performed Esophagogastroduodenoscopy, Colonoscopy Case Comments <None> Finalized By: OSWALDO AMIN, RN Document Signatures Signed By: OSWALDO AMIN RN 07/31/19 15:54 Electronically signed by Brigitte [place] Conversion [employer] Science Teacher Cerner at 12/28/2022 7:54 AM CDT documented in this encounter Plan of Treatment Not on file documented as of this encounter Visit Diagnoses Not on filedocumented in this encounter
--- OUTSIDE RECORDS SUMMARY | 2025-04-09 13:09 | XMS_ITS | Encounter Summary ---
Author Organization [employer] ([place], [place], [place], [place]) Address [address] [place] [address] Care Team Providers Care Psychologist Chief Name Role Phone Unavailable Primary Care Provider Unavailabl e Encounter Details Date Type Department Care Team (Late st Contact Info) Description 03/17/2021 Transcribed Document [facility] [place] [facility] [place] [address] ProviderMaximiliano MD [address] [place], [place] [id number] Social History Tobacco Use Types Packs/Day Years [...] these instructions at home: Medicines ??? Take ptin-uxd-pznjppt and prescription medicines only as told by your health care provider. Insertion site care ??? Follow instructions from your health care provider about how to take care of your insertion site. Make sure you: ? Wash your hands with soap and water before you change your bandage (dressing). If soap and water are not available, use hand editorial cartoonist. ? Change your dressing as told by [...] provider. Document Revised: 10/03/2018 Document Reviewed: 10/03/2018 Inviragen Patient Education ? 2020 [employer] Inc. Pharmacology Moderate Conscious Sedation, Adult, Care [...] you are awake and alert. ??? Take qtas-mxd-inowxxd and prescription medicines only as told by [...] provider. Document Revised: 08/10/2018 Document Reviewed: 12/17/2016 Inviragen Patient Education ? 2020 [employer]. Radiology Transradial Angiogram A transradial angiogram is [...] including vitamins, herbs, eye drops, creams, and bqpk-ewr-grnxfdo medicines. ??? Any problems you or family [...] tells you to take them. ??? Taking eklj-uij-tewiygf medicines, vitamins, herbs, and supplements. Exams and [...] Reviewed: 07/22/2019 Elsevier Patient Education ? 2020 In[employer] Inc. documented in this encounter Plan of Treatment Not on file documented as of this encounter Visit Diagnoses Not on filedocumented in this encounter
--- OUTSIDE RECORDS SUMMARY | 2025-04-09 13:09 | XMS_ITS | Clinical Summary ---
Author Organization [facility] Address [address] [facility] [place] [address] Phone Care Team Providers Care Picker Box Operator Name Role Phone Unavailable Primary Care Provider [...] SECTION Medical History Medical History Date Comments OK, old pt states 3 MIs Stomach ulcer [...] EST Impressions 08/14/2020 3:13 PM EST Negative (SDD-Mcymevkc-2) ~ RECOMMENDATION: Routine screening mammogram in 1 [...] the next mammogram, in accordance with the [place] [employer] and the Society of Breast Imaging recommendations. Narrative 08/14/2020 3:13 PM EST Procedure:MM MAMMO DIGITAL HECTOR SCREEN BILAT ~ Reason for exam: screening, asymptomatic. Z12.31-Encounter for screening mammogram for malignant neoplasm of mteuvm-XUL-98-CM ~ MM MAMMO DIGITAL HECTOR SCREEN BILAT [...] for screening mammogram for malignant neoplasm of ednaqe-GFX-17-CM ~ MM MAMMO DIGITAL HECTOR SCREEN BILAT Bilateral CC and MLO view(s) were taken. There are scattered fibroglandular densities. Prior study comparison: Compared with prior studies the most recentbeing No prior studies available for comparison. No mammographic evidence of malignancy. ~ IMPRESSION: Negative (ZCY-Dputiwit-0) ~ RECOMMENDATION: Routine screening mammogram in 1 [...] the next mammogram, in accordance with the [place] [employer] and the Society of Breast Imaging recommendations. us Esthela G Francois FUEL MANAGEMENT HANDLER IMG MAMMOGRAPHY ORDERABLE S Final Result from Last 3 Months or Most Recently Relevant to Health Maintenance Insurance [employer] MEDICARE HMO MR
--- OUTSIDE RECORDS SUMMARY | 2025-04-09 13:09 | XMS_ITS | Encounter Summary ---
Author Organization [employer] ([place], [place], [place], [place]) Address [address] [place] [address] Care Team Providers Care Ball Shagger Name Role Phone Unavailable Primary Care Provider Unavailabl e Encounter Details Date Type Department Care Team (Late st Contact Info) Description 03/17/2021 Transcribed Document [facility] [place] Family Medicine [address] [place] [address] ProviderMaximiliano MD [address] [place] [address] Social History Tobacco Use Types [...] Maximiliano ProviderMD - 03/17/2021 4:34 PM CDT [facility] [address] ISA ZHANG :1965 Visit Time:03/17/2021 [...] Where: [address] [place] [address] [place] [phone] Business (1) Medications What How Much When [...] you are awake and alert. ??? Take eayk-vnc-aoweseo and prescription medicines only as told by [...] provider. Document Revised: 08/10/2018 Document Reviewed: 12/17/2016 OnMyBlock Patient Education ?? 2020 [employer]. Transradial Angiogram A transradial angiogram is an [...] including vitamins, herbs, eye drops, creams, and sqlf-zbq-fckxguc medicines. ??? Any problems you or family [...] tells you to take them. ??? Taking egvw-efa-agfqhqv medicines, vitamins, herbs, and supplements. Exams and [...] provider. Document Revised: 07/22/2019 Document Reviewed: 07/22/2019 OnMyBlock Patient Education ?? 2020 [employer]. Radial Site Care This sheet gives you [...] these instructions at home: Medicines ??? Take vqqt-zyw-bshxgem and prescription medicines only as told by your health care provider. Insertion site care ??? Follow instructions from your health care provider about how to take care of your insertion site. Make sure you: ? Wash your hands with soap and water before you change your bandage (dressing). If soap and water are not available, use hand pack mule worker. ? Change your dressing as told by [...] Reviewed: 10/03/2018 Elsevier Patient Education ?? 2020 [employer]My[employer] Inc. Emergency Awareness and Preventative Care STROKE [...] Assistance with quitting is available by contacting 9-152-CTRA-NOW. This is a free resource providing counseling, [...] was given the opportunity to ask questions. Patient/Tax Services Professional Name: Patient/Tax Services Professional Signature: Relationship to Patient: Clinician/Hospital Tax Services Professional Signature: Date: documented in this encounter Plan of Treatment Not on file documented as of this encounter Visit Diagnoses Not on filedocumented in this encounter
--- OUTSIDE RECORDS SUMMARY | 2025-04-09 13:10 | XMS_ITS | Encounter Summary ---
Author Organization [employer] ([place], [place], [place], [place]) Address [address] [place] [address] Care Team Providers Care Wound/Ostomy Clinical Nurse Specialist Name Role Phone Unavailable Primary Care Provider Unavailabl e Encounter Details Date Type Department Care Team (Late st Contact Info) Description 07/31/2019 Transcribed Document [facility] [place] [facility] [place] [address] ProviderMaximiliano MD [address], [place] [phone] Social History Tobacco Use Types Packs/Day Years Used Date Smoking Tobacco: Never Assessed Comments Unknown Sex and Gender Information Value Date Recorded Sex Assigned at Not on file Legal Sex Female 1:06 PM CDT Gender Identity Not on file Sexual Orientation Not on file documented as of this encounter Miscellaneous Notes * Cerner Conversion Note - Historical ProviderMD - 07/31/2019 1:19 PM BEHAVIORAL INSTRUCTOR Pre Procedure Adult Entered On: 07/31/2019 13:22 EST Performed On: 07/31/2019 13:19 EST by Katelin Abrams RN Height and Weight, Clinical Dosing Height Source : Stated Height Entry Format : [place] Height, Feet : 5 ft(Converted to: 152 cm, 60 Inch) Height, Inches : 4 Inch(Converted to: 0 ft 4 Inch, 10.16 cm) Clinical Height : 162.56 cm Weight Source : Standing scale Weight Entry Format : [place] Clinical Dosing Weight : 136.02 kg Weight, Pounds : 299 lb Weight, Ounces : 4 oz Body Surface Area (BSA) : 2.32 m2 Body Mass Index : 51.5 kg/m2 (>HHI) [place] Body Weight : 54 kg Katelin Abrams [...] Katelin Abrams RN - 07/31/2019 13:19 EST [place] Suicide Severity Rating Scale (C-SSRS) CSSRS Past [...] Ambulatory Legal Guardian : Spouse Support Person/Patient Data Warehousing Manager : Yes Support Person/Pt Rep Name : Kiko Support Person/Pt Rep Contact Information : [phone] Want Family/Rep/Phys Notified of Admit : No Emergency Contact #1 : na Emergency Contact #1 Phone Number : na Emergency Contact #1 Relationship : na Emergency Contact #2 : na Emergency Contact #2 Phone Number : na Emergency Contact #2 Relationship : na Information Obtained From : Patient Primary Language : Turkmen Preferred Communication Mode : Verbal Communication Barrier [...] Hx Falls Immediate/Within 3 Months : No Enriuqez Secondary Diagnosis : No ENRIQUEZ Use of Ambulatory Aid : None ENRIQUEZ IV Therapy or IV Access : Yes Enriquez Gait/Transferring : Normal, bedrest, immobile Enriquez Mental Status : Oriented to own ability ENRIQUEZ Fall Scale Risk Level : 0-24 Low Risk [place] Fall Interventions : Adequate lighting, Assistive devices [...]
--- OUTSIDE RECORDS SUMMARY | 2025-04-09 13:10 | XMS_ITS | Referral Summary ---
Author Organization [employer] ([place], [place], [place], [place]) Address [address] [place] [address] Care Team Providers Care Agribusiness Internship Name Role Phone Unavailable Primary Care [...]
--- OUTSIDE RECORDS SUMMARY | 2025-04-09 13:10 | XMS_ITS | Encounter Summary ---
Author Organization [employer] ([place], [place], [place], [place]) Address [address] [place] [address] Care Team Providers Care Director Of Market Analysis Name Role Phone Unavailable Primary Care Provider Unavailabl e Encounter Details Date Type Department Care Team (Late st Contact Info) Description 03/17/2021 Transcribed Document [facility] [place] Family Medicine [facility] [place] [address] ProviderMaximiliano MD [facility] [place], [place] [id number] Social History Tobacco Use Types Packs/Day Years [...] On: 03/17/2021 16:26 EDT by NIDHI JUAN bell ringer Documentation Discharge Date/Time : 03/17/2021 16:39 EDT NIDHI JUAN RN - 03/17/2021 16:39 EDT Patient [...] NIDHI JUAN RN - 03/17/2021 16:26 EDT Electronically signed by Chanel Briggs Conversion Rotary Slicing Machine Operator Cerner at 12/28/2022 7:34 AM CDT documented in this encounter Plan of Treatment Not on file documented as of this encounter Visit Diagnoses Not on filedocumented in this encounter
--- OUTSIDE RECORDS SUMMARY | 2025-04-09 13:10 | XMS_ITS | Encounter Summary ---
Author Organization [employer] ([place], [place], [place], [place]) Address [address] [place] [address] Care Team Providers Care Adapted Physical Education Aide Name Role Phone Unavailable Primary Care Provider Unavailabl e Encounter Details Date Type Department Care Team (Late st Contact Info) Description 07/31/2019 Transcribed Document [facility] [place] [facility] [place] [address] Maximiliano Valentin MD [address], [place] [id number] Social History Tobacco Use Types Packs/Day Years Used Date Smoking Tobacco: Never Assessed Comments Unknown Sex and Gender Information Value Date Recorded Sex Assigned at Not on file Legal Sex Female 1:06 PM CDT Gender Identity Not on file Sexual Orientation Not on file documented as of this encounter Miscellaneous Notes * Cerner Conversion Note - Maximiliano Valentin MD - 07/31/2019 4:18 PM WHISKEY PROOF READER Patient Education Materials Follows: Monitored Anesthesia Care, [...] eating solid foods. General instructions ??? Take vrow-oif-htxvzyx and prescription medicines only as told by [...] 12/18/2016 Document Revised: 04/13/2018 Document Reviewed: 12/18/2016 Xcell Medical Interactive Patient Education ? 2019 X[employer] Medical Inc. Steps to Quit Smoking Smoking tobacco [...] 06/24/2010 Document Revised: 04/25/2017 Document Reviewed: 01/12/2016 [employer] Interactive Patient Education ? 2019 [employer]ink. Colonoscopy, Adult, Care After This sheet gives [...] soft and easy to digest. ??? Take nmtx-tpu-endptbe or prescription medicines only as told by [...] 09/30/2011 Document Revised: 06/28/2018 Document Reviewed: 05/22/2017 ElseAirPR Interactive Patient Education ? 2019 Elsevier Inc. [...] 08/14/2013 Document Revised: 02/02/2017 Document Reviewed: 07/21/2016 [employer] Interactive Patient Education ? 2019 [employer] Inc. Hemorrhoids Hemorrhoids are swollen veins in [...] times a day. General instructions ??? Take eeya-tef-xaoywpy and prescription medicines only as told by [...] 06/06/2009 Document Revised: 02/02/2017 Document Reviewed: 05/11/2016 [employer]cell [employer] Interactive Patient Education ? 2019 [employer] Inc. Diverticulosis Diverticulosis is a condition that [...] getting enough exercise. ??? Smoking. ??? Taking jrpf-xpw-ygjwxwz pain medicines, like aspirin and ibuprofen. ??? [...] health care provider or your diet and certified nutritionist (dietitian). ? Take a fiber supplement or probiotic, if your health care provider approves. ??? Take jrlo-qur-xcgricv and prescription medicines only as told by [...] 05/25/2005 Document Revised: 07/17/2017 Document Reviewed: 07/17/2017 X[employer] Interactive Patient Education ? 2019 [employer] Inc. Hiatal Hernia A hiatal hernia occurs [...] symptoms. ??? Medicines. These may include: ? Lcnn-bfv-iqwihdm antacids. ? Medicines that make your stomach [...] ? Fatty foods, like fried foods. ? [place] fruits, like oranges or lemon. ? Other [...] not drink alcohol. General instructions ??? Take ybzq-lbi-oymzrka and prescription medicines only as told by [...] 11/17/2004 Document Revised: 04/02/2018 Document Reviewed: 04/02/2018 ElseAirPR Interactive Patient Education ? 2019 X[employer] Inc. documented in this encounter Plan of Treatment Not on file documented as of this encounter Visit Diagnoses Not on filedocumented in this encounter
--- OUTSIDE RECORDS SUMMARY | 2025-04-09 13:10 | XMS_ITS | Encounter Summary ---
Author Organization [employer] ([place], [place], [place], [place]) Address [address] [place] [address] Care Team Providers Care Gaming Dealer Name Role Phone Unavailable Primary Care Provider Unavailabl e Encounter Details Date Type Department Care Team (Late st Contact Info) Description 03/17/2021 Transcribed Document [facility] [place] Family Medicine [facility] [place] [address] ProviderMaximiliano MD [address] [place], [place] [id number] Social History Tobacco Use Types Packs/Day Years [...] EDT Description of Event : Return from assistant laboratory director per stretcher awake and alert, skin w/d, [...]
--- OUTSIDE RECORDS SUMMARY | 2025-04-09 13:10 | XMS_ITS | Encounter Summary ---
Author Organization [employer] ([place], [place], [place], [place]) Address [address] [place] [address] Care Team Providers Care Vending Machine Filler Name Role Phone Unavailable Primary Care Provider Unavailabl e Encounter Details Date Type Department Care Team (Late st Contact Info) Description 07/31/2019 Transcribed Document [facility] [place] [facility] [place] [address] ProviderMaximiliano MD [address], [place] [id number] Social History Tobacco Use Types Packs/Day Years Used Date Smoking Tobacco: Never Assessed Comments Unknown Sex and Gender Information Value Date Recorded Sex Assigned at Not on file Legal Sex Female 1:06 PM CDT Gender Identity Not on file Sexual Orientation Not on file documented as of this encounter Miscellaneous Notes * Cerner Conversion Note - Historical ProviderMD - 07/31/2019 2:00 PM CIRCUS ROUSTABOUT [facility] PreOp Summary Primary Physician: BART MURPHY MD-GAE Finalized Date/Time: 07/31/19 13:34:58 Pt. Name: ISA ZHANG D.O.B./Sex: 1965 Female Med Rec #: [id number] Physician: BART MURPHY MD-GAE Financial #: [id number] Pt. Type: O Room/Bed: [facility]/ Admit/Disch: 07/31/19 13:06:00 - Institution: [facility] [...]
--- OUTSIDE RECORDS SUMMARY | 2025-04-09 13:10 | XMS_ITS | Encounter Summary ---
Author Organization [employer] ([place], [place], [place], [place]) Address [address] [place] [address] Care Team Providers Care Net Software Engineer Name Role Phone Unavailable Primary Care Provider Unavailabl e Encounter Details Date Type Department Care Team (Late st Contact Info) Description 02/10/2021 Transcribed Document [facility] [place] Family Medicine [place] [address] Maximiliano Valentin MD [address] [place], [place] [id number] Social History Tobacco Use Types Packs/Day Years [...] mask and 2 L of supplemental oxygen. /[id number] Cecille Brianna Rivas MD PW/AQ / PW / MODL /[id number] CC: Emily Lawrence MD Electronically signed by Brigitte, [facility] Conversion Rn Shift Mgr Cerner at 12/28/2022 7:55 AM CDT documented in this encounter Plan of Treatment Not on file documented as of this encounter Visit Diagnoses Not on filedocumented in this encounter
--- OUTSIDE RECORDS SUMMARY | 2025-04-09 13:10 | XMS_ITS | Encounter Summary ---
Author Organization [employer] ([place], [place], [place], [place]) Address [address] [place] [address] Care Team Providers Care Comprehensive Advisor Name Role Phone Unavailable Primary Care Provider Unavailabl e Encounter Details Date Type Department Care Team (Late st Contact Info) Description 07/31/2019 Transcribed Document [facility] [place] Family Medicine [facility] [place] [address] ProviderMaximiliano MD [address], [place] [id number] Social History Tobacco Use Types Packs/Day Years Used Date Smoking Tobacco: Never Assessed Comments Unknown Sex and Gender Information Value Date Recorded Sex Assigned at Not on file Legal Sex Female 1:06 PM CDT Gender Identity Not on file Sexual Orientation Not on file documented as of this encounter Miscellaneous Notes * Cerner Conversion Note - Historical ProviderMD - 07/31/2019 3:26 PM ENVIRONMENTAL CONFLICT MANAGER [facility] PACU Summary Primary Physician: BART MURPHY MD-GAE Finalized Date/Time: 07/31/19 16:30:11 Pt. Name: ISA ZHANG D.O.B./Sex: 1965 Female Med Rec #: [id number] Physician: BART MURPHY MD-GAE Financial #: [id number] Pt. Type: O Room/Bed: [facility] [place]/ Admit/Disch: 07/31/19 13:06:00 - Institution: [facility] PACU Case Times Entry 1 In PACU I 07/31/19 15:56:00 Ready for PACU 07/31/19 16:25:00 Discharge Discharge from PACU 07/31/19 16:30:00 I [facility] PACU Case Times Audit 07/31/19 16:30:10 Terminal Manager: YEISON Modifier: BRYANTHE <+> 1 Discharge from PACU I 07/31/19 16:25:56 Terminal Manager: YEISON Modifier: BRYANTHE <+> 1 Ready for PACU Discharge Finalized By: OSWALDO AMIN RN Document Signatures Signed By: OSWALDO AMIN RN 07/31/19 16:30 Electronically signed by Brigitte [facility] Conversion Drag Seiner Cerner at 12/28/2022 7:27 AM CDT documented in this encounter Plan of Treatment Not on file documented as of this encounter Visit Diagnoses Not on filedocumented in this encounter
--- OUTSIDE RECORDS SUMMARY | 2025-04-09 13:10 | XMS_ITS | Encounter Summary ---
Author Organization [employer] ([place], [place], [place], [place]) Address [address] [place] [address] Care Team Providers Care Water Treatment Plant Mechanic Name Role Phone Unavailable Primary Care Provider Unavailabl e Encounter Details Date Type Department Care Team (Late st Contact Info) Description 03/17/2021 Transcribed Document [facility] [place] [address] [place] [address] ProviderMaximiliano MD [address] [place], [place] [id number] Social History Tobacco Use Types Packs/Day Years [...] NIDHI JUAN RN - 03/17/2021 16:10 EDT Electronically signed by Chanel Briggs Conversion Shipping Services Sales Representative Cerner at 12/28/2022 7:37 AM CDT documented in this encounter Plan of Treatment Not on file documented as of this encounter Visit Diagnoses Not on filedocumented in this encounter
--- OUTSIDE RECORDS SUMMARY | 2025-04-09 13:10 | XMS_ITS | Encounter Summary ---
Author Organization [employer] ([place], [place], [place], [place]) Address [address] [place] [address] Care Team Providers Care Youth Director Name Role Phone Unavailable Primary Care Provider Unavailabl e Encounter Details Date Type Department Care Team (Late st Contact Info) Description 03/17/2021 Transcribed Document [facility] [place] [facility] [place] [address] ProviderMaximiliano MD [address], [place] [id number] Social History Tobacco Use Types Packs/Day Years [...] Source : Stated Height Entry Format : Moca Height, Feet : 5 ft(Converted to: 152 cm, 60 Inch) Height, Inches : 4 Inch(Converted to: 0 ft 4 Inch, 10.16 cm) Clinical Height : 162.56 cm Weight Source : Standing scale Weight Entry Format : Moca Clinical Dosing Weight : 144.09 kg Weight, Pounds : 317 lb Body Surface Area (BSA) : 2.38 m2 Body Mass Index : 54.5 kg/m2 (>HHI) [place] Body Weight : 54 kg NIDHI JUAN [...] NIDHI JUAN RN - 03/17/2021 8:30 EDT [place] Suicide Severity Rating Scale (C-SSRS) CSSRS Past [...] Spouse Legal Guardian : No Support Person/Patient Customer Account Administrator : Yes Support Person/Pt Rep Name : Kiko Support Person/Pt Rep Contact Information : [phone] Want Family/Rep/Phys Notified of Admit : No Emergency Contact #1 : Kiko Emergency Contact #1 Emergency Contact #1 Relationship : spouse Emergency Contact #2 : n/a Emergency Contact #2 Phone Number : n/a Emergency Contact #2 Relationship : n/a Chief Complaint : L/C Information Obtained From : Patient Primary Language : Gambian Preferred Communication Mode : Verbal Communication Barrier : None Bin Worker Needed : No NIDHI JUAN RN - [...] Scale Risk Level : 0-24 Low Risk [place] Fall Interventions : Adequate lighting, Assistive devices [...]
--- OUTSIDE RECORDS SUMMARY | 2025-04-09 13:10 | XMS_ITS | Encounter Summary ---
Author Organization [employer] ([place], [place], [place], [place]) Address [address] [place] [address] Care Team Providers Care Linking Machine Operator Name Role Phone Unavailable Primary Care Provider Unavailabl e Encounter Details Date Type Department Care Team (Late st Contact Info) Description 07/31/2019 Transcribed Document [facility] [place] Family Medicine [address] [place] [address] ProviderMaximiliano MD [address], [place] [id number] Social History Tobacco Use Types Packs/Day Years Used Date Smoking Tobacco: Never Assessed Comments Unknown Sex and Gender Information Value Date Recorded Sex Assigned at Not on file Legal Sex Female 1:06 PM CDT Gender Identity Not on file Sexual Orientation Not on file documented as of this encounter Miscellaneous Notes * Cerner Conversion Note - Historical ProviderMD - 07/31/2019 4:25 PM 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 General instructions ??? Take zjux-dqg-bubbkgi and prescription medicines only as told by [...] 12/18/2016 Document Revised: 04/13/2018 Document Reviewed: 12/18/2016 [employer] Interactive Patient Education ?? 2019 [employer]. Steps to Quit Smoking Smoking tobacco can [...] 06/24/2010 Document Revised: 04/25/2017 Document Reviewed: 01/12/2016 [employer] Interactive Patient Education ?? 2019 Else[employer] Inc. [...] soft and easy to digest. ??? Take ojts-ogb-dptalyg or prescription medicines only as told by [...] 09/30/2011 Document Revised: 06/28/2018 Document Reviewed: 05/22/2017 [employer] Interactive Patient Education ?? 2019 [employer]. Esophagogastroduodenoscopy, Care After Refer to this [...] 08/14/2013 Document Revised: 02/02/2017 Document Reviewed: 07/21/2016 [employer] Interactive Patient Education ?? 2019 [employer]. Hemorrhoids Hemorrhoids are swollen veins in [...] times a day. General instructions ??? Take azwc-udj-amrkzth and prescription medicines only as told by [...] 06/06/2009 Document Revised: 02/02/2017 Document Reviewed: 05/11/2016 [employer] Interactive Patient Education ?? 2019 [employer]. Diverticulosis Diverticulosis is a condition that develops [...] getting enough exercise. ??? Smoking. ??? Taking tvyv-vmd-gbmqtxi pain medicines, like aspirin and ibuprofen. ??? [...] health care provider or your diet and retina subspecialist (dietitian). ? Take a fiber supplement or probiotic, if your health care provider approves. ??? Take jlvy-jvs-gvyekrz and prescription medicines only as told by [...] 05/25/2005 Document Revised: 07/17/2017 Document Reviewed: 07/17/2017 [employer] Interactive Patient Education ?? 2019 [employer]. Hiatal Hernia A hiatal hernia occurs [...] symptoms. ??? Medicines. These may include: ? Tjvy-izs-xqmvmld antacids. ? Medicines that make your stomach [...] ? Fatty foods, like fried foods. ? [place] fruits, like oranges or lemon. ? Other [...] not drink alcohol. General instructions ??? Take giwp-moi-jevxexa and prescription medicines only as told by [...] 11/17/2004 Document Revised: 04/02/2018 Document Reviewed: 04/02/2018 [employer] Interactive Patient Education ?? 2019 [employer]. Emergency Awareness and Preventative Care STROKE is [...] Assistance with quitting is available by contacting 3-180-PSNE-NOW. This is a free resource providing counseling, [...] was given the opportunity to ask questions. Patient/Home Fire Alarm Installer Name: Patient/Home Fire Alarm Installer Signature: Relationship to Patient: Clinician/Hospital Home Fire Alarm Installer Signature: Date: documented in this encounter Plan of Treatment Not on file documented as of this encounter Visit Diagnoses Not on filedocumented in this encounter
--- OUTSIDE RECORDS SUMMARY | 2025-04-09 13:10 | XMS_ITS | Clinical Summary ---
Author Organization [facility] Address [address] [place] [address] Care Team Providers Care Atm Servicer Name Role Phone Kobe Steele MD Primary Care Provider [phone] Social History Tobacco Use Types Packs/Day Years [...] Vaccines (3 of 3) 09/16/2022 07/22/2022, 04/25/2016 [id number] Vaccine ( - 2023- season) 2024 UKY-Influenza [...] this topic Insurance [employer] MEDICARE Care Teams Atm Servicer Relationship Specialty Start Date End Date Kobe Steele MD [address] [place] [address] [address] PCP - General 01/22/21
--- OUTSIDE RECORDS SUMMARY | 2025-04-09 13:10 | XMS_ITS | Encounter Summary ---
Author Organization [employer] ([place], [place], [place], [place]) Address [address] [place] [address] Care Team Providers Care Breaker Up Name Role Phone Unavailable Primary Care Provider Unavailabl e Encounter Details Date Type Department Care Team (Late st Contact Info) Description 03/17/2021 Transcribed Document [facility] [place] [address] [place] [address] ProviderMaximiliano MD [address] [place], [place] [id number] Social History Tobacco Use Types Packs/Day Years [...] RN for Dr. Kat and Kathrine RT cath lab tech NIDHI JUAN RN - 03/17/2021 9:53 EDT documented in this encounter Plan of Treatment Not on file documented as of this encounter Visit Diagnoses Not on filedocumented in this encounter
--- OUTSIDE RECORDS SUMMARY | 2025-04-09 13:10 | XMS_ITS | Patient Health Record ---
Author Organization [facility] Address [address] [address] Care Team Providers Care Community Specialist Name Role Phone Raegan Bowden Primary Care Provider [phone] Allergies Allergen (clinical drug ingredient) Drug/Non Drug Allergy documented on EMR Reaction Allergy Type Onset Date Status sulfisoxazole sulfiSOXAZOLE Unknown Drug Allergy Active Substance with sulfonamide structure and antibacterial mechanism of action (substance) Sulfa Antibiotics Unknown Drug Allergy Active Iodine Unknown Drug Allergy Active povidone-iodine Betadine Unknown Drug Allergy A ctive Reason For Referral No Information Medications Medication [...] 1 tablet Orally Once a day Active Problems Problem Type SNOMED Code ICD Code Onset Dates Problem Status W/U Status Risk Notes Problem Muscle weakness (58843184) Generalized muscle weakness (M62.81) Active confirmed Problem Constipation (52042209) Constipation (K59.00) Active confirmed Problem Morbid obesity (disorder) (066719713) Morbid (severe) obesity due to excess calories (E66.01) Active confirmed Problem Bipolar affective disorder, currently depressed, moderate (910662191) Bipolar disorder, current episode depressed, moderate (F31.32) Active confirmed Problem Bipolar disorder (89142398) Bipolar disorder, unspecified (F31.9) Active confirmed Problem Obstructive sleep apnea syndrome (disorder) (64710789) Obstructive sleep apnea (adult) (pediatric) (G47.33) Active confirmed Problem Acute on chronic systolic heart failure (233564668) Acute on chronic systolic (congestive) heart failure (I50.23) Active confirmed Problem Hidradenitis suppurativa (26536713) Hidradenitis suppurativa (L73.2) Active confirmed Problem Sciatica (74104372) Lumbago with sciatica, unspecified side (M54.40) Active confirmed Problem Abnormal gait (79004360) Other abnormalities of gait and mobility (R26.89) Active confirmed Problem Closed fracture of proximal end of right tibia (60344218777035283 ) Unspecified fracture of upper end of right tibia, subsequent encounter for closed fracture with routine healing (S82.101D) Active confirmed Problem Hysterectomy (383881648) Acquired absence of both cervix and uterus (Z90.710) Active confirmed Problem COPD - Chronic obstructive pulmonary disease (85474109) COPD (chronic obstructive pulmonary disease) (J44.9) Active confirmed Problem Generalized anxiety disorder (38595795) ALEJANDRA (generalized anxiety disorder) (F41.1) Active confirmed Problem Dependence on continuous supplemental oxygen (84888915012990) Dependence on continuous supplemental oxygen (Z99.81) Active confirmed Problem Atherosclerosis of coronary artery without angina pectoris (402105682978172) Atherosclerosis of [place] coronary artery of [place] heart without angina pectoris (I25.10) Active confirmed Encounters Encounter Location Date Provider Diagnosis [facility] [address] [place] [address] 01/06/2025 Raegan Bowden Bipolar disorder, current episode depressed, moderate F31.32 [facility] [address] [place] [address] 01/20/2025 Raegan Bowden Bipolar disorder, current episode depressed, moderate F31.32 and ALEJANDRA (generalized anxiety disorder) F41.1 [facility] [address] [place] [address] 02/05/2025 Raegan Bowden Bipolar disorder, current episode depressed, moderate F31.32 and ALEJANDRA (generalized anxiety disorder) F41.1 [facility] [address] [place] [address] 02/24/2025 Raegannav Bowden Bipolar disorder, current episode depressed, moderate F31.32 and ALEJANDRA (generalized anxiety disorder) F41.1 [facility] [address] [place] [address] 03/03/2025 Raegannav Bowden Bipolar disorder, current episode depressed, moderate F31.32 and ALEJANDRA (generalized anxiety disorder) F41.1 [facility] [address] [place] [address] 03/17/2025 Raegan Bowden Bipolar disorder, current episode depressed, moderate F31.32 and ALEJANDRA (generalized anxiety disorder) F41.1 [facility] [address] [place] [address] 03/31/2025 Raegan Bowden Bipolar disorder, current episode [...] foodand she does not eat breakfast. 03/17/2025 Bipolar disorder, current episode depressed, moderate [...] (generalized anxiety disorder) (ICD-10 - F41.1) 03/31/2025 Bipolar disorder, current episode depressed, moderate [...] (generalized anxiety disorder) (ICD-10 - F41.1) 03/31/2025 ALEJANDRA (generalized anxiety disorder) (ICD-10 - [...] reviewing chart, and coordinating care: 52 minutes 03/17/2025 Other 1) No changes to psychotropic medication regimen. Patient had increase of Latuda at last visit. 2) Information regarding co-dependency provided to patient during therapy session. 3) Continue to provide psychiatric support and medication management. Please call with signs of distress or mood changes that arise. Total time spent assessing patient, reviewing chart, and coordinating care: 49 minutes 03/31/2025 Other 1) No changes to psychotropic medication regimen. Patient had increase of Latuda at last visit. 2) Information regarding co-dependency provided to patient during therapy session. 3) Continue to provide psychiatric support and medication management. Please call with signs of distress or mood changes that arise. Total time spent assessing patient, reviewing chart, and coordinating care: 49 minutes Plan Of Treatment No Information Insurance Providers Payer Name Payer Address Payer Phone Subscriber Number Group Number Insured Name Patient Relationship to Insured Coverage Start Date Coverage End Date [employer] [address] [address] [place] [address] [phone] [id number] Celia Rivero Self - patient is the insured Medical (General) History Medical History History ICD Code Bipolar disorder, current episode depres sed, moderate F31.32 Unspecified fracture of uppe r end of right tibia, subsequent encounter for closed fracture with routine healing S82.101D Surgical History Surgery Date(Month/Year) Available for review in patient's record at facility Hospitalization History Reason Date(Month/Year) Patient reported repeated ps ychiatric hospitalizations due to depression.
--- OUTSIDE RECORDS SUMMARY | 2025-04-09 13:10 | XMS_ITS | Clinical Summary ---
Author Organization [employer] ([place], [place], [place], [place]) Address [address] [place] [address] Care Team Providers Care Branch Coordinator Name Role Phone Unavailable Primary Care Provider [...]
--- OUTSIDE RECORDS SUMMARY | 2025-04-09 13:10 | XMS_ITS | Encounter Summary ---
Author Organization [employer] ([place], [place], [place], [place]) Address [address] [place] [address] Care Team Providers Care Data Entry Technician Name Role Phone Unavailable Primary Care Provider Unavailabl e Encounter Details Date Type Department Care Team (Late st Contact Info) Description 07/31/2019 Transcribed Document [facility] [place] [facility] [place] [address] ProviderMaximiliano MD [address], [place] [address] Social History Tobacco Use Types Packs/Day Years Used Date Smoking Tobacco: Never Assessed Comments Unknown Sex and Gender Information Value Date Recorded Sex Assigned at Not on file Legal Sex Female 1:06 PM CDT Gender Identity Not on file Sexual Orientation Not on file documented as of this encounter Miscellaneous Notes * [employer] Conversion Note - Maximiliano ProviderMD - 07/31/2019 1:15 PM FELT HAT POUNCING OPERATOR HAND Patient: ISA ZHANG Age: 53 years Sex: Female : 1965 Associated Diagnoses: None Author: FERNANDA KEE MD-GAE Basic Information Source of history: Self. Referral source: [facility] (REF[facility]. Chief Complaint Dysphagia and history of [...] Histories Past Medical History: Active Tobacco abuse (431121634) AMIRA - Obstructive sleep apnea (9630027072) IBS (irritable bowel syndrome) ([id number]) Arthritis (1851396) Bipolar (611178266) SVT (supraventricular tachycardia) (01460068) Barretts esophagus (947226641) CAD (coronary artery disease) (5154613796) Abdominal pain (29446193) bleeding ulcer (430104778) Resolved Obesity (2574833296): Resolved. Diverticulitis (252671164): Resolved. Volvulus of colon (83044193): Resolved. Polycystic ovarian disease (047095641): Resolved. Diverticulitis (962614258): Resolved. Procedure history: Gastric bypass. c section x 3. D and C. hysterectomy. tonsillectomy. volvulous. Partial colectomy. Appendectomy. delivery only; (02577). Ventral hernia repair. Cholecystectomy; (75719). heart stents x2. Social History Social & [...] All Problems Abdominal pain / SNOMED CT 38270525 / Confirmed Arthritis / SNOMED CT 5648036 / Confirmed Arthritis / SNOMED CT 1508207 / Confirmed Barretts esophagus / SNOMED CT 411285197 / Confirmed Bipolar / SNOMED CT 432344867 / Confirmed Bipolar 1 disorder / SNOMED CT 4746606276 / Confirmed bleeding ulcer / SNOMED CT 092222582 / Confirmed CAD (coronary artery disease) / SNOMED CT 0414057167 / Confirmed Gallstones / SNOMED CT 637266954 / Confirmed History of obstructive sleep apnea / IMO 84337782 / Confirmed IBS (irritable bowel syndrome) / SNOMED CT [id number] / Confirmed Irritable bowel / SNOMED CT 07094908 / Confirmed Myocardial infarct / SNOMED CT 81907908 / Confirmed AMIRA - Obstructive sleep apnea / SNOMED CT 3772122915 / Confirmed Polycystic ovarian syndrome / SNOMED CT 761068975 / Confirmed Sleep apnea / SNOMED CT 669520626 / Confirmed SVT (supraventricular tachycardia) / SNOMED CT 17793366 / Confirmed Tobacco abuse / SNOMED CT 327720240 / Confirmed Resolved: Diverticulitis / SNOMED CT 750375014 Resolved: Diverticulitis / SNOMED CT 636896189 Resolved: Obesity / SNOMED CT 5835150218 Resolved: Polycystic ovarian disease / SNOMED CT 003064639 Resolved: Volvulus of colon / SNOMED CT 04719855 Canceled: HTN - Hypertension / SNOMED CT 9200819415 Canceled: Hyperlipidemia / SNOMED CT 35938691 Canceled: Hyperlipidemia / SNOMED CT 70905698 Canceled: Hypertension / SNOMED CT 0293161520, Active Problems (18) Abdominal pain Arthritis Arthritis [...] No deformity, Normal gait. Integumentary: Warm, Dry, [place], No rash. Integumentary exam: Face, Chest, Arm, [...]
== END 2025-04-09 23:59 | disposition home or self-care (01) ==
LOC: RT 13:06
PROVIDERS: PCP Nurse Practitioner Family; Visit Provider Nurse Practitioner
DX: I35.1 Nonrheumatic aortic (valve) insufficiency (principal); M79.601 Pain in right arm; M79.89 Other specified soft tissue disorders; I50.33 Acute on chronic diastolic (congestive) heart failure; I25.10 Atherosclerotic heart disease of native coronary artery without angina pectoris; R94.31 Abnormal electrocardiogram [ECG] [EKG]
CPT/HCPCS: 93306

== ENCOUNTER 2025-06-20 15:04 | Outpatient (CLI) | payer MEDICARE, SELFPAY ==
--- NOTE | 2025-06-20 15:07 | MM_ITS ---
PROCEDURE INFORMATION: Exam: MG Bilateral Screening 3D Mammography Exam date and time: 06/20/2025 3:17 PM Age: 59 years old Clinical indication: Screening examination. Her sister had breast cancer. TECHNIQUE: Imaging protocol: Bilateral Screening tomosynthesis and 2D mammography including computer-aided detection (CAD) when performed. COMPARISON: MG MM MAMMO DIGITAL HECTOR SCREEN BILAT 07/27/2020 2:38 PM FINDINGS: MAMMOGRAPHY: Breast composition: The breasts are almost entirely fatty. Mass: None. Architectural distortion: None. Calcifications: No suspicious calcifications. Asymmetric density: None. Skin thickening: None. Axillary adenopathy: None. IMPRESSION: No mammographic evidence of malignancy. Annual screening is recommended unless otherwise clinically indicated. ASSESSMENT: BI-RADS Category 1: Negative.
== END 2025-06-20 23:59 | disposition home or self-care (01) ==
LOC: RAD 15:05
PROVIDERS: PCP Nurse Practitioner Family; Visit Provider Family Medicine
DX: Z12.31 Encounter for screening mammogram for malignant neoplasm of breast (principal); Z80.3 Family history of malignant neoplasm of breast
CPT/HCPCS: 77063; 77067

== ENCOUNTER 2025-07-02 11:24 | Outpatient (CLI) | payer MEDICARE, OTHER, SELFPAY ==
--- OUTSIDE RECORDS SUMMARY | 2025-06-05 13:20 | XMS_ITS | Encounter Summary ---
Author Organization [place] [address] Care Team Providers Care Reproduction Production Manager Name Role Phone Unavailable Primary Care Provider Unavailabl e Reason for Visit * Reason Comments New Patient Encounter Details Date Type Department Care Team (Latest Contact Info) Description 06/05/2025 1:20 PM EDT Office Visit [facility] [address] [id number] Sue Rodriguez MD [address] [place] [address] Frequency of urination (Primary Dx); Urge incontinence; Overactive bladder; Acquired absence of both cervix and uterus; Restless legs syndrome (RLS); COPD, severe ([facility]); Bipolar disorder with moderate depression ([facility]); Dependence on continuous supplemental oxygen; AMIRA treated with BiPAP; Chronic hypoxemic respiratory failure ([facility]); Acute on chronic systolic congestive heart failure, NYHA class 1 ([facility]); Body mass index (BMI) 60.0-69.9, adult ([facility]) Social History Tobacco Use Types Packs/Day Years Used Date Smoking Tobacco: Every Day Alcohol Use Standard Drinks/Week Comments No 0 [...] on file documented as of this encounter Last Filed Vital Signs Vital Sign Reading Time Taken Comments Blood Pressure - - Pulse 66 06/05/2025 1:41 PM EDT Temperature - - Respiratory Rate - - Oxygen Saturation 95% 06/05/2025 1:41 PM EDT Inhaled Oxygen Concentration - - Weight 130.6 kg (288 lb) 06/05/2025 1:41 PM EDT Height - - Body Mass Index 49.44 03/05/2024 1:19 PM EDT documented in this encounter Progress Notes * Sue Rodriguez MD - 06/05/2025 1:20 PM EDT Images from the original note were not included. New Patient Celia Rivero 1965 HPI: Patient is a 59 y.o. old female ( x 1; C/S x 3) Who is referred by PCP at [facility] for evaluation of fecal incontinence as a consultation with Dr Rodriguez today. Has been noticing stool on her incontinence pad for over 40 years Never mentioned it to anyone Obese and walking with assistance and afraid of surgery General UROGYN Health Screening: Post Menopausal bleeding: Hyst Mammogram date: 2016 (maybe) Colonoscopy date: 3 years ago PAP date: Hyst Glaucoma? none Bladder control problem: Leakage: yes with urgency, nocturia How lon years Prior treatments for incontinence: kegels > 1 year and none Bladder emptying problems: No Prolapse/vaginal support problems: Do you have the feeling of fullness or pressure, bulge or protrusion of any vaginal tissue? No Have you ever used a pessary ( a plastic support device) for this problem? No Bowel Problem(s): Yes: Difficulty emptying bowels: No Fecal urgency or incontinence: Yes How lon years How many episodes of fecal incontinence per week: everyday Need to splint: no. Prior treatments for bowel issues: imodium, fiber, diet, kegels, normal colonoscopy ~ 3 years ago Sexual History: Barriers to sexual activity: n/a. 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 Past Surgical History: has a past surgical history that includes Gastric bypass surgery; colectomy; Cholecystectomy; Hysterectomy, total abdominal; and section. Allergies: is allergic to betadine [povidone-iodine]. Current Medications: has a current medication list which includes the following prescription(s): albuterol, albuterol-ipratropium, aspirin, atenolol, bupropion, clonazepam, clopidogrel, furosemide, isosorbide mononitrate, lamotrigine, losartan, lurasidone, nitrofurantoin (macrocrystal-monohydrate), nitroglycerin, ondans etron, pregabalin, quetiapine, rosuvastatin, spironolactone, and trazodone. Social History: reports that she has been smoking. She does not have any smokeless tobacco history on file. She reports that she does not drink alcohol and does not use drugs. Family History: family history includes Diabetes in her father; Heart Disease in her mother and paternal grandmother; High Blood Pressure in her mother; klever gehrigs in her sister. Review of System: Review of Systems Constitutional: Negative. Negative for chills, diaphoresis, fatigue and fever. HENT: Negative. Negative for ear discharge, ear pain and nosebleeds. Eyes: Negative. Negative for photophobia, discharge and itching. Respiratory: Negative. Negative for apnea, chest tightness, shortness of breath and wheezing. Cardiovascular: Negative. Negative for chest pain and palpitations. Gastrointestinal: Negative. Negative for abdominal distention. Endocrine: Negative. Negative for cold intolerance and heat intolerance. Genitourinary: Negative for enuresis, flank pain, genital sores and menstrual problem. Musculoskeletal: Negative for neck pain. Allergic/Immunologic: Negative. Negative for environmental allergies, food allergies and immunocompromised state. Neurological: Negative. Negative for tremors, seizures, syncope, facial asymmetry, light-headednessand headaches. Hematological: Negative. Negative for adenopathy. Does not bruise/bleed easily. Psychiatric/Behavioral: Negative. Negative for agitation and behavioral problems. Physical Exam: Vitals: 06/05/25 1341 Pulse: 66 SpO2: 95% Weight: 288 lb (130.6 kg) Physical Exam Vitals and nursing note reviewed. Constitutional: Appearance: She is well-developed. HENT: Head: Normocephalic and atraumatic. Eyes: Conjunctiva/sclera: Conjunctivae normal. Pupils: Pupils are equal, round, and reactive to light. Neck: Thyroid: No thyromegaly. Cardiovascular: Rate and Rhythm: Normal rate and regular rhythm. Heart sounds: Normal heart sounds. No gallop. Pulmonary: Effort: Pulmonary effort is normal. No respiratory distress. Breath sounds: Normal breath sounds. No wheezing or rales. Abdominal: General: Bowel sounds are normal. There is no distension. Palpations: Abdomen is soft. Tenderness: There is no abdominal tenderness. There is no guarding or rebound. Musculoskeletal: General: No tenderness. Normal range of motion. Cervical back: Normal range of motion and neck supple. Lymphadenopathy: Cervical: No cervical adenopathy. Skin: General: Skin is warm and dry. Neurological: Mental Status: She is alert and oriented to person, place, and time. Deep Tendon Reflexes: Reflexes are normal and symmetric. Psychiatric: Behavior: Behavior normal. Judgment: Judgment normal. After asking the patient's permission, I completed the patient's physical and pelvic exam, and any applicable ancillary tests (i.e. Urinary catheter) with the presence of a information technology teacher named Melissa. The patient voiced understanding and gave verbal consent. Pelvic Exam: Normal EFG Atrophy yes Normal mons and clitoris Normal labia Normal urethra and meatus Normal perineum and anus No masses Prolapse Stage 0 Bleeding no Discharge no Pain no Speculum exam WNL with no visible fistula along vaginal lumen Rectal exam performed with dyed methylene blue lube and none is expressed in to the vaginal lumen Office Fill Study: Catheter PVR = 20 mL UA clear INSULATOR HELPER negative C&S pending Labs/Imaging: Lab Results Component Value Date NA 139 11/12/2015 K 4.2 11/12/2015 CL 100 11/12/2015 CO2 27 11/12/2015 ANIONGAP 12 11/12/2015 CALCIUM 9.2 11/12/2015 GLU 100 11/12/2015 BUN 14 11/12/2015 CREATININE 0.76 11/12/2015 ALBUMIN 4.2 11/12/2015 PROT 6.8 11/12/2015 LABBILI 0.3 11/12/2015 AST 25 11/12/2015 ALT 21 11/12/2015 ALKPHOS 84 11/12/2015 GFRAFRAM >60 11/12/2015 GFRNONAFRAM >60 11/12/2015 HIGH COMPLEXITY LEVEL 4 BILLING STATEMENT: This consultation can be billed based on complexity of medical decision making. After discussing everything with the patient, I documented my exam findings, any applicable urine tests, and independent review of the outside imaging/labwork/careteam provider notes in order to interpret this female pat ient as having the following concerns: a chronic condition called urinary leakage which is a part of PELVIC FLOOR DISORDERS (PFDs). PFDs can include the consideration of - but is not limited to - prol apse/hernia/incontinence/nocturia/hematuria/female sexual dysfunction. 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 Due to her age and medical comorbidities listed below, she is identified as having moderate risks in proceeding with specialty treatmentas discussed today. Thus, I reviewed her prior labwork and imaging studies which contribute to my personal interpretations below. As a technical services consultant, the complexity of her pre existing conditions and how they affect her pelvic floor disorders was discussed in detail including the potential for severe exacerbation or progression affecting her quality of life. After discussing everything with the patient, I interpreted this female patient as having the following concerns: ASSESSMENT: nocturia, overactive bladder, urge incontinence, and urgency/ frequency PLAN: Medical comorbidities that increase the complexity of treating patient's pelvic floor disorder(s) include: bipolar d/o, RLS, COPD, AMIRA on O2, obesity and in particular CHF. FECAL INCONTINENCE - patient has subjective evidence today of defecation dysfunction. We discussed the pathophysiology of this process. She is informed of treatment options including but not limited to: expectant, conservative such as pelvic physical therapy, behavioral modifications (i.e. Weight loss, dietary changes, fluid management and optimization of medical comorbidities such as diabetes), and medications, or surgery. Patient wishes to proceed with adv therapy after further testing. Literature given and reviewed. All questions were answered and patient's goals and expectations were met today. URINARY INCONTINENCE - Patient exhibits subjective and objective evidence today of voiding dysfunction. We discussed the pathophysiology of her disease process via anatomic drawings. She is informed of treatment options including but not limited to: expectant, conservative such as pelvic physical therapy, behavioral modifications (i.e. Weight loss, dietary changes, timed voiding and retraining, smoking cessation), and medications, or surgery. Patient bothered most by leakage all the time and wishes to proceed with adv therapy after further testing. Literature given and reviewed. All questions were answered and patient's goals and expectations were met today. - reviewed superficial details of SNS trial as this may benefit her FECAL and URINARY leakage - if FI and UI treated, then UTI risk is reduced - normal colonoscopy, failed imodium RTC for cystoscopy and consider consent for PNE x 1 week Sue Rodriguez MD FACOG URPS Host @ [employer] [email or web address] [facility] [place] Division of Urogynecology [address] [place] [address] option #2 [email or web address] 06/05/25 12:19 PM documented in this encounter Miscellaneous Notes * Patient Instructions - Sue Rodriguez MD - 06/05/2025 1:20 PM EDT Images from the original note were not included. [employer] can be a convenient and powerful tool to streamline and facilitated your care; however, there may be a misunderstanding around its appropriate use. Please understand the following: YeHivehart should NEVER be used for urgent or emergent issues. if your concern cannot wait 24-48 hours. We advise you to either call our office or seek care in an emergency department. Additionally, messages will only be viewed during our normal operating hours. 2. Messages should be as brief and to the point as possible. 3. We may ask you to make an appointment to discuss your message so we can dedicate the time and attention necessary to deliver the high-quality care you deserve. 4. Shop pirate messages are a part of your permanent medical record We appreciate your understanding in this, and we will continue to work our hardest to deliver the top tier care that you have come to expect from our office. documented in this encounter Plan of Treatment Not on file documented as of this encounter Goals Goal Patient Goal Type Associated Problems Recent Progress Patient-Stated? Author Maintain a healthy diet, exercise regularly and maintain an ideal body weight General No Jessica Sagastume RMA Stay Tobacco Free Lifestyle No Jessica Sagastume RMA documented as of this encounter Procedures Procedure Name Priority Date/Time Associated Diagnosis Comments URINALYSIS Routine 06/05/2025 2:01 PM EDT Frequency of urination URINE CULTURE (NO STAIN) Routine 06/05/2025 2:01 PM EDT Frequency of urination [facility] URINALYSIS POC Routine 06/05/2025 1: 58 PM EDT Frequency of urination documented in this encounter Results * URINALYSIS (06/05/2025 2:01 PM EDT) UA Color Yellow 06/05/2025 9:06 PM EDT [facility] UA Appear Clear Clear 06/05/2025 9:06 PM EDT [facility] UA Glucose Negative Negative mg/dL 06/05/2025 9:06 PM EDT [facility] UA Ketones Negative Negative mg/dL 06/05/2025 9:06 PM EDT [facility] UA Blood Negative Negative 06/05/2025 9:06 PM EDT [facility] UA pH 6.5 5.0 - 8.0 pH 06/05/2025 9:06 PM EDT [facility] UA Protein Negative Negative mg/dL 06/05/2025 9:06 PM EDT [facility] UA Urobilinogen Normal <=1 mg/dL 9:06 PM EDT [facility] UA Bili Negative Negative 06/05/2025 9:06 PM EDT [facility] UA Nitrite Negative Negative 06/05/2025 9:06 PM EDT [facility] Leuk Est Negative Negative 06/05/2025 9:06 PM EDT [facility] Spec Grav 1.020 1.001 - 1.035 no units 06/05/2025 9:06 PM EDT [facility] Comment:Reference range james d for random specimens only. Urine URINARY BLADDER STRUCTURE / Unknown 06/05/2025 2:01 PM EDT 06/05/2025 2:01 PM EDT Sue Rodriguez MD URINE ORDERABLES Final Re sult [facility] [address] [facility] , [place] [address] * URINE CULTURE (NO STAIN) (06/05/2025 2:01 PM EDT) Culture No growth at 30 hours. 06/07/2025 6:58 AM EDT [facility] Urine URINARY BLADDER STRUCTURE / Unknown 06/05/2025 2:01 PM EDT 06/05/2025 2:01 PM EDT us Sue Rodriguez MD MICROBIOLOGY - GENERAL OR DERABLES Final Result [facility] [address] [facility] , [place] [address] * [facility] URINALYSIS POC (06/05/2025 1:58 PM EDT) UA Color POC Yellow Color 06/05/2025 2:01 PM EDT [facility] Appear POC Clear Clear 06/05/2025 2:01 PM EDT [facility] Gluc POC Negative Negative mg/dL 06/05/2025 2:01 PM EDT [facility] UA Bili POC Negative Negative 06/05/2025 2:01 PM EDT [facility] Ketones POC Negative Negative mg/dL 06/05/2025 2:01 PM EDT [facility] SG POC 1.025 1.001 - 1.035 no units 06/05/2025 2:01 PM EDT [facility] Blood POC Negative Negative 06/05/2025 2:01 PM EDT [facility] UA pH POC 6.5 5.0 - 8.0 pH 06/05/2025 2:01 PM EDT [facility] UA Protein POC Negative Negative mg/dL 06/05/2025 2:01 PM EDT [facility] Urobilinogen POC 1.0 0.2, 1.0 06/05/2025 2:01 PM EDT [facility] Nitrite POC Negative Negative 06/05/2025 2:01 PM EDT [facility] Leuk Est POC Negative Negative 2:01 PM EDT [facility] Urine STRUCTURE OF URINARY TRACT PROPER / Unknown 06/05/2025 1:58 PM EDT 06/05/2025 2:01 PM EDT us Sue Rodriguez MD POINT OF CARE TEST ORDERA BLES Final Result [facility] [address] [place] [address] 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 Restless legs syndrome (RLS) COPD, severe ([facility]) Chronic airway obstruction, not elsewhere classified Bipolar disorder with moderate depression ([facility]) Bipolar I disorder, most recent episode (or current) depressed, moderate Dependence on continuous supplemental oxygen AMIRA treated with BiPAP Chronic hypoxemic respiratory failure ([facility]) Chronic respiratory failure Acute on chronic systolic congestive heart failure, NYHA class 1 ([facility]) Body mass index (BMI) 60.0-69.9, adult ([facility]) documented in this encounter Historical Medications * This list may reflect changes made after this encounter. traZODone (DESYREL) 300 mg Oral TabletIndication s:Frequency of urination 04/11/2025 QUEtiapine (SEROQUEL) 200 mg Oral TabletIndication s:Frequency of urination 04/11/2025 lurasidone (LATUDA) 80 mg Oral TabletIndication s:Frequency of urination 04/11/2025 lurasidone (LATUDA) 40 mg Oral TabletIndication s:Frequency of urination 02/09/2025 clonazePAM (KLONOPIN) 0.5 mg Oral TabletIndication s:Frequency of urination 05/28/2025 buPROPion (WELLBUTRIN XL) 300 mg Oral Tablet Sustained Release 24 hrIndications:Fr equency of urination 04/11/2025 valsartan (DIOVAN) 160 mg Oral TabletIndication s:Frequency of urination 160 mg. 03/12/2025 valsartan (DIOVAN) 80 mg Oral TabletIndication s:Frequency of urination 04/22/2025 triamcinolone acetonide (KENALOG) 10 mg/mL Inj SuspensionIndica tions:Frequency of urination Take 2 mg by injection route. 07/24/2023 sulfamethoxazole -trimethoprim (BACTRIM DS) 800-160 mg Oral TabletIndication s:Frequency of urination semaglutide, weight loss, 2.4 mg/0.75 mL SubQ Pen InjectorIndicati ons:Frequency of urination 2.4 mg. 12/12/2024 semaglutide, weight loss, (WEGOVY) 1.7 mg/0.75 mL SubQ Pen InjectorIndicati ons:Frequency of urination INJECT 1.7 MG (0.75 ML) SUBCUTANEOUSLY WEEKLY; ADMINISTER WEEKS 13 THROUGH 16 OF THERAPY semaglutide, weight loss, (WEGOVY) 1 mg/0.5 mL SubQ Pen InjectorIndicati ons:Frequency of urination INJECT ONE (1) MG (0.5 ML) SUBCUTANEOUSLY WEEKLY predniSONE (DELTASONE) 20 mg Oral TabletIndication s:Frequency of urination semaglutide, weight loss, (WEGOVY) 0.25 mg/0.5 mL SubQ Pen InjectorIndicati ons:Frequency of urination 0.5 MG SUBCUTANEOUSLY WEEKLY FOR CORONARY ARTERY DISEASE; ADMINISTER WEEKS ONE (1) THROUGH FOUR (4) OF THERAPY prasugreL HCl (EFFIENT) 10 mg Oral TabletIndication s:Frequency of urination 10 mg. 03/12/2025 potassium chloride (MICRO-K) 10 mEq Oral Capsule, Sustained ReleaseIndicatio ns:Frequency of urination 04/18/2025 potassium chloride (KLOR-CON M) 20 mEq Oral Tab Sust.Rel. Particle/Crystal Indications:Freq uency of urination phenazopyridine (PYRIDIUM) 200 mg Oral TabletIndication s:Frequency of urination TAKE ONE (1) TABLET THREE (3) TIMES A DAY BY ORAL ROUTE AFTER MEAL(S) FOR FIVE (5) DAYS. oxyCODONE-acetam inophen (PERCOCET) 5-325 mg Oral TabletIndication s:Frequency of urination TAKE ONE (1) TABLET EVERY SIX (6) HOURS BY ORAL ROUTE NEEDED FOR THREE (3) DAYS. ondansetron (ZOFRAN) 4 mg Oral TabletIndication s:Frequency of urination 04/25/2025 omeprazole-sodiu m bicarbonate (ZEGERID) 40-1.1 mg-gram Oral CapsuleIndicatio ns:Frequency of urination mupirocin (BACTROBAN) 2 % Top OintmentIndicati ons:Frequency of urination 02/26/2025 linaCLOtide (LINZESS) 145 mcg Oral CapsuleIndicatio ns:Frequency of urination Take 1 capsule every day by oral route after meal(s) for 30 days. 07/01/2024 lidocaine 1% 10 mg/mL (1 %) Inj SolutionIndicati ons:Frequency of urination 05/22/2025 HYDROcodone-acet aminophen (NORCO) 5-325 mg Oral TabletIndication s:Frequency of urination 03/02/2025 sodium hyaluronate (ORTHOVISC) 30 mg/2 mL IAtc SyringeIndicatio ns:Frequency of urination Inject 2 mL every week by intra-articular route. 12/22/2023 gabapentin (NEURONTIN) 100 mg Oral CapsuleIndicatio ns:Frequency of urination 150 mg. fluconazole (DIFLUCAN) 150 mg Oral TabletIndication s:Frequency of urination TAKE ONE (1) TABLET EVERY DAY BY ORAL ROUTE FOR FIVE (5) DAYS. doxycycline hyclate (VIBRA-TABS) 100 mg Oral TabletIndication s:Frequency of urination Take 1 Tablet by mouth 2 times daily. doxycycline hyclate (VIBRAMYCIN) 100 mg Oral CapsuleIndicatio ns:Frequency of urination chlorhexidine (HIBICLENS) 4 % Top LiquidIndication s:Frequency of urination cephALEXin (KEFLEX) 500 mg Oral CapsuleIndicatio ns:Frequency of urination cefTRIAXone (ROCEPHIN) 1 gram Inj Recon SolnIndications: Frequency of urination 05/22/2025 bupivacaine (MARCAINE/SENSOR DANNY) 0.5 % (5 mg/mL) Inj SolutionIndicati ons:Frequency of urination Take 2 mL by injection route. 07/24/2023 budesonide-glyco pyr-formoterol 160-9-4.8 mcg/actuation Inhl HFA Aerosol InhalerIndicatio ns:Frequency of urination Twice a day 07/02/2024 budesonide-formo teroL (SYMBICORT) 160-4.5 mcg/actuation Inhl HFA Aerosol InhalerIndicatio ns:Frequency of urination atorvastatin (LIPITOR) 40 mg Oral TabletIndication s:Frequency of urination 40 mg. 03/12/2025 apixaban (ELIQUIS) 2.5 mg Oral TabletIndication s:Frequency of urination 2.5 mg. 12/25/2024 gas permeable flue cleaner (OXYGEN PERMEABLE STEERSMAN MISC)Indications :Frequency of urination 2 L added in this encounter Additional Health Concerns Assessment Noted Time PHQ-9 Depression Total Score: 27 024 1:18 PM EDT PHQ-2 Depression Total Score: 6 03/05/20 24 1:18 PM EDT documented as of this encounter
[2025-07-02 11:52] LABS: Hematocrit 44.0 % (37.0-47.0); Hemoglobin 14.5 g/dL (12.2-16.2); Immature Granulocytes % 0.2 %; Mean Corpuscular HGB Conc 33.0 g/dL (31.8-35.4); Mean Corpuscular Hemoglobin 31.3 pg (27.0-31.2); Mean Corpuscular Volume 94.8 fl (81-99); Nucleated Red Blood Cells % 0 %; Platelet Count 237 K/mm3 (142-424); Red Blood Count 4.64 M/mm3 (4.20-5.40); Red Cell Distribution Width-SD 43.2 fL; White Blood Count 5.6 K/mm3 (4.8-10.8)
--- OUTSIDE RECORDS SUMMARY | 2025-07-02 12:08 | XMS_ITS | Clinical Summary ---
Author Organization [employer] [facility] are Address [address] [place] [phone] Phone Care Team Providers Care Mixed Crop Farmer Name Role Phone Unavailable Unavailable Conditions or Problems No information available. Medications No information available. Medications Administered No information available. Allergies, Adverse Reactions, Alerts No information available. Results No information available. Plan of Care No information available. Procedures No information available. Vital Signs No information available. Immunizations No information available. Advance Directives No information available.
--- OUTSIDE RECORDS SUMMARY | 2025-07-02 12:09 | XMS_ITS | Encounter Summary ---
Author Organization [employer] ([place], [place], [place], [place]) Address [address] [place] [address] Care Team Providers Care Agricultural Equipment Test Engineer Name Role Phone Unavailable Primary Care Provider Unavailabl e Encounter Details Date Type Department Care Team (Late st Contact Info) Description 03/17/2021 Transcribed Document [facility] [place] [address] [place] [address] ProviderMaximiliano MD [address] [place] [address] Social History Tobacco Use Types [...] Maximiliano ProviderMD - 03/17/2021 4:34 PM CDT [place] [address] ISA ZHANG :1965 Visit Time:03/17/2021 [...] Where: [address] [place] [address] [place] [address]- [phone] Business (1) Medications What How Much When [...] you are awake and alert. ??? Take qizl-cds-ycmpudd and prescription medicines only as told by [...] provider. Document Revised: 08/10/2018 Document Reviewed: 12/17/2016 [employer] Patient Education ?? 2020 [employer] Transradial Angiogram A transradial angiogram is an [...] including vitamins, herbs, eye drops, creams, and ccvv-uqr-ejdbqsi medicines. ??? Any problems you or family [...] tells you to take them. ??? Taking azka-sae-jzetlvn medicines, vitamins, herbs, and supplements. Exams and [...] provider. Document Revised: 07/22/2019 Document Reviewed: 07/22/2019 [employer] Patient Education ?? 2020 [employer] Radial Site Care This sheet gives you [...] these instructions at home: Medicines ??? Take gfjc-tvc-fxvtyot and prescription medicines only as told by your health care provider. Insertion site care ??? Follow instructions from your health care provider about how to take care of your insertion site. Make sure you: ? Wash your hands with soap and water before you change your bandage (dressing). If soap and water are not available, use hand photography assistant. ? Change your dressing as told by [...] Reviewed: 10/03/2018 Elsevier Patient Education ?? 2020 [employer] Emergency Awareness and Preventative Care STROKE [...] Assistance with quitting is available by contacting 8-497-GMDK-NOW. This is a free resource providing counseling, [...] was given the opportunity to ask questions. Patient/Dental Secretary Name: Patient/Dental Secretary Signature: Relationship to Patient: Clinician/Hospital Dental Secretary Signature: Date: Electronically signed by Chanel Briggs Conversion Securities And Real Estate Director Derek at 12/28/2022 7:31 AM CDT documented in this encounter Plan of Treatment Not on file documented as of this encounter Visit Diagnoses Not on filedocumented in this encounter
--- OUTSIDE RECORDS SUMMARY | 2025-07-02 12:09 | XMS_ITS | Encounter Summary ---
Author Organization [employer] ([place], [place], [place], [place]) Address [address] [place] [address] Care Team Providers Care Customer Service Associate Name Role Phone Unavailable Primary Care Provider Unavailabl e Encounter Details Date Type Department Care Team (Late st Contact Info) Description 03/17/2021 Transcribed Document [facility] [place] [facility] [place] [address] ProviderMaximiliano MD [address] [place], [place] [id number] Social History Tobacco Use Types Packs/Day Years [...] these instructions at home: Medicines ??? Take lzyl-cmm-yldrgxm and prescription medicines only as told by your health care provider. Insertion site care ??? Follow instructions from your health care provider about how to take care of your insertion site. Make sure you: ? Wash your hands with soap and water before you change your bandage (dressing). If soap and water are not available, use hand ceramic engineering professor. ? Change your dressing as told by [...] provider. Document Revised: 10/03/2018 Document Reviewed: 10/03/2018 [employer]ira Patient Education ? 2020 [employer] Pharmacology Moderate Conscious Sedation, Adult, Care [...] you are awake and alert. ??? Take afaa-rkn-iwdwlus and prescription medicines only as told by [...] provider. Document Revised: 08/10/2018 Document Reviewed: 12/17/2016 [employer] Patient Education ? 2020 [employer]. Radiology Transradial Angiogram A transradial angiogram is [...] including vitamins, herbs, eye drops, creams, and wcoj-trv-rsonpao medicines. ??? Any problems you or family [...] tells you to take them. ??? Taking ixhs-uhp-tebizzo medicines, vitamins, herbs, and supplements. Exams and [...] Reviewed: 07/22/2019 Elsevier Patient Education ? 2020 [employer] documented in this encounter Plan of Treatment Not on file documented as of this encounter Visit Diagnoses Not on filedocumented in this encounter
--- OUTSIDE RECORDS SUMMARY | 2025-07-02 12:09 | XMS_ITS | Encounter Summary ---
Author Organization [employer] ([place], [place], [place], [place]) Address [address] [place] [address] Care Team Providers Care Mint Machine Operator Name Role Phone Unavailable Primary Care Provider Unavailabl e Encounter Details Date Type Department Care Team (Late st Contact Info) Description 07/31/2019 Transcribed Document [facility] [place] [facility] [place] [address] ProviderMaximiliano MD [address] [place], [place] [id number] Social History Tobacco Use Types Packs/Day Years Used Date Smoking Tobacco: Never Assessed Comments Unknown Sex and Gender Information Value Date Recorded Sex Assigned at Not on file Legal Sex Female 1:06 PM CDT Gender Identity Not on file Sexual Orientation Not on file documented as of this encounter Miscellaneous Notes * [employer] Conversion Note - Historical ProviderMD - 07/31/2019 3:26 PM QUALITY ASSOCIATE [facility] IntraOp Summary Primary Physician: BART MURPHY MD-GAE Finalized Date/Time: 07/31/19 15:54:48 Pt. Name: ISA ZHANGO.B./Sex: 1965 Female Med Rec #: [id number] Physician: BART MURPHY MD-GAE Financial #: [id number] Pt. Type: O [place] [facility] [place] Admit/Disch: 07/31/19 13:06:00 - Institution: [facility] - Case Attendance Entry 1 Entry 2 Entry 3 Case Attendee BART MURPHY MD-GAE WALLACE, HEATHER, LAM MCARTHUR, SOLE EDGE INKER MACHINE Role Performed Surgeon/Proceduralist, Delivery Driver Assistant, First SOLE EDGE INKER MACHINE/Nurse Site Promotion Agent First Time In 07/31/19 15:20:00 07/31/19 15:20:00 [...] Endo - Case Attendance Audit 07/31/19 15:54:43 Landing Scaler: YEISON Modifier: BRYANTHE 1 <+> Time Out 1 <*> Procedure Gastric Biopsy 2 <+> Time Out 2 <*> Procedure Esophagogastroduodenoscopy, Colonoscopy, Gastric Biopsy 3 <+> Time Out 3 <*> Procedure Esophagogastroduodenoscopy, Colonoscopy, Gastric Biopsy 4 <+> Time Out 4 <*> Procedure Esophagogastroduodenoscopy, Colonoscopy, Gastric Biopsy 07/31/19 15:48:23 Landing Scaler: YEISON Modifier: BRYANTHE <+> 1 Procedure 2 [...] Endo - Case Times Audit 07/31/19 15:54:42 Landing Scaler: YEISON Modifier: BRYANTHE <+> 1 Out Room Time <+> 1 Stop Time 07/31/19 15:51:22 Landing Scaler: YEISON Modifier: BRYANTHE <+> 1 Stop Time 07/31/19 15:26:38 Landing Scaler: ANTONIOANTHE Modifier: BRYANTHE <+> 1 Start Time [...] 07/31/19 15:22:32 [facility] Endo - General Case Mortgage Loan Closer 1 Case Information OR Endo 01 E Case Level 1 Room Verified Yes Wound Class III - Contaminated Specialty SN Gastroenterology Anesthesia Type MAC ASA Class 4 Diagnosis Preop Diagnosis History of Polyps, Dysphagia Postop Same As Preop No Postop Diagnosis Hemorroids, Diverticulosis, Prior Surgery, Hiatal Hernia, Irregular Z-line, Corragated Esophagus Last Modified By: OSWALDO AMIN RN 07/31/19 15:52:48 [facility] [place] Endo - General Case Data Audit 07/31/19 15:52:48 Landing Scaler: YEISON Modifier: BRYANTHE 1 <*> Postop Diagnosis Hemorroids, Diverticulosis, Prior Surgery 07/31/19 15:49:02 Landing Scaler: YEISON Modifier: BRYANTHE <+> 1 Postop Diagnosis 07/31/19 15:24:43 Landing Scaler: ANTONIOANTHE Modifier: BRYANTHE 1 <*> Preop Diagnosis E Endo - Intraoperative Assessment Entry 1 Valid History / Yes Physical in Chart Preoperative Yes Checklist Reviewed/Evaluated Allergies Reviewed Yes Patient is Latex No Sensitive Level of WDL Consciousness (WDL = Alert, Oriented to Person, Place, and Time) Present Upon IVs, ECG monitored Arrival to OR Last Modified By: OSWALDO AMIN RN 07/31/19 15:23:56 [facility] [place] Endo - Intraoperative Equipment Entry 1 Entry [...] WALLACE, HEATHER, RN 07/31/19 15:25:14 07/31/19 15:25:16 [facility] [place] Endo - Intraoperative Equipment Audit 07/31/19 15:25:16 Landing Scaler: YEISON Modifier: BRYALEJANDROE <+> 2 Photo <+> [...] Endo - Patient Positioning Audit 07/31/19 15:48:24 Landing Scaler: YEISON Modifier: YEISON Raya <*> Procedure Esophagogastroduodenoscopy, [...] Endo - Surgical Procedures Audit 07/31/19 15:51:27 Landing Scaler: YEISON Modifier: BRYANTHE 1 <*> Stop 3 <*> Stop 07/31/19 15:48:20 Landing Scaler: YEISON Modifier: BRYANTHE 1 <*> Procedure Esophagogastroduodenoscopy 1 <*> Procedure Esophagogastroduodenoscopy 1 <*> Start 07/31/19 15:26:00 1 <*> Start 07/31/19 15:26:00 3 <*> Procedure 3 <*> Primary Procedure 3 <*> Primary Surgeon BART MURPHY MD-GAE 3 <*> Specialty 3 <*> Start 3 <*> Wound Class 3 <*> Anesthesia Type 07/31/19 15:41:15 Landing Scaler: YEISON Modifier: BRYANTHE 2 <*> Procedure Colonoscopy 2 <*> Procedure Colonoscopy 2 <*> Procedure Colonoscopy 2 <*> Stop 2 <*> Stop 07/31/19 15:28:12 Landing Scaler: ANTONIOANTHE Modifier: BRYANTHE 1 <*> Start 2 [...] Endo - Time Out Audit 07/31/19 15:48:25 Landing Scaler: YEISON Modifier: YEISON 1 <*> Procedure to be Performed Esophagogastroduodenoscopy, Colonoscopy Case Comments <None> Finalized By: OSWALDO AMIN, RN Document Signatures Signed By: OSWALDO AMIN RN 07/31/19 15:54 Electronically signed by Brigitte [facility] Conversion Research Anthropologist Cerner at 12/28/2022 7:54 AM CDT documented in this encounter Plan of Treatment Not on file documented as of this encounter Visit Diagnoses Not on filedocumented in this encounter
--- OUTSIDE RECORDS SUMMARY | 2025-07-02 12:10 | XMS_ITS | Encounter Summary ---
Author Organization [employer] ([place], [place], [place], [place]) Address [address] [place] [address] Care Team Providers Care Slag Mixer Name Role Phone Unavailable Primary Care Provider Unavailabl e Encounter Details Date Type Department Care Team (Late st Contact Info) Description 07/31/2019 Transcribed Document [facility] [place] [facility] [place] [address] ProviderMaximiliano MD [address], [place] [phone] Social History Tobacco Use Types Packs/Day Years Used Date Smoking Tobacco: Never Assessed Comments Unknown Sex and Gender Information Value Date Recorded Sex Assigned at Not on file Legal Sex Female 1:06 PM CDT Gender Identity Not on file Sexual Orientation Not on file documented as of this encounter Miscellaneous Notes * [employer]ner Conversion Note - Historical ProviderMD - 07/31/2019 2:00 PM JUNIOR ART DIRECTOR [facility] PreOp Summary Primary Physician: BART MURPHY MD-GAE Finalized Date/Time: 07/31/19 13:34:58 Pt. Name: ISA ZHANG D.O.B./Sex: 1965 Female Med Rec #: [id number] Physician: BART MURPHY MD-GAE Financial #: [id number] Pt. Type: O Room/Bed: [facility] [place]/ Admit/Disch: 07/31/19 13:06:00 - Institution: [facility] PreOp Case Times Entry 1 In Preop 07/31/19 13:19:00 Ready for Holding n/a Room Patient Ready for 07/31/19 13:34:00 Surgery Patient Out of Preop 07/31/19 13:34:00 Patient Out of n/a Holding Room Finalized By: Katelin Abrams, RN Document Signatures Signed By: Katelin Abrams RN 07/31/19 13:34 Electronically signed by Chanel Briggs Conversion Ecommerce Marketing Specialist Cerner at 12/28/2022 7:36 AM CDT documented in this encounter Plan of Treatment Not on file documented as of this encounter Visit Diagnoses Not on filedocumented in this encounter
--- OUTSIDE RECORDS SUMMARY | 2025-07-02 12:10 | XMS_ITS | Encounter Summary ---
Author Organization [employer] ([place], [place], [place], [place]) Address [address] [place] [address] Care Team Providers Care Felt Dyeing Machine Tender Name Role Phone Unavailable Primary Care Provider Unavailabl e Encounter Details Date Type Department Care Team (Late st Contact Info) Description 07/31/2019 Transcribed Document [facility] [place] Family Medicine [facility] [place] [address] Maximiliano Valentin MD [address], [place] [phone] Social History Tobacco Use Types Packs/Day Years Used Date Smoking Tobacco: Never Assessed Comments Unknown Sex and Gender Information Value Date Recorded Sex Assigned at Not on file Legal Sex Female 1:06 PM CDT Gender Identity Not on file Sexual Orientation Not on file documented as of this encounter Miscellaneous Notes * Cerner Conversion Note - Maximiliano Valentin MD - 07/31/2019 4:18 PM FLAT SHEET MAKER Patient Education Materials Follows: Monitored Anesthesia Care, [...] eating solid foods. General instructions ??? Take hqbc-fhf-qukhtyj and prescription medicines only as told by [...] 12/18/2016 Document Revised: 04/13/2018 Document Reviewed: 12/18/2016 [employer] Interactive Patient Education ? 2019 [employer] Steps to Quit Smoking Smoking tobacco [...] 06/24/2010 Document Revised: 04/25/2017 Document Reviewed: 01/12/2016 [employer] Interactive Patient Education ? 2019 [employer]. Colonoscopy, Adult, Care After This sheet gives [...] soft and easy to digest. ??? Take wyva-kam-vaemxyt or prescription medicines only as told by [...] 09/30/2011 Document Revised: 06/28/2018 Document Reviewed: 05/22/2017 [employer] Interactive Patient Education ? 2019 [employer] Inc. [...] 08/14/2013 Document Revised: 02/02/2017 Document Reviewed: 07/21/2016 [employer] Interactive Patient Education ? 2019 [employer] Hemorrhoids Hemorrhoids are swollen veins in [...] times a day. General instructions ??? Take rxby-gal-eqtrdlo and prescription medicines only as told by [...] 06/06/2009 Document Revised: 02/02/2017 Document Reviewed: 05/11/2016 [employer] Interactive Patient Education ? 2019 [employer] Diverticulosis Diverticulosis is a condition that [...] getting enough exercise. ??? Smoking. ??? Taking eeai-ywq-zvsgfha pain medicines, like aspirin and ibuprofen. ??? [...] health care provider or your diet and animal nutrition consultant (dietitian). ? Take a fiber supplement or probiotic, if your health care provider approves. ??? Take hjuv-izw-zchksln and prescription medicines only as told by [...] 05/25/2005 Document Revised: 07/17/2017 Document Reviewed: 07/17/2017 [employer] Interactive Patient Education ? 2019 [employer] Hiatal Hernia A hiatal hernia occurs [...] symptoms. ??? Medicines. These may include: ? Ivyd-rgs-zqparqo antacids. ? Medicines that make your stomach [...] ? Fatty foods, like fried foods. ? [place] fruits, like oranges or lemon. ? Other [...] not drink alcohol. General instructions ??? Take ylod-slv-yjsewqr and prescription medicines only as told by [...] 11/17/2004 Document Revised: 04/02/2018 Document Reviewed: 04/02/2018 [employer] Interactive Patient Education ? 2019 [employer] documented in this encounter Plan of Treatment Not on file documented as of this encounter Visit Diagnoses Not on filedocumented in this encounter
--- OUTSIDE RECORDS SUMMARY | 2025-07-02 12:10 | XMS_ITS | Clinical Summary ---
Author Organization [facility] Address [address] [place] [address] Phone Care Team Providers Care Casework Manager Name Role Phone Unavailable Primary Care Provider Unavailabl e Allergies Active Allergy Reactions Criticality Noted Date Comments Adhesive Other (See Comments) 05/19/2008 Lisinopril Other (See Comments) High 02/26/2025 Povidone-Iodine Other (See Comments),Rash High 11/11 Soap Other (See Comments) Low 02/26/2025 Medications buPROPion (WELLBUTRIN) 100 mg Oral Tablet [...] Puff into the lungs 4 times daily. 02/10/20 22 Active aspirin 81 mg Oral Tablet, Delayed Release (E.C.) Take 81 mg by mouth daily. 02/10/20 22 Active clopidogreL (PLAVIX) 75 mg Oral Tablet Take 75 mg by mouth once. 02/15/20 24 Active clonazePAM (KLONOPIN) 1 mg Oral Tablet Take 1 mg by mouth 2 times daily. 11/23/19 24 Active spironolactone (ALDACTONE) 50 mg Oral Tablet 50 mg by Enteral route daily. 01/25/20 24 Active rosuvastatin (CRESTOR) 40 mg Oral Tablet Take 1 Tablet by mouth daily. 01/25/20 24 Active pregabalin (LYRICA) 150 mg Oral Capsule Take 150 mg by mouth daily. Active ondansetron (ZOFRAN-ODT) 8 mg Oral Tablet, Rapid Dissolve 8 mg. 08/31/20 Active nitroGLYCERIN (NITROSTAT) 0.4 mg SL Tablet, Sublingual Place 0.4 mg under the tongue once. 05/20/20 Active nitrofurantoin, macrocrystal-mon ohydrate, (MACROBID) 100 mg Oral Capsule Take 100 mg by mouth 2 times daily. 02/27/20 24 Active lurasidone 60 mg Oral Tablet Take 60 Tablets by mouth daily. 07/20/20 Active isosorbide mononitrate (IMDUR) 30 mg Oral Tablet Sustained Release 24 hr Take 30 mg by mouth every morning. 07/20/20 Active albuterol-ipratr opium (DUO-NEB) 0.5 mg-3 mg(2.5 mg base)/3 mL Inhl Solution for Nebulization Take 3 mL by nebulization 0800, 1200, 1600, 2000. Active fUROsemide (LASIX) 80 mg Oral Tablet Take 80 mg by mouth once. 01/25/20 24 Active atenoloL (TENORMIN) 25 mg Oral Tablet Take 0.5 Tablets by mouth daily. 30 Tablet 2 03/07/20 24 Active QUEtiapine (SEROQUEL) 100 mg Oral Tablet Take 1 Tablet by mouth 3 times daily. 30 Tablet 2 03/07/20 24 Active gas permeable lens mounter (OXYGEN PERMEABLE LABOR RELATIONS REPRESENTATIVE MISC)Indications :Frequency of urination 2 L Active apixaban (ELIQUIS) 2.5 mg Oral TabletIndication s:Frequency of urination 2.5 mg. 12/26/19 25 Active atorvastatin (LIPITOR) 40 mg Oral TabletIndication s:Frequency of urination 40 mg. 03/12/20 25 Active budesonide-formo teroL (SYMBICORT) 160-4.5 mcg/actuation Inhl HFA Aerosol InhalerIndicatio ns:Frequency of urination Active budesonide-glyco pyr-formoterol 160-9-4.8 mcg/actuation Inhl HFA Aerosol InhalerIndicatio ns:Frequency of urination Twice a day 07/02/20 24 Active bupivacaine (MARCAINE/SENSOR DANNY) 0.5 % (5 mg/mL) Inj SolutionIndicati ons:Frequency of urination Take 2 mL by injection route. 07/24/20 23 Active cefTRIAXone (ROCEPHIN) 1 gram Inj Recon SolnIndications: Frequency of urination 05/22/20 25 Active cephALEXin (KEFLEX) 500 mg Oral CapsuleIndicatio ns:Frequency of urination Active chlorhexidine (HIBICLENS) 4 % Top LiquidIndication s:Frequency of urination Active doxycycline hyclate (VIBRAMYCIN) 100 mg Oral CapsuleIndicatio ns:Frequency of urination Active doxycycline hyclate (VIBRA-TABS) 100 mg Oral TabletIndication s:Frequency of urination Take 1 Tablet by mouth 2 times daily. Active fluconazole (DIFLUCAN) 150 mg Oral TabletIndication s:Frequency of urination TAKE ONE (1) TABLET EVERY DAY BY ORAL ROUTE FOR FIVE (5) DAYS. Active gabapentin (NEURONTIN) 100 mg Oral CapsuleIndicatio ns:Frequency of urination 150 mg. Active sodium hyaluronate (ORTHOVISC) 30 mg/2 mL IAtc SyringeIndicatio ns:Frequency of urination Inject 2 mL every week by intra-articular route. 12/22/19 24 Active HYDROcodone-acet aminophen (NORCO) 5-325 mg Oral TabletIndication s:Frequency of urination 03/02/20 25 Active lidocaine 1% 10 mg/mL (1 %) Inj SolutionIndicati ons:Frequency of urination 05/22/20 25 Active linaCLOtide (LINZESS) 145 mcg Oral CapsuleIndicatio ns:Frequency of urination Take 1 capsule every day by oral route after meal(s) for 30 days. 07/01/20 24 Active mupirocin (BACTROBAN) 2 % Top OintmentIndicati ons:Frequency of urination 02/27/20 25 Active omeprazole-sodiu m bicarbonate (ZEGERID) 40-1.1 mg-gram Oral CapsuleIndicatio ns:Frequency of urination Active ondansetron (ZOFRAN) 4 mg Oral TabletIndication s:Frequency of urination 04/25/20 25 Active oxyCODONE-acetam inophen (PERCOCET) 5-325 mg Oral TabletIndication s:Frequency of urination TAKE ONE (1) TABLET EVERY SIX (6) HOURS BY ORAL ROUTE NEEDED FOR THREE (3) DAYS. Active phenazopyridine (PYRIDIUM) 200 mg Oral TabletIndication s:Frequency of urination TAKE ONE (1) TABLET THREE (3) TIMES A DAY BY ORAL ROUTE AFTER MEAL(S) FOR FIVE (5) DAYS. Active potassium chloride (KLOR-CON M) 20 mEq Oral Tab Sust.Rel. Particle/Crystal Indications:Freq uency of urination Active potassium chloride (MICRO-K) 10 mEq Oral Capsule, Sustained ReleaseIndicatio ns:Frequency of urination 04/18/20 25 Active prasugreL HCl (EFFIENT) 10 mg Oral TabletIndication s:Frequency of urination 10 mg. 03/12/20 25 Active semaglutide, weight loss, (WEGOVY) 0.25 mg/0.5 mL SubQ Pen InjectorIndicati ons:Frequency of urination 0.5 MG SUBCUTANEOUSLY WEEKLY FOR CORONARY ARTERY DISEASE; ADMINISTER WEEKS ONE (1) THROUGH FOUR (4) OF THERAPY Active predniSONE (DELTASONE) 20 mg Oral TabletIndication s:Frequency of urination Active semaglutide, weight loss, (WEGOVY) 1 mg/0.5 mL SubQ Pen InjectorIndicati ons:Frequency of urination INJECT ONE (1) MG (0.5 ML) SUBCUTANEOUSLY WEEKLY Active semaglutide, weight loss, (WEGOVY) 1.7 mg/0.75 mL SubQ Pen InjectorIndicati ons:Frequency of urination INJECT 1.7 MG (0.75 ML) SUBCUTANEOUSLY WEEKLY; ADMINISTER WEEKS 13 THROUGH 16 OF THERAPY Active semaglutide, weight loss, 2.4 mg/0.75 mL SubQ Pen InjectorIndicati ons:Frequency of urination 2.4 mg. 12/13/19 25 Active sulfamethoxazole -trimethoprim (BACTRIM DS) 800-160 mg Oral TabletIndication s:Frequency of urination Active triamcinolone acetonide (KENALOG) 10 mg/mL Inj SuspensionIndica tions:Frequency of urination Take 2 mg by injection route. 07/24/20 23 Active valsartan (DIOVAN) 80 mg Oral TabletIndication s:Frequency of urination 04/22/20 25 Active valsartan (DIOVAN) 160 mg Oral TabletIndication s:Frequency of urination 160 mg. 03/12/20 25 Active buPROPion (WELLBUTRIN XL) 300 mg Oral Tablet Sustained Release 24 hrIndications:Fr equency of urination 04/11/20 25 Active clonazePAM (KLONOPIN) 0.5 mg Oral TabletIndication s:Frequency of urination 05/28/20 25 Active lurasidone (LATUDA) 40 mg Oral TabletIndication s:Frequency of urination 02/10/20 25 Active lurasidone (LATUDA) 80 mg Oral TabletIndication s:Frequency of urination 04/11/20 25 Active QUEtiapine (SEROQUEL) 200 mg Oral TabletIndication s:Frequency of urination 04/11/20 25 Active traZODone (DESYREL) 300 mg Oral TabletIndication s:Frequency of urination 04/11/20 25 Active Active Problems Problem Noted Date Diagnosed [...] Resolved Date AMIRA on CPAP 03/05/2024 03/05/2024 Encounters Date Type Department Care Team Description 06/09/2025 Results Follow-Up [facility] Urogynecology [address] [address] Sue Rodriguez MD URINE CULTURE (NO STAIN), URINALYSIS 06/05/2025 1:20 PM EDT Office Visit [facility] Urogynecology [address] [address] Sue Rodriguez MD Frequency of urination (Primary Dx); Urge incontinence; Overactive bladder; Acquired absence of both cervix and uterus; Restless legs syndrome (RLS); COPD, severe ([facility]); Bipolar disorder with moderate depression ([facility]); Dependence on continuous supplemental oxygen; AMIRA treated with BiPAP; Chronic hypoxemic respiratory failure ([facility]); Acute on chronic systolic congestive heart failure, NYHA class 1 ([facility]); Body mass index (BMI) 60.0-69.9, adult ([facility]) from Last 3 Months Immunizations Immunization Administration Dates Next Due Influenza Seasonal Injectable PF 07/07/2017 Influenza Vaccine Quadrivalent 07/09/2019,2017 Influenza Vaccine Quadrivalent PF 06/23/2022,06/2020 Tdap 04/19/2022 Zoster 04/25/2016 Zoster Recombinant 07/22/2022,04/19/2022 Surgical History Surgery Date Site/Laterality Comments GASTRIC BYPASS SURGERY COLECTOMY CHOLECYSTECTOMY HYSTERECTOMY, TOTAL ABDOMINAL SECTION Medical History Medical History Date Comments [place], old pt states 3 MIs Stomach ulcer [...] SAB Ectopic Multiple Livin g Live Births 6 4 4 Date Outcome GA Total Labor Labor/2nd/3rd Weight Sex Type Anes PTL Manuela A1 A5 Name Clin Term Term Term Term Last Filed Vital Signs Vital Sign Reading Time Taken Comments Blood Pressure 104/80 03/05/2024 1:19 PM EDT Pulse 66 06/05/2025 1:41 PM EDT Temperature 36.5 C (97.7 F) 03/05/2024 1:19 PM EDT Respiratory Rate 18 11/12/2015 12:59 AM EST Oxygen Saturation 95% 06/05/2025 1:41 PM EDT Inhaled Oxygen Concentration - - Weight 130.6 kg (288 lb) 06/05/2025 1:41 PM EDT Height 162.6 cm (5' 4 ) 03/05/2024 1:19 PM EDT Body Mass Index 49.44 03/05/2024 1:19 PM EDT Plan of Treatment Health Maintenance Due Date Last Done Comments Wellness Exam Medicare 1967 Hepatitis C Screening 1982 Pneumococcal Vaccine 50+ (1 of 2 - PCV) 1983 Cologuard 2009 Colon Cancer Screening 2009 Colonoscopy 2009 FIT 2009 Sigmoidoscopy 2009 Virtual Colonography 2009 Breast Cancer Screening 07/27/2022 07/27/2020 RSV or 60+ (1 - Risk 60-74 years 1-dose series) 2024 COVID-19 Vaccine ( season) 2025 Influenza Vaccine (#1) 2025 2, 05/21/2020, 07/09/2019, [...] 1: 58 PM EDT Frequency of urination MM MAMMO DIGITAL HECTOR SCREEN BILAT Routine 07/27/2020 2:54 PM EST Encounter for screening mammogram for malignant neoplasm of breast from Last 3 Months or Most Recently Relevant to Health Maintenance Results * URINALYSIS (06/05/2025 2:01 PM EDT) UA Color Yellow 06/05/2025 9:06 PM EDT [facility] UA Appear Clear Clear 06/05/2025 9:06 PM EDT [facility] UA Glucose Negative Negative mg/dL 06/05/2025 9:06 PM EDT [facility] UA Ketones Negative Negative mg/dL 06/05/2025 9:06 PM EDT [facility] UA Blood Negative Negative 06/05/2025 9:06 PM EDT [facility] UA pH 6.5 5.0 - 8.0 pH 06/05/2025 9:06 PM EDT [facility] UA Protein Negative Negative mg/dL 06/05/2025 9:06 PM EDT [facility] UA Urobilinogen Normal <=1 mg/dL 9:06 PM EDT [facility] UA Bili Negative Negative 06/05/2025 9:06 PM EDT [facility] UA Nitrite Negative Negative 06/05/2025 9:06 PM EDT [facility] UA Leuk Est Negative Negative 06/05/2025 9:06 PM EDT [facility] UA Spec Grav 1.020 1.001 - 1.035 no units 06/05/2025 9:06 PM EDT [facility] [facility] Comment:Reference range james d for random specimens only. Urine URINARY BLADDER STRUCTURE / Unknown 06/05/2025 2:01 PM EDT 06/05/2025 2:01 PM EDT Sue Rodriguez MD URINE ORDERABLES Final Re sult Performing Organization Address [facility] Co de Phone Number [facility] [employer] [address] [facility] , [place] [address] * URINE CULTURE (NO STAIN) (06/05/2025 2:01 PM EDT) Culture No growth at 30 hours. 06/07/2025 6:58 AM EDT [facility] [employer] Urine URINARY BLADDER STRUCTURE / Unknown 06/05/2025 2:01 PM EDT 06/05/2025 2:01 PM EDT Sue Rodriguez MD MICROBIOLOGY - GENERAL OR DERABLES Final Result Performing Organization Address [facility] de Phone Number [facility] [address] [facility] , [place] [address] * SEP URINALYSIS POC (06/05/2025 1:58 PM EDT) UA Color POC Yellow Color 06/05/2025 2:01 PM EDT [facility] Appear POC Clear Clear 06/05/2025 2:01 PM EDT [facility] Gluc POC Negative Negative mg/dL 06/05/2025 2:01 PM EDT [facility]A Bili POC Negative Negative 06/05/2025 2:01 PM EDT [facility] UA Ketones POC Negative Negative mg/dL 06/05/2025 2:01 PM EDT [facility] UA SG POC 1.025 1.001 - 1.035 no units 06/05/2025 2:01 PM EDT [facility] Blood POC Negative Negative 06/05/2025 2:01 PM EDT [facility] U[facility] pH POC 6.5 5.0 - 8.0 pH 06/05/2025 2:01 PM EDT [facility] UA Protein POC Negative Negative mg/dL 06/05/2025 2:01 PM EDT [facility] UA Urobilinogen POC 1.0 0.2, 1.0 06/05/2025 2:01 PM EDT [facility] Nitrite POC Negative Negative 06/05/2025 2:01 PM EDT [facility] UA Leuk Est POC Negative Negative 2:01 PM EDT [facility] Urine STRUCTURE OF URINARY TRACT PROPER / Unknown 06/05/2025 1:58 PM EDT 06/05/2025 2:01 PM EDT Sue Rodriguez MD POINT OF CARE TEST ORDERA BLES Final Result [facility] [place], [place] [id number] * MM MAMMO DIGITAL HECTOR SCREEN BILAT (07/27/2020 2:54 PM EST) Anatomical Region Laterality Modality Breast Bilateral Mammography 08/14/2020 3:13 PM EST Impressions 08/14/2020 3:13 PM EST Negative ([id number]) ~ RECOMMENDATION: Routine screening mammogram in 1 [...] the next mammogram, in accordance with the [employer] and the Society of Breast Imaging recommendations. Narrative 08/14/2020 3:13 PM EST Procedure:MM MAMMO DIGITAL HECTOR SCREEN BILAT ~ Reason for exam: screening, asymptomatic. Z12.31-Encounter for screening mammogram for malignant neoplasm of [id number]-CM ~ MM MAMMO DIGITAL HECTOR SCREEN BILAT [...] for screening mammogram for malignant neoplasm of [id number]-YNC-[id number]-CM ~ MM MAMMO DIGITAL HECTOR SCREEN BILAT Bilateral CC and MLO view(s) were taken. There are scattered fibroglandular densities. Prior study comparison: Compared with prior studies the most recentbeing No prior studies available for comparison. No mammographic evidence of malignancy. ~ IMPRESSION: Negative ([id number]) ~ RECOMMENDATION: Routine screening mammogram in 1 [...] the next mammogram, in accordance with the [employer] and the Society of Breast Imaging recommendations. Esthela Parrish APRN [facility] ORDERABLE S Final Result from Last 3 Months or Most Recently Relevant to Health Maintenance Insurance [employer] MEDICARE CMPLT FS HMO MR
--- OUTSIDE RECORDS SUMMARY | 2025-07-02 12:10 | XMS_ITS | Encounter Summary ---
Author Organization [employer] ([place], [place], [place]) Address [address] [place] [address] Care Team Providers Care Peanut Sheller Name Role Phone Unavailable Primary Care Provider Unavailabl e Encounter Details Date Type Department Care Team (Late st Contact Info) Description 07/31/2019 Transcribed Document [facility] Family Medicine [facility] [place] [address] ProviderMaximiliano MD [address], [place] [id number] Social History Tobacco Use Types Packs/Day Years Used Date Smoking Tobacco: Never Assessed Comments Unknown Sex and Gender Information Value Date Recorded Sex Assigned at Not on file Legal Sex Female 1:06 PM CDT Gender Identity Not on file Sexual Orientation Not on file documented as of this encounter Miscellaneous Notes * [employer]ner Conversion Note - Historical ProviderMD - 07/31/2019 1:19 PM UNIFORM ROOM ATTENDANT Pre Procedure Adult Entered On: 07/31/2019 13:22 EST Performed On: 07/31/2019 13:19 EST by Katelin Abrams RN Height and Weight, Clinical Dosing Height Source : Stated Height Entry Format : [place] Height, Feet : 5 ft(Converted to: 152 cm, 60 Inch) Height, Inches : 4 Inch(Converted to: 0 ft 4 Inch, 10.16 cm) Clinical Height : 162.56 cm Weight Source : Standing scale Weight Entry Format : [place] Clinical Dosing Weight : 136.02 kg Weight, Pounds : 299 lb Weight, Ounces : 4 oz Body Surface Area (BSA) : 2.32 m2 Body Mass Index : 51.5 kg/m2 (>HHI) [place] Body Weight : 54 kg Katelin Abrams [...] day.. (Last Updated: 05/02/2018 09:47:27 EDT by OWSALDO AMIN RN) Infectious Disease History Infectious Disease [...] Katelin Abrams RN - 07/31/2019 13:19 EST [place] Suicide Severity Rating Scale (C-SSRS) CSSRS Past [...] Ambulatory Legal Guardian : Spouse Support Person/Patient Adult Basic Studies Teacher : Yes Support Person/Pt Rep Name : Kiko Support Person/Pt Rep Contact Information : [phone] Want Family/Rep/Phys Notified of Admit : No Emergency Contact #1 : na Emergency Contact #1 Phone Number : na Emergency Contact #1 Relationship : na Emergency Contact #2 : na Emergency Contact #2 Phone Number : na Emergency Contact #2 Relationship : na Information Obtained From : Patient Primary Language : [place] Preferred Communication Mode : Verbal Communication Barrier [...] Scale Risk Level : 0-24 Low Risk Ariel Fall Interventions : Adequate lighting, Assistive devices [...]
--- OUTSIDE RECORDS SUMMARY | 2025-07-02 12:10 | XMS_ITS | Encounter Summary ---
Author Organization [place] [address] Care Team Providers Care Coat Operator Insulator Name Role Phone Unavailable Primary Care Provider Unavailabl e Encounter Details Date Type Department Care Team (Latest Contact Info) Description 06/09/2025 Results Follow-Up [facility] Urogynecology [address] [address] Sue Rodriguez MD [address], [place] [id number] URINE CULTURE (NO STAIN), URINALYSIS Social History Tobacco Use Types Packs/Day Years [...] on file documented as of this encounter Progress Notes * Sue Rodriguez MD - 06/09/2025 7:20 AM EDT Urogyn Staff Patient has negative urine culture. Please call and notify her. Thank you. Sue Rodriguez MD documented in this encounter Plan of Treatment Not on file documented as of this encounter Goals Goal Patient Goal Type Associated Problems Recent Progress Patient-Stated? Author Maintain a healthy diet, exercise regularly and maintain an ideal body weight General No Jessica Sagastume RMA Stay Tobacco Free Lifestyle No Jessica Sagastume RMA documented as of this encounter Visit Diagnoses Not on filedocumented in this encounter Additional Health Concerns Assessment Noted Time PHQ-9 Depression Total Score: 27 024 1:18 PM EDT PHQ-2 Depression Total Score: 6 03/05/20 24 1:18 PM EDT documented as of this encounter
--- OUTSIDE RECORDS SUMMARY | 2025-07-02 12:10 | XMS_ITS | Encounter Summary ---
Author Organization [employer] ([place], [place], [place], [place]) Address [address] [place] [address] Care Team Providers Care Cattle Trader Name Role Phone Unavailable Primary Care Provider Unavailabl e Encounter Details Date Type Department Care Team (Late st Contact Info) Description 02/10/2021 Transcribed Document [facility] Family Medicine [facility] [address] Maximiliano Valentin MD [address], [place] [id number] Social History Tobacco Use Types Packs/Day Years [...] mask and 2 L of supplemental oxygen. /[id number] Cecille Brianna Rivas MD PW/AQ / PW / MODL /[id number] CC: Emily Lawrence MD documented in this encounter Plan of Treatment Not on file documented as of this encounter Visit Diagnoses Not on filedocumented in this encounter
--- OUTSIDE RECORDS SUMMARY | 2025-07-02 12:11 | XMS_ITS | Encounter Summary ---
Author Organization [employer] ([place], [place], [place], [place]) Address [address] [place] [address] Care Team Providers Care Pyrometallurgical Engineer Name Role Phone Unavailable Primary Care Provider Unavailabl e Encounter Details Date Type Department Care Team (Late st Contact Info) Description 07/31/2019 Transcribed Document [facility] [place] [address] [place] [address] ProviderMaximiliano MD [address], [place] [id number] Social History Tobacco Use Types Packs/Day Years Used Date Smoking Tobacco: Never Assessed Comments Unknown Sex and Gender Information Value Date Recorded Sex Assigned at Not on file Legal Sex Female 1:06 PM CDT Gender Identity Not on file Sexual Orientation Not on file documented as of this encounter Miscellaneous Notes * [employer] Conversion Note - Historical ProviderMD - 07/31/2019 4:25 PM ONLINE MERCHANDISING MANAGER [address] [address] ISA ZHANG :1965 Visit Time:07/31/2019 [...] As needed, only if needed Where: [address] [facility] [address] [place] [address]- Business (1) Medications What How [...] eating solid foods. General instructions ??? Take pmdi-jka-iwypbko and prescription medicines only as told by [...] 12/18/2016 Document Revised: 04/13/2018 Document Reviewed: 12/18/2016 [employer] Patient Education ?? 2019 [employer]. Steps to Quit Smoking Smoking tobacco can [...] 06/24/2010 Document Revised: 04/25/2017 Document Reviewed: 01/12/2016 [employer] Patient Education ?? 2019 [employer]. [...] soft and easy to digest. ??? Take jhfv-cfe-rlkjtxy or prescription medicines only as told by [...] 09/30/2011 Document Revised: 06/28/2018 Document Reviewed: 05/22/2017 [employer] Patient Education ?? 2019 [employer] Esophagogastroduodenoscopy, Care After Refer to this [...] 08/14/2013 Document Revised: 02/02/2017 Document Reviewed: 07/21/2016 [employer] Patient Education ?? 2019 [employer] Hemorrhoids Hemorrhoids are swollen veins in [...] times a day. General instructions ??? Take dxmo-byz-lfqajdd and prescription medicines only as told by [...] 06/06/2009 Document Revised: 02/02/2017 Document Reviewed: 05/11/2016 [employer] Patient Education ?? 2019 [employer]. Diverticulosis Diverticulosis is a condition that develops [...] getting enough exercise. ??? Smoking. ??? Taking hmch-vnn-nsjxwdg pain medicines, like aspirin and ibuprofen. ??? [...] health care provider or your diet and dairy nutrition consultant (dietitian). ? Take a fiber supplement or probiotic, if your health care provider approves. ??? Take ivcm-kcs-liunrfk and prescription medicines only as told by [...] 05/25/2005 Document Revised: 07/17/2017 Document Reviewed: 07/17/2017 [employer] Patient Education ?? 2019 [employer] Hiatal Hernia A hiatal hernia occurs [...] symptoms. ??? Medicines. These may include: ? Vkis-ycg-bpdvqtw antacids. ? Medicines that make your stomach [...] ? Fatty foods, like fried foods. ? [place] fruits, like oranges or lemon. ? Other [...] not drink alcohol. General instructions ??? Take ndcu-zxw-zpjoylj and prescription medicines only as told by [...] 11/17/2004 Document Revised: 04/02/2018 Document Reviewed: 04/02/2018 [employer] Patient Education ?? 2019 [employer]. Emergency Awareness and Preventative Care STROKE is [...] Assistance with quitting is available by contacting 2-889-CEAL-NOW. This is a free resource providing counseling, [...] was given the opportunity to ask questions. Patient/Logistics Support Name: Patient/Logistics Support Signature: Relationship to Patient: Clinician/Hospital Logistics Support Signature: Date: documented in this encounter Plan of Treatment Not on file documented as of this encounter Visit Diagnoses Not on filedocumented in this encounter
--- OUTSIDE RECORDS SUMMARY | 2025-07-02 12:11 | XMS_ITS | Clinical Summary ---
Author Organization Healthcare Address [address] [place] [address] Care Team Providers Care Welding Setter Name Role Phone Kobe Steele MD Primary Care Provider [phone] Social History Tobacco Use Types Packs/Day Years [...] Screening 1965 [facility]-Medicare Annual Wellness (AWV) 1965 [facility]-/Child/Adol SDOH Screenings 1965 [facility]- SDOH Screenings 1982 [facility]-Adult SDOH Screenings 1982 [facility]-Pap Smear 1985 [facility]-Cervical Cancer Screening 1994 [facility]-HPV/Cotest 1994 CT Colonography 2009 Colonoscopy 2009 FIT-DNA 2009 FIT 2009 FOBT 2009 Sigmoidoscopy 2009 [facility]-Colorectal Cancer Screening 2009 [facility]-Pneumococcal Vaccine: 50+ Years (1 of 1 - PCV) 2014 [facility]-Breast Cancer Screening 07/27/2022 07/27/2020, 1 09/26/2019 [facility]-Zoster Vaccines (3 of 3) 09/16/2022 07/22/2022, 04/25/2016 [facility]-UIPCZ-05 Vaccine ( - season) 2025 [facility]-Influenza Vaccine (#1) 05/12/202506/23, 05/21/2020, 07/09/2019, Additional [...] this topic Insurance [employer] MEDICARE Care Teams Welding Setter Relationship Specialty Start Date End Date Kobe Steele MD [address] [place] [address] PCP - General 01/22/21
--- OUTSIDE RECORDS SUMMARY | 2025-07-02 12:11 | XMS_ITS | Clinical Summary ---
Author Organization [employer] ([place], [place], [place], [place]) Address [address] [place] [address] Care Team Providers Care Crew Caller Name Role Phone Unavailable Primary Care Provider [...]
--- OUTSIDE RECORDS SUMMARY | 2025-07-02 12:11 | XMS_ITS | Encounter Summary ---
Author Organization [employer] ([place], [place], [place], [place]) Address [address] [place] [address] Care Team Providers Care Multicraft Operator Name Role Phone Unavailable Primary Care Provider Unavailabl e Encounter Details Date Type Department Care Team (Late st Contact Info) Description 07/31/2019 Transcribed Document [facility] [place] Family Medicine [facility] [place] [address] ProviderMaximiliano MD [address], [place] [address] Social History Tobacco Use Types Packs/Day Years Used Date Smoking Tobacco: Never Assessed Comments Unknown Sex and Gender Information Value Date Recorded Sex Assigned at Not on file Legal Sex Female 1:06 PM CDT Gender Identity Not on file Sexual Orientation Not on file documented as of this encounter Miscellaneous Notes * [employer]ner Conversion Note - Maximiliano ProviderMD - 07/31/2019 1:15 PM LARGE ENGINE ASSEMBLER Patient: ISA ZHANG Age: 53 years Sex: Female : 1965 Associated Diagnoses: None Author: FERNANDA KEE MD-GAE Basic Information Source of history: Self. Referral source: [facility] (REF[facility]. Chief Complaint Dysphagia and history of [...] Histories Past Medical History: Active Tobacco abuse (751051539) AMIRA - Obstructive sleep apnea (4717388715) IBS (irritable bowel syndrome) ([id number]) Arthritis (4993924) Bipolar (522643177) SVT (supraventricular tachycardia) (93826296) Barretts esophagus (019518192) CAD (coronary artery disease) (4020587277) Abdominal pain (49974377) bleeding ulcer (557870906) Resolved Obesity (6421380002): Resolved. Diverticulitis (892571854): Resolved. 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 Polycystic ovarian disease (287208573): Resolved. Diverticulitis (389478251): Resolved. Procedure history: Gastric bypass. c section x 3. D and C. hysterectomy. tonsillectomy. volvulous. Partial colectomy. Appendectomy. delivery only; (56750). Ventral hernia repair. Cholecystectomy; (89734). heart stents x2. Social History Social & [...] All Problems Abdominal pain / SNOMED CT 30196962 / Confirmed Arthritis / SNOMED CT 4958671 / Confirmed Arthritis / SNOMED CT 2068262 / Confirmed Barretts esophagus / SNOMED CT 656217951 / Confirmed Bipolar / SNOMED CT 081028333 / Confirmed Bipolar 1 disorder / SNOMED CT 3774123354 / Confirmed bleeding ulcer / SNOMED CT 036865861 / Confirmed CAD (coronary artery disease) / SNOMED CT 6746932575 / Confirmed Gallstones / SNOMED CT 336792839 / Confirmed History of obstructive sleep apnea / IMO 65013974 / Confirmed IBS (irritable bowel syndrome) / SNOMED CT [id number] / Confirmed Irritable bowel / SNOMED CT 93678815 / Confirmed Myocardial infarct / SNOMED CT 81407326 / Confirmed AMIRA - Obstructive sleep apnea / SNOMED CT 2739912993 / Confirmed Polycystic ovarian syndrome / SNOMED CT 794892326 / Confirmed Sleep apnea / SNOMED CT 619988037 / Confirmed SVT (supraventricular tachycardia) / SNOMED CT 35392733 / Confirmed Tobacco abuse / SNOMED CT 885205157 / Confirmed Resolved: Diverticulitis / SNOMED CT 417924320 Resolved: Diverticulitis / SNOMED CT 601769279 Resolved: Obesity / SNOMED CT 4683559265 Resolved: Polycystic ovarian disease / SNOMED CT 425454481 Resolved: Volvulus of colon / SNOMED CT 13136157 Canceled: HTN - Hypertension / SNOMED CT 1639150940 Canceled: Hyperlipidemia / SNOMED CT 70389899 Canceled: Hyperlipidemia / SNOMED CT 84433719 Canceled: Hypertension / SNOMED CT 6218136106, Active Problems (18) Abdominal pain Arthritis Arthritis [...] No deformity, Normal gait. Integumentary: Warm, Dry, [place], No rash. Integumentary exam: Face, Chest, Arm, [...]
--- OUTSIDE RECORDS SUMMARY | 2025-07-02 12:11 | XMS_ITS | Encounter Summary ---
Author Organization [employer] ([place], [place], [place], [place]) Address [address] [place] [address] Care Team Providers Care Glass Cutter Hand Name Role Phone Unavailable Primary Care Provider Unavailabl e Encounter Details Date Type Department Care Team (Late st Contact Info) Description 07/31/2019 Transcribed Document [facility] [place] [facility] [place] [address] ProviderMaximiliano MD [address], [place] [id number] Social History Tobacco Use Types Packs/Day Years Used Date Smoking Tobacco: Never Assessed Comments Unknown Sex and Gender Information Value Date Recorded Sex Assigned at Not on file Legal Sex Female 1:06 PM CDT Gender Identity Not on file Sexual Orientation Not on file documented as of this encounter Miscellaneous Notes * Cerner Conversion Note - Historical ProviderMD - 07/31/2019 3:26 PM FRONT DESK LEAD [facility] PACU Summary Primary Physician: BART MURPHY MD-GAE Finalized Date/Time: 07/31/19 16:30:11 Pt. Name: ISA ZHANG D.O.B./Sex: 1965 Female Med Rec #: [id number] Physician: BART MURPHY MD-GAE Financial #: [id number] Pt. Type: O [place] [facility] [place] Admit/Disch: 07/31/19 13:06:00 - Institution: [facility] PACU Case Times Entry 1 In PACU I 07/31/19 15:56:00 Ready for PACU 07/31/19 16:25:00 Discharge Discharge from PACU 07/31/19 16:30:00 I [facility] PACU Case Times Audit 07/31/19 16:30:10 Grinder Machine Setter: YEISON Modifier: BRYANTHE <+> 1 Discharge from PACU I 07/31/19 16:25:56 Grinder Machine Setter: YEISON Modifier: BRYANTHE <+> 1 Ready for PACU Discharge Finalized By: OSWALDO AMIN RN Document Signatures Signed By: OSWALDO AMIN RN 07/31/19 16:30 Electronically signed by Brigitte [facility] Conversion Log Tumbler Cerner at 12/28/2022 7:27 AM CDT documented in this encounter Plan of Treatment Not on file documented as of this encounter Visit Diagnoses Not on filedocumented in this encounter
--- OUTSIDE RECORDS SUMMARY | 2025-07-02 12:12 | XMS_ITS | Encounter Summary ---
Author Organization [employer] ([place], [place], [place], [place]) Address [address] [place] [address] Care Team Providers Care Office Aide Name Role Phone Unavailable Primary Care Provider Unavailabl e Encounter Details Date Type Department Care Team (Late st Contact Info) Description 03/17/2021 Transcribed Document [facility] [place] Family Medicine [address] [place] [address] ProviderMaximiliano MD [address] [place], [place] [id number] Social History Tobacco Use Types Packs/Day Years [...]
--- OUTSIDE RECORDS SUMMARY | 2025-07-02 12:12 | XMS_ITS | Encounter Summary ---
Author Organization [employer] ([place], [place], [place], [place]) Address [address] [place] [address] Care Team Providers Care Principal Mechanical Engineer Name Role Phone Unavailable Primary Care Provider Unavailabl e Encounter Details Date Type Department Care Team (Late st Contact Info) Description 03/17/2021 Transcribed Document [facility] [place] [facility] [place] [address] ProviderMaximiliano MD [facility] [place], [place] [id number] Social History Tobacco Use Types Packs/Day Years [...] On: 03/17/2021 16:26 EDT by NIDHI JUAN experimental mechanic electrical Documentation Discharge Date/Time : 03/17/2021 16:39 EDT [...] EDT Electronically signed by Chanel Briggs Conversion Home Health Clinical Supervisor Cerner at 12/28/2022 7:34 AM CDT documented in this encounter Plan of Treatment Not on file documented as of this encounter Visit Diagnoses Not on filedocumented in this encounter
--- OUTSIDE RECORDS SUMMARY | 2025-07-02 12:12 | XMS_ITS | Encounter Summary ---
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
--- OUTSIDE RECORDS SUMMARY | 2025-07-02 12:12 | XMS_ITS | Referral Summary ---
Author Organization [employer] ([place], [place], [place], [place]) Address [address] [place] [address] Care Team Providers Care Tunneling Machine Operator Name Role Phone Unavailable Primary [...]
--- OUTSIDE RECORDS SUMMARY | 2025-07-02 12:12 | XMS_ITS | Encounter Summary ---
Author Organization [employer] ([place], [place], [place], [place]) Address [address] [place] [address] Care Team Providers Care Rat Culturist Name Role Phone Unavailable Primary Care Provider Unavailabl e Encounter Details Date Type Department Care Team (Late st Contact Info) Description 03/17/2021 Transcribed Document [facility] [place] [facility] [place] [address] ProviderMaximiliano MD [address], [place] [id number] Social History Tobacco Use Types Packs/Day Years [...] Source : Stated Height Entry Format : [place] Height, Feet : 5 ft(Converted to: 152 cm, 60 Inch) Height, Inches : 4 Inch(Converted to: 0 ft 4 Inch, 10.16 cm) Clinical Height : 162.56 cm Weight Source : Standing scale Weight Entry Format : [place] Clinical Dosing Weight : 144.09 kg Weight, Pounds : 317 lb Body Surface Area (BSA) : 2.38 m2 Body Mass Index : 54.5 kg/m2 (>HHI) [place] Body Weight : 54 kg NIDHI JUAN [...] NIDHI JUAN RN - 03/17/2021 8:30 EDT [place] Suicide Severity Rating Scale (C-SSRS) CSSRS Past [...] Spouse Legal Guardian : No Support Person/Patient Gluer And Wedger : Yes Support Person/Pt Rep Name : Kiko Support Person/Pt Rep Contact Information : [phone] Want Family/Rep/Phys Notified of Admit : No Emergency Contact #1 : Kiko Emergency Contact #1 Emergency Contact #1 Relationship : spouse Emergency Contact #2 : n/a Emergency Contact #2 Phone Number : n/a Emergency Contact #2 Relationship : n/a Chief Complaint : L/C Information Obtained From : Patient Primary Language : Gabonese Preferred Communication Mode : Verbal Communication Barrier : None Data Warehouse Specialist Needed : No NIDHI JUAN RN - [...] Scale Risk Level : 0-24 Low Risk [place] Fall Interventions : Adequate lighting, Assistive devices [...]
--- OUTSIDE RECORDS SUMMARY | 2025-07-02 12:12 | XMS_ITS | Encounter Summary ---
Author Organization [employer] ([place], [place], [place], [place]) Address [address] [place] [address] Care Team Providers Care Health Promotion Coordinator Name Role Phone Unavailable Primary Care Provider Unavailabl e Encounter Details Date Type Department Care Team (Late st Contact Info) Description 03/17/2021 Transcribed Document [facility] [place] Family Medicine [address] [place] [address] ProviderMaximiliano MD [address], [place] [id number] Social History Tobacco Use Types Packs/Day Years [...] Alice Benavides RN for Dr. Kat and RT Kathrine warehouse general laborer NIDHI JUAN RN - 03/17/2021 9:53 EDT documented in this encounter Plan of Treatment Not on file documented as of this encounter Visit Diagnoses Not on filedocumented in this encounter
[2025-07-02 12:36] LABS: Albumin Level 3.7 g/dl (3.5-5.0); Chloride 102 mmol/L (98-107)
[2025-07-02 12:37] LABS: Potassium 4.4 mmoL/L (3.5-5.1); Sodium 138 mmol/L (136-145)
[2025-07-02 12:39] LABS: Alanine Aminotransferase 27 U/L (12-78); Alkaline Phosphatase 67 U/L (38-126); Anion Gap 11.4 mEq/L (5-15); Aspartate Amino Transferase 43 U/L (14-36); Bilirubin,Direct 0.0 mg/dl (0.0-0.4); Bilirubin,Indirect 0.4 mg/dL (0.0-0.9); Bilirubin,Total 0.4 mg/dl (0.2-1.3); Bilirubin,Unconjugated 0.4 mg/dL (0.0-1.1); Blood Urea Nitrogen 6 mg/dl (7-17); Carbon Dioxide 29 mmol/L (22.0-30.0); Cholesterol 163 mg/dl (140-200); Creatinine,Serum 0.80 mg/dl (0.52-1.04); Estimated Glomerular Filt Rate 73 ml/min (>60); GFR (African American) 89 ML/MIN (>60); Total Protein,Serum 6.5 g/dl (6.3-8.2); Triglycerides 91 mg/dl (30-150)
[2025-07-02 12:40] LABS: Calcium 8.7 mg/dl (8.4-10.2); Glucose 83 mg/dl (74-100); HDL Cholesterol 63 mg/dl (40-60); Magnesium 2.0 mg/dl (1.6-2.3)
[2025-07-02 12:56] LABS: Free T4 (Free Thyroxine) 1.27 ng/dl (0.78-2.19)
[2025-07-02 13:09] LABS: Thyroid Stimulating Hormone 1.57 uIU/mL (0.465-4.68)
== END 2025-07-02 23:59 | disposition home or self-care (01) ==
LOC: LAB 11:27
PROVIDERS: PCP Family Medicine; Visit Provider Nurse Practitioner Family
DX: I25.10 Atherosclerotic heart disease of native coronary artery without angina pectoris (principal); E78.5 Hyperlipidemia, unspecified
CPT/HCPCS: 36415; 80048; 80061; 80076; 83735; 84439; 84443; 85025